=== PATIENT | male | born 1980 | race Caucasian/White ===

== ENCOUNTER 2020-05-02 01:52 | Emergency (ER) | payer OTHER, SELFPAY ==
[2020-05-02 02:04] VITALS: BP 136/77; PULSE 108; RESP 18; TEMP 36.1; O2SAT 98; BMI 25.2
--- NOTE | 2020-05-02 02:15 | ED_ITS ---
HPI - Abdominal Pain General Chief Complaint: Abdominal Pain Stated Complaint: ABD PAIN Time Seen by Provider: 05/02/20 02:15 History of Present Illness HPI narrative: This is a 39-year-old male with significant past medical history of diabetes, glaucoma, and a prior episode of diverticulitis with abscess and now presents with worsening crampy with intermittent sharp / stabbing abdominal discomfort since yesterday morning that has worsened throughout the day and is associated with nausea and an isolated episode of nonbilious /nonbloody vomiting, but he states he is still able to pass flatus. He denies any urinary pain / burning /frequency. Related Data Previous Rx's Medication Instructions Recorded amoxicillin-pot clavulanate 1 tab PO Q12H 10 Days #20 tab 05/02/20 [Augmentin] Allergies Allergy/AdvReac Type Severity Reaction Status Date / Time No Known Allergies Allergy Verified 05/02/20 02:04 [No Known Allergies*] Review of Systems Review of Systems Pertinent positives and negatives as stated in HPI 10 point review of systems is otherwise negative. Physical Exam Vital Signs and I&O and Narrative: Vital Signs and I&O: Vital Signs Temp 98.1 F 05/02/20 06:13 Pulse 78 05/02/20 06:13 Resp 18 05/02/20 04:03 BP 115/76 05/02/20 06:13 Pulse Ox 99 05/02/20 06:13 Intake & Output 05/01/20 05/02/20 05/02/20 18:59 06:59 18:59 Intake Total 1150 / 1150 Balance 1150 / 1150 Weight 73.028 kg Intake: Intake, IV Amoun t 1150 / 1150 cefTRIAXone so dium 1 gm In 0.9 50 / 50 % Sodium Chlor rosio 50 ml @ 100 mls/hr IV ONCE ONE Rx#: [id number] metroNIDAZOLE/ NS 500 mg In 100 100 / 100 ml @ 100 mls/h r IV ONCE ONE Rx# :[id number] 0.9 % Sodium C hloride 1,000 ml 1000 / 1000 @ 999 mls/hr I VCONT .Q1H1M JAMARI Rx#:[id number] Body Mass Index 25.2 VITAL SIGNS: Reviewed. GENERAL: Well developed, well nourished, in no acute distress. HEAD: Normocephalic/atraumatic, Posterior oropharynx was without edema, erythema or exudate. EYES: PERRLA, Pupils <>, EOMI intact without pain, no nystagmus/pallor/icterus noted EARS: Ext canals without abnormality, TMs non-bulging and non-erythematous NOSE: Nares patent bilateral OROPHARYNX: no oral lesions noted, posterior pharynx clear and non-erythematous without noted tonsillar enlargement/erythema/exudates NECK: Supple, no adenopathy LUNGS: Normal breath sounds. No adventitious sounds or accessory muscle use. SpO2<> CARDIOVASCULAR: Regular rate and rhythm without noted murmurs, no JVD or lower extremity edema. ABDOMEN: Soft, diffuse tenderness without rebound, non-distended with decreased bowel sounds. No rigidity. No guarding. No palpable masses or hernias noted MUSCULOSKELETAL: No tenderness, deformities, or effusions noted on gross inspection. EXTREMITIES: No cyanosis, clubbing or edema. SKIN: Inspection of the skin reveals no rashes, ulcerations, jaundice, pallor, or petechiae. NEUROLOGIC: Alert and oriented x 3. Strength and sensation to light touch were grossly intact x 4. Course Course Hospital Course: This is a 39-year-old male with history and clinical presentation consistent with likely diverticulitis and less likely SBO as he has continued to pass flatus. There is no evidence to suggest sepsis at this time. Review of all investigations is significant for evidence to support acute uncomplicated diverticulitis with the leukocytosis, and CT findings of inflammatory changes around the sigmoid colon. Patient received initial antibiotics in the emergency department and will be discharged with a 10 day course an strongly recommended to follow-up with his primary care provider for GI evaluation 6 weeks after resolution of this infection. Patient was able to tolerate p.o. prior to discharge. MDM - Abdominal Pain Lab Data Result diagrams: 05/02/20 02:46 05/02/20 02:46 Labs: Lab Results 05/02/20 05/02/20 05/02/20 Range/Units 02:46 02:46 03:13 WBC 14.5 H (4.8-10.8) X10*3/uL RBC 4.75 (4.60-5.80) X10*6/uL Hgb 13.5 L (14.0-18.0) g/dl Hct 42.5 (42-52) % MCV 89.5 (80-98) fL MCH 28.4 (27.0-33.0) pg MCHC 31.8 (31.0-36.0) g/dl RDW 13.9 (11.0-16.0) % Plt Count 254 (160-400) X10*3/uL MPV 10.4 (9.4-12.4) fL Immature Gran % (Auto) 0.4 (0.0-0.4) % Neut % (Auto) 76.0 H (45-73) % Lymph % (Auto) 12.2 L (20-40) % [place] % (Auto) 8.1 (2-11) % Eos % (Auto) 3.0 (0-4) % Baso % (Auto) 0.3 (0-2) % Neut # (Auto) 11.0 H (2.0-8.3) X10*3/uL Lymph # (Auto) 1.8 (1.2-4.9) X10*3/uL [place] # (Auto) 1.2 (0.1-1.2) X10*3/uL Eos # (Auto) 0.4 (0.0-0.4) X10*3/uL Baso # (Auto) 0.1 (0.0-0.2) X10*3/uL Abs Immat Gran (auto) 0.06 H (0.00-0.03) X10*3/uL Absolute Nucleated RBC 0.000 (0.0-0.012) X10*3/uL Nucleated RBC % (auto) 0.0 (0.0-0.2) /100WBC Sodium 137 (135-145) mmol/L Potassium 4.6 (3.3-5.1) mmol/l Chloride 101 (96-108) mmol/L Carbon Dioxide 26 (22-29) mmol/L Anion Gap 15 (12-20) BUN 10 (9-16) mg/dL Creatinine 0.88 (0.5-1.4) mg/dL Estim Creat Clear Calc 106.4 Estimated GFR > 60 Random Glucose 236 H (60-115) mg/dL Calcium 9.3 (8.4-10.2) mg/dL Total Bilirubin 0.6 (0.0-1.0) mg/dL AST 21 (5-37) U/L ALT 21 (0-40) U/L Alkaline Phosphatase 71 (39-117) U/L Total Protein 7.1 (6.5-8.0) g/dL Albumin 4.3 (3.5-5.0) g/dL Urine Color YELLOW Urine Appearance CLEAR Urine pH 6.0 (5.0-8.0) Ur Specific [place] 1.025 (1.005-1.025) Urine Protein NEG (NEG-TRACE) MG/DL Urine Glucose (UA) >=1000 H (NEG) MG/DL Urine Ketones NEG (NEG) MG/DL Urine Blood NEG (NEG) Urine Nitrite NEG (NEG) Ur Leukocyte Esterase NEG (NEG) Urine RBC 0 (0) /HPF Urine WBC 0 (0-4) /HPF Ur Squamous Epith Cells NONE /LPF Urine Bacteria NONE /LPF Discharge Plan Discharge Clinical Impression: Diverticulitis Patient Disposition: Home, Self-Care Instructions: Diverticulitis (ED), Diverticulitis Diet (ED) Additional Instructions: 1. Tylenol 1000 mg, orally, every 6 hours as needed for pain control. Do not exceed 4000 mg within 24 hours. 2. ibuprofen 400 mg, orally with milk or food, every 6 hours as needed for pain control. The patient and/or family acknowledge understanding of results (as applicable), diagnosis, treatment plan, need for follow up, and symptoms that should prompt a return to the emergency room. Prescriptions: New amoxicillin-pot clavulanate [Augmentin] 875-125 mg tablet 1 tab PO Q12H 10 Days Qty: 20 RF: 0 Referrals: Jayro Dougherty, [facility]OR-BC [Primary Care Provider] - 2 days ( for additional follow-up and management after being treated for your diverticulitis.) Stand Alone Forms: Work/School Release Interventions: ED Discharge Assessment Last Done: 05/02/20 06:28 Discharge Date/Time: 05/02/20 06:28 [facility] Past Medical History Source: nursing notes reviewed Medical History Diabetes mellitus Diverticulosis Glaucoma Social History Social History Alcohol intake: current Alcohol intake frequency: a few times a month Smoking Status: Heavy tobacco smoker Smoked in Last 30 Days: Yes Use of substances other than those prescribed or required for medical reasons: No Advance Directives: No
--- NOTE | 2020-05-02 02:16 | PC.NURSE ---
Patient ambulated into ED placed in ED bed 18.
[2020-05-02 02:22] VITALS: BP 128/87; PULSE 100; RESP 18; TEMP 36.7; O2SAT 97
--- NOTE | 2020-05-02 02:33 | CT_ITS ---
EXAMINATION: CT ABDOMEN AND PELVIS WITH CONTRAST CLINICAL INFORMATION: Abdominal pain. COMPARISON: Multiple prior exams are reviewed. The most recent is from 04/13/2020. TECHNIQUE: Contiguous axial thin section helical images of the abdomen and pelvis were performed following the administration of 85 mL of intravenous Omnipaque 350. The data set was reformatted in the coronal and sagittal planes and reviewed on an independent workstation. DLP: 483 mGy-cm. FINDINGS: The visualized lung bases are clear. The visualized portions of the heart are unremarkable. The liver is of normal size and attenuation without focal lesions nor intrahepatic biliary ductal dilation. A normal gallbladder is identified. There is no wall thickening or discernible pericholecystic fluid. The spleen, pancreas, adrenal glands are unremarkable. Both kidneys are of normal size and attenuation without nephrolithiasis. There is no right-sided hydronephrosis. There is left grade 1-2 hydronephrosis with mild proximal left hydroureter. Following the administration of IV contrast, prompt symmetric nephrograms are displayed. There is no abdominal free fluid. There is neither mesenteric nor retroperitoneal lymphadenopathy. There are scattered nonpathologically enlarged retroperitoneal lymph nodes about the inflammatory reaction about the sigmoid colon. There is focal wall thickening within the sigmoid colon with scattered diverticula. There is adjacent mesenteric fat stranding. There are no fluid collections. Otherwise, unremarkable unopacified loops of small and large bowel are identified. There is trace pelvic free fluid. The urinary bladder is unremarkable. There is neither pelvic nor inguinal lymphadenopathy. Bone windows: Neither sclerotic nor lytic bone lesions are identified. IMPRESSION: Diverticulosis without evidence of diverticulitis. No drainable fluid collections. Secondary to the inflammation about the sigmoid colon, there is left grade 1-2 hydroureteronephrosis. Trace pelvic free fluid. Automated exposure control (Care Dose) Adjustment of the mA and/or kv according to patient size (this includes techniques or standardized protocols for targeted exams where dose is matched to indication / reason for exam; i.e. extremities or head).
[2020-05-02] MEDS: 0.9 % Sodium Chloride 1,000 ML 999 ML IVCONT (02:47)
[2020-05-02] MEDS: ondansetron HCL 4 MG/2 ML VIAL IVPUSH (03:00)
[2020-05-02] MEDS: Acetaminophen 325 MG TABLET 975 MG PO (03:00)
[2020-05-02] MEDS: Ketorolac Tromethamine 15 MG/ML VIAL IV (03:00)
[2020-05-02 03:02] LABS: Basophils Absolute Auto 0.1 X10*3/uL (0.0-0.2); Basophils Percent Auto 0.3 % (0-2); Eosinophils Absolute Auto 0.4 X10*3/uL (0.0-0.4); Hematocrit 42.5 % (42-52); Hemoglobin 13.5 g/dl (14.0-18.0); Imm Gran Abs Auto 0.06 X10*3/uL (0.00-0.03); Imm Gran Pct Auto 0.4 % (0.0-0.4); Lymphocytes Absolute Auto 1.8 X10*3/uL (1.2-4.9); Lymphocytes Percent Auto 12.2 % (20-40); MANUAL DIFF FLAG NO; Mean Corpuscular HGB Conc 31.8 g/dl (31.0-36.0); Mean Corpuscular Hemoglobin 28.4 pg (27.0-33.0); Mean Corpuscular Volume 89.5 fL (80-98); Mean Platelet Volume 10.4 fL (9.4-12.4); Monocytes Absolute Auto 1.2 X10*3/uL (0.1-1.2); Monocytes Percent Auto 8.1 % (2-11); Platelet Count 254 X10*3/uL (160-400); Red Blood Count 4.75 X10*6/uL (4.60-5.80); Red Cell Distribution Width 13.9 % (11.0-16.0); White Blood Count 14.5 X10*3/uL (4.8-10.8)
--- NOTE | 2020-05-02 03:14 | PC.NURSE ---
IV placed. Labs and urine sent. IVF running. Pain medication given without effect as of now. Patient denies nausea. Pending abd ct.
--- NOTE | 2020-05-02 03:22 | PC.NURSE ---
assumned patient care at this time. pt states no relief from iv toradol. labs pending with ns infusing. pending ct scan. md aware of pain.
[2020-05-02 03:23] LABS: Glucose Urine UA >=1000 MG/DL (NEG); Leukocyte Esterase Urine NEG (NEG); Nitrite Urine NEG (NEG); Specific Gravity - Urine 1.025 (1.005-1.025); Urine Blood NEG (NEG); Urine Ketones NEG (NEG); Urine Protein NEG (NEG-TRACE)
[2020-05-02 03:24] LABS: Appearance Urine CLEAR; Color Urine YELLOW
[2020-05-02 03:29] LABS: RBC Urine 0 /HPF (0); WBC Urine 0 /HPF (0-4)
[2020-05-02 03:55] LABS: Alanine Aminotransferase 21 U/L (0-40); Albumin Level 4.3 g/dL (3.5-5.0); Alkaline Phosphatase 71 U/L (39-117); Anion Gap 15 (12-20); Aspartate Amino Transferase 21 U/L (5-37); Bilirubin Total 0.6 mg/dL (0.0-1.0); Blood Urea Nitrogen 10 mg/dL (9-16); Calcium 9.3 mg/dL (8.4-10.2); Carbon Dioxide 26 mmol/L (22-29); Chloride 101 mmol/L (96-108); Creatinine Clr Calc Pharmacy 106.4; Estimated Glomerular Filt Rate > 60; Glucose Random 236 mg/dL (60-115); Potassium 4.6 mmol/l (3.3-5.1); Sodium 137 mmol/L (135-145); Total Protein 7.1 g/dL (6.5-8.0)
[2020-05-02 04:03] VITALS: BP 105/66; PULSE 93; RESP 18; TEMP 37.1; O2SAT 99
--- NOTE | 2020-05-02 04:22 | PC.NURSE ---
PT TO AND FROM IMAGING WITHOUT INCIDENT. PROVIDER UNABLE TO ODER FENTANTLY IN CONCENTRATION AVAILABLE IN [place]. VERIFIED CONCENTRATION WITH [facility]AMA ANDRADE AT PATIENT BEDSIDE AND MANUALLY SCANNED. IN. GAMA WHO IS THE SUPER USE FOR NEW EXPANSE EMAILED SUPERIORS REGARDING ISSUE WITH [facility] CONCENTRATION.
[2020-05-02] MEDS: iohexoL 350 MG/ML 100 ML INFUS..BTL 85 ML IV (04:28)
--- NOTE | 2020-05-02 04:33 | PC.NURSE ---
plan for iv antibiotics and po challenge. if he can tolerate po plan to d.c home
[2020-05-02] MEDS: cefTRIAXone sodium 1 GM in 0.9 % Sodium Chloride 50 ML IV (04:45)
[2020-05-02] MEDS: metroNIDAZOLE/NS 500 MG/100 ML PIGGYBACK 100 MG IV (05:05)
--- NOTE | 2020-05-02 05:07 | PC.NURSE ---
pt given iv antibiotics. tolerated po well. pain persists per dr lang to not obtain blood cultures.
--- NOTE | 2020-05-02 05:57 | PC.NURSE ---
NO VOMITTING SINCE PO CHALLENGE
[2020-05-02 06:13] VITALS: BP 115/76; PULSE 78; TEMP 36.7; O2SAT 99
== END 2020-05-02 06:28 | disposition home or self-care (01) ==
PROVIDERS: Emergency Provider Student in an Organized Health Care Education/Training Program; PCP Nurse Practitioner Family
DX: K57.30 Diverticulosis of large intestine without perforation or abscess without bleeding (principal); E11.9 Type 2 diabetes mellitus without complications; F17.200 Nicotine dependence, unspecified, uncomplicated; Z71.6 Tobacco abuse counseling; Z79.899 Other long term (current) drug therapy
CPT/HCPCS: 36415; 74177; 80053; 81001; 85025; 96361; 96365; 96367; 96375; 99284; J0696; J1885; J2405

== ENCOUNTER 2020-05-03 10:12 | Outpatient (REF) | payer OTHER, SELFPAY | END 2020-05-03 10:13 | disposition home or self-care (01) | LOC: HO.HMGCLDS 10:12 | PROVIDERS: PCP Nurse Practitioner Family; Visit Provider Internal Medicine | DX: Z20.828 Contact with and (suspected) exposure to other viral communicable diseases (principal) | CPT/HCPCS: 36415; 87635 ==

== ENCOUNTER 2020-05-31 09:44 | Outpatient (REF) | payer OTHER, SELFPAY | END 2020-05-31 09:45 | disposition home or self-care (01) | LOC: HO.HMGCLDS 09:44 | PROVIDERS: PCP Nurse Practitioner Family; Visit Provider Internal Medicine | DX: Z20.828 Contact with and (suspected) exposure to other viral communicable diseases (principal) | CPT/HCPCS: U0003 ==

== ENCOUNTER 2020-09-01 08:36 | Outpatient (REF) | payer OTHER, SELFPAY ==
[2020-09-01 12:38] LABS: MANUAL DIFF FLAG NO
[2020-09-01 12:45] LABS: Basophils Absolute Auto 0.1 X10*3/uL (0.0-0.2); Basophils Percent Auto 0.8 % (0-2); Eosinophils Absolute Auto 0.5 X10*3/uL (0.0-0.4); Eosinophils Percent Auto 4.4 % (0-4); Hematocrit 45.8 % (42-52); Hemoglobin 14.8 g/dl (14.0-18.0); Imm Gran Abs Auto 0.03 X10*3/uL (0.00-0.03); Imm Gran Pct Auto 0.3 % (0.0-0.4); Lymphocytes Absolute Auto 3.4 X10*3/uL (1.2-4.9); Mean Corpuscular HGB Conc 32.3 g/dl (31.0-36.0); Mean Corpuscular Hemoglobin 28.7 pg (27.0-33.0); Mean Corpuscular Volume 88.9 fL (80-98); Mean Platelet Volume 10.7 fL (9.4-12.4); Monocytes Absolute Auto 0.5 X10*3/uL (0.1-1.2); Neutrophils Absolute Auto 6.1 X10*3/uL (2.0-8.3); Neutrophils Percent Auto 57.5 % (45-73); Platelet Count 282 X10*3/uL (160-400); Red Blood Count 5.15 X10*6/uL (4.60-5.80); Red Cell Distribution Width 13.7 % (11.0-16.0); White Blood Count 10.6 X10*3/uL (4.8-10.8)
== END 2020-09-01 08:37 | disposition home or self-care (01) ==
LOC: HO.LAB 08:36
PROVIDERS: PCP Nurse Practitioner Family; Visit Provider Physician Assistant
DX: R10.32 Left lower quadrant pain (principal)
CPT/HCPCS: 36415; 85025

== ENCOUNTER 2020-11-04 10:19 | Outpatient (REF) | payer MEDICAID, SELFPAY ==
[2020-11-04 11:55] LABS: Alanine Aminotransferase 26 U/L (0-40); Albumin Level 4.4 g/dL (3.5-5.0); Alkaline Phosphatase 74 U/L (39-117); Anion Gap 13 (12-20); Aspartate Amino Transferase 19 U/L (5-37); Bilirubin Total 0.5 mg/dL (0.0-1.0); Blood Urea Nitrogen 13 mg/dL (9-16); Calcium 9.4 mg/dL (8.4-10.2); Carbon Dioxide 29 mmol/L (22-29); Chloride 101 mmol/L (96-108); Cholesterol 171 mg/dL; Estimated Glomerular Filt Rate > 60; Glucose Fasting 270 mg/dL (60-99); HDL Cholesterol 40 mg/dL; LDL Cholesterol Calculated 84 mg/dl; Potassium 4.8 mmol/L (3.3-5.1); Sodium 138 mmol/L (135-145); Total Protein 7.2 g/dL (6.5-8.0); Triglycerides 237 mg/dL
[2020-11-04 12:01] LABS: Estimated Average Glucose 260 mg/dL; Hemoglobin A1c % 10.7 %
[2020-11-04 12:07] LABS: Creatinine Urine 137.93 mg/dL
[2020-11-04 12:17] LABS: TSH reflex Free T4 0.97 uIU/mL (0.32-4.0)
== END 2020-11-04 10:20 | disposition home or self-care (01) ==
LOC: HO.HMGCLDS 10:19
PROVIDERS: PCP Nurse Practitioner Family; Visit Provider Nurse Practitioner Family
DX: E11.9 Type 2 diabetes mellitus without complications (principal)
CPT/HCPCS: 36415; 80053; 80061; 82043; 83036; 84443

== ENCOUNTER 2021-04-07 09:18 | Outpatient (REF) | payer MEDICAID, SELFPAY ==
[2021-04-07 11:39] LABS: Appearance Urine CLEAR; Color Urine STRAW; Glucose Urine UA NEG (NEG); Leukocyte Esterase Urine NEG (NEG); Nitrite Urine NEG (NEG); PH 6.5 (5.0-8.0); Urine Blood NEG (NEG); Urine Ketones NEG (NEG); Urine Protein NEG (NEG-TRACE)
[2021-04-07 11:41] LABS: Estimated Average Glucose 171 mg/dL; Hemoglobin A1c % 7.6 %
[2021-04-07 12:06] LABS: Alanine Aminotransferase 22 U/L (0-40); Albumin Level 4.6 g/dL (3.5-5.0); Alkaline Phosphatase 54 U/L (39-117); Anion Gap 14 (12-20); Aspartate Amino Transferase 35 U/L (5-37); Bilirubin Total 0.4 mg/dL (0.0-1.0); Blood Urea Nitrogen 21 mg/dL (9-16); Calcium 11.1 mg/dL (8.4-10.2); Carbon Dioxide 22 mmol/L (22-29); Chloride 109 mmol/L (96-108); Cholesterol 179 mg/dL; Estimated Glomerular Filt Rate > 60; Glucose Fasting 163 mg/dL (60-99); HDL Cholesterol 38 mg/dL; LDL Cholesterol Calculated 111 mg/dl; Potassium 4.6 mmol/L (3.3-5.1); Sodium 140 mmol/L (135-145); Total Protein 7.3 g/dL (6.5-8.0); Triglycerides 152 mg/dL
[2021-04-07 12:26] LABS: TSH reflex Free T4 0.98 uIU/mL (0.32-4.0)
== END 2021-04-07 09:19 | disposition home or self-care (01) ==
LOC: HO.HMGCLDS 09:18
PROVIDERS: PCP Nurse Practitioner Family; Visit Provider Nurse Practitioner Family
DX: Z00.00 Encounter for general adult medical examination without abnormal findings (principal); E11.9 Type 2 diabetes mellitus without complications
CPT/HCPCS: 36415; 80053; 80061; 81003; 83036; 84443

== ENCOUNTER 2021-04-30 11:20 | Emergency (ER) | payer MEDICAID, SELFPAY ==
--- NOTE | ~2021-04-30 | XR_ITS ---
EXAMINATION: XR HAND, RIGHT CLINICAL INFORMATION: Injury COMPARISON: None TECHNIQUE: PA, lateral, and oblique views of the right hand. FINDINGS: Comminuted fracture of the base of the fifth metacarpal extend involve the carpometacarpal joint. No other fractures. There is adjacent soft tissue swelling. XR/XR hand RT min 3V IMPRESSION: Comminuted intra-articular fracture at the base of the fifth metacarpal involving the carpometacarpal joint..
[2021-04-30 12:07] VITALS: BP 135/86; PULSE 100; RESP 18; TEMP 36.7; O2SAT 98; BMI 24.9
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
[2021-04-30] MEDS: Ibuprofen 600 MG TABLET PO (12:15)
[2021-04-30 13:19] VITALS: RESP 18
== END 2021-04-30 14:51 | disposition home or self-care (01) ==
PROVIDERS: Emergency Provider Internal Medicine; PCP Nurse Practitioner Family
DX: S62.91XA Unspecified fracture of right hand, initial encounter for closed fracture (principal); M79.641 Pain in right hand; X79.XXXA Intentional self-harm by blunt object, initial encounter; Y93.9 Activity, unspecified; Y92.9 Unspecified place or not applicable; Y99.9 Unspecified external cause status; Z79.899 Other long term (current) drug therapy
CPT/HCPCS: 29125; 73130; 99283; 99284

== ENCOUNTER → 2021-05-03 13:53 | Outpatient (BNVA) | payer MEDICAID, SELFPAY | PROVIDERS: PCP Nurse Practitioner Family; Visit Provider Physician Assistant | DX: S62.316A Displaced fracture of base of fifth metacarpal bone, right hand, initial encounter for closed fracture (principal) | CPT/HCPCS: 26600; 29085; 99202 ==

== ENCOUNTER 2021-05-27 19:08 | Emergency (ER) | payer OTHER, SELFPAY ==
[2021-05-27 19:10] VITALS: BP 132/73; PULSE 105; RESP 16; TEMP 36.4; O2SAT 97; BMI 25.0
--- NOTE | 2021-05-27 21:03 | ED_ITS ---
HPI - Skin/Abscess/Foreign Bdy General Chief complaint: Skin/Abscess/Foreign Body Stated complaint: abcess on the left thigh Time Seen by Provider: 05/27/21 21:01 Source: patient Mode of arrival: ambulatory Limitations: no limitations History of Present Illness HPI narrative: Patient diabetic noticed small abscess on left thigh for last 2 days with history of same in the past no history of MRSA no fever no chills Related Data Home Medications Medication Instructions Recorded Confirmed brimonidine 0.2 % eye drops 1 drp OPHTHALMIC (EYE) TID 02/08/21 04/05/21 dorzolamide 2 %-timolol 0.5 % (PF) 1 drp OPHTHALMIC (EYE) BID 02/08/21 04/05/21 eye drops netarsudil 0.02 % eye drops 1 drp OPHTHALMIC (EYE) QPM 02/08/21 04/05/21 (Rhopressa) Previous Rx's Medication Instructions Recorded atorvastatin 10 mg tablet 10 mg PO DAILY #30 tab 10/10/20 pen needle, diabetic 31 gauge x #100 ea 01/02/2110/11 (BD Ultra-Fine Mini Pen Needle) acetazolamide 250 mg tablet 250 mg PO BID #30 tab 01/05/21 insulin lispro 100 unit/mL 16 unit SUBCUT TID 30 Days #14.4 ml 01/05/21 subcutaneous pen (Humalog KwikPen (U-100) Insulin) latanoprost 0.005 % eye drops 1 drp OPHTHALMIC (EYE) DAILY #2.5 01/05/21 ml sertraline 25 mg tablet 25 mg PO DAILY #60 tab 01/23/21 insulin glargine 100 unit/mL (3 30 unit SUBCUT QPM 60 Days #18 ml 04/05/21 mL) subcutaneous pen (Lantus Solostar U-100 Insulin) hydrocodone 5 mg-acetaminophen 325 1 tab PO Q8H PRN #6 tab 04/30/21 mg tablet ibuprofen 600 mg tablet 600 mg PO Q8H PRN #20 tab 04/30/21 metformin 1,000 mg tablet 1,000 mg PO BID #180 tab 05/07/21 lisinopril 5 mg tablet 5 mg PO DAILY 90 Days #90 tab 05/16/21 amoxicillin 875 mg-potassium 1 tab PO BID 10 Days #20 tab 05/18/21 clavulanate 125 mg tablet (Augmentin) metronidazole 500 mg tablet 500 mg PO Q8H 10 Days #30 tab 05/18/21 cephalexin 500 mg capsule 500 mg PO QID 10 Days #40 cap 05/27/21 doxycycline hyclate 100 mg tablet 100 mg PO BID #20 tab 05/27/21 Allergies Allergy/AdvReac Type Severity Reaction Status Date / Time No Known Allergies Allergy Verified 04/05/21 10:03 [No Known Allergies*] Review of Systems Review of Systems: Yes all other systems are reviewed and are negative [facility] Past Medical History Medical History Abdominal pain Diabetes mellitus Diverticulosis Glaucoma Pigmentary glaucoma of both eyes Surgical History H/O colonoscopy History of circumcision S/P LASIK surgery Family History Family History Father HTN (hypertension) Diabetes mellitus Mother HTN (hypertension) Diabetes mellitus Heart murmur Brother No problems noted. Brother No problems noted. Brother No problems noted. Sister Lupus Sister No problems noted. Sister No problems noted. Sister No problems noted. Son No problems noted. Daughter No problems noted. Social History Social History Household Members: Spouse and Children Alcohol intake: current Alcohol intake frequency: holidays/special occasions only Cigarette Packs Per Day: 2 Advance Directives: No Advance Directives Information Provided: No Physical Exam Vital Signs: Vital Signs: Last Vital Signs Temp 97.6 F 05/27/21 19:10 Pulse 105 H 05/27/21 19:10 Resp 16 05/27/21 19:10 BP 132/73 05/27/21 19:10 Pulse Ox 97 05/27/21 19:10 Body Mass Index 25.0 Extrem: Upper/lower leg/hip images: 1. 2 x 2 cm small abscess with surrounding erythema Procedures Abscess I/D Site: lower extremity Local Anesthetic: lidocaine 2% Amount of anesthesia used (mL): 3 Technique: incised with blade Amount of fluid expressed (mL): 2 Sent for culture/gram staining?: Yes Irrigation: No Packing used?: none Discharge Plan Discharge Clinical Impression: Abscess of skin or subcutaneous tissue Patient Disposition: Home, Self-Care Instructions: Abscess Incision and Drainage (DC) Additional Instructions: Local Care as advised Take antibiotics as prescribed Report to the ER/PCP worsening of the swelling or redness Prescriptions: New cephalexin 500 mg capsule 500 mg PO QID 10 Days Qty: 40 RF: 0 doxycycline hyclate 100 mg tablet 100 mg PO BID Qty: 20 RF: 0 No Action atorvastatin 10 mg tablet 10 mg PO DAILY Qty: 30 RF: 4 (DME) pen needle, diabetic [BD Ultra-Fine Mini Pen Needle] 31 gauge x 3/16 needle See Rx Instructions .ROUTE .MEDSUPPLY Qty: 100 RF: 7 sertraline 25 mg tablet 25 mg PO DAILY Qty: 60 RF: 3 metformin 1,000 mg tablet 1,000 mg PO BID Qty: 180 RF: 0 lisinopril 5 mg tablet 5 mg PO DAILY 90 Days Qty: 90 RF: 2 amoxicillin-pot clavulanate [Augmentin] 875-125 mg tablet 1 tab PO BID 10 Days Qty: 20 RF: 0 metronidazole 500 mg tablet 500 mg PO Q8H 10 Days Qty: 30 RF: 0 ibuprofen 600 mg tablet 600 mg PO Q8H PRN (Reason: pain) Qty: 20 RF: 0 hydrocodone-acetaminophen 5-325 mg tablet 1 tab PO Q8H PRN (Reason: pain) Qty: 6 RF: 0 latanoprost 0.005 % drops 1 drp ophthalmic (eye) DAILY Qty: 2.5 RF: 0 acetazolamide 250 mg tablet 250 mg PO BID Qty: 30 RF: 0 insulin lispro [Humalog KwikPen Insulin] 100 unit/mL insulin pen 16 unit subcut TID 30 Days Qty: 14.4 RF: 7 Lantus Solostar U-100 Insulin 100 unit/mL (3 mL) insulin pen 30 unit subcut QPM 60 Days Qty: 18 RF: 0 brimonidine 0.2 % drops 1 drp ophthalmic (eye) TID RF: 0 dorzolamide-timolol (PF) 2-0.5 % drops 1 drp ophthalmic (eye) BID RF: 0 Rhopressa 0.02 % drops 1 drp ophthalmic (eye) QPM RF: 0
[2021-05-27] MEDS: Ibuprofen 600 MG TABLET PO (21:54)
[2021-05-27] MEDS: Lidocaine HCl 2 % MPF 5 ML VIAL INFILTRATI (21:55)
[2021-05-27] MEDS: cephALEXin 500 MG CAPSULE PO (21:55)
== END 2021-05-27 22:18 | disposition home or self-care (01) ==
PROVIDERS: Emergency Provider Internal Medicine; PCP Nurse Practitioner Family
DX: L02.416 Cutaneous abscess of left lower limb (principal); Z79.899 Other long term (current) drug therapy
CPT/HCPCS: 10060; 87071; 87205; 99284

== ENCOUNTER 2021-05-31 12:46 | Outpatient (REF) | payer OTHER, SELFPAY ==
--- NOTE | ~2021-05-31 | XR_ITS ---
EXAMINATION: XR HAND, RIGHT CLINICAL INFORMATION: Fracture COMPARISON: Previous x-ray 04/30/2021 TECHNIQUE: 2 views of the right hand. FINDINGS: There is a comminuted fracture of the base of the fifth metacarpal bone. This appears intra-articular with the [facility] joint. Fracture line is still seen. There is a cortical excrescence off the distal shaft of the fifth metacarpal bone probably representing a small bony exostosis. This is unchanged. Soft tissues are unremarkable. XR/XR hand RT 2V IMPRESSION: No change in the comminuted intra-articular fracture of the base of the fifth metacarpal bone.
== END 2021-05-31 12:47 | disposition home or self-care (01) ==
LOC: HO.HOSX 12:46
PROVIDERS: Visit Provider Physician Assistant
DX: S62.231D Other displaced fracture of base of first metacarpal bone, right hand, subsequent encounter for fracture with routine healing (principal)
CPT/HCPCS: 73120; 99212

== ENCOUNTER 2021-07-05 11:18 | Outpatient (REF) | payer OTHER, SELFPAY | END 2021-07-05 11:19 | disposition home or self-care (01) | LOC: HO.HOSX 11:18 | PROVIDERS: Visit Provider Physician Assistant | DX: Z13.89 Encounter for screening for other disorder (principal) ==

== ENCOUNTER 2021-07-24 | Outpatient (REF) | payer OTHER, SELFPAY | END 2021-07-24 00:01 | disposition home or self-care (01) | LOC: HO.LAB | PROVIDERS: Visit Provider Internal Medicine | DX: Z13.89 Encounter for screening for other disorder (principal) | CPT/HCPCS: 36415; 87635; C9803 ==

== ENCOUNTER 2021-08-16 07:36 | Outpatient (REF) | payer OTHER, SELFPAY ==
[2021-08-16 08:24] LABS: COVID-19 Test Negative (Negative)
== END 2021-08-16 07:37 | disposition home or self-care (01) ==
LOC: HO.LAB 07:36
PROVIDERS: Visit Provider Internal Medicine
DX: Z20.822 Contact with and (suspected) exposure to COVID-19 (principal)
CPT/HCPCS: 87635; C9803

== ENCOUNTER 2021-08-29 09:25 | Emergency (ER) | payer OTHER, SELFPAY ==
[2021-08-29 10:22] VITALS: BP 125/82; PULSE 93; RESP 18; TEMP 36.7; O2SAT 98; BMI 26.4
--- NOTE | 2021-08-29 10:24 | ECG_ITS ---
Test Reason : abdominal pain Blood Pressure : / mmHG Vent. Rate : 095 BPM Atrial Rate : 095 BPM P-R Int : 150 ms QRS Dur : 086 ms QT Int : 316 ms P-R-T Axes : 034 019 002 degrees QTc Int : 397 ms Normal sinus rhythm Normal ECG No significant changes when compared with the previous EKG of 08 jun 2017 Referred By: Generic ED Physician Electronically Signed By:SUSANNE BARDALES
[2021-08-29 10:41] LABS: Basophils Absolute Auto 0.1 X10*3/uL (0.0-0.2); Basophils Percent Auto 0.4 % (0-2); Eosinophils Absolute Auto 0.3 X10*3/uL (0.0-0.4); Eosinophils Percent Auto 1.9 % (0-4); Hematocrit 44.4 % (42.0-52.0); Hemoglobin 14.2 g/dl (14.0-18.0); Imm Gran Abs Auto 0.05 X10*3/uL (0.00-0.03); Imm Gran Pct Auto 0.4 % (0.0-0.4); Lymphocytes Absolute Auto 2.3 X10*3/uL (1.2-4.9); MANUAL DIFF FLAG NO; Mean Corpuscular Hemoglobin 28.4 pg (27.0-33.0); Mean Corpuscular Volume 88.8 fL (80.0-98.0); Mean Platelet Volume 10.1 fL (9.4-12.4); Monocytes Absolute Auto 0.8 X10*3/uL (0.1-1.2); Monocytes Percent Auto 5.7 % (2-11); Neutrophils Absolute Auto 10.1 x10*3/uL (2.0-8.3); Neutrophils Percent Auto 74.6 % (45-73); Platelet Count 329 X10*3/uL (160-400); Red Cell Distribution Width 14.6 % (11.0-16.0); White Blood Count 13.5 X10*3/uL (4.8-10.8)
[2021-08-29 10:57] LABS: COVID-19 Test Negative (Negative)
[2021-08-29 10:59] LABS: Alanine Aminotransferase 22 U/L (0-40); Albumin Level 4.5 g/dL (3.5-5.0); Alkaline Phosphatase 61 U/L (39-117); Anion Gap 13 (12-20); Aspartate Amino Transferase 13 U/L (5-37); Bilirubin Total 0.4 mg/dL (0.0-1.0); Blood Urea Nitrogen 21 mg/dL (9-16); Calcium 9.9 mg/dL (8.4-10.2); Carbon Dioxide 21 mmol/L (22-29); Chloride 106 mmol/L (96-108); Creatinine Clr Calc Pharmacy 69.1; Estimated Glomerular Filt Rate 59; Glucose Random 285 mg/dL (60-115); Lipase 34 U/L (8-78); Potassium 4.6 mmol/L (3.3-5.1); Sodium 135 mmol/L (135-145); Total Protein 7.7 g/dL (6.5-8.0)
--- NOTE | 2021-08-29 11:06 | ED_ITS ---
HPI - Abdominal Pain General Chief Complaint: Abdominal Pain Stated Complaint: ABD PAIN Time Seen by Provider: 08/29/21 11:06 Source: patient Mode of arrival: ambulatory Limitations: no limitations History of Present Illness MD elicited complaint: abdominal pain (acid reflux, burning in throat) Onset (ago): day(s) (since Saturday) Pain Consistency: intermittent Location: epigastric Severity: moderate Quality: burning Radiation: epigastric and chest (into throat) Migration to: no migration Exacerbating factors: eating Relieving factors: nothing Context: other (takes aleve every day) Associated symptoms: nausea and vomiting Related Data Home Medications Medication Instructions Recorded Confirmed brimonidine 0.2 % eye drops 1 drp OPHTHALMIC (EYE) TID 02/08/21 04/05/21 dorzolamide 2 %-timolol 0.5 % 1 drp OPHTHALMIC (EYE) BID 02/08/21 04/05/21 (PF) eye drops netarsudil 0.02 % eye drops 1 drp OPHTHALMIC (EYE) QPM 02/08/21 04/05/21 (Rhopressa) Previous Rx's Medication Instructions Recorded acetazolamide 250 mg tablet 250 mg PO BID #30 tab 01/05/21 insulin lispro 100 unit/mL 16 unit (0.16 mL) SUBCUT TID 30 01/05/21 subcutaneous pen (Humalog #14.4 ml (U-100) Insulin) latanoprost 0.005 % eye drops 1 drp OPHTHALMIC (EYE) DAILY #2.5 01/05/21 ml hydrocodone 5 mg-acetaminophen 325 1 tab PO Q8H PRN #6 tab 04/30/21 mg tablet ibuprofen 600 mg tablet 600 mg PO Q8H PRN #20 tab 04/30/21 lisinopril 5 mg tablet 5 mg PO DAILY 90 Days #90 tab 05/16/21 amoxicillin 875 mg-potassium 1 tab PO BID 10 Days #20 tab 05/18/21 clavulanate 125 mg tablet (Augmentin) metronidazole 500 mg tablet 500 mg PO Q8H 10 Days #30 tab 05/18/21 cephalexin 500 mg capsule 500 mg PO QID 10 Days #40 cap 05/27/21 doxycycline hyclate 100 mg tablet 100 mg PO BID #20 tab 05/27/21 atorvastatin 10 mg tablet 10 mg PO DAILY #30 tab 08/19/21 insulin glargine 100 unit/mL (3 30 unit (0.3 mL) SUBCUT QPM 60 08/19/21 mL) subcutaneous pen (Lantus Days #18 ml Solostar U-100 Insulin) metformin 1,000 mg tablet 1,000 mg PO BID #180 tab 08/19/21 sertraline 25 mg tablet 25 mg PO DAILY #60 tab 08/19/21 blood sugar diagnostic (FreeStyle #100 ea 08/22/21 Test) pen needle, diabetic 31 gauge x #100 ea 08/22/21 3/16 (BD Ultra-Fine Mini Pen Needle) omeprazole 20 mg capsule,delayed 20 mg PO BID 14 Days #28 cap 08/29/21 release ondansetron 4 mg disintegrating 4 mg PO Q8H PRN #20 tab 08/29/21 tablet Allergies Allergy/AdvReac Type Severity Reaction Status Date / Time No Known Allergies Allergy Verified 08/29/21 10:22 [No Known Allergies*] Review of Systems Review of Systems Constitutional : No Weight loss, No Fever, No Chills ENT/Mouth : No sore throat, No Rhinorrhea Eyes: No Swelling, No Redness Cardiovascular : No Chest Pain, No SOB, NoEdema Respiratory : No Cough, No Sputum, No Wheezing Gastrointestinal : Positive Nausea, Positive Vomiting, no Diarrhea, positive abdominal Pain, No Hematochezia, No Melena Genitourinary : No Dysuria, No Urinary Frequency, No Hematuria, No Urgency Musculoskeletal : No joint pain, No Myalgias, No Joint Swelling Skin : No Skin Lesions, No rash Neuro : No Weakness, No Numbness, No Dizziness, No Headache Psych : No Anxiety/Panic, No Depression Heme/Lymph: No Bruising, No Lymphadenopathy Endocrine : No Polyuria, No Polydipsia All other systems reviewed and are negative. Physical Exam Verdana 4l Vital Signs: Verdana 4d Verdana 4d Vital Signs: Verdana 4d Verdana 4Bd Last Vital Signs Verdana 4d Turbo Operator New 4d Turbo Operator New 4d Temp 98.4 F 08/29/21 12:02 Turbo Operator New 4d Pulse 85 08/29/21 12:02 Turbo Operator New 4d Resp 16 08/29/21 12:02 BP 125/84 08/29/21 12:02 Pulse Ox 99 08/29/21 12:02 BMI result Body Mass Index 26.4 Appearance: Alert. Oriented X3. No acute distress. Eyes: Pupils equal, round and reactive to light. ENT: Pharynx normal. Neck: Normal inspection. Neck supple. CVS: Normal heart rate and rhythm. Pulses normal. Respiratory: No respiratory distress. Breath sounds normal. Abdomen: Soft and non-tender. Skin: Skin warm and dry. Normal skin color. Normal skin turgor. Extremities: No lower extremity edema. No calf ttp Neuro: Oriented X 3. No motor deficit. No sensory deficit. Course Course Course Narrative: patient feels much better, no vomiting, ready to go home, previouslyl elevated WBC count, no RUQ pain neg rodriguez's normal LFTs doubt GB pathology - stable for DC MDM - Abdominal Pain MDM Narrative Medical decision making narrative: 40 yo male with hx of DM here with c/o epigastric burning, belching, acid in throat trying to take tums without relief. Cannot think of trigger but started Saturday - at this time seems like esophagitis does take aleve daily for aches and pains - he denies melena. Will obtain labs, hydrate, EKG - atypical for ACS, start on PPI and give GI cocktail. Discussed abstinence from NSAIDs and only use APAP prn. Will need 2 week course of PPI Lab Data Result diagrams: 08/29/21 10:34 08/29/21 10:34 Labs: Lab Results 08/29/21 08/29/21 08/29/21 Range/Units 10:34 10:34 10:34 WBC 13.5 H (4.8-10.8) X10*3/uL RBC 5.00 (4.60-5.80) X10*6/uL Hgb 14.2 (14.0-18.0) g/dl Hct 44.4 (42.0-52.0) % MCV 88.8 (80.0-98.0) fL MCH 28.4 (27.0-33.0) pg MCHC 32.0 (31.0-36.0) g/dl RDW 14.6 (11.0-16.0) % Plt Count 329 (160-400) X10*3/uL MPV 10.1 (9.4-12.4) fL Immature Gran % (Auto) 0.4 (0.0-0.4) % Neut % (Auto) 74.6 H (45-73) % Lymph % (Auto) 17.0 L (20-40) % Early % (Auto) 5.7 (2-11) % Eos % (Auto) 1.9 (0-4) % Baso % (Auto) 0.4 (0-2) % Lymph # (Auto) 2.3 (1.2-4.9) X10*3/uL Early # (Auto) 0.8 (0.1-1.2) X10*3/uL Eos # (Auto) 0.3 (0.0-0.4) X10*3/uL Baso # (Auto) 0.1 (0.0-0.2) X10*3/uL Abs Immat Gran (auto) 0.05 H (0.00-0.03) X10*3/uL Absolute Neuts (auto) 10.1 H (2.0-8.3) x10*3/uL Absolute Nucleated RBC 0.000 (0.0-0.012) X10*3/uL Nucleated RBC % (auto) 0.0 (0.0-0.2) /100WBC Sodium 135 (135-145) mmol/L Potassium 4.6 (3.3-5.1) mmol/L Chloride 106 (96-108) mmol/L Carbon Dioxide 21 L (22-29) mmol/L Anion Gap 13 (12-20) BUN 21 H (9-16) mg/dL Creatinine 1.34 (0.5-1.4) mg/dL Estim Creat Clear Calc 69.1 Estimated GFR 59 Random Glucose 285 H (60-115) mg/dL Calcium 9.9 D (8.4-10.2) mg/dL Total Bilirubin 0.4 (0.0-1.0) mg/dL AST 13 D (5-37) U/L ALT 22 (0-40) U/L Alkaline Phosphatase 61 (39-117) U/L Total Protein 7.7 (6.5-8.0) g/dL Albumin 4.5 (3.5-5.0) g/dL Lipase 34 (8-78) U/L COVID-19 ([facility]IS) Negative (Negative) COVID-19 Clin Com See Note ECG Data Attestation: I personally reviewed and interpreted this ECG as follows: ECG interpretation date: 08/29/21 ECG interpretation time: 11:34 Interpretation: Rate: 95 Rhythm: NSR [place]: normal Normal P waves. Normal MEHDI. Normal QRS complex. ST T wave : no KEVIN, normal qTC: normal prior studies: unchanged from priors The study has been interpreted contemporaneously by me. . Discharge Plan Discharge Clinical Impression: GERD with esophagitis Qualifiers: Esophagitis bleeding: without hemorrhage Qualified Code(s): K21.00 - Gastro- esophageal reflux disease with esophagitis, without bleeding Patient Disposition: Home, Self-Care Instructions: Diet for Stomach Ulcers and Gastritis (ED), Gastroesophageal Reflux Disease (ED), Esophagitis (ED) Additional Instructions: return to ED for any worsening symptoms or concerns tylenol is okay avoid aspirin, motrin, aleve, ibuprofen, naprosyn Prescriptions: New ondansetron 4 mg tablet,disintegrating 4 mg PO Q8H PRN (Reason: nausea and vomiting) Qty: 20 0RF omeprazole 20 mg capsule,delayed release(DR/EC) 20 mg PO BID 14 Days Qty: 28 0RF No Action lisinopril 5 mg tablet 5 mg PO DAILY 90 Days Qty: 90 2RF amoxicillin-pot clavulanate [Augmentin] 875-125 mg tablet 1 tab PO BID 10 Days Qty: 20 0RF metronidazole 500 mg tablet 500 mg PO Q8H 10 Days Qty: 30 0RF metformin 1,000 mg tablet 1,000 mg PO BID Qty: 180 0RF atorvastatin 10 mg tablet 10 mg PO DAILY Qty: 30 4RF Lantus Solostar U-100 Insulin 100 unit/mL (3 mL) insulin pen 30 unit subcut QPM 60 Days Qty: 18 0RF sertraline 25 mg tablet 25 mg PO DAILY Qty: 60 3RF (DME) pen needle, diabetic [BD Ultra-Fine Mini Pen Needle] 31 gauge x 3/16 needle See Rx Instructions .ROUTE .MEDSUPPLY Qty: 100 7RF Rx Instructions: TID (DME) FreeStyle Test Strip See Rx Instructions .Route Qty: 100 6RF Rx Instructions: TID ibuprofen 600 mg tablet 600 mg PO Q8H PRN (Reason: pain) Qty: 20 0RF hydrocodone-acetaminophen 5-325 mg tablet 1 tab PO Q8H PRN (Reason: pain) Qty: 6 0RF cephalexin 500 mg capsule 500 mg PO QID 10 Days Qty: 40 0RF doxycycline hyclate 100 mg tablet 100 mg PO BID Qty: 20 0RF latanoprost 0.005 % drops 1 drp ophthalmic (eye) DAILY Qty: 2.5 0RF acetazolamide 250 mg tablet 250 mg PO BID Qty: 30 0RF insulin lispro [Humalog KwikPen Insulin] 100 unit/mL insulin pen 16 unit subcut TID 30 Days Qty: 14.4 7RF brimonidine 0.2 % drops 1 drp ophthalmic (eye) TID 0RF Rx Instructions: administer approximately 8 hours apart dorzolamide-timolol (PF) 2-0.5 % drops 1 drp ophthalmic (eye) BID 0RF Rhopressa 0.02 % drops 1 drp ophthalmic (eye) QPM 0RF Referrals: Lorraine Cespedes MD [Physician] - 2 weeks Stand Alone Forms: Work/School Release [facility] Past Medical History Attestation statement: The following information was validated with the patient. Medical History Abdominal pain Diabetes mellitus Diverticulosis Glaucoma Pigmentary glaucoma of both eyes Surgical History H/O colonoscopy History of circumcision S/P LASIK surgery Family History Family History Father HTN (hypertension) Diabetes mellitus Mother HTN (hypertension) Diabetes mellitus Heart murmur Brother No problems noted. Brother No problems noted. Brother No problems noted. Sister Lupus Sister No problems noted. Sister No problems noted. Sister No problems noted. Son No problems noted. Daughter No problems noted. Social History Social History Household Members: Spouse and Children Alcohol intake: current Alcohol intake frequency: holidays/special occasions only Cigarette Packs Per Day: 2 Advance Directives: No Advance Directives Information Provided: No
[2021-08-29] MEDS: 0.9 % Sodium Chloride 1,000 ML 999 ML IV (11:38)
[2021-08-29] MEDS: Pantoprazole Sodium 40 MG/10 ML VIAL IVPUSH (11:38)
[2021-08-29] MEDS: Lidocaine HCl Viscous 2 % 15 ML SOLUTION MUCOUS MEM (11:39)
[2021-08-29] MEDS: Magnesium Hydrox/Alum Hydrox 30 ML ORAL.SUSP PO (11:39)
[2021-08-29 12:02] VITALS: BP 125/84; PULSE 85; RESP 16; TEMP 36.9; O2SAT 99
--- NOTE | 2021-08-29 13:20 | PC.NURSE ---
OK FOR DC PER PRIMARY RN. PT AWAKE, ALERT AND ORIENTED X 3. SKIN WARM AND DRY. RESP UNLABORED. DENIES N/V. NO C/O PAIN PRESENTLY.] IV REMOVED.
== END 2021-08-29 13:24 | disposition home or self-care (01) ==
PROVIDERS: Emergency Provider Emergency Medicine; PCP Nurse Practitioner Family
DX: K21.00 Gastro-esophageal reflux disease with esophagitis, without bleeding (principal); Z20.822 Contact with and (suspected) exposure to COVID-19; R10.13 Epigastric pain; Z79.1 Long term (current) use of non-steroidal anti-inflammatories (NSAID); E11.9 Type 2 diabetes mellitus without complications
CPT/HCPCS: 36415; 80053; 83690; 85025; 87635; 93005; 96361; 96374; 96375; 99283; 99284

== ENCOUNTER → 2022-05-23 11:19 | Outpatient (BNVA) | payer OTHER, SELFPAY | PROVIDERS: PCP Nurse Practitioner Family; Visit Provider Surgery | DX: L02.416 Cutaneous abscess of left lower limb (principal) | CPT/HCPCS: 10061; 99202 ==

== ENCOUNTER 2022-07-24 04:12 | Emergency (ER) | payer OTHER, SELFPAY ==
--- NOTE | ~2022-07-24 | CT_ITS ---
EXAMINATION: CT ABDOMEN AND PELVIS WITHOUT CONTRAST CLINICAL INFORMATION: Left abdominal pain COMPARISON: 05/02/2020 TECHNIQUE: Multidetector volumetric imaging was performed from the superior aspect of the liver through the pubic symphysis. Sagittal and coronal reformatted images were obtained on the technologist's workstation. This CT examination was performed using dose optimization techniques as appropriate, variously including the following: *Automated exposure control *Adjustment of mA and/or kV according to patient size (this includes techniques or standardized protocols for targeted exams where dose is matched to indication/reason for exam; i.e. extremities or head) *Use of iterative reconstruction technique DLP: 549 mGy-cm FINDINGS: LUNG BASES: The visualized lung bases are unremarkable. LIVER, GALLBLADDER, AND BILIARY TREE: The liver is normal in size, shape, and attenuation. No focal hepatic lesion or biliary ductal dilatation is present. The gallbladder is unremarkable with no evidence of radiopaque gallstones, gallbladder wall thickening, or obvious pericholecystic inflammatory changes. PANCREAS: Unremarkable. SPLEEN: Unremarkable. ADRENAL GLANDS: Unremarkable. KIDNEYS AND URETERS: The kidneys are normal in size, shape, and attenuation. No hydronephrosis, hydroureter, or calculi seen. No perinephric stranding. BLADDER: Unremarkable. GASTROINTESTINAL TRACT: Pancolonic diverticulosis. There is segmental wall thickening of the proximal third of the sigmoid colon associated pericolic fat stranding. No pericolic fluid collection to suggest abscess. No evidence of gross perforation. Normal appendix. Stomach and small bowel unremarkable. ABDOMINAL WALL: No significant hernia is appreciated. LYMPH NODES: Normal. VASCULAR: Unremarkable. PELVIC VISCERA: Unremarkable. OSSEOUS STRUCTURES: No acute or suspicious osseous abnormalities. There is slight retrolisthesis of L5 over S1 with near complete obliteration of disc space at this and neck and disc phenomena, as well as a broad-based posterior disc herniation. CT/CT abdomen pelvis wo IV con IMPRESSION: Acute uncomplicated sigmoid diverticulitis.
[2022-07-24 04:16] VITALS: BP 130/86; PULSE 125; RESP 18; TEMP 37; O2SAT 98; BMI 43.0
[2022-07-24 04:30] LABS: Hematocrit 41.6 % (42.0-52.0); Hemoglobin 13.6 g/dl (14.0-18.0); Mean Corpuscular HGB Conc 32.7 g/dl (31.0-36.0); Mean Corpuscular Hemoglobin 28.5 pg (27.0-33.0); Mean Corpuscular Volume 87.2 fL (80.0-98.0); Platelet Count 300 X10*3/uL (160-400); Red Blood Count 4.77 X10*6/uL (4.60-5.80); Red Cell Distribution Width 13.2 % (11.0-16.0); White Blood Count 13.2 X10*3/uL (4.8-10.8)
[2022-07-24 04:48] LABS: Alanine Aminotransferase 60 U/L (0-40); Albumin Level 4.1 g/dL (3.5-5.0); Alkaline Phosphatase 73 U/L (39-117); Anion Gap 14 (12-20); Aspartate Amino Transferase 44 U/L (5-37); Bilirubin Total 0.5 mg/dL (0.0-1.0); Blood Urea Nitrogen 12 mg/dL (9-16); Calcium 8.9 mg/dL (8.4-10.2); Carbon Dioxide 23 mmol/L (22-29); Chloride 102 mmol/L (96-108); Estimated Glomerular Filt Rate > 60; Glucose Random 225 mg/dL (60-115); Potassium 4.4 mmol/L (3.3-5.1); Sodium 135 mmol/L (135-145); Total Protein 6.9 g/dL (6.5-8.0)
[2022-07-24 06:37] VITALS: BP 131/81; PULSE 112; RESP 18; TEMP 36.7; O2SAT 96
--- NOTE | 2022-07-24 06:53 | ED_ITS ---
HPI - Abdominal Pain General Chief Complaint: Abdominal Pain Stated Complaint: ? diverticulitis, severe pain Time Seen by Provider: 07/24/22 06:42 Source: patient Mode of arrival: ambulatory History of Present Illness HPI narrative: This is a 41-year-old male who is a diabetic and has a history of diverticulitis and comes in with left lower quadrant to mid abdomen pain since last Saturday, he was started on Cipro/Flagyl by his primary care provider but states his pain, nausea and chills have continued to worsen. Related Data Home Medications Medication Instructions Recorded Confirmed brimonidine 0.2 % eye drops 1 drp ophthalmic (eye) TID 02/08/21 06/27/22 dorzolamide 2 %-timolol 0.5 % (PF) 1 drp ophthalmic (eye) BID 02/08/21 06/27/22 eye drops netarsudil 0.02 % eye drops 1 drp ophthalmic (eye) QPM 02/08/21 06/27/22 (Rhopressa) Previous Rx's Medication Instructions Recorded latanoprost 0.005 % eye drops 1 drp ophthalmic (eye) DAILY #2.5 01/05/21 mL blood sugar diagnostic (FreeStyle #100 ea 08/22/21 Test strips) pen needle, diabetic 31 gauge x #100 ea 08/22/21 3/16 (BD Ultra-Fine Mini Pen Needle) albuterol sulfate 90 mcg/actuation 1 inh inhalation Q4-6H PRN 11/27/21 breath activated powder inhaler shortness of breath or wheezing #1 ea lisinopril 5 mg tablet 5 mg PO DAILY 90 days #90 tabs 01/30/22 metformin 1,000 mg tablet 1,000 mg PO BID #180 tabs 05/03/22 atorvastatin 10 mg tablet 10 mg PO DAILY #30 tabs 06/24/22 insulin lispro 100 unit/mL 16 unit (0.16 mL) subcut TID 06/24/22 subcutaneous pen (Humalog KwikPen diabetes 30 days #14.4 mL (U-100) Insulin) omeprazole 40 mg capsule,delayed 40 mg PO DAILY 90 days #90 caps 06/24/22 release sertraline 25 mg tablet 25 mg PO DAILY #60 tabs 06/24/22 insulin glargine 100 unit/mL (3 30 unit (0.3 mL) subcut QPM 60 07/11/22 mL) subcutaneous pen (Lantus days #18 mL Solostar U-100 Insulin) ciprofloxacin HCl 500 mg tablet 500 mg PO BID 7 days #14 tabs 07/19/22 (Cipro) metronidazole 500 mg tablet 500 mg PO Q8H 7 days #21 tabs 07/19/22 amoxicillin 875 mg-potassium 1 tab PO Q12H 10 days #20 tabs 07/24/22 clavulanate 125 mg tablet ondansetron 4 mg disintegrating 4 mg PO Q8H PRN nausea and 07/24/22 tablet vomiting #10 tabs Allergies Allergy/AdvReac Type Severity Reaction Status Date / Time NSAIDS (Non-Steroidal Allergy Mild thins Verified 06/27/22 10:40 Anti-Inflamma lining of stomach with GERD. Review of Systems Review of Systems Pertinent positives and negatives as stated in HPI. [facility] Past Medical History Source: nursing notes reviewed Medical History Abdominal pain Diabetes mellitus Diverticulosis Glaucoma Pigmentary glaucoma of both eyes Thigh abscess Surgical History H/O colonoscopy History of circumcision S/P LASIK surgery Family History Family History Father HTN (hypertension) Diabetes mellitus Mother HTN (hypertension) Diabetes mellitus Heart murmur Brother No problems noted. Brother No problems noted. Brother No problems noted. Sister Lupus Sister No problems noted. Sister No problems noted. Sister No problems noted. Son No problems noted. Daughter No problems noted. Social History Social History Household Members: Spouse and Children Housing: Apartment Alcohol intake: current Alcohol intake frequency: does not drink Patient Tobacco Use Status: Current everyday Tobacco user Cigarette Packs Per Day: 1.5 Smoked in Last 30 Days: Yes e-Cigarette/Vaping Use: Never Used Second Hand Smoke Exposure: No Use of substances other than those prescribed or required for medical reasons: No Advance Directives: No Advance Directives Information Provided: Yes service: No Current occupational status: employed Current occupation: [employer] Current occupational exposures/hazards: No Cognitive needs: No Hearing needs: No Vision needs: No Physical Exam ED Vital Signs: Vital Signs - 24 hr 07/24/22 04:16 07/24/22 06:37 07/24/22 07:38 Temperature 98.6 F 98.0 F 98.9 F Pulse Rate 125 H 112 H 111 H Respiratory Rate 18 18 20 Blood Pressure 130/86 131/81 127/77 Pulse Oximetry 98 96 99 Oxygen Delivery Method Room Air Room Air Room Air BMI result Body Mass Index 43.0 VITAL SIGNS: Reviewed. GENERAL: Well developed, well nourished, in no acute distress. HEAD: Normocephalic/atraumatic EYES: PERRLA, EOMI EARS: Ext canals without abnormality OROPHARYNX: no oral lesions noted, posterior pharynx clear, tacky mucosa NECK: Supple, no adenopathy LUNGS: Normal breath sounds. No adventitious sounds or accessory muscle use. SpO2<96> CARDIOVASCULAR: Regular rate and rhythm without noted murmurs ABDOMEN: Soft, left lower quadrant pain/mid lower abdominal pain without rebound, non-distended with hypoactive bowel sounds. MUSCULOSKELETAL: No tenderness, deformities, or effusions noted on gross inspection. EXTREMITIES: No cyanosis, clubbing or edema. SKIN: Inspection of the skin reveals no rashes NEUROLOGIC: Alert and oriented x 4. Strength and sensation to light touch were grossly intact x 4. Course Course Course Narrative: I reviewed patient's investigations which demonstrates tachycardia, leukocytosis. Patient received IV fluids, pain meds, antibiotics and was evaluated by General surgery as indicated below. Reevaluation(s) Reevaluation #1: I suspect unresolving infection and lactic acid, BCx, IVF, and pain meds as well as abx ordered. Time: 07:10 Reevaluation #2: Consulted general surgery, Dr Bernal, who saw the pt who informs him he does not want to be admitted, applications sales consultant recommending change in abx and outpt follow up. Time: 08:00 Reevaluation #3: Patient is feeling better, I instructed that he needs to have a safe ride home as he has received narcotics and cannot drive. He understands the will be discharged home on Augmentin and he was instructed to stop taking the Cipro and Flagyl. Time: 09:54 Medical Decision Making Medical Decision Making MDM Narrative: 41-year-old male with presentation consistent with diverticulitis that is not responding to oral antibiotics, no evidence to suggest dysuria at this time. Differential Diagnosis Differential Diagnoses: The differential diagnosis associated with the presentation includes Diverticulitis, UTI, renal colic, less likely SBO Consult Healthcare Provider Management of the patient was discussed with: Hard Candy Batch Mixer General surgery aid, Dr. Bernal Lab Data MDM Lab Attestation statement: I reviewed the patient's lab results. Please see course Section for discussion Result Diagrams: 07/24/22 04:26 07/24/22 04:26 Labs: Lab Results 07/24/22 07/24/22 07/24/22 Range/Units 04:26 04:26 07:44 WBC 13.2 H (4.8-10.8) X10*3/uL RBC 4.77 (4.60-5.80) X10*6/uL Hgb 13.6 L (14.0-18.0) g/dl Hct 41.6 L (42.0-52.0) % MCV 87.2 (80.0-98.0) fL MCH 28.5 (27.0-33.0) pg MCHC 32.7 (31.0-36.0) g/dl RDW 13.2 (11.0-16.0) % Plt Count 300 (160-400) X10*3/uL MPV 10.0 (9.4-12.4) fL Absolute Nucleated RBC 0.000 (0.0-0.012) X10*3/uL Nucleated RBC % (auto) 0.0 (0.0-0.2) /100WBC Sodium 135 (135-145) mmol/L Potassium 4.4 (3.3-5.1) mmol/L Chloride 102 (96-108) mmol/L Carbon Dioxide 23 (22-29) mmol/L Anion Gap 14 (12-20) BUN 12 (9-16) mg/dL Creatinine 1.13 (0.5-1.4) mg/dL Estim Creat Clear Calc 110.0 Estimated GFR > 60 Random Glucose 225 H (60-115) mg/dL Lactic Acid 1.1 (0.5-2.0) mmol/L Calcium 8.9 D (8.4-10.2) mg/dL Total Bilirubin 0.5 (0.0-1.0) mg/dL AST 44 H D (5-37) U/L ALT 60 H (0-40) U/L Alkaline Phosphatase 73 (39-117) U/L Total Protein 6.9 (6.5-8.0) g/dL Albumin 4.1 (3.5-5.0) g/dL Radiology Impression Radiologist Impression: The my interpretation is in agreement with radiology's impression of the imaging study. External Record Review External record reviewed: Outpatient record and Prior outpatient labs Prescription Management I considered prescription management with: Pain Medication and Antibiotic Chronic Conditions Patient?s care impacted by: Diabetes Medications Administered Discontinued Medications Generic Name Dose Route Start Last Admin Trade Name Freq PRN Reason Stop Dose Admin Fentanyl 25 mcg 07/24/22 07:49 07/24/22 07:55 Fentanyl Citrate/Pf 100 Mcg/2 Ml Vial IVPUSH 07/24/22 07:50 25 mcg ONCE ONE Administration Protocol Sodium Chloride 1,000 mls @ 999 mls/hr 07/24/22 07:00 07/24/22 09:37 Ns IV 07/24/22 08:00 Infused .Q1H1M JAMARI Infusion Piperacillin Sod/Tazobactam 50 mls @ 100 mls/hr 07/24/22 07:10 07/24/22 08:26 Sod 3.375 gm/ Sodium Chloride IV 07/24/22 07:39 Infused ONCE ONE Infusion Discharge Plan Discharge Clinical Impression: Diverticulitis, Dehydration Patient Disposition: Home, Self-Care Instructions: Diverticulitis (ED), Dehydration (ED), Diverticulitis Diet (ED) Additional Instructions: 1. Resume all home medications as prescribed. 2. Stop taking ciprofloxacin/Flagyl. You have been changed over to 10 days of Augmentin in this prescription has been sent to your pharmacy. 3. A referral to follow-up with Dr. Rojas has been provided. Please call the office in the morning to set up an appointment for re-evaluation and further outpatient management. 4. Please follow-up with your primary care provider as well. Return to the ER for worsening symptoms. Prescriptions: New amoxicillin-pot clavulanate 875-125 mg tablet 1 tab PO Q12H 10 Days Qty: 20 0RF Rx Instructions: 1st dose should be this evening. ondansetron 4 mg tablet,disintegrating 4 mg PO Q8H PRN (Reason: nausea and vomiting) Qty: 10 0RF No Action (DME) pen needle, diabetic [BD Ultra-Fine Mini Pen Needle] 31 gauge x 3/16 needle See Rx Instructions .ROUTE .MEDSUPPLY Qty: 100 7RF Rx Instructions: TID (DME) FreeStyle Test Strip See Rx Instructions .Route Qty: 100 6RF Rx Instructions: TID lisinopril 5 mg tablet 5 mg PO DAILY 90 Days Qty: 90 2RF metformin 1,000 mg tablet 1,000 mg PO BID Qty: 180 0RF insulin lispro [Humalog KwikPen Insulin] 100 unit/mL insulin pen 16 unit subcut TID 30 Days Qty: 14.4 7RF sertraline 25 mg tablet 25 mg PO DAILY Qty: 60 3RF omeprazole 40 mg capsule,delayed release(DR/EC) 40 mg PO DAILY 90 Days Qty: 90 0RF atorvastatin 10 mg tablet 10 mg PO DAILY Qty: 30 4RF insulin glargine [Lantus Solostar U-100 Insulin] 100 unit/mL (3 mL) insulin pen 30 unit subcut QPM 60 Days Qty: 18 0RF metronidazole 500 mg tablet 500 mg PO Q8H 7 Days Qty: 21 0RF ciprofloxacin HCl [Cipro] 500 mg tablet 500 mg PO BID 7 Days Qty: 14 0RF latanoprost 0.005 % drops 1 drp ophthalmic (eye) DAILY Qty: 2.5 0RF brimonidine 0.2 % drops 1 drp ophthalmic (eye) TID Rx Instructions: administer approximately 8 hours apart dorzolamide-timolol (PF) 2-0.5 % drops 1 drp ophthalmic (eye) BID Rhopressa 0.02 % drops 1 drp ophthalmic (eye) QPM albuterol sulfate 90 mcg/actuation aerosol powdr breath activated 1 inh inhalation Q4-6H PRN (Reason: shortness of breath or wheezing) Qty: 1 0RF Referrals: Jayro Dougherty FNP- [Primary Care Provider] - Charles Rojas MD [Physician] - (Second episode of diverticulitis, failed Cipro/Flagyl of 1 week and was switched to Augmentin for [address] Bernal saw in the ER.) Stand Alone Forms: Work/School Release
[2022-07-24 07:38] VITALS: BP 127/77; PULSE 111; RESP 20; TEMP 37.2; O2SAT 99
[2022-07-24] MEDS: 0.9 % Sodium Chloride 1,000 ML 999 ML IV (07:55)
[2022-07-24] MEDS: fentaNYL citrate/PF 100 MCG/2 ML VIAL 25 MCG IVPUSH (07:55)
[2022-07-24] MEDS: Piperacillin Sodium/Tazobactam 3.375 GM in 0.9 % Sodium Chloride 50 ML IV (07:56)
[2022-07-24 08:00] LABS: Lactic Acid 1.1 mmol/L (0.5-2.0)
--- NOTE | 2022-07-24 08:25 | P.CONGS_ITS ---
History of Present Illness Consult details Consult date: 07/24/22 Requesting physician: Rena Galeas Narrative: 41 year old male patient presenting with complaints of abdominal pain in the left lower quadrant. He has a known history of diverticulitis with a previous history of a diverticulitis which required IR drainage. He was well until earlier in the week when he developed the left lower quadrant abdominal pain. He was subsequently started on oral antibiotics last week but noted the pain to increase over the weekend. He subsequently presented to the emergency department for further evaluation. He denies previous admission for management of the diverticulitis. Currently he is on Cipro and Flagyl without much improvement in the symptoms. He reports being under lot of stress and subsequently quit his job. He is starting a new job in [place] tomorrow and is not interested in admission. He feels he would improve with some IV antibiotics. Review of Systems Review of Systems: Yes all other systems are reviewed and are negative Constitutional: Constitutional: Denies chills, Denies fever(s), Denies headac he(s), Denies poor appetite and Denies weakness ENT: Denies headache(s) Cardiovascular: Cardiovascular: Denies chest pain, Denies irregular heart rhythm, Denies palpitations and Denies dyspnea Respiratory: Respiratory: Denies cough, Denies excessive phlegm production and Denies dyspnea Gastrointestinal: Gastrointestinal: Reports abdominal pain, Denies bloating, Denies change in bowel habits, Denies constipation, Denies heartburn, Denies diarrhea, Denies nausea and Denies vomiting Genitourinary: Genitourinary: Denies difficulty urinating and Denies urinary frequency Musculoskeletal: Musculoskeletal: Denies back pain, Denies muscle weakness and Denies numbness Integumentary/Breasts: Skin/Breast: Denies changing lesions and Denies unusual bruising Neurologic: Denies headache(s), Denies numbness, Denies paresthesias and Denies weakness Psychiatric: Psychiatric: Denies anxiety and Denies depression Endocrine: Endocrine: Denies palpitations Hematologic/Lymphatic: Hematologic/Lymphatic: Denies lymphadenopathy PMFSH Past Medical History Medical History Abdominal pain Diabetes mellitus Diverticulosis Glaucoma Pigmentary glaucoma of both eyes Thigh abscess Family History Family History Father HTN (hypertension) Diabetes mellitus Mother HTN (hypertension) Diabetes mellitus Heart murmur Brother No problems noted. Brother No problems noted. Brother No problems noted. Sister Lupus Sister No problems noted. Sister No problems noted. Sister No problems noted. Son No problems noted. Daughter No problems noted. Surgical History Surgical History H/O colonoscopy History of circumcision S/P LASIK surgery Social History Social History Household Members: Spouse and Children Housing: Apartment Alcohol intake: current Alcohol intake frequency: does not drink Patient Tobacco Use Status: Current everyday Tobacco user Cigarette Packs Per Day: 1.5 Smoked in Last 30 Days: Yes e-Cigarette/Vaping Use: Never Used Second Hand Smoke Exposure: No Use of substances other than those prescribed or required for medical reasons: No Advance Directives: No Advance Directives Information Provided: Yes service: No Current occupational status: employed Current occupation: [employer] Current occupational exposures/hazards: No Cognitive needs: No Hearing needs: No Vision needs: No Meds Allergies Allergy/AdvReac Type Severity Reaction Status Date / Time NSAIDS (Non-Steroidal Allergy Mild thins Verified 06/27/22 10:40 Anti-Inflamma lining of stomach with GERD. Home Medications Medication Instructions Recorded Confirmed Last Taken Type brimonidine 0.2 % eye drops 1 drp ophthalmic (eye) TID 02/08/21 06/27/22 Unknown History dorzolamide 2 %-timolol 0.5 % (PF) 1 drp ophthalmic (eye) BID 02/08/21 06/27/22 Unknown History eye drops netarsudil 0.02 % eye drops 1 drp ophthalmic (eye) QPM 02/08/21 06/27/22 Unknown History (Rhopressa) Physical Exam Vital Signs: Vital Signs: Last Vital Signs Temp 98.9 F 07/24/22 07:38 Pulse 111 H 07/24/22 07:38 Resp 20 07/24/22 07:38 BP 127/77 07/24/22 07:38 Pulse Ox 99 07/24/22 07:38 O2 Del Method 07/24/22 07:38 BMI result Body Mass Index 43.0 Const: General: cooperative and no acute distress Nutritional Appearance: well nourished Orientation/consciousness: patient oriented x3 Limitations: no limitations HEENT: Head: Yes normocephalic and Yes atraumatic Ears: hearing grossly normal bilaterally Resp: Effort & Inspection: normal respiratory effort, no audible wheezes, no cough and no respiratory distress Cardio: Jugular venous distension: no JVD GI: Inspection: Yes normal to inspection Palpation (GI): Soft to palpation, Tenderness to palpation present (GI) in the LLQ, Guarding due to palpation present (GI), not rigid and No Rebound tenderness present Percussion: Yes normal to percussion Auscultation: normal bowel sounds Skin: Other: Warm, dry, no rash Neuro: General: patient oriented x3 Extrem: General: Yes no clubbing, cyanosis or edema Results Labs Result diagrams: 07/24/22 04:26 07/24/22 04:26 Labs: Abnormal lab results 07/24/22 07/24/22 Range/Units 04:26 04:26 WBC 13.2 H (4.8-10.8) X10*3/uL Hgb 13.6 L (14.0-18.0) g/dl Hct 41.6 L (42.0-52.0) % Random Glucose 225 H (60-115) mg/dL AST 44 H D (5-37) U/L ALT 60 H (0-40) U/L Short CBC 07/24/22 Range/Units 04:26 WBC 13.2 H (4.8-10.8) X10*3/uL Hgb 13.6 L (14.0-18.0) g/dl Hct 41.6 L (42.0-52.0) % Plt Count 300 (160-400) X10*3/uL BMP 07/24/22 04:26 Sodium 135 Potassium 4.4 Chloride 102 Carbon Dioxide 23 BUN 12 Creatinine 1.13 Calcium 8.9 D Liver Function 07/24/22 Range/Units 04:26 Total Bilirubin 0.5 (0.0-1.0) mg/dL AST 44 H D (5-37) U/L ALT 60 H (0-40) U/L Alkaline Phosphatase 73 (39-117) U/L Albumin 4.1 (3.5-5.0) g/dL All other labs normal. Imaging Abdomen CT scan report/results: image reviewed CT scan - pelvis: image reviewed Assessment and Plan (1) Diverticulitis: Status: Acute Plan 41-year-old male patient presenting with current episode of diverticulitis which is not improved significantly with the current oral antibiotics. On examination he does have tenderness in the left lower quadrant consistent with acute sigmoid diverticulitis without peritoneal signs. Review of laboratories revealed an elevated WBC. CT abdomen and pelvis does reveal thickening of the sigmoid colon suggestive of acute sigmoid diverticulitis. No abscess is appreciated to my review of this study. Ideally patient should be admitted for IV antibiotics given the elevated WBC. He is refusing admission but is willing to stay for 2nd dose of IV antibiotics. He will be switched to Augmentin upon discharge and should follow up with Dr. Rojas in the next several weeks. We also discussed colonoscopy once the current episode resolves. Time Spent With Patient Time: Total time managing care of this patient today _30___ minutes. Procedures Date of Service Date of Service: 07/24/22
[2022-07-24 10:03] LABS: Appearance Urine Clear; Color Urine Yellow; Glucose Urine UA >=1000 mg/dL (Negative); Leukocyte Esterase Urine Negative (Negative); Nitrite Urine Negative (Negative); PH 5.5 (5.0-9.0); Specific Gravity - Urine 1.025 (1.005-1.025); UMIC TRIGGER UACC YES; Urine Blood Negative (Negative); Urine Ketones Negative (Negative); Urine Protein Negative (Neg-Trace)
[2022-07-24 10:10] LABS: Bacteria Urine None Seen (None Seen); Hyaline Casts Urine 0-2 /LPF (0-2); RBC Urine 0-2 /HPF (0-2); Squamous Epithelial Cell Urine 0-2 /HPF (0-2); WBC Urine 0-5 /HPF (0-5)
== END 2022-07-24 10:04 | disposition home or self-care (01) ==
PROVIDERS: Emergency Provider Student in an Organized Health Care Education/Training Program; PCP Nurse Practitioner Family
DX: K57.32 Diverticulitis of large intestine without perforation or abscess without bleeding (principal); E86.0 Dehydration; R10.32 Left lower quadrant pain; E11.9 Type 2 diabetes mellitus without complications; F17.210 Nicotine dependence, cigarettes, uncomplicated; Z79.4 Long term (current) use of insulin; Z71.6 Tobacco abuse counseling; Z79.899 Other long term (current) drug therapy
CPT/HCPCS: 36415; 74176; 80053; 81001; 81003; 83605; 85027; 87040; 96361; 96374; 96375; 99284; J2543; J3010

== ENCOUNTER 2022-09-06 07:34 | Inpatient (IN) | payer OTHER, SELFPAY ==
[2022-09-06] VITALS (8 sets, daily range): BP systolic 116–136; BP diastolic 75–91; PULSE 100–130; RESP 15–22; TEMP 36.4–37; O2SAT 93–98; BMI 28.1
--- NOTE | 2022-09-06 | ECG_ITS ---
Test Reason : tachycardia Blood Pressure : / mmHG Vent. Rate : 110 BPM Atrial Rate : 110 BPM P-R Int : 142 ms QRS Dur : 078 ms QT Int : 300 ms P-R-T Axes : 020 011 002 degrees QTc Int : 406 ms Sinus tachycardia Possible Anterior infarct , age undetermined Abnormal ECG When compared with ECG of 29-AUG-2021 10:25, No significant change was found Referred By: Generic ED Physician Electronically Signed By:ROOSEVELT KIM MD
--- NOTE | ~2022-09-06 | CT_ITS ---
EXAMINATION: CT ABDOMEN AND PELVIS WITH CONTRAST CLINICAL INFORMATION: Severe lower abdominal pain COMPARISON: 07/24/2022. TECHNIQUE: Multidetector volumetric images were obtained from the superior aspect of the liver through the pubic symphysis following administration 85 mL of Omnipaque 350 intravenous contrast. Sagittal and coronal reformatted images were obtained on the technologist's workstation. Oral contrast: No This CT examination was performed using dose optimization techniques as appropriate, variously including the following: *Automated exposure control *Adjustment of mA and/or kV according to patient size (this includes techniques or standardized protocols for targeted exams where dose is matched to indication/reason for exam; i.e. extremities or head) *Use of iterative reconstruction technique DLP: 559 mGy-cm FINDINGS: LUNG BASES: 3 mm right middle lobe nodule series 6 image 3. Minimal posterior basilar atelectasis. LIVER, GALLBLADDER, AND BILIARY TREE: The liver is normal in size, shape, and attenuation. No focal hepatic lesion or biliary ductal dilatation is present. The gallbladder is unremarkable with no evidence of radiopaque gallstones, gallbladder wall thickening, or obvious pericholecystic inflammatory changes. PANCREAS: Unremarkable. SPLEEN: Unremarkable. ADRENAL GLANDS: Unremarkable. KIDNEYS AND URETERS: The kidneys are normal in size, shape, and attenuation. No hydronephrosis, hydroureter, or calculi seen. No perinephric stranding. BLADDER: Unremarkable. GASTROINTESTINAL TRACT: Colonic diverticula. Sigmoid wall thickening with paracolic infiltrative changes again observed, appearing consistent with acute diverticulitis. There is evidence of a rim enhanced intramural abscess at 2 x 2.2 x 1.5 cm. No appreciable small bowel obstructive process. There is mild small bowel distention with an air-fluid level central anterior abdomen 2.8 cm which may reflect a focal ileus. ABDOMINAL WALL: No significant hernia is appreciated. LYMPH NODES: Previously noted small mesenteric and retroperitoneal nodes not appearing significantly changed. Small periportal node identified as well. VASCULAR: Unremarkable. PELVIC VISCERA: No new suspicious pelvic masses. OSSEOUS STRUCTURES: Spondylitic change and degenerative disc space narrowing with slight retrolisthesis L5-S1, not appreciably changed. CT/CT abdomen pelvis w IV con IMPRESSION: CT findings appearing consistent with acute sigmoid diverticulitis. There is evidence of an intramural abscess at this level with above noted dimensions. No free air identified. Small right middle lobe nodule. Other incidental findings as noted above. Fleischner guidelines were followed.
[2022-09-06 08:11] LABS: MANUAL DIFF FLAG NO
--- NOTE | 2022-09-06 08:11 | ED_ITS ---
HPI - Abdominal Pain General Chief Complaint: Abdominal Pain <NADIRA Bates Last Filed: 09/06/22 12:34> Stated Complaint: abd pain <NADIRA Bates Last Filed: 09/06/22 12:34> Time Seen by Provider: 09/06/22 08:02 <NADIRA Bates Last Filed: 09/06/22 12:34> Source: patient <NADIRA Bates Last Filed: 09/06/22 12:34> Mode of arrival: ambulatory <NADIRA Bates Last Filed: 09/06/22 12:34> Limitations: no limitations <NADIRA Bates Last Filed: 09/06/22 12:34> History of Present Illness HPI narrative: 41 y/o male with history of DM, glauceoma, and recurrent diverticulitis w/ history of abscess requiring percutaneous drainage in the past who presents to the ER for evaluation of severe lower abdominal pain that woke him up out of sleep at 10pm last night. He states the pain started in his central lower abdom en and then radiated to both sides. He has had nausea and several episodes of vomiting. No diarrhea. Reports the pain is 10/10. He feels like it is worse than any of his other times of diverticulitis, even when he had an abscess. He denies any fever or chills, but his thought he felt warm last night when he was vomiting. He denies any urinary symptoms. <NADIRA Bates Last Filed: 09/06/22 12:34> MD elicited complaint: abdominal pain <NADIRA Bates Last Filed: 09/06/22 12:34> Pertinent past history: diverticulitis <NADIRA Bates Last Filed: 09/06/22 12:34> Onset (ago): hour(s) <NADIRA Bates Last Filed: 09/06/22 12:34> Pain Consistency: constant <NADIRA Bates Last Filed: 09/06/22 12:34> Location: suprapubic <NADIRA Bates Last Filed: 09/06/22 12:34> Severity: severe <NADIRA Bates Last Filed: 09/06/22 12:34> Quality: stabbing and aching <NADIRA Bates Last Filed: 09/06/22 12:34> Radiation: LLQ and RLQ <NADIRA Bates Last Filed: 09/06/22 12:34> Migration to: LLQ and RLQ <NADIRA Bates Last Filed: 09/06/22 12:34> Exacerbating factors: movement <NADIRA Bates Last Filed: 09/06/22 12:34> Relieving factors: nothing <NADIRA Bates Last Filed: 09/06/22 12:34> Context: history of similar episodes <NADIRA Bates Last Filed: 09/06/22 12:34> Associated symptoms: nausea, vomiting and chills <NADIRA Bates Last Filed: 09/06/22 12:34> Related Data Home Medications: Home Medications Medication Instructions Recorded Confirmed brimonidine 0.2 % eye drops 1 drp ophthalmic (eye) TID 02/08/21 09/06/22 dorzolamide 2 %-timolol 0.5 % (PF) 1 drp ophthalmic (eye) BID 02/08/21 09/06/22 eye drops netarsudil 0.02 % eye drops 1 drp ophthalmic (eye) QPM 02/08/21 09/06/22 (Rhopressa) bupropion HCl 150 mg tablet,12 hr 1 tab PO Q12H 09/06/22 09/06/22 sustained-release insulin lispro 100 unit/mL 0 sliding scale dose subcut TIDAC 09/06/22 09/06/22 subcutaneous pen (Humalog KwikPen diabetes (U-100) Insulin) Previous Rx's Medication Instructions Recorded latanoprost 0.005 % eye drops 1 drp ophthalmic (eye) DAILY #2.5 01/05/21 mL blood sugar diagnostic (FreeStyle #100 ea 08/22/21 Test strips) pen needle, diabetic 31 gauge x #100 ea 08/22/21 3/16 (BD Ultra-Fine Mini Pen Needle) albuterol sulfate 90 mcg/actuation 1 inh inhalation Q4-6H PRN 11/27/21 breath activated powder inhaler shortness of breath or wheezing #1 ea lisinopril 5 mg tablet 5 mg PO DAILY 90 days #90 tabs 01/30/22 metformin 1,000 mg tablet 1,000 mg PO BID #180 tabs 05/03/22 atorvastatin 10 mg tablet 10 mg PO DAILY #30 tabs 06/24/22 omeprazole 40 mg capsule,delayed 40 mg PO DAILY 90 days #90 caps 06/24/22 release sertraline 25 mg tablet 25 mg PO DAILY #60 tabs 06/24/22 insulin glargine 100 unit/mL (3 30 unit (0.3 mL) subcut QPM 60 07/11/22 mL) subcutaneous pen (Lantus days #18 mL Solostar U-100 Insulin) <NADIRA Bates - Last Filed: 09/06/22 12:34> Allergies/Adverse Reactions: Allergies Allergy/AdvReac Type Severity Reaction Status Date / Time NSAIDS (Non-Steroidal Allergy Mild thins Verified 06/27/22 10:40 Anti-Inflamma lining of stomach with GERD. <NADIRA Bates - Last Filed: 09/06/22 12:34> Review of Systems Review of Systems Yes all other systems are reviewed and are negative <NADIRA Bates - Last Filed: 09/06/22 12:34> [facility] Past Medical History Medical History: Medical History Abdominal pain Diabetes mellitus Diverticulosis Glaucoma Pigmentary glaucoma of both eyes Thigh abscess <NADIRA Bates - Last Filed: 09/06/22 12:34> Surgical History: Surgical History H/O colonoscopy History of circumcision S/P LASIK surgery <NADIRA Bates - Last Filed: 09/06/22 12:34> Family History Family History: Family History Father HTN (hypertension) Diabetes mellitus Mother HTN (hypertension) Diabetes mellitus Heart murmur Brother No problems noted. Brother No problems noted. Brother No problems noted. Sister Lupus Sister No problems noted. Sister No problems noted. Sister No problems noted. Son No problems noted. Daughter No problems noted. <NADIRA Bates - Last Filed: 09/06/22 12:34> Social History Social History: Social History Household Members: Spouse and Children Housing: Apartment Alcohol intake: current Alcohol intake frequency: a few times a week Patient Tobacco Use Status: Current everyday Tobacco user Cigarette Packs Per Day: 1.5 Smoked in Last 30 Days: Yes e-Cigarette/Vaping Use: Never Used Second Hand Smoke Exposure: No Use of substances other than those prescribed or required for medical reasons: No Advance Directives: No Advance Directives Information Provided: Yes Nutrition Risks: No Nutritional Risk service: No Current occupational status: employed Current occupation: [employer] Current occupational exposures/hazards: No Cognitive needs: No Hearing needs: No Vision needs: No <NADIRA Bates Last Filed: 09/06/22 12:34> Physical Exam ED Vital Signs: Vital Signs - 24 hr 09/06/22 07:40 09/06/22 08:22 09/06/22 09:27 Temperature 98.6 F 98 F Pulse Rate 130 H 114 H 110 H Respiratory Rate 20 15 22 H Blood Pressure 136/90 H 119/75 116/81 Pulse Oximetry 97 95 96 Oxygen Delivery Method Room Air Room Air Room Air Oxygen Flow Rate 09/06/22 10:10 09/06/22 11:16 Temperature Pulse Rate 108 H 102 H Respiratory Rate 20 18 Blood Pressure 119/80 124/82 Pulse Oximetry 98 96 Oxygen Delivery Method Nasal Cannula Nasal Cannula Oxygen Flow Rate 2 2 BMI result Body Mass Index 28.1 <NADIRA Bates - Last Filed: 09/06/22 12:34> Vital Signs - 24 hr 09/06/22 07:40 09/06/22 08:22 09/06/22 09:27 Temperature 98.6 F 98 F Pulse Rate 130 H 114 H 110 H Respiratory Rate 20 15 22 H Blood Pressure 136/90 H 119/75 116/81 Pulse Oximetry 97 95 96 Oxygen Delivery Method Room Air Room Air Room Air Oxygen Flow Rate 09/06/22 10:10 09/06/22 11:16 Temperature Pulse Rate 108 H 102 H Respiratory Rate 20 18 Blood Pressure 119/80 124/82 Pulse Oximetry 98 96 Oxygen Delivery Method Nasal Cannula Nasal Cannula Oxygen Flow Rate 2 2 BMI result Body Mass Index 28.1 <Claudio Clayton MD - Last Filed: 09/06/22 13:29> Appearance: Alert. Oriented X3. Appears uncomfortable Eyes: Pupils equal, round and reactive to light. ENT: Pharynx normal. Neck: Normal inspection. Neck supple. CVS: Tachycardic, regular rhythm. HR 110's. Pulses normal. Respiratory: No respiratory distress. Breath sounds normal. Abdomen: normal inspection, lower abd is tense and guarded with significant tenderness of both lower quadrants, decreased but present +BS x4 Skin: Skin warm and dry. Normal skin color. Normal skin turgor. No rashes. Extremities: No lower extremity edema. Neuro: Oriented X 3. No motor deficit. No sensory deficit. <NADIRA Bates - Last Filed: 09/06/22 12:34> Course Course Course Narrative: 41 yo male with history of recurrent diverticulitis presenting with 10/10 lower abdominal pain and vomiting since 10pm last night. Tachycardic and uncomfortable. Concern for diverticulitis again - pain meds, fluids, and CT scan ordered. <NADIRA Bates - Last Filed: 09/06/22 12:34> Reevaluation(s) Reevaluation #1: WBC 15.8. This could be reactive from vomiting. Also could be due to infection. IV fluids are ordered. CT scan done, awaiting read. Patient r eports no improvement with 1 dose of IV Dilaudid, repeat dose ordered. Will reassess. Heart rates remain 110s, likely due to pain. <NADIRA Bates - Last Filed: 09/06/22 12:34> Reevaluation #2: Lactic acid is normal. Pain slightly improved after 2nd dose of Dilaudid. CT scan showing sigmoid diverticulitis with an intramural abscess measuring 2 x 2.2 x 1.5 cm. Zosyn and additional IVF ordered. Will plan to admit to surgery - Dr. Rojas TT for admit. <NADIRA Bates - Last Filed: 09/06/22 12:34> Consultations Consultation #1: Gen surgery - Dr. Rojas <NADIRA Bates - Last Filed: 09/06/22 12:34> Medical Decision Making Differential Diagnosis Differential Diagnoses: The differential diagnosis associated with the presentation includes <NADIRA Bates - Last Filed: 09/06/22 12:34> Acute diverticulitis, bowel perforation, diverticulitis with abscess, UTI, pyelonephritis, appendicitis, cholecystitis, viral gastroenteritis <NADIRA Balderas - Last Filed: 09/06/22 12:34> Admission/Observation Consideration of admission/observation: Escalation of care including admission/observation considered <NADIRA Bates - Last Filed: 09/06/22 12:34> Consult Healthcare Provider Management of the patient was discussed with: Red Leader <NADIRA Bates - Last Filed: 09/06/22 12:34> Gen Surgery - Dr. Rojas to admit <NADIRA Bates - Last Filed: 09/06/22 12:34> Lab Data MDM Lab Attestation statement: I reviewed the patient's lab results. <NADIRA Bates Last Filed: 09/06/22 12:34> Leukocytosis noted, normal lactic acid. hyperglycemia <NADIRA Bates - Last Filed: 09/06/22 12:34> Result Diagrams: 09/06/22 08:08 09/06/22 08:08 <NADIRA Bates - Last Filed: 09/06/22 12:34> Labs: Lab Results 09/06/22 09/06/22 09/06/22 Range/Units 08:08 08:08 08:08 WBC 15.8 H (4.8-10.8) X10*3/uL RBC 4.52 L (4.60-5.80) X10*6/uL Hgb 12.7 L (14.0-18.0) g/dl Hct 39.1 L (42.0-52.0) % MCV 86.5 (80.0-98.0) fL MCH 28.1 (27.0-33.0) pg MCHC 32.5 (31.0-36.0) g/dl RDW 13.9 (11.0-16.0) % Plt Count 239 (160-400) X10*3/uL MPV 10.7 (9.4-12.4) fL Immature Gran % (Auto) 0.4 (0.0-0.4) % Neut % (Auto) 85.4 H (45-73) % Lymph % (Auto) 6.2 L (20-40) % [place] % (Auto) 7.5 (2-11) % Eos % (Auto) 0.2 (0-4) % Baso % (Auto) 0.3 (0-2) % Lymph # (Auto) 1.0 L (1.2-4.9) X10*3/uL [place] # (Auto) 1.2 (0.1-1.2) X10*3/uL Eos # (Auto) 0.0 (0.0-0.4) X10*3/uL Baso # (Auto) 0.1 (0.0-0.2) X10*3/uL Abs Immat Gran (auto) 0.07 H (0.00-0.03) X10*3/uL Absolute Neuts (auto) 13.5 H (2.0-8.3) x10*3/uL Absolute Nucleated RBC 0.000 (0.0-0.012) X10*3/uL Nucleated RBC % (auto) 0.0 (0.0-0.2) /100WBC Sodium 138 (135-145) mmol/L Potassium 4.4 (3.3-5.1) mmol/L Chloride 102 (96-108) mmol/L Carbon Dioxide 23 (22-29) mmol/L Anion Gap 17 (12-20) BUN 15 (9-16) mg/dL Creatinine 1.14 (0.5-1.4) mg/dL Estim Creat Clear Calc 88.1 Estimated GFR > 60 Random Glucose 338 H (60-115) mg/dL Lactic Acid (0.5-2.0) mmol/L Calcium 9.0 (8.4-10.2) mg/dL Total Bilirubin 0.9 (0.0-1.0) mg/dL AST 14 (5-37) U/L ALT 18 (0-40) U/L Alkaline Phosphatase 78 (39-117) U/L Total Protein 6.8 (6.5-8.0) g/dL Albumin 4.0 (3.5-5.0) g/dL Lipase 20 (8-78) U/L Urine Color Urine Appearance Urine pH (5.0-9.0) Ur Specific [place] (1.005-1.025) Urine Protein (Neg-Trace) mg/dL Urine Glucose (UA) (Negative) mg/dL Urine Ketones (Negative) mg/dL Urine Blood (Negative) Urine Nitrite (Negative) Ur Leukocyte Esterase (Negative) Urine RBC (0-2) /HPF Urine WBC (0-5) /HPF Ur Squamous Epith Cells (0-2) /HPF Urine Bacteria (None Seen) Hyaline Casts (0-2) /LPF COVID-19 ([facility]) Negative (Negative) COVID-19 Clin Com See Note 09/06/22 09/06/22 Range/Units 08:15 09:23 WBC (4.8-10.8) X10*3/uL RBC (4.60-5.80) X10*6/uL Hgb (14.0-18.0) g/dl Hct (42.0-52.0) % MCV (80.0-98.0) fL MCH (27.0-33.0) pg MCHC (31.0-36.0) g/dl RDW (11.0-16.0) % Plt Count (160-400) X10*3/uL MPV (9.4-12.4) fL Immature Gran % (Auto) (0.0-0.4) % Neut % (Auto) (45-73) % Lymph % (Auto) (20-40) % J[place] % (Auto) (2-11) % Eos % (Auto) (0-4) % Baso % (Auto) (0-2) % Lymph # (Auto) (1.2-4.9) X10*3/uL [place] # (Auto) (0.1-1.2) X10*3/uL Eos # (Auto) (0.0-0.4) X10*3/uL Baso # (Auto) (0.0-0.2) X10*3/uL Abs Immat Gran (auto) (0.00-0.03) X10*3/uL Absolute Neuts (auto) (2.0-8.3) x10*3/uL Absolute Nucleated RBC (0.0-0.012) X10*3/uL Nucleated RBC % (auto) (0.0-0.2) /100WBC Sodium (135-145) mmol/L Potassium (3.3-5.1) mmol/L Chloride (96-108) mmol/L Carbon Dioxide (22-29) mmol/L Anion Gap (12-20) BUN (9-16) mg/dL Creatinine (0.5-1.4) mg/dL Estim Creat Clear Calc Estimated GFR Random Glucose (60-115) mg/dL Lactic Acid 1.0 (0.5-2.0) mmol/L Calcium (8.4-10.2) mg/dL Total Bilirubin (0.0-1.0) mg/dL AST (5-37) U/L ALT (0-40) U/L Alkaline Phosphatase (39-117) U/L Total Protein (6.5-8.0) g/dL Albumin (3.5-5.0) g/dL Lipase (8-78) U/L Urine Color Yellow Urine Appearance Clear Urine pH 6.0 (5.0-9.0) Ur Specific [place] >= 1.030 H (1.005-1.025) Urine Protein 30 (1+) H (Neg-Trace) mg/dL Urine Glucose (UA) >=1000 H (Negative) mg/dL Urine Ketones 40 (Negative) mg/dL Urine Blood Negative (Negative) Urine Nitrite Negative (Negative) Ur Leukocyte Esterase Negative (Negative) Urine RBC 0-2 (0-2) /HPF Urine WBC 0-5 (0-5) /HPF Ur Squamous Epith Cells 0-2 (0-2) /HPF Urine Bacteria None Seen (None Seen) Hyaline Casts 0-2 (0-2) /LPF COVID-19 ([facility]) (Negative) COVID-19 Clin Com <NADIRA Bates - Last Filed: 09/06/22 12:34> Lab Results 09/06/22 09/06/22 09/06/22 Range/Units 08:08 08:08 08:08 WBC 15.8 H (4.8-10.8) X10*3/uL RBC 4.52 L (4.60-5.80) X10*6/uL Hgb 12.7 L (14.0-18.0) g/dl Hct 39.1 L (42.0-52.0) % MCV 86.5 (80.0-98.0) fL MCH 28.1 (27.0-33.0) pg MCHC 32.5 (31.0-36.0) g/dl RDW 13.9 (11.0-16.0) % Plt Count 239 (160-400) X10*3/uL MPV 10.7 (9.4-12.4) fL Immature Gran % (Auto) 0.4 (0.0-0.4) % Neut % (Auto) 85.4 H (45-73) % Lymph % (Auto) 6.2 L (20-40) % [place] % (Auto) 7.5 (2-11) % Eos % (Auto) 0.2 (0-4) % Baso % (Auto) 0.3 (0-2) % Lymph # (Auto) 1.0 L (1.2-4.9) X10*3/uL [place] # (Auto) 1.2 (0.1-1.2) X10*3/uL Eos # (Auto) 0.0 (0.0-0.4) X10*3/uL Baso # (Auto) 0.1 (0.0-0.2) X10*3/uL Abs Immat Gran (auto) 0.07 H (0.00-0.03) X10*3/uL Absolute Neuts (auto) 13.5 H (2.0-8.3) x10*3/uL Absolute Nucleated RBC 0.000 (0.0-0.012) X10*3/uL Nucleated RBC % (auto) 0.0 (0.0-0.2) /100WBC Sodium 138 (135-145) mmol/L Potassium 4.4 (3.3-5.1) mmol/L Chloride 102 (96-108) mmol/L Carbon Dioxide 23 (22-29) mmol/L Anion Gap 17 (12-20) BUN 15 (9-16) mg/dL Creatinine 1.14 (0.5-1.4) mg/dL Estim Creat Clear Calc 88.1 Estimated GFR > 60 Random Glucose 338 H (60-115) mg/dL Lactic Acid (0.5-2.0) mmol/L Calcium 9.0 (8.4-10.2) mg/dL Total Bilirubin 0.9 (0.0-1.0) mg/dL AST 14 (5-37) U/L ALT 18 (0-40) U/L Alkaline Phosphatase 78 (39-117) U/L Total Protein 6.8 (6.5-8.0) g/dL Albumin 4.0 (3.5-5.0) g/dL Lipase 20 (8-78) U/L Urine Color Urine Appearance Urine pH (5.0-9.0) Ur Specific [place] (1.005-1.025) Urine Protein (Neg-Trace) mg/dL Urine Glucose (UA) (Negative) mg/dL Urine Ketones (Negative) mg/dL Urine Blood (Negative) Urine Nitrite (Negative) Ur Leukocyte Esterase (Negative) Urine RBC (0-2) /HPF Urine WBC (0-5) /HPF Ur Squamous Epith Cells (0-2) /HPF Urine Bacteria (None Seen) Hyaline Casts (0-2) /LPF COVID-19 ([facility]) Negative (Negative) COVID-19 Clin Com See Note 09/06/22 09/06/22 Range/Units 08:15 09:23 WBC (4.8-10.8) X10*3/uL RBC (4.60-5.80) X10*6/uL Hgb (14.0-18.0) g/dl Hct (42.0-52.0) % MCV (80.0-98.0) fL MCH (27.0-33.0) pg MCHC (31.0-36.0) g/dl RDW (11.0-16.0) % Plt Count (160-400) X10*3/uL MPV (9.4-12.4) fL Immature Gran % (Auto) (0.0-0.4) % Neut % (Auto) (45-73) % Lymph % (Auto) (20-40) % [place] % (Auto) (2-11) % Eos % (Auto) (0-4) % Baso % (Auto) (0-2) % Lymph # (Auto) (1.2-4.9) X10*3/uL [place] # (Auto) (0.1-1.2) X10*3/uL Eos # (Auto) (0.0-0.4) X10*3/uL Baso # (Auto) (0.0-0.2) X10*3/uL Abs Immat Gran (auto) (0.00-0.03) X10*3/uL Absolute Neuts (auto) (2.0-8.3) x10*3/uL Absolute Nucleated RBC (0.0-0.012) X10*3/uL Nucleated RBC % (auto) (0.0-0.2) /100WBC Sodium (135-145) mmol/L Potassium (3.3-5.1) mmol/L Chloride (96-108) mmol/L Carbon Dioxide (22-29) mmol/L Anion Gap (12-20) BUN (9-16) mg/dL Creatinine (0.5-1.4) mg/dL Estim Creat Clear Calc Estimated GFR Random Glucose (60-115) mg/dL Lactic Acid 1.0 (0.5-2.0) mmol/L Calcium (8.4-10.2) mg/dL Total Bilirubin (0.0-1.0) mg/dL AST (5-37) U/L ALT (0-40) U/L Alkaline Phosphatase (39-117) U/L Total Protein (6.5-8.0) g/dL Albumin (3.5-5.0) g/dL Lipase (8-78) U/L Urine Color Yellow Urine Appearance Clear Urine pH 6.0 (5.0-9.0) Ur Specific [place] >= 1.030 H (1.005-1.025) Urine Protein 30 (1+) H (Neg-Trace) mg/dL Urine Glucose (UA) >=1000 H (Negative) mg/dL Urine Ketones 40 (Negative) mg/dL Urine Blood Negative (Negative) Urine Nitrite Negative (Negative) Ur Leukocyte Esterase Negative (Negative) Urine RBC 0-2 (0-2) /HPF Urine WBC 0-5 (0-5) /HPF Ur Squamous Epith Cells 0-2 (0-2) /HPF Urine Bacteria None Seen (None Seen) Hyaline Casts 0-2 (0-2) /LPF COVID-19 ([facility]) (Negative) COVID-19 Clin Com <Claudio Clayton MD - Last Filed: 09/06/22 13:29> Independent Interpretation I performed an independent interpretation of an: CT Scan <NADIRA Bates - Last Filed: 09/06/22 12:34> Interpretation: inflammation and changes c/w diverticulitis in LLQ <NADIRA Bates - Last Filed: 09/06/22 12:34> Radiology Impression Discussion of test interpretation with radiology: I have reviewed the radiologist's reading. <NADIRA Bates - Last Filed: 09/06/22 12:34> Radiologist Impression: ?CT/CT abdomen pelvis w IV con IMPRESSION: CT findings appearing consistent with acute sigmoid diverticulitis. There is evidence of an intramural abscess at this level with above noted dimensions. ?No free air identified. Small right middle lobe nodule. <NADIRA Bates - Last Filed: 09/06/22 12:34> External Record Review External record reviewed: Office record, Outpatient record, Prior outpatient labs and Prior outpatient radiology <NADIRA Bates - Last Filed: 09/06/22 12:34> Prescription Management I considered prescription management with: Pain Medication and Antibiotic <NADIRA Bates - Last Filed: 09/06/22 12:34> Chronic Conditions Patient?s care impacted by: Other (recurrent diverticulitis) <NADIRA Bates - Last Filed: 09/06/22 12:34> Attestation Attending Attestation: I reviewed ENVIRONMENTAL HEALTH AIDE/PA/Resident note, assessment and plan. I agree with the documentation, assessment and plan unless otherwise stated. <Claudio Clayton MD - Last Filed: 09/06/22 13:29> Medications Administered Generic Name Dose Route Start Last Admin Trade Name Freq PRN Reason Stop Dose Admin Hydromorphone HCl 1 mg 09/06/22 11:31 09/06/22 12:53 Hydromorphone Hcl 1 Mg/Ml Syringe IVPUSH 1 mg Q3H PRN Administration Pain, Severe (Pain Scale 7-10) Protocol Oxycodone HCl 10 mg 09/06/22 11:31 09/06/22 12:54 Oxycodone Hcl Immed Release 5 Mg Tablet PO 10 mg Q6H PRN Administration Pain, Moderate (Pain Scale 4-6 Discontinued Medications Generic Name Dose Route Start Last Admin Trade Name Freq PRN Reason Stop Dose Admin Hydromorphone HCl 1 mg 09/06/22 08:08 09/06/22 08:28 Hydromorphone Hcl 1 Mg/Ml Syringe IVPUSH 09/06/22 08:09 1 mg ONCE ONE Administration Protocol Hydromorphone HCl 1 mg 09/06/22 09:15 09/06/22 09:23 Hydromorphone Hcl 1 Mg/Ml Syringe IVPUSH 09/06/22 09:16 1 mg ONCE ONE Administration Protocol Hydromorphone HCl 1 mg 09/06/22 11:03 09/06/22 11:17 Hydromorphone Hcl 1 Mg/Ml Syringe IVPUSH 09/06/22 11:04 1 mg ONCE ONE Administration Protocol Sodium Chloride 1,000 mls @ 999 mls/hr 09/06/22 08:15 09/06/22 09:48 Ns IVCONT 09/06/22 09:15 Infused .Q1H1M JAMARI Infusion Sodium Chloride 1,000 mls @ 999 mls/hr 09/06/22 10:00 09/06/22 11:01 Ns IVCONT 09/06/22 11:00 Infused .Q1H1M JAMARI Infusion Piperacillin Sod/Tazobactam 50 mls @ 100 mls/hr 09/06/22 09:56 09/06/22 10:39 Sod 3.375 gm/ Sodium Chloride IV 09/06/22 10:25 Infused ONCE ONE Infusion Iohexol 85 ml 09/06/22 09:15 09/06/22 09:16 Iohexol 350 Mg/Ml 100 Ml Infus..Btl IV 09/06/22 09:16 85 ml ONCE ONE Administration Ondansetron HCl 4 mg 09/06/22 08:08 09/06/22 08:29 Ondansetron Hcl 4 Mg/2 Ml Vial IVPUSH 09/06/22 08:09 4 mg ONCE ONE Administration <NADIRA Bates - Last Filed: 09/06/22 12:34> Medications Administered Generic Name Dose Route Start Last Admin Trade Name Stephenie PRN Reason Stop Dose Admin Hydromorphone HCl 1 mg 09/06/22 11:31 09/06/22 12:53 Hydromorphone Hcl 1 Mg/Ml Syringe IVPUSH 1 mg Q3H PRN Administration Pain, Severe (Pain Scale 7-10) Protocol Oxycodone HCl 10 mg 09/06/22 11:31 09/06/22 12:54 Oxycodone Hcl Immed Release 5 Mg Tablet PO 10 mg Q6H PRN Administration Pain, Moderate (Pain Scale 4-6 Discontinued Medications Generic Name Dose Route Start Last Admin Trade Name Freq PRN Reason Stop Dose Admin Hydromorphone HCl 1 mg 09/06/22 08:08 09/06/22 08:28 Hydromorphone Hcl 1 Mg/Ml Syringe IVPUSH 09/06/22 08:09 1 mg ONCE ONE Administration Protocol Hydromorphone HCl 1 mg 09/06/22 09:15 09/06/22 09:23 Hydromorphone Hcl 1 Mg/Ml Syringe IVPUSH 09/06/22 09:16 1 mg ONCE ONE Administration Protocol Hydromorphone HCl 1 mg 09/06/22 11:03 09/06/22 11:17 Hydromorphone Hcl 1 Mg/Ml Syringe IVPUSH 09/06/22 11:04 1 mg ONCE ONE Administration Protocol Sodium Chloride 1,000 mls @ 999 mls/hr 09/06/22 08:15 09/06/22 09:48 Ns IVCONT 09/06/22 09:15 Infused .Q1H1M JAMARI Infusion Sodium Chloride 1,000 mls @ 999 mls/hr 09/06/22 10:00 09/06/22 11:01 Ns IVCONT 09/06/22 11:00 Infused .Q1H1M JAMARI Infusion Piperacillin Sod/Tazobactam 50 mls @ 100 mls/hr 09/06/22 09:56 09/06/22 10:39 Sod 3.375 gm/ Sodium Chloride IV 09/06/22 10:25 Infused ONCE ONE Infusion Iohexol 85 ml 09/06/22 09:15 09/06/22 09:16 Iohexol 350 Mg/Ml 100 Ml Infus..Btl IV 09/06/22 09:16 85 ml ONCE ONE Administration Ondansetron HCl 4 mg 09/06/22 08:08 09/06/22 08:29 Ondansetron Hcl 4 Mg/2 Ml Vial IVPUSH 09/06/22 08:09 4 mg ONCE ONE Administration <Claudio Clayton MD - Last Filed: 09/06/22 13:29> Critical Care Time Critical Care Time Critical Care Time: Yes <NADIRA Bates - Last Filed: 09/06/22 12:34> Total Critical Care Time: 38 <NADIRA Bates - Last Filed: 09/06/22 12:34> Attestation: I have personally provided critical care time exclusive of time spent on separately billable procedures. Time includes review of lab data, radiology results, discussion with consultants, and monitoring for potential decompensation. Intervention performed as documented. <NADIRA Bates - Last Filed: 09/06/22 12:34> Discharge Plan Discharge Clinical Impression: Diverticulitis, Abscess of sigmoid colon due to diverticulitis, Sepsis <NADIRA Bates - Last Filed: 09/06/22 12:34> Patient Disposition: Admitted As Inpatient <NADIRA Bates Last Filed: 09/06/22 12:34>
[2022-09-06 08:14] LABS: Basophils Absolute Auto 0.1 X10*3/uL (0.0-0.2); Basophils Percent Auto 0.3 % (0-2); Eosinophils Percent Auto 0.2 % (0-4); Hematocrit 39.1 % (42.0-52.0); Hemoglobin 12.7 g/dl (14.0-18.0); Imm Gran Abs Auto 0.07 X10*3/uL (0.00-0.03); Imm Gran Pct Auto 0.4 % (0.0-0.4); Lymphocytes Percent Auto 6.2 % (20-40); Mean Corpuscular HGB Conc 32.5 g/dl (31.0-36.0); Mean Corpuscular Hemoglobin 28.1 pg (27.0-33.0); Mean Corpuscular Volume 86.5 fL (80.0-98.0); Mean Platelet Volume 10.7 fL (9.4-12.4); Monocytes Absolute Auto 1.2 X10*3/uL (0.1-1.2); Monocytes Percent Auto 7.5 % (2-11); Neutrophils Absolute Auto 13.5 x10*3/uL (2.0-8.3); Neutrophils Percent Auto 85.4 % (45-73); Platelet Count 239 X10*3/uL (160-400); Red Blood Count 4.52 X10*6/uL (4.60-5.80); Red Cell Distribution Width 13.9 % (11.0-16.0); White Blood Count 15.8 X10*3/uL (4.8-10.8)
[2022-09-06] MEDS: 0.9 % Sodium Chloride 1,000 ML 999 ML IVCONT ×2 (08:25→10:08)
[2022-09-06] MEDS: HYDROmorphone HCl 1 MG/ML SYRINGE IVPUSH ×7 (08:28→22:20)
[2022-09-06] MEDS: ondansetron HCL 4 MG/2 ML VIAL IVPUSH ×3 (08:29→19:28)
[2022-09-06 08:43] LABS: Alanine Aminotransferase 18 U/L (0-40); Alkaline Phosphatase 78 U/L (39-117); Aspartate Amino Transferase 14 U/L (5-37); Bilirubin Total 0.9 mg/dL (0.0-1.0); Blood Urea Nitrogen 15 mg/dL (9-16); Creatinine Clr Calc Pharmacy 88.1; Estimated Glomerular Filt Rate > 60; Glucose Random 338 mg/dL (60-115); Lipase 20 U/L (8-78); Total Protein 6.8 g/dL (6.5-8.0)
[2022-09-06 08:55] LABS: COVID-19 Test Negative (Negative); IDNOW Serial# 16C4AD1C
[2022-09-06] MEDS: iohexoL 350 MG/ML 100 ML INFUS..BTL 85 ML IV (09:16)
[2022-09-06 09:41] LABS: Appearance Urine Clear; Color Urine Yellow; Glucose Urine UA >=1000 mg/dL (Negative); Leukocyte Esterase Urine Negative (Negative); Nitrite Urine Negative (Negative); Specific Gravity - Urine >= 1.030 (1.005-1.025); UMIC TRIGGER UACC YES; Urine Blood Negative (Negative); Urine Ketones 40 mg/dL (Negative); Urine Protein 30 (1+) mg/dL (Neg-Trace)
[2022-09-06 09:42] LABS: Bacteria Urine None Seen (None Seen); Hyaline Casts Urine 0-2 /LPF (0-2); RBC Urine 0-2 /HPF (0-2); Squamous Epithelial Cell Urine 0-2 /HPF (0-2); WBC Urine 0-5 /HPF (0-5)
[2022-09-06 09:46] LABS: Anion Gap 17 (12-20); Carbon Dioxide 23 mmol/L (22-29); Chloride 102 mmol/L (96-108); Potassium 4.4 mmol/L (3.3-5.1); Sodium 138 mmol/L (135-145)
[2022-09-06] MEDS: Piperacillin Sodium/Tazobactam 3.375 GM in 0.9 % Sodium Chloride 50 ML IV ×3 (10:08→21:50)
--- NOTE | 2022-09-06 10:13 | PC.NURSE ---
placed pt on 2L NC - following dilaudid administration pt desat to 88%, while awake and encouraged to breathe deep pt SaO2 90% on room air. currently on 2L SaO2 97%
--- NOTE | 2022-09-06 10:41 | PHA.MEDREC ---
Pharmacy Consult ? Medication Reconciliation Pharmacy has reviewed the medication reconciliation completed Clara. Patient reports using 4 units of insulin depending on what he eat. Had Clara enter insulin lispro as sliding scale insulin. Jane Robles, PharmD
--- NOTE | 2022-09-06 11:54 | PM.HPGS ---
History of Present Illness History of Present Illness Date of Service: 09/10/22 Chief complaint: acute diverticulitis with abscess Narrative: Bunny Jose is a 41 year old male who started to have left lower quadrant pain last night. He says that he this persisted throughout the night. He describes the pain as severe. He therefore came to the emergency room this morning. He has a known history of diverticular disease. He says that has been admitted twice in the past for acute diverticulitis. The CT drainage in 2018. He says that he was last admitted to the hospital in 2020 for acute diverticulitis. He denies any fever or chills. He denies bleeding per rectum. Review of Systems Constitutional: Constitutional: Denies chills and Denies fever(s) Cardiovascular: Cardiovascular: Denies chest pain, Denies dyspnea and Denies dyspnea on exertion Respiratory: Respiratory: Denies cough, Denies dyspnea and Denies dyspnea on exertion Gastrointestinal: Gastrointestinal: Denies hematochezia and Denies change in bowel habits Genitourinary: Genitourinary: Denies hematuria and Denies difficulty urinating Musculoskeletal: Musculoskeletal: Denies back pain and Denies limited range of motion Neurologic: Denies focal weakness and Denies convulsions Psychiatric: Psychiatric: Denies depression and Denies mood swings PMFSH Past Medical History Medical History Abdominal pain Diabetes mellitus Diverticulosis Glaucoma Pigmentary glaucoma of both eyes Thigh abscess Family History Family History Father HTN (hypertension) Diabetes mellitus Mother HTN (hypertension) Diabetes mellitus Heart murmur Brother No problems noted. Brother No problems noted. Brother No problems noted. Sister Lupus Sister No problems noted. Sister No problems noted. Sister No problems noted. Son No problems noted. Daughter No problems noted. Surgical History Surgical History H/O colonoscopy History of circumcision S/P LASIK surgery Social History Social History Household Members: Spouse and Family Household Members Other:: 2 Housing: Apartment Do you presently have visiting nurse or other home services: No Alcohol intake: current Alcohol intake frequency: a few times a week Patient Tobacco Use Status: Current everyday Tobacco user Tobacco use type: Cigarette Cigarette Packs Per Day: 1 Cigarettes Per Day: 20.0 Years Smoked: 5 e-Cigarette/Vaping Use: Never Used Second Hand Smoke Exposure: No service: No Current occupational status: employed Current occupation: [employer] Current occupational exposures/hazards: No Cognitive needs: No Hearing needs: No Vision needs: No Meds Allergies Allergy/AdvReac Type Severity Reaction Status Date / Time NSAIDS (Non-Steroidal Allergy Mild thins Verified 06/27/22 10:40 Anti-Inflamma lining of stomach with GERD. Active Medications: Current Medications Heparin Sodium (Porcine) (Heparin Sodium,Porcine 5,000 Unit/Ml Vial) 5,000 unit SUBCUT Q8H [facility] Hydromorphone HCl (Hydromorphone Hcl 1 Mg/Ml Syringe) 1 mg IVPUSH Q3H PRN; Protocol PRN Reason: Pain, Severe (Pain Scale 7-10) Sodium Chloride (Ns) 1,000 mls @ 100 mls/hr IVCONT .Q10H [facility] Piperacillin Sod/Tazobactam (Sod 3.375 gm/ Sodium Chloride) 50 mls @ 100 mls/hr IV Q6H [facility] Oxycodone HCl (Oxycodone Hcl Immed Release 5 Mg Tablet) 10 mg PO Q6H PRN PRN Reason: Pain, Moderate (Pain Scale 4-6 Pharmacy Consult (Consult Rx Perform Med Rec) 1 each MISCELLANE ONCE PRN PRN Reason: Consult order Sodium Chloride (0.9 % Sodium Chloride Flush 3 Ml Syringe) 3 ml IVFLUSH QSHIFT [facility] Home Medications Medication Instructions Recorded Confirmed Last Taken Type brimonidine 0.2 % eye drops 1 drp ophthalmic (eye) TID 02/08/21 09/10/22 Unknown History dorzolamide 2 %-timolol 0.5 % (PF) 1 drp ophthalmic (eye) BID 02/08/21 09/10/22 Unknown History eye drops netarsudil 0.02 % eye drops 1 drp ophthalmic (eye) QPM 02/08/21 09/10/22 Unknown History (Rhopressa) bupropion HCl 150 mg tablet,12 hr 1 tab PO Q12H 09/06/22 09/10/22 Unknown History sustained-release insulin lispro 100 unit/mL 0 sliding scale dose subcut TIDAC 09/06/22 09/10/22 Unknown History subcutaneous pen (Humalog KwikPen diabetes (U-100) Insulin) Physical Exam Vital Signs: Vital Signs: Last Vital Signs Temp 98 F 09/06/22 08:22 Pulse 102 H 09/06/22 11:16 Resp 18 09/06/22 11:16 BP 124/82 09/06/22 11:16 Pulse Ox 96 09/06/22 11:16 O2 Del Method 09/06/22 11:16 O2 Flow Rate 2 09/06/22 11:16 BMI result Body Mass Index 28.1 Const: General: comfortable and no acute distress Orientation/consciousness: patient oriented x3 Neck: Neck: Yes no lymphadenopathy Resp: Auscultation: clear to auscultation bilaterally Cardio: Rhythm: regular rhythm GI: Other: Tender on the left lower quadrant with no rebound or guarding Palpation (GI): Soft to palpation, Tenderness to palpation present (GI) and no guarding Neuro: General: patient oriented x3 Results Results Labs: Short CBC 09/06/22 Range/Units 08:08 WBC 15.8 H (4.8-10.8) X10*3/uL Hgb 12.7 L (14.0-18.0) g/dl Hct 39.1 L (42.0-52.0) % Plt Count 239 (160-400) X10*3/uL BMP 09/06/22 08:08 Sodium 138 Potassium 4.4 Chloride 102 Carbon Dioxide 23 BUN 15 Creatinine 1.14 Calcium 9.0 Liver Function 09/06/22 Range/Units 08:08 Total Bilirubin 0.9 (0.0-1.0) mg/dL AST 14 (5-37) U/L ALT 18 (0-40) U/L Alkaline Phosphatase 78 (39-117) U/L Albumin 4.0 (3.5-5.0) g/dL Urine 09/06/22 Range/Units 09:23 Urine Color Yellow Urine Appearance Clear Urine pH 6.0 (5.0-9.0) Ur Specific [place] >= 1.030 H (1.005-1.025) Urine Protein 30 (1+) H (Neg-Trace) mg/dL Urine Glucose (UA) >=1000 H (Negative) mg/dL Additional studies: Laboratory Results WBC 15.8 X10*3/uL (4.8-10.8) H 09/06/22 08:08 RBC 4.52 X10*6/uL (4.60-5.80) L 09/06/22 08:08 Hgb 12.7 g/dl (14.0-18.0) L 09/06/22 08:08 Hct 39.1 % (42.0-52.0) L 09/06/22 08:08 MCV 86.5 fL (80.0-98.0) 09/06/22 08:08 MCH 28.1 pg (27.0-33.0) 09/06/22 08:08 MCHC 32.5 g/dl (31.0-36.0) 09/06/22 08:08 RDW 13.9 % (11.0-16.0) 09/06/22 08:08 Plt Count 239 X10*3/uL (160-400) 09/06/22 08:08 MPV 10.7 fL (9.4-12.4) 09/06/22 08:08 Immature Gran % (Auto) 0.4 % (0.0-0.4) 09/06/22 08:08 Neut % (Auto) 85.4 % (45-73) H 09/06/22 08:08 Lymph % (Auto) 6.2 % (20-40) L 09/06/22 08:08 [place] % (Auto) 7.5 % (2-11) 09/06/22 08:08 Eos % (Auto) 0.2 % (0-4) 09/06/22 08:08 Baso % (Auto) 0.3 % (0-2) 09/06/22 08:08 Lymph # (Auto) 1.0 X10*3/uL (1.2-4.9) L 09/06/22 08:08 [place] # (Auto) 1.2 X10*3/uL (0.1-1.2) 09/06/22 08:08 Eos # (Auto) 0.0 X10*3/uL (0.0-0.4) 09/06/22 08:08 Baso # (Auto) 0.1 X10*3/uL (0.0-0.2) 09/06/22 08:08 Abs Immat Gran (auto) 0.07 X10*3/uL (0.00-0.03) H 09/06/22 08:08 Absolute Neuts (auto) 13.5 x10*3/uL (2.0-8.3) H 09/06/22 08:08 Absolute Nucleated RBC 0.000 X10*3/uL (0.0-0.012) 09/06/22 08:08 Nucleated RBC % (auto) 0.0 /100WBC (0.0-0.2) 09/06/22 08:08 Sodium 138 mmol/L (135-145) 09/06/22 08:08 Potassium 4.4 mmol/L (3.3-5.1) 09/06/22 08:08 Chloride 102 mmol/L (96-108) 09/06/22 08:08 Carbon Dioxide 23 mmol/L (22-29) 09/06/22 08:08 Anion Gap 17 (12-20) 09/06/22 08:08 BUN 15 mg/dL (9-16) 09/06/22 08:08 Creatinine 1.14 mg/dL (0.5-1.4) 09/06/22 08:08 Estim Creat Clear Calc 88.1 09/06/22 08:08 Estimated GFR > 60 09/06/22 08:08 Random Glucose 338 mg/dL (60-115) H 09/06/22 08:08 Lactic Acid 1.0 mmol/L (0.5-2.0) 09/06/22 08:15 Calcium 9.0 mg/dL (8.4-10.2) 09/06/22 08:08 Total Bilirubin 0.9 mg/dL (0.0-1.0) 09/06/22 08:08 AST 14 U/L (5-37) 09/06/22 08:08 ALT 18 U/L (0-40) 09/06/22 08:08 Alkaline Phosphatase 78 U/L (39-117) 09/06/22 08:08 Total Protein 6.8 g/dL (6.5-8.0) 09/06/22 08:08 Albumin 4.0 g/dL (3.5-5.0) 09/06/22 08:08 Lipase 20 U/L (8-78) 09/06/22 08:08 Urine Color Yellow 09/06/22: Urine Appearance Clear 09/06/22 09: Urine pH 6.0 (5.0-9.0) 09/06/22 09: Ur Specific [place] >= 1.030 (1.005-1.025) H 09/06/22 09: Urine Protein 30 (1+) mg/dL (Neg-Trace) H 09/06/22: Urine Glucose (UA) >=1000 mg/dL (Negative) H 09/06/22: Urine Ketones 40 mg/dL (Negative) 09/06/22: Urine Blood Negative (Negative) 09/06/22: Urine Nitrite Negative (Negative) 09/06/22 09: Ur Leukocyte Esterase Negative (Negative) 09/06/22: Urine RBC 0-2 /HPF (0-2) 09/06/22: Urine WBC 0-5 /HPF (0-5) 09/06/22 09: Ur Squamous Epith Cells 0-2 /HPF (0-2) 09/06/22 09: Urine Bacteria None Seen (None Seen) 09/06/22: Hyaline Casts 0-2 /LPF (0-2) 09/06/22 09:23 COVID-19 ([facility]) Negative (Negative) 09/06/22 08:08 COVID-19 Clin Com See Note 09/06/22 08:08 Impressions Abdomen/Pelvis CT 09/06/22 09:26 IMPRESSION: CT findings appearing consistent with acute sigmoid diverticulitis. There is evidence of an intramural abscess at this level with above noted dimensions. No free air identified. Small right middle lobe nodule. Other incidental findings as noted above. Fleischner guidelines were followed. Assessment and Plan (1) Abscess of sigmoid colon due to diverticulitis: Status: Acute Plan I have reviewed his CAT scan and this shows acute diverticulitis of the sigmoid with what appears to be an intramural abscess about 2.2 cm in widest dimension. I explained to him that he will need to be admitted for IV antibiotics. Since the abscess intramural, he is not a candidate for drainage. I will review this with the radiologist I told him that if he does not improved promptly or if he has clinical worsening, he may need to have urgent sigmoid resection with a colostomy. He will be placed on bowel rest as well. I have consulted the hospitalist service because of his diabetes and hypertension. He does have significant tenderness on left lower quadrant but he otherwise has a very benign exam. Time Spent With Patient Time: Total time managing care of this patient today ____ minutes. Quality Stroke Does the patient have a stroke diagnosis?: No VTE Prior VTE?: No VTE Risk Level:: Medical - moderate - high VTE Device Contraindication: N/A - Device Ordered VTE Drug Contraindication: N/A - Med Ordered Procedures Date of Service Date of Service: 09/06/22
--- NOTE | 2022-09-06 12:16 | PC.NURSE ---
per dr oliveira, ia for pt to have ice chips
[2022-09-06] MEDS: oxyCODONE HCl Immed Release 5 MG TABLET 10 MG PO (12:54)
--- NOTE | 2022-09-06 12:59 | HO.PM.IMCN ---
History of Present Illness Data of Consult Service Date: 09/06/22 Primary Care Provider: Jayro Dougherty, [facility] HPI Reason for consult: Medical management Pt is a 41-year-old male with a PMH significant for insulin-dependent DM, HTN, glaucoma, and recurrent complicated diverticulitis with abscess who presented to ED due to severe left lower quadrant right pain. Patient seen and evaluated for consult and medical management. The patient complains of intermittent, severe abdominal pain that begins in the left lower quadrant, migrates periumbilically, and then radiates diffusely x2 days. Patient states that he has had decreased p.o. intake since then, and states he is currently quite thirsty. Patient has no other acute medical concerns at this time. Denies chest pain/pressure, palpitations. No shortness of breath. Denies headache, vision changes, fever, chills. Denies diarrhea. Review of Systems Review of Systems: Severe lower left and periumbilical abdominal pain Polydipsia Denies chest pain/pressure, palpitations No shortness of breath Denies headache, vision changes No fever, chills, diarrhea. Yes all other systems are reviewed and are negative FORMERLY [facility], [facility] Medical History Abdominal pain Diabetes mellitus Diverticulosis Glaucoma Pigmentary glaucoma of both eyes Thigh abscess Family History Father HTN (hypertension) Diabetes mellitus Mother HTN (hypertension) Diabetes mellitus Heart murmur Brother No problems noted. Brother No problems noted. Brother No problems noted. Sister Lupus Sister No problems noted. Sister No problems noted. Sister No problems noted. Son No problems noted. Daughter No problems noted. Surgical History H/O colonoscopy History of circumcision S/P LASIK surgery Social History Household Members: Spouse and Children Housing: Apartment Alcohol intake: current Alcohol intake frequency: a few times a week Patient Tobacco Use Status: Current everyday Tobacco user Cigarette Packs Per Day: 1.5 Smoked in Last 30 Days: Yes e-Cigarette/Vaping Use: Never Used Second Hand Smoke Exposure: No Use of substances other than those prescribed or required for medical reasons: No Advance Directives: No Advance Directives Information Provided: Yes Nutrition Risks: No Nutritional Risk service: No Current occupational status: employed Current occupation: [employer] Current occupational exposures/hazards: No Cognitive needs: No Hearing needs: No Vision needs: No Meds Allergies Allergy/AdvReac Type Severity Reaction Status Date / Time NSAIDS (Non-Steroidal Allergy Mild thins Verified 06/27/22 10:40 Anti-Inflamma lining of stomach with GERD. Active Medications: Current Medications Albuterol Sulfate (Albuterol Sulfate 90 Mcg 8 Gm Inhaler) 1 puff INHALE Q4-6H PRN PRN Reason: shortness of breath or wheezing Atorvastatin Calcium (Atorvastatin Calcium 10 Mg Tablet) 10 mg PO DAILY [facility] Brimonidine Tartrate (Brimonidine Tartrate 0.2% Oph 5 Ml Bottle) 1 drop EYE-BOTH TID [facility] Dextrose (Dextrose 50 % 25 Gm/50 Ml Syringe) 25 gm IVPUSH Q15M PRN; Protocol PRN Reason: per Hypoglycemia Standing Ord. Glucose (Glucose Gel 15 Gm Gel..Gram.) 15 gm PO Q15M PRN; Protocol PRN Reason: per Hypoglycemia Standing Ord. Heparin Sodium (Porcine) (Heparin Sodium,Porcine 5,000 Unit/Ml Vial) 5,000 unit SUBCUT Q8H [facility] Hydromorphone HCl (Hydromorphone Hcl 1 Mg/Ml Syringe) 1 mg IVPUSH Q3H PRN; Protocol PRN Reason: Pain, Severe (Pain Scale 7-10) Last Admin: 09/06/22 12:53 Dose: 1 mg Sodium Chloride (Ns) 1,000 mls @ 100 mls/hr IVCONT .Q10H [facility] Piperacillin Sod/Tazobactam (Sod 3.375 gm/ Sodium Chloride) 50 mls @ 100 mls/hr IV Q6H [facility] Insulin Human Lispro (Insulin Lispro 100 Unit/Ml 3 Ml Vial) 0 unit SUBCUT Q6H [facility]; Protocol Latanoprost (Latanoprost 0.005 % Ophth [place] 2.5 Ml Drops) 1 drop EYE-BOTH DAILY [facility] Lisinopril (Lisinopril 5 Mg Tablet) 5 mg PO DAILY [facility]; Protocol Non-Formulary Medication (Bupropion Hcl) 1 tab PO Q12H [facility] Non-Formulary Medication (Dorzolamide-Timolol (Pf)) 1 drop EYE-BOTH BID [facility] Non-Formulary Medication (Netarsudil [Rhopressa]) 1 drop EYE-BOTH QPM [facility] Omeprazole (Omeprazole 40 Mg Capsule.Dr) 40 mg PO DAILY [facility] Oxycodone HCl (Oxycodone Hcl Immed Release 5 Mg Tablet) 10 mg PO Q6H PRN PRN Reason: Pain, Moderate (Pain Scale 4-6 Last Admin: 09/06/22 12:54 Dose: 10 mg Pharmacy Consult (Consult Rx Perform Med Rec) 1 each MISCELLANE ONCE PRN PRN Reason: Consult order Sertraline HCl (Sertraline Hcl 25 Mg Tablet) 25 mg PO DAILY [facility] Sodium Chloride (0.9 % Sodium Chloride Flush 3 Ml Syringe) 3 ml IVFLUSH QSHIFT [facility] Home Medications Medication Instructions Recorded Confirmed Last Taken Type brimonidine 0.2 % eye drops 1 drp ophthalmic (eye) TID 02/08/21 09/06/22 Unknown History dorzolamide 2 %-timolol 0.5 % (PF) 1 drp ophthalmic (eye) BID 02/08/21 09/06/22 Unknown History eye drops netarsudil 0.02 % eye drops 1 drp ophthalmic (eye) QPM 02/08/21 09/06/22 Unknown History (Rhopressa) bupropion HCl 150 mg tablet,12 hr 1 tab PO Q12H 09/06/22 09/06/22 Unknown History sustained-release insulin lispro 100 unit/mL 0 sliding scale dose subcut TIDAC 09/06/22 09/06/22 Unknown History subcutaneous pen (Humalog KwikPen diabetes (U-100) Insulin) Physical Exam Vital Signs and Narrative: Vital Signs: Last Vital Signs Temp 98 F 09/06/22 08:22 Pulse 102 H 09/06/22 11:16 Resp 18 09/06/22 11:16 BP 124/82 09/06/22 11:16 Pulse Ox 96 09/06/22 11:16 O2 Del Method 09/06/22 11:16 O2 Flow Rate 2 09/06/22 11:16 BMI result Body Mass Index 28.1 General: AOx3, uncomfortable Resp: CTA bilaterally CVS: S1, S2, tachycardic GI: Abdomen diffusely tender, especially in lower left quadrant Skin: No rash Neuro: Cranial nerves II-XII grossly intact. Motor grossly intact Extremities: No edema Psych: Appropriate affect Results Labs 09/06/22 08:08 09/06/22 08:08 Labs: Laboratory Results - last 24 hr 09/06/22 09/06/22 09/06/22 08:08 08:08 08:08 MCV 86.5 MCH 28.1 MCHC 32.5 RDW 13.9 Plt Count 239 MPV 10.7 Immature Gran % (Auto) 0.4 Neut % (Auto) 85.4 H Lymph % (Auto) 6.2 L [place] % (Auto) 7.5 Eos % (Auto) 0.2 Baso % (Auto) 0.3 Lymph # (Auto) 1.0 L [place] # (Auto) 1.2 Eos # (Auto) 0.0 Baso # (Auto) 0.1 Abs Immat Gran (auto) 0.07 H Absolute Neuts (auto) 13.5 H Absolute Nucleated RBC 0.000 Nucleated RBC % (auto) 0.0 Anion Gap 17 Estim Creat Clear Calc 88.1 Estimated GFR > 60 Random Glucose 338 H Lactic Acid Calcium 9.0 Total Bilirubin 0.9 AST 14 ALT 18 Alkaline Phosphatase 78 Total Protein 6.8 Albumin 4.0 Lipase 20 Urine Color Urine Appearance Urine pH Ur Specific [place] Urine Protein Urine Glucose (UA) Urine Ketones Urine Blood Urine Nitrite Ur Leukocyte Esterase Urine RBC Urine WBC Ur Squamous Epith Cells Urine Bacteria Hyaline Casts COVID-19 ([facility]) Negative COVID-19 Clin Com See Note 09/06/22 09/06/22 08:15 09:23 MCV MCH MCHC RDW Plt Count MPV Immature Gran % (Auto) Neut % (Auto) Lymph % (Auto) [place] % (Auto) Eos % (Auto) Baso % (Auto) Lymph # (Auto) [place] # (Auto) Eos # (Auto) Baso # (Auto) Abs Immat Gran (auto) Absolute Neuts (auto) Absolute Nucleated RBC Nucleated RBC % (auto) Anion Gap Estim Creat Clear Calc Estimated GFR Random Glucose Lactic Acid 1.0 Calcium Total Bilirubin AST ALT Alkaline Phosphatase Total Protein Albumin Lipase Urine Color Yellow Urine Appearance Clear Urine pH 6.0 Ur Specific [place] >= 1.030 H Urine Protein 30 (1+) H Urine Glucose (UA) >=1000 H Urine Ketones 40 Urine Blood Negative Urine Nitrite Negative Ur Leukocyte Esterase Negative Urine RBC 0-2 Urine WBC 0-5 Ur Squamous Epith Cells 0-2 Urine Bacteria None Seen Hyaline Casts 0-2 COVID-19 ([facility]) COVID-19 Clin Com Imaging Radiologist's Impressions: Impressions Abdomen/Pelvis CT 09/06/22 09:26 IMPRESSION: CT findings appearing consistent with acute sigmoid diverticulitis. There is evidence of an intramural abscess at this level with above noted dimensions. No free air identified. Small right middle lobe nodule. Other incidental findings as noted above. Fleischner guidelines were followed. Assessment and Plan (1) Abscess of sigmoid colon due to diverticulitis: Status: Acute (2) Diabetes mellitus: Status: Acute (3) Glaucoma: Status: Acute Plan Pt is a 41-year-old male with a PMH significant for insulin-dependent DM, HTN, glaucoma, and recurrent complicated diverticulitis with abscess who presented to ED due to severe left lower quadrant right pain. Patient seen and evaluated for consult and medical management. Insulin-dependent diabetes mellitus Hold home meds SSI q6hr while NPO, add lantus when diet advances Essential hypertension Continue home meds Glaucoma Continue home meds Acute complicated diverticulitis with abscess Management as per General surgery team Thank you for allowing us to participate in the care of this patient. We will continue to follow at this time. Please contact us with any acute questions or concerns. Time Spent With Patient Time: Total time managing care of this patient today ____ minutes.
[2022-09-06] MEDS: 0.9 % Sodium Chloride 1,000 ML 100 ML IVCONT ×2 (14:25→23:33)
[2022-09-06] MEDS: lisinopriL 5 MG TABLET PO (14:25)
[2022-09-06] MEDS: Sertraline HCL 25 MG TABLET PO (14:26)
[2022-09-06] MEDS: Omeprazole 40 MG CAPSULE.DR PO (14:26)
[2022-09-06 14:27] LABS: Glucose, Whole Blood 189 mg/dL (60-115)
--- NOTE | 2022-09-06 17:13 | PM.EVENT ---
Event Note Date of Service: 09/06/22 Event Note: seen on afternoon rounds was sleeping says he still has pain looks comfortable however abdl exam remains soft and benign not septic looking, lactic normal continue IV abx bowel rest Time Spent With Patient Time: Total time managing care of this patient today ____ minutes.
--- NOTE | 2022-09-06 18:24 | MHC.EDTECH ---
Brought patient ice chips.
[2022-09-06 19:10] LABS: Glucose, Whole Blood 198 mg/dL (60-115)
[2022-09-06] MEDS: Insulin Lispro 100 UNIT/ML 3 ML VIAL SUBCUT (19:27)
--- NOTE | 2022-09-06 19:34 | PC.NURSE ---
Attempted to call report at 19:35, US said nurse will call back when she is available.
[2022-09-06] MEDS: Brimonidine Tartrate 0.2% Oph 5 ML BOTTLE 1 DROP EYE-BOTH (21:52)
[2022-09-06] MEDS: Dorzolamide HCl 2 % Ophth Sol 10 ML DRPBTL 1 DROP EYE-BOTH (21:52)
[2022-09-06] MEDS: timoloL maleate 0.5 % Oph Sol 5 ML DRBTL 1 DROP EYE-BOTH (21:52)
[2022-09-06] MEDS: Prochlorperazine Edisylate 10 MG/2 ML VIAL 5 MG IVPUSH (22:20)
[2022-09-06 23:45] LABS: Glucose, Whole Blood 195 mg/dL (60-115)
[2022-09-07] MEDS: Insulin Lispro 100 UNIT/ML 3 ML VIAL SUBCUT ×2 (00:03→20:30)
[2022-09-07] MEDS: HYDROmorphone HCl 1 MG/ML SYRINGE IVPUSH ×3 (02:31→21:58)
[2022-09-07] MEDS: ondansetron HCL 4 MG/2 ML VIAL IVPUSH (02:37)
[2022-09-07 03:24] VITALS: BP 121/69; PULSE 119; RESP 12; TEMP 36.8; O2SAT 91
[2022-09-07] MEDS: Piperacillin Sodium/Tazobactam 3.375 GM in 0.9 % Sodium Chloride 50 ML IV ×4 (03:33→21:49)
--- NOTE | 2022-09-07 04:41 | PC.NURSE ---
pt arrived with stretcher from ED, during the assessment, he feels nauseated. provide bucket to vomit, 500 mL bile came out. dr Arias notified ordered antiemetic meds. given via this RN.
[2022-09-07 05:38] LABS: Glucose, Whole Blood 178 mg/dL (60-115)
[2022-09-07] MEDS: Omeprazole 40 MG CAPSULE.DR PO (05:41)
[2022-09-07 07:05] LABS: MANUAL DIFF FLAG NO
[2022-09-07 07:17] LABS: Basophils Percent Auto 0.3 % (0-2); Eosinophils Absolute Auto 0.1 X10*3/uL (0.0-0.4); Eosinophils Percent Auto 0.4 % (0-4); Hematocrit 35.6 % (42.0-52.0); Imm Gran Abs Auto 0.05 X10*3/uL (0.00-0.03); Imm Gran Pct Auto 0.4 % (0.0-0.4); Lymphocytes Absolute Auto 1.1 X10*3/uL (1.2-4.9); Lymphocytes Percent Auto 7.9 % (20-40); Mean Corpuscular HGB Conc 30.9 g/dl (31.0-36.0); Mean Corpuscular Hemoglobin 27.9 pg (27.0-33.0); Mean Corpuscular Volume 90.4 fL (80.0-98.0); Mean Platelet Volume 11.1 fL (9.4-12.4); Monocytes Percent Auto 7.2 % (2-11); Neutrophils Absolute Auto 11.4 x10*3/uL (2.0-8.3); Neutrophils Percent Auto 83.8 % (45-73); Platelet Count 240 X10*3/uL (160-400); Red Blood Count 3.94 X10*6/uL (4.60-5.80); Red Cell Distribution Width 13.9 % (11.0-16.0); White Blood Count 13.6 X10*3/uL (4.8-10.8)
[2022-09-07 07:29] LABS: Glucose, Whole Blood 187 mg/dL (60-115)
[2022-09-07 07:32] VITALS: BP 116/77; PULSE 114; RESP 14; TEMP 37; O2SAT 96
[2022-09-07 07:45] LABS: Anion Gap 17 (12-20); Blood Urea Nitrogen 13 mg/dL (9-16); Calcium 8.4 mg/dL (8.4-10.2); Carbon Dioxide 23 mmol/L (22-29); Chloride 106 mmol/L (96-108); Creatinine Clr Calc Pharmacy 114.1; Estimated Glomerular Filt Rate > 60; Glucose Random 174 mg/dL (60-115); Potassium 4.2 mmol/L (3.3-5.1); Sodium 142 mmol/L (135-145)
[2022-09-07] MEDS: 0.9 % Sodium Chloride 1,000 ML 100 ML IVCONT ×2 (08:36→23:59)
[2022-09-07] MEDS: lisinopriL 5 MG TABLET PO (08:36)
[2022-09-07] MEDS: Sertraline HCL 25 MG TABLET PO (08:37)
[2022-09-07] MEDS: Atorvastatin Calcium 10 MG TABLET PO (08:37)
[2022-09-07] MEDS: Heparin Sodium,Porcine 5,000 UNIT/ML VIAL 5000 UNIT SUBCUT ×2 (08:37→15:53)
[2022-09-07] MEDS: oxyCODONE HCl Immed Release 5 MG TABLET 10 MG PO ×2 (08:37→20:14)
[2022-09-07] MEDS: Brimonidine Tartrate 0.2% Oph 5 ML BOTTLE 1 DROP EYE-BOTH ×3 (08:38→20:31)
[2022-09-07] MEDS: Dorzolamide HCl 2 % Ophth Sol 10 ML DRPBTL 1 DROP EYE-BOTH ×2 (08:38→20:31)
[2022-09-07] MEDS: timoloL maleate 0.5 % Oph Sol 5 ML DRBTL 1 DROP EYE-BOTH ×2 (08:38→20:31)
--- NOTE | 2022-09-07 09:13 | P.PNGS_ITS ---
Subjective Subjective Date of Service: 09/07/22 Interval history: pain much improved this AM no events reported no fever Physical Exam Vital Signs: Vital Signs: Last Vital Signs Temp 98.6 F 09/07/22 07:32 Pulse 114 H 09/07/22 07:32 Resp 14 09/07/22 07:32 BP 116/77 09/07/22 07:32 Pulse Ox 96 09/07/22 07:32 O2 Del Method 09/07/22 07:32 O2 Flow Rate 1.5 09/07/22 07:32 BMI result Body Mass Index 28.1 Const: General: comfortable and no acute distress Resp: Effort & Inspection: normal respiratory effort Cardio: Rate: regular rate GI: Palpation (GI): Soft to palpation, not firm and Tenderness to palpation present (GI) (braider tender in the left lower quadrant but much less compared to yesterday) Objective Data Active Medications Albuterol Sulfate (Albuterol Sulfate 90 Mcg 8 Gm Inhaler) 1 puff INHALE Q4H PRN PRN Reason: shortness of breath or wheezing Atorvastatin Calcium (Atorvastatin Calcium 10 Mg Tablet) 10 mg PO DAILY [facility] [place] Last Admin: 09/07/22 08:37 Dose: 10 mg Documented By: CONRAD Brimonidine Tartrate (Brimonidine Tartrate 0.2% Oph 5 Ml Bottle) 1 drop EYE- BOTH TID [facility] [place] Last Admin: 09/07/22 08:38 Dose: 1 drop Documented By: CONRAD Dextrose (Dextrose 50 % 25 Gm/50 Ml Syringe) 25 gm IVPUSH Q15M PRN; Protocol PRN Reason: per Hypoglycemia Standing Ord. Dorzolamide HCl (Dorzolamide Hcl 2 % Ophth Tracy 10 Ml Drpbtl) 1 drop EYE-BOTH BID [facility] [place] Last Admin: 09/07/22 08:38 Dose: 1 drop Documented By: CONRAD Glucose (Glucose Gel 15 Gm Gel..Gram.) 15 gm PO Q15M PRN; Protocol PRN Reason: per Hypoglycemia Standing Ord. Heparin Sodium (Porcine) (Heparin Sodium,Porcine 5,000 Unit/Ml Vial) 5,000 unit SUBCUT Q8H [facility] [place] Last Admin: 09/07/22 08:37 Dose: 5,000 unit Documented By: CONRAD Hydromorphone HCl (Hydromorphone Hcl 1 Mg/Ml Syringe) 1 mg IVPUSH Q3H PRN; Protocol PRN Reason: Pain, Severe (Pain Scale 7-10) Last Admin: 09/07/22 02:31 Dose: 1 mg Documented By: OG Sodium Chloride (Ns) 1,000 mls @ 100 mls/hr IVCONT .Q10H [facility] [place] Last Admin: 09/07/22 08:36 Dose: 100 mls/hr Documented By: CONRAD Piperacillin Sod/Tazobactam (Sod 3.375 gm/ Sodium Chloride) 50 mls @ 100 mls/hr IV Q6H [facility] [place] Last Infusion: 09/07/22 04:08 Dose: 0 mls/hr Documented By: OG Insulin Human Lispro (Insulin Lispro 100 Unit/Ml 3 Ml Vial) 0 unit SUBCUT Q6H [facility] [place]; Protocol Last Admin: 09/07/22 08:41 Dose: Not Given Documented By: CONRAD Non-Admin Reason: NPO Latanoprost (Latanoprost 0.005 % Ophth Tracy 2.5 Ml Drops) 1 drop EYE-BOTH DAILY [facility] [place] Last Admin: 09/06/22 14:30 Dose: Not Given Documented By: ANAY Non-Admin Reason: Med Not Available Lisinopril (Lisinopril 5 Mg Tablet) 5 mg PO DAILY [facility] [place]; Protocol Last Admin: 09/07/22 08:36 Dose: 5 mg Documented By: CONRAD Non-Formulary Medication (Netarsudil [Rhopressa]) 1 drop EYE-BOTH QPM [facility] [place] Omeprazole (Omeprazole 40 Mg Capsule.Dr) 40 mg PO DAILY@0630 [facility] [place] Last Admin: 09/07/22 05:41 Dose: 40 mg Documented By: OG Ondansetron HCl (Ondansetron Hcl 4 Mg/2 Ml Vial) 4 mg IVPUSH Q4H PRN PRN Reason: Nausea and Vomiting Last Admin: 09/07/22 02:37 Dose: 4 mg Documented By: OG Oxycodone HCl (Oxycodone Hcl Immed Release 5 Mg Tablet) 10 mg PO Q6H PRN PRN Reason: Pain, Moderate (Pain Scale 4-6 Last Admin: 09/07/22 08:37 Dose: 10 mg Documented By: CONRAD Pharmacy Consult (Consult Rx Perform Med Rec) 1 each MISCELLANE ONCE PRN PRN Reason: Consult order Sertraline HCl (Sertraline Hcl 25 Mg Tablet) 25 mg PO DAILY [facility] [place] Last Admin: 09/07/22 08:37 Dose: 25 mg Documented By: CONRAD Sodium Chloride (0.9 % Sodium Chloride Flush 3 Ml Syringe) 3 ml IVFLUSH QSHIFT [facility] [place] Last Admin: 09/07/22 07:13 Dose: Not Given Documented By: CONRAD Non-Admin Reason: IV Running Timolol Maleate (Timolol Maleate 0.5 % Oph Tracy 5 Ml Drbtl) 1 drop EYE-BOTH BID [facility] [place] Last Admin: 09/07/22 08:38 Dose: 1 drop Documented By: CONRAD Labs 09/07/22 05:25 09/07/22 05:25 Labs: Laboratory Results - last 24 hr 09/06/22 09/06/22 09/06/22 08:08 09:23 14:20 MCV MCH MCHC RDW Plt Count MPV Immature Gran % (Auto) Neut % (Auto) Lymph % (Auto) Trigg % (Auto) Eos % (Auto) Baso % (Auto) Lymph # (Auto) Trigg # (Auto) Eos # (Auto) Baso # (Auto) Abs Immat Gran (auto) Absolute Neuts (auto) Absolute Nucleated RBC Nucleated RBC % (auto) Anion Gap 17 Estim Creat Clear Calc Estimated GFR POC Glucose 189 H Random Glucose Calcium Urine Color Yellow Urine Appearance Clear Urine pH 6.0 Ur Specific Fielding >= 1.030 H Urine Protein 30 (1+) H Urine Glucose (UA) >=1000 H Urine Ketones 40 Urine Blood Negative Urine Nitrite Negative Ur Leukocyte Esterase Negative Urine RBC 0-2 Urine WBC 0-5 Ur Squamous Epith Cells 0-2 Urine Bacteria None Seen Hyaline Casts 0-2 09/06/22 09/06/22 09/07/22 19:05 23:24 05:25 MCV 90.4 MCH 27.9 MCHC 30.9 L RDW 13.9 Plt Count 240 MPV 11.1 Immature Gran % (Auto) 0.4 Neut % (Auto) 83.8 H Lymph % (Auto) 7.9 L Trigg % (Auto) 7.2 Eos % (Auto) 0.4 Baso % (Auto) 0.3 Lymph # (Auto) 1.1 L Trigg # (Auto) 1.0 Eos # (Auto) 0.1 Baso # (Auto) 0.0 Abs Immat Gran (auto) 0.05 H Absolute Neuts (auto) 11.4 H Absolute Nucleated RBC 0.000 Nucleated RBC % (auto) 0.0 Anion Gap Estim Creat Clear Calc Estimated GFR POC Glucose 198 H 195 H Random Glucose Calcium Urine Color Urine Appearance Urine pH Ur Specific Fielding Urine Protein Urine Glucose (UA) Urine Ketones Urine Blood Urine Nitrite Ur Leukocyte Esterase Urine RBC Urine WBC Ur Squamous Epith Cells Urine Bacteria Hyaline Casts 09/07/22 09/07/22 09/07/22 05:25 05:33 07:26 MCV MCH MCHC RDW Plt Count MPV Immature Gran % (Auto) Neut % (Auto) Lymph % (Auto) Trigg % (Auto) Eos % (Auto) Baso % (Auto) Lymph # (Auto) Trigg # (Auto) Eos # (Auto) Baso # (Auto) Abs Immat Gran (auto) Absolute Neuts (auto) Absolute Nucleated RBC Nucleated RBC % (auto) Anion Gap 17 Estim Creat Clear Calc 114.1 Estimated GFR > 60 POC Glucose 178 H 187 H Random Glucose 174 H Calcium 8.4 D Urine Color Urine Appearance Urine pH Ur Specific Fielding Urine Protein Urine Glucose (UA) Urine Ketones Urine Blood Urine Nitrite Ur Leukocyte Esterase Urine RBC Urine WBC Ur Squamous Epith Cells Urine Bacteria Hyaline Casts Procedures Date of Service Date of Service: 09/07/22 Progress Note: A&P Assessment and plan (1) Abscess of sigmoid colon due to diverticulitis: Status: Acute Assessment and Plan: Has intramural abscess Clinically much improved WBC down Abdomen remained soft and benign Will need long course of IV antibiotics in view the intra mural abscess Will keep on sips of clears only for now He understands possibility, even if low required urgent surgery Time Spent With Patient Time: Total time managing care of this patient today ____ minutes. Quality Stroke Does the patient have a stroke diagnosis?: No VTE Prior VTE?: No VTE Risk Level:: Medical - moderate - high VTE Device Contraindication: N/A - Device Ordered VTE Drug Contraindication: N/A - Med Ordered
--- NOTE | 2022-09-07 09:28 | MHC.CM.PN ---
CM MET WITH PT. LIVES IN AN APARTMENT IN [place] WITH /DAUGHTER. 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 NO SERVICES OR DME. EMPLOYED. NO HCP AND DECLINES TO COMPLETE AT THIS TIME. DIANE MERLOS X2 (PFIZER) PCP ANGEL WADDELL. WILL TRANSPORT AT IN. CM WILL CONTINUE TO FOLLOW.
--- NOTE | 2022-09-07 10:49 | P.PNIM_ITS ---
Subjective Subjective Date of Service: 09/07/22 Interval History: f/u on med management here with acute complicated diverticultis, interval history feels better and now comfortable to get up and walke, he could not do that yesterday Review of Systems some abd pain, no n/v Physical Exam 2 Vital Signs: Vital Signs: Last Vital Signs Temp 98.6 F 09/07/22 07:32 Pulse 114 H 09/07/22 07:32 Resp 14 09/07/22 07:32 BP 116/77 09/07/22 07:32 Pulse Ox 96 09/07/22 07:32 O2 Del Method 09/07/22 07:32 O2 Flow Rate 1.5 09/07/22 07:32 BMI result Body Mass Index 28.1 Objective Data Active Medications Albuterol Sulfate (Albuterol Sulfate 90 Mcg 8 Gm Inhaler) 1 puff INHALE Q4H PRN PRN Reason: shortness of breath or wheezing Atorvastatin Calcium (Atorvastatin Calcium 10 Mg Tablet) 10 mg PO DAILY [facility] Last Admin: 09/07/22 08:37 Dose: 10 mg Documented By: CONRAD Brimonidine Tartrate (Brimonidine Tartrate 0.2% Oph 5 Ml Bottle) 1 drop EYE- BOTH TID [facility] Last Admin: 09/07/22 08:38 Dose: 1 drop Documented By: CONRAD Dextrose (Dextrose 50 % 25 Gm/50 Ml Syringe) 25 gm IVPUSH Q15M PRN; Protocol PRN Reason: per Hypoglycemia Standing Ord. Dorzolamide HCl (Dorzolamide Hcl 2 % Ophth Tracy 10 Ml Drpbtl) 1 drop EYE-BOTH BID [facility] Last Admin: 09/07/22 08:38 Dose: 1 drop Documented By: CONRAD Glucose (Glucose Gel 15 Gm Gel..Gram.) 15 gm PO Q15M PRN; Protocol PRN Reason: per Hypoglycemia Standing Ord. Heparin Sodium (Porcine) (Heparin Sodium,Porcine 5,000 Unit/Ml Vial) 5,000 unit SUBCUT Q8H [facility] Last Admin: 09/07/22 08:37 Dose: 5,000 unit Documented By: CONRAD Hydromorphone HCl (Hydromorphone Hcl 1 Mg/Ml Syringe) 1 mg IVPUSH Q3H PRN; P rotocol PRN Reason: Pain, Severe (Pain Scale 7-10) Last Admin: 02/10/23 02:31 Dose: 1 mg Documented By: OG Sodium Chloride (Ns) 1,000 mls @ 100 mls/hr IVCONT .Q10H [facility] Last Admin: 09/07/22 08:36 Dose: 100 mls/hr Documented By: CONRAD Piperacillin Sod/Tazobactam (Sod 3.375 gm/ Sodium Chloride) 50 mls @ 100 mls/hr IV Q6H [facility] Last Admin: 09/07/22 10:36 Dose: 100 mls/hr Documented By: CONRAD Insulin Human Lispro (Insulin Lispro 100 Unit/Ml 3 Ml Vial) 0 unit SUBCUT Q6H [facility]; Protocol Last Admin: 09/07/22 08:41 Dose: Not Given Documented By: CONRAD Non-Admin Reason: NPO Latanoprost (Latanoprost 0.005 % Ophth Tracy 2.5 Ml Drops) 1 drop EYE-BOTH DAILY [facility] Last Admin: 09/06/22 14:30 Dose: Not Given Documented By: ANAY Non-Admin Reason: Med Not Available Lisinopril (Lisinopril 5 Mg Tablet) 5 mg PO DAILY [facility]; Protocol Last Admin: 09/07/22 08:36 Dose: 5 mg Documented By: CONRAD Non-Formulary Medication (Netarsudil [Rhopressa]) 1 drop EYE-BOTH QPM [facility] Omeprazole (Omeprazole 40 Mg Capsule.Dr) 40 mg PO DAILY@0630 [facility] Last Admin: 09/07/22 05:41 Dose: 40 mg Documented By: OG Ondansetron HCl (Ondansetron Hcl 4 Mg/2 Ml Vial) 4 mg IVPUSH Q4H PRN PRN Reason: Nausea and Vomiting Last Admin: 09/07/22 02:37 Dose: 4 mg Documented By: OG Oxycodone HCl (Oxycodone Hcl Immed Release 5 Mg Tablet) 10 mg PO Q6H PRN PRN Reason: Pain, Moderate (Pain Scale 4-6 Last Admin: 09/07/22 08:37 Dose: 10 mg Documented By: CONRAD Pharmacy Consult (Consult Rx Perform Med Rec) 1 each MISCELLANE ONCE PRN PRN Reason: Consult order Sertraline HCl (Sertraline Hcl 25 Mg Tablet) 25 mg PO DAILY [facility] Last Admin: 09/07/22 08:37 Dose: 25 mg Documented By: CONRAD Sodium Chloride (0.9 % Sodium Chloride Flush 3 Ml Syringe) 3 ml IVFLUSH QSHIFT [facility] Last Admin: 09/07/22 07:13 Dose: Not Given Documented By: CONRAD Non-Admin Reason: IV Running Timolol Maleate (Timolol Maleate 0.5 % Oph Tracy 5 Ml Drbtl) 1 drop EYE-BOTH BID [facility] Last Admin: 09/07/22 08:38 Dose: 1 drop Documented By: CONRAD Labs 09/07/22 05:25 09/07/22 05:25 Labs: Laboratory Results - last 24 hr 09/06/22 09/06/22 09/06/22 14:20 19:05 23:24 MCV MCH MCHC RDW Plt Count MPV Immature Gran % (Auto) Neut % (Auto) Lymph % (Auto) Coffee % (Auto) Eos % (Auto) Baso % (Auto) Lymph # (Auto) Coffee # (Auto) Eos # (Auto) Baso # (Auto) Abs Immat Gran (auto) Absolute Neuts (auto) Absolute Nucleated RBC Nucleated RBC % (auto) Anion Gap Estim Creat Clear Calc Estimated GFR POC Glucose 189 H 198 H 195 H Random Glucose Calcium 09/07/22 09/07/22 09/07/22 05:25 05:25 05:33 MCV 90.4 MCH 27.9 MCHC 30.9 L RDW 13.9 Plt Count 240 MPV 11.1 Immature Gran % (Auto) 0.4 Neut % (Auto) 83.8 H Lymph % (Auto) 7.9 L Coffee % (Auto) 7.2 Eos % (Auto) 0.4 Baso % (Auto) 0.3 Lymph # (Auto) 1.1 L Coffee # (Auto) 1.0 Eos # (Auto) 0.1 Baso # (Auto) 0.0 Abs Immat Gran (auto) 0.05 H Absolute Neuts (auto) 11.4 H Absolute Nucleated RBC 0.000 Nucleated RBC % (auto) 0.0 Anion Gap 17 Estim Creat Clear Calc 114.1 Estimated GFR > 60 POC Glucose 178 H Random Glucose 174 H Calcium 8.4 D 09/07/22 07:26 MCV MCH MCHC RDW Plt Count MPV Immature Gran % (Auto) Neut % (Auto) Lymph % (Auto) Coffee % (Auto) Eos % (Auto) Baso % (Auto) Lymph # (Auto) Coffee # (Auto) Eos # (Auto) Baso # (Auto) Abs Immat Gran (auto) Absolute Neuts (auto) Absolute Nucleated RBC Nucleated RBC % (auto) Anion Gap Estim Creat Clear Calc Estimated GFR POC Glucose 187 H Random Glucose Calcium Microbiology Microbiology Results: Microbiology 09/06/22 08:21 Blood Culture - Preliminary Blood - Venous No growth after 24 hours. 09/06/22 08:15 Blood Culture - Preliminary Blood - Venous No growth after 24 hours. Assessment and Plan (1) Diverticulitis: Status: Acute (2) Diabetes mellitus: Status: Acute Plan ?41-year-old male with a PMH significant for insulin-dependent DM, HTN, glaucoma, and recurrent complicated diverticulitis with abscess who presented to ED due to severe left lower quadrant right pain.? Patient seen and evaluated for consult and medical management.? Insulin-dependent diabetes mellitus Hold home meds SSI, resume lantus when eating Essential hypertension, controlled, Continue home meds Glaucoma Continue home meds Acute complicated diverticulitis with abscess Management as per General surgery team Time Spent With Patient Time: Total time managing care of this patient today ____ minutes. Quality Stroke Does the patient have a stroke diagnosis?: No VTE Prior VTE?: No VTE Risk Level:: Medical - moderate - high VTE Device Contraindication: N/A - Device Ordered VTE Drug Contraindication: N/A - Med Ordered
[2022-09-07 13:57] LABS: Glucose, Whole Blood 182 mg/dL (60-115)
[2022-09-07 15:26] VITALS: BP 124/64; PULSE 105; RESP 18; TEMP 37; O2SAT 97
[2022-09-07 16:38] LABS: Glucose, Whole Blood 165 mg/dL (60-115)
[2022-09-07 19:45] VITALS: BP 131/77; PULSE 110; RESP 18; TEMP 36.7; O2SAT 95
[2022-09-07 19:48] LABS: Glucose, Whole Blood 173 mg/dL (60-115)
[2022-09-07] MEDS: Latanoprost 0.005 % Ophth Sol 2.5 ML DROPS 1 DROP EYE-BOTH ×3 (21:52→22:29)
[2022-09-07] MEDS: Nicotine 21 MG PATCH.TD24 TRANSDERMA (22:44)
[2022-09-08 00:06] LABS: Glucose, Whole Blood 161 mg/dL (60-115)
[2022-09-08] MEDS: Insulin Lispro 100 UNIT/ML 3 ML VIAL SUBCUT ×3 (00:10→20:41)
[2022-09-08] MEDS: ondansetron HCL 4 MG/2 ML VIAL IVPUSH (00:10)
[2022-09-08] MEDS: Piperacillin Sodium/Tazobactam 3.375 GM in 0.9 % Sodium Chloride 50 ML IV ×4 (03:31→20:41)
[2022-09-08 04:00] VITALS: BP 133/66; PULSE 100; RESP 18; TEMP 36.2; O2SAT 98
[2022-09-08] MEDS: Omeprazole 40 MG CAPSULE.DR PO (05:44)
[2022-09-08 07:26] VITALS: BP 159/89; PULSE 115; RESP 18; TEMP 36.3; O2SAT 98
[2022-09-08 07:42] LABS: Glucose, Whole Blood 163 mg/dL (60-115)
[2022-09-08] MEDS: Heparin Sodium,Porcine 5,000 UNIT/ML VIAL 5000 UNIT SUBCUT ×3 (09:53→15:20)
[2022-09-08] MEDS: Sertraline HCL 25 MG TABLET PO (09:53)
[2022-09-08] MEDS: Atorvastatin Calcium 10 MG TABLET PO (09:53)
[2022-09-08] MEDS: lisinopriL 5 MG TABLET PO (09:53)
[2022-09-08] MEDS: Nicotine 21 MG PATCH.TD24 TRANSDERMA (09:54)
[2022-09-08] MEDS: timoloL maleate 0.5 % Oph Sol 5 ML DRBTL 1 DROP EYE-BOTH ×2 (09:54→19:31)
[2022-09-08] MEDS: Brimonidine Tartrate 0.2% Oph 5 ML BOTTLE 1 DROP EYE-BOTH ×3 (09:54→19:31)
[2022-09-08] MEDS: Dorzolamide HCl 2 % Ophth Sol 10 ML DRPBTL 1 DROP EYE-BOTH ×2 (09:54→19:31)
[2022-09-08] MEDS: 0.9 % Sodium Chloride 1,000 ML 100 ML IVCONT ×2 (10:39→19:32)
[2022-09-08 11:22] LABS: Glucose, Whole Blood 193 mg/dL (60-115)
--- NOTE | 2022-09-08 12:07 | P.PNIM_ITS ---
Subjective Subjective Date of Service: 09/08/22 Interval History: f/u on med consult, has acute complicated diverticulitis he reports no pain today, is NPO Physical Exam Vital Signs: Vital Signs: Last Vital Signs Temp 97.3 F 09/08/22 07:26 Pulse 115 H 09/08/22 07:26 Resp 18 09/08/22 07:26 BP 159/89 H 09/08/22 07:26 Pulse Ox 98 09/08/22 07:26 O2 Del Method 09/08/22 07:26 O2 Flow Rate 1.5 09/07/22 07:32 BMI result Body Mass Index 28.1 Const: Other: General: AO X 3, no acute distress Resp: CTA bilateral CVS: S1,S2,RRR GI: +BS, NT, no distention Skin: No rash Neuro: motor grossly intact Psych: appropriate affect Objective Data Active Medications Albuterol Sulfate (Albuterol Sulfate 90 Mcg 8 Gm Inhaler) 1 puff INHALE Q4H PRN PRN Reason: shortness of breath or wheezing Atorvastatin Calcium (Atorvastatin Calcium 10 Mg Tablet) 10 mg PO DAILY [facility] Last Admin: 09/08/22 09:53 Dose: 10 mg Documented By: HOLLY Brimonidine Tartrate (Brimonidine Tartrate 0.2% Oph 5 Ml Bottle) 1 drop EYE- BOTH TID [facility] Last Admin: 09/08/22 09:54 Dose: 1 drop Documented By: HOLLY Dextrose (Dextrose 50 % 25 Gm/50 Ml Syringe) 25 gm IVPUSH Q15M PRN; Protocol PRN Reason: per Hypoglycemia Standing Ord. Dorzolamide HCl (Dorzolamide Hcl 2 % Ophth Tracy 10 Ml Drpbtl) 1 drop EYE-BOTH BID [facility] Last Admin: 09/08/22 09:54 Dose: 1 drop Documented By: HOLLY Glucose (Glucose Gel 15 Gm Gel..Gram.) 15 gm PO Q15M PRN; Protocol PRN Reason: per Hypoglycemia Standing Ord. Heparin Sodium (Porcine) (Heparin Sodium,Porcine 5,000 Unit/Ml Vial) 5,000 unit SUBCUT Q8H [facility] Last Admin: 09/08/22 09:53 Dose: 5,000 unit Documented By: HOLLY Hydromorphone HCl (Hydromorphone Hcl 1 Mg/Ml Syringe) 1 mg IVPUSH Q3H PRN; Protocol PRN Reason: Pain, Severe (Pain Scale 7-10) Last Admin: 09/07/22 21:58 Dose: 1 mg Documented By: OG Sodium Chloride (Ns) 1,000 mls @ 100 mls/hr IVCONT .Q10H [facility] Last Admin: 09/08/22 12:06 Dose: Not Given Documented By: HOLLY Non-Admin Reason: IV Running Piperacillin Sod/Tazobactam (Sod 3.375 gm/ Sodium Chloride) 50 mls @ 100 mls/hr IV Q6H [facility] Last Infusion: 09/08/22 10:40 Dose: 0 mls/hr Documented By: HOLLY Insulin Human Lispro (Insulin Lispro 100 Unit/Ml 3 Ml Vial) 0 unit SUBCUT Q6H [facility]; Protocol Last Admin: 09/08/22 08:05 Dose: Not Given Documented By: HOLLY Non-Admin Reason: NPO Latanoprost (Latanoprost 0.005 % Ophth Tracy 2.5 Ml Drops) 1 drop EYE-BOTH BEDTIME [facility] Last Admin: 09/07/22 22:29 Dose: 1 drop Documented By: OG Lisinopril (Lisinopril 5 Mg Tablet) 5 mg PO DAILY [facility]; Protocol Last Admin: 09/08/22 09:53 Dose: 5 mg Documented By: HOLLY Nicotine (Nicotine 21 Mg Patch.Td24) 21 mg TRANSDERMA DAILY [facility] Last Admin: 09/08/22 09:54 Dose: 21 mg Documented By: HOLLY Non-Formulary Medication (Netarsudil [Rhopressa]) 1 drop EYE-BOTH QPM [facility] Omeprazole (Omeprazole 40 Mg Capsule.Dr) 40 mg PO DAILY@0630 [facility] Last Admin: 09/08/22 05:44 Dose: 40 mg Documented By: OG Ondansetron HCl (Ondansetron Hcl 4 Mg/2 Ml Vial) 4 mg IVPUSH Q4H PRN PRN Reason: Nausea and Vomiting Last Admin: 09/08/22 00:10 Dose: 4 mg Documented By: OG Oxycodone HCl (Oxycodone Hcl Immed Release 5 Mg Tablet) 10 mg PO Q6H PRN PRN Reason: Pain, Moderate (Pain Scale 4-6 Last Admin: 09/07/22 20:14 Dose: 10 mg Documented By: OG Pharmacy Consult (Consult Rx Perform Med Rec) 1 each MISCELLANE ONCE PRN PRN Reason: Consult order Sertraline HCl (Sertraline Hcl 25 Mg Tablet) 25 mg PO DAILY [facility] Last Admin: 09/08/22 09:53 Dose: 25 mg Documented By: HOLLY Sodium Chloride (0.9 % Sodium Chloride Flush 3 Ml Syringe) 3 ml IVFLUSH QSHIFT [facility] Last Admin: 09/08/22 07:12 Dose: Not Given Documented By: HOLLY Non-Admin Reason: IV Running Timolol Maleate (Timolol Maleate 0.5 % Oph Tracy 5 Ml Drbtl) 1 drop EYE-BOTH BID [facility] Last Admin: 09/08/22 09:54 Dose: 1 drop Documented By: HOLLY Labs 09/07/22 05:25 09/07/22 05:25 Labs: Laboratory Results - last 24 hr 09/07/22 09/07/22 09/07/22 13:49 16:31 19:02 POC Glucose 182 H 165 H 173 H 09/08/22 09/08/22 09/08/22 00:01 07:31 11:16 POC Glucose 161 H 163 H 193 H Microbiology Microbiology Results: Microbiology 09/06/22 08:21 Blood Culture - Preliminary Blood - Venous No growth after 48 hours. 09/06/22 08:15 Blood Culture - Preliminary Blood - Venous No growth after 48 hours. Assessment and Plan (1) Diverticulitis: Status: Acute (2) Diabetes mellitus: Status: Acute Plan 41-year-old male with a PMH significant for insulin-dependent DM, HTN, glaucoma, and recurrent complicated diverticulitis with abscess who presented to ED due to severe left lower quadrant right pain.? Patient seen and evaluated for consult and medical management.? Insulin-dependent diabetes mellitus Hold home meds SSI, resume lantus when eating Essential hypertension, BP mostly controlled, if needed incrase lisinopril Glaucoma Continue home meds Acute complicated diverticulitis with abscess Management as per General surgery team Time Spent With Patient Time: Total time managing care of this patient today ____ minutes. Quality Stroke Does the patient have a stroke diagnosis?: No VTE Prior VTE?: No VTE Risk Level:: Medical - moderate - high VTE Device Contraindication: N/A - Device Ordered VTE Drug Contraindication: N/A - Med Ordered
--- NOTE | 2022-09-08 12:30 | P.PNGS_ITS ---
Subjective Subjective Date of Service: 09/08/22 Interval history: pt looks very good feels well no pain passing gas hungry Physical Exam 2 Vital Signs: Vital Signs: Last Vital Signs Temp 97.3 F 09/08/22 07:26 Pulse 115 H 09/08/22 07:26 Resp 18 09/08/22 07:26 BP 159/89 H 09/08/22 07:26 Pulse Ox 98 09/08/22 07:26 O2 Del Method 09/08/22 07:26 O2 Flow Rate 1.5 09/07/22 07:32 BMI result Body Mass Index 28.1 Const: General: cooperative, healthy appearing and comfortable Resp: Effort & Inspection: normal respiratory effort Cardio: Rate: regular rate Rhythm: regular rhythm Objective Data Active Medications Albuterol Sulfate (Albuterol Sulfate 90 Mcg 8 Gm Inhaler) 1 puff INHALE Q4H PRN PRN Reason: shortness of breath or wheezing Atorvastatin Calcium (Atorvastatin Calcium 10 Mg Tablet) 10 mg PO DAILY [facility] Last Admin: 09/08/22 09:53 Dose: 10 mg Documented By: HOLLY Brimonidine Tartrate (Brimonidine Tartrate 0.2% Oph 5 Ml Bottle) 1 drop EYE- BOTH TID [facility] Last Admin: 09/08/22 09:54 Dose: 1 drop Documented By: HOLLY Dextrose (Dextrose 50 % 25 Gm/50 Ml Syringe) 25 gm IVPUSH Q15M PRN; Protocol PRN Reason: per Hypoglycemia Standing Ord. Dorzolamide HCl (Dorzolamide Hcl 2 % Ophth Tracy 10 Ml Drpbtl) 1 drop EYE-BOTH BID [facility] Last Admin: 09/08/22 09:54 Dose: 1 drop Documented By: HOLLY Glucose (Glucose Gel 15 Gm Gel..Gram.) 15 gm PO Q15M PRN; Protocol PRN Reason: per Hypoglycemia Standing Ord. Heparin Sodium (Porcine) (Heparin Sodium,Porcine 5,000 Unit/Ml Vial) 5,000 unit SUBCUT Q8H [facility] Last Admin: 09/08/22 09:53 Dose: 5,000 unit Documented By: HOLLY Hydromorphone HCl (Hydromorphone Hcl 1 Mg/Ml Syringe) 1 mg IVPUSH Q3H PRN; Protocol PRN Reason: Pain, Severe (Pain Scale 7-10) Last Admin: 09/07/22 21:58 Dose: 1 mg Documented By: OG Sodium Chloride (Ns) 1,000 mls @ 100 mls/hr IVCONT .Q10H [facility] Last Admin: 09/08/22 12:06 Dose: Not Given Documented By: HOLLY Non-Admin Reason: IV Running Piperacillin Sod/Tazobactam (Sod 3.375 gm/ Sodium Chloride) 50 mls @ 100 mls/hr IV Q6H [facility] Last Infusion: 09/08/22 10:40 Dose: 0 mls/hr Documented By: HOLLY Insulin Human Lispro (Insulin Lispro 100 Unit/Ml 3 Ml Vial) 0 unit SUBCUT Q6H [facility]; Protocol Last Admin: 09/08/22 12:20 Dose: Not Given Documented By: HOLLY Non-Admin Reason: NPO Latanoprost (Latanoprost 0.005 % Ophth [place] 2.5 Ml Drops) 1 drop EYE-BOTH BEDTIME [facility] Last Admin: 09/07/22 22:29 Dose: 1 drop Documented By: OG Lisinopril (Lisinopril 5 Mg Tablet) 5 mg PO DAILY [facility]; Protocol Last Admin: 09/08/22 09:53 Dose: 5 mg Documented By: HOLLY Nicotine (Nicotine 21 Mg Patch.Td24) 21 mg TRANSDERMA DAILY [facility] Last Admin: 09/08/22 09:54 Dose: 21 mg Documented By: HOLLY Non-Formulary Medication (Netarsudil [Rhopressa]) 1 drop EYE-BOTH QPM [facility] Omeprazole (Omeprazole 40 Mg Capsule.) 40 mg PO DAILY@0630 [facility] Last Admin: 09/08/22 05:44 Dose: 40 mg Documented By: OG Ondansetron HCl (Ondansetron Hcl 4 Mg/2 Ml Vial) 4 mg IVPUSH Q4H PRN PRN Reason: Nausea and Vomiting Last Admin: 09/08/22 00:10 Dose: 4 mg Documented By: OG Oxycodone HCl (Oxycodone Hcl Immed Release 5 Mg Tablet) 10 mg PO Q6H PRN PRN Reason: Pain, Moderate (Pain Scale 4-6 Last Admin: 09/07/22 20:14 Dose: 10 mg Documented By: HO.CHOIP Pharmacy Consult (Consult Rx Perform Med Rec) 1 each MISCELLANE ONCE PRN PRN Reason: Consult order Sertraline HCl (Sertraline Hcl 25 Mg Tablet) 25 mg PO DAILY [facility] Last Admin: 09/08/22 09:53 Dose: 25 mg Documented By: HOLLY Sodium Chloride (0.9 % Sodium Chloride Flush 3 Ml Syringe) 3 ml IVFLUSH QSHIFT [facility] Last Admin: 09/08/22 07:12 Dose: Not Given Documented By: HOLLY Non-Admin Reason: IV Running Timolol Maleate (Timolol Maleate 0.5 % Oph [place] 5 Ml Drbtl) 1 drop EYE-BOTH BID [facility] Last Admin: 09/08/22 09:54 Dose: 1 drop Documented By: HOLLY Labs 09/07/22 05:25 09/07/22 05:25 Labs: Laboratory Results - last 24 hr 09/07/22 09/07/22 09/07/22 13:49 16:31 19:02 POC Glucose 182 H 165 H 173 H 09/08/22 09/08/22 09/08/22 00:01 07:31 11:16 POC Glucose 161 H 163 H 193 H Microbiology Microbiology Results: Microbiology 09/06/22 08:21 Blood Culture - Preliminary Blood - Venous No growth after 48 hours. 09/06/22 08:15 Blood Culture - Preliminary Blood - Venous No growth after 48 hours. Procedures Date of Service Date of Service: 09/08/22 Progress Note: A&P Assessment and plan (1) Abscess of sigmoid colon due to diverticulitis: Status: Acute Assessment and Plan: pt with diverticulitis and diverticular abscess - has had abscess before with flare ups and needed perc drainage. at this point goal is to get better to plan elective resection at a future date. doing well cont with iv antibx advance to clear liquids and reassess labs in am. he understands and agrees with the plan - is anxious to be dc on saturday as needs to go back to work. we discussed waiting and seeing how he is doing clinically Time Spent With Patient Time: Total time managing care of this patient today ____ minutes. Quality Stroke Does the patient have a stroke diagnosis?: No VTE Prior VTE?: No VTE Risk Level:: Medical - moderate - high VTE Device Contraindication: N/A - Device Ordered VTE Drug Contraindication: N/A - Med Ordered
[2022-09-08 15:23] VITALS: BP 138/77; PULSE 108; RESP 18; TEMP 37; O2SAT 98
[2022-09-08 16:26] LABS: Glucose, Whole Blood 215 mg/dL (60-115)
[2022-09-08] MEDS: Latanoprost 0.005 % Ophth Sol 2.5 ML DROPS 1 DROP EYE-BOTH (19:32)
[2022-09-08 20:00] VITALS: BP 173/100; PULSE 111; RESP 18; TEMP 36.9; O2SAT 98
[2022-09-08 20:14] LABS: Glucose, Whole Blood 232 mg/dL (60-115)
[2022-09-08] MEDS: Zolpidem Tartrate 5 MG TABLET PO (20:41)
[2022-09-09] MEDS: diphenhydrAMINE HCL 25 MG CAPSULE 50 MG PO (01:08)
[2022-09-09] MEDS: Heparin Sodium,Porcine 5,000 UNIT/ML VIAL 5000 UNIT SUBCUT ×2 (01:08→09:03)
[2022-09-09] MEDS: oxyCODONE HCl Immed Release 5 MG TABLET 10 MG PO (01:17)
[2022-09-09] MEDS: 0.9 % Sodium Chloride 1,000 ML 100 ML IVCONT ×2 (03:09→11:34)
[2022-09-09] MEDS: Piperacillin Sodium/Tazobactam 3.375 GM in 0.9 % Sodium Chloride 50 ML IV ×2 (03:16→09:35)
[2022-09-09 03:51] VITALS: BP 118/62; PULSE 102; RESP 20; TEMP 36.6; O2SAT 95
[2022-09-09 06:22] LABS: Basophils Absolute Auto 0.1 X10*3/uL (0.0-0.2); Basophils Percent Auto 0.5 % (0-2); Eosinophils Absolute Auto 0.2 X10*3/uL (0.0-0.4); Hematocrit 31.9 % (42.0-52.0); Imm Gran Abs Auto 0.06 X10*3/uL (0.00-0.03); Imm Gran Pct Auto 0.6 % (0.0-0.4); Lymphocytes Absolute Auto 1.6 X10*3/uL (1.2-4.9); Lymphocytes Percent Auto 15.8 % (20-40); MANUAL DIFF FLAG NO; Mean Corpuscular HGB Conc 31.3 g/dl (31.0-36.0); Mean Corpuscular Hemoglobin 28.1 pg (27.0-33.0); Mean Corpuscular Volume 89.6 fL (80.0-98.0); Mean Platelet Volume 10.1 fL (9.4-12.4); Monocytes Absolute Auto 0.9 X10*3/uL (0.1-1.2); Neutrophils Absolute Auto 7.2 x10*3/uL (2.0-8.3); Neutrophils Percent Auto 72.1 % (45-73); Platelet Count 268 X10*3/uL (160-400); Red Blood Count 3.56 X10*6/uL (4.60-5.80); Red Cell Distribution Width 13.1 % (11.0-16.0); White Blood Count 9.9 X10*3/uL (4.8-10.8)
[2022-09-09] MEDS: Omeprazole 40 MG CAPSULE.DR PO (06:33)
[2022-09-09 07:48] LABS: Glucose, Whole Blood 166 mg/dL (60-115)
[2022-09-09 07:59] VITALS: BP 136/84; PULSE 98; RESP 16; TEMP 36.8; O2SAT 97
--- NOTE | 2022-09-09 08:27 | HO.PM.IMPN ---
Subjective Subjective Date of Service: 09/09/22 Interval History: f/u on med consult, has acute complicated diverticulitis Started on liquid diet yesterday, tolerating. Review of Systems no pain Physical Exam Vital Signs: Vital Signs: Last Vital Signs Temp 98.3 F 09/09/22 07:59 Pulse 98 09/09/22 07:59 Resp 16 09/09/22 07:59 BP 136/84 09/09/22 07:59 Pulse Ox 97 09/09/22 07:59 O2 Del Method 09/09/22 07:59 O2 Flow Rate 1.5 09/07/22 07:32 BMI result Body Mass Index 28.1 Const: Other: General: AO X 3, no acute distress Resp: CTA bilateral CVS: S1,S2,RRR GI: +BS, NT, no distention Skin: No rash Neuro: motor grossly intact Psych: appropriate affect Objective Data Active Medications Albuterol Sulfate (Albuterol Sulfate 90 Mcg 8 Gm Inhaler) 1 puff INHALE Q4H PRN PRN Reason: shortness of breath or wheezing Atorvastatin Calcium (Atorvastatin Calcium 10 Mg Tablet) 10 mg PO DAILY [facility] Last Admin: 09/08/22 09:53 Dose: 10 mg Documented By: HOLLY Brimonidine Tartrate (Brimonidine Tartrate 0.2% Oph 5 Ml Bottle) 1 drop EYE-BOTH TID [facility] Last Admin: 09/08/22 19:31 Dose: 1 drop Documented By: GATO Dextrose (Dextrose 50 % 25 Gm/50 Ml Syringe) 25 gm IVPUSH Q15M PRN; Protocol PRN Reason: per Hypoglycemia Standing Ord. Dorzolamide HCl (Dorzolamide Hcl 2 % Ophth [place] 10 Ml Drpbtl) 1 drop EYE-BOTH BID [facility] Last Admin: 09/08/22 19:31 Dose: 1 drop Documented By: GATO Glucose (Glucose Gel 15 Gm Gel..Gram.) 15 gm PO Q15M PRN; Protocol PRN Reason: per Hypoglycemia Standing Ord. Heparin Sodium (Porcine) (Heparin Sodium,Porcine 5,000 Unit/Ml Vial) 5,000 unit SUBCUT Q8H [facility] Last Admin: 09/09/22 01:08 Dose: 5,000 unit Documented By: GATO Hydromorphone HCl (Hydromorphone Hcl 1 Mg/Ml Syringe) 1 mg IVPUSH Q3H PRN; Protocol PRN Reason: Pain, Severe (Pain Scale 7-10) Last Admin: 09/07/22 21:58 Dose: 1 mg Documented By: OG Sodium Chloride (Ns) 1,000 mls @ 100 mls/hr IVCONT .Q10H [facility] Last Admin: 09/09/22 03:09 Dose: 100 mls/hr Documented By: GATO Piperacillin Sod/Tazobactam (Sod 3.375 gm/ Sodium Chloride) 50 mls @ 100 mls/hr IV Q6H [facility] Last Infusion: 09/09/22 03:42 Dose: 0 mls/hr Documented By: GATO Insulin Human Lispro (Insulin Lispro 100 Unit/Ml 3 Ml Vial) 0 unit SUBCUT QIDACHS [facility]; Protocol Last Admin: 09/08/22 20:41 Dose: 4 unit Documented By: GATO Latanoprost (Latanoprost 0.005 % Ophth Tracy 2.5 Ml Drops) 1 drop EYE-BOTH BEDTIME [facility] Last Admin: 09/08/22 19:32 Dose: 1 drop Documented By: GATO Lisinopril (Lisinopril 5 Mg Tablet) 5 mg PO DAILY [facility]; Protocol Last Admin: 09/08/22 09:53 Dose: 5 mg Documented By: HOLLY Nicotine (Nicotine 21 Mg Patch.Td24) 21 mg TRANSDERMA DAILY [facility] Last Admin: 09/08/22 09:54 Dose: 21 mg Documented By: HOLLY Non-Formulary Medication (Netarsudil [Rhopressa]) 1 drop EYE-BOTH QPM [facility] Omeprazole (Omeprazole 40 Mg Capsule.Dr) 40 mg PO DAILY@0630 [facility] Last Admin: 09/09/22 06:33 Dose: 40 mg Documented By: GATO Ondansetron HCl (Ondansetron Hcl 4 Mg/2 Ml Vial) 4 mg IVPUSH Q4H PRN PRN Reason: Nausea and Vomiting Last Admin: 09/08/22 00:10 Dose: 4 mg Documented By: OG Oxycodone HCl (Oxycodone Hcl Immed Release 5 Mg Tablet) 10 mg PO Q6H PRN PRN Reason: Pain, Moderate (Pain Scale 4-6 Last Admin: 09/09/22 01:17 Dose: 10 mg Documented By: GATO Pharmacy Consult (Consult Rx Perform Med Rec) 1 each MISCELLANE ONCE PRN PRN Reason: Consult order Sertraline HCl (Sertraline Hcl 25 Mg Tablet) 25 mg PO DAILY [facility] Last Admin: 09/08/22 09:53 Dose: 25 mg Documented By: HOLLY Sodium Chloride (0.9 % Sodium Chloride Flush 3 Ml Syringe) 3 ml IVFLUSH QSHIFT [facility] Last Admin: 09/09/22 07:24 Dose: Not Given Documented By: HOLLY Non-Admin Reason: IV Running Timolol Maleate (Timolol Maleate 0.5 % Oph [place] 5 Ml Drbtl) 1 drop EYE-BOTH BID [facility] Last Admin: 09/08/22 19:31 Dose: 1 drop Documented By: GATO Zolpidem Tartrate (Zolpidem Tartrate 5 Mg Tablet) 5 mg PO BEDTIME PRN PRN Reason: Insomnia Last Admin: 09/08/22 20:41 Dose: 5 mg Documented By: GATO Labs 09/09/22 05:07 09/07/22 05:25 Labs: Laboratory Results - last 24 hr 09/08/22 09/08/22 09/08/22 11:16 16:22 20:06 MCV MCH MCHC RDW Plt Count MPV Immature Gran % (Auto) Neut % (Auto) Lymph % (Auto) [place] % (Auto) Eos % (Auto) Baso % (Auto) Lymph # (Auto) [place] # (Auto) Eos # (Auto) Baso # (Auto) Abs Immat Gran (auto) Absolute Neuts (auto) Absolute Nucleated RBC Nucleated RBC % (auto) POC Glucose 193 H 215 H 232 H 09/09/22 09/09/22 05:07 07:20 MCV 89.6 MCH 28.1 MCHC 31.3 RDW 13.1 Plt Count 268 MPV 10.1 Immature Gran % (Auto) 0.6 H Neut % (Auto) 72.1 Lymph % (Auto) 15.8 L [place] % (Auto) 9.0 Eos % (Auto) 2.0 Baso % (Auto) 0.5 Lymph # (Auto) 1.6 [place] # (Auto) 0.9 Eos # (Auto) 0.2 Baso # (Auto) 0.1 Abs Immat Gran (auto) 0.06 H Absolute Neuts (auto) 7.2 Absolute Nucleated RBC 0.000 Nucleated RBC % (auto) 0.0 POC Glucose 166 H Microbiology Microbiology Results: Microbiology 09/06/22 08:21 Blood Culture - Preliminary Blood - Venous No growth after 48 hours. 09/06/22 08:15 Blood Culture - Preliminary Blood - Venous No growth after 48 hours. Assessment and Plan (1) Diverticulitis: Status: Acute (2) Diabetes mellitus: Status: Acute Plan 41-year-old male with a PMH significant for insulin-dependent DM, HTN, glaucoma, and recurrent complicated diverticulitis with abscess who presented to ED due to severe left lower quadrant right pain.? Patient seen and evaluated for consult and medical management.? Insulin-dependent diabetes mellitus SSI, resume lantus when eating regular meals Essential hypertension, BP mostly controlled, if needed incrase lisinopril Glaucoma Continue home meds Acute complicated diverticulitis with abscess Management as per General surgery team Time Spent With Patient Time: Total time managing care of this patient today ____ minutes. Quality Stroke Does the patient have a stroke diagnosis?: No VTE Prior VTE?: No VTE Risk Level:: Medical - moderate - high VTE Device Contraindication: N/A - Device Ordered VTE Drug Contraindication: N/A - Med Ordered
[2022-09-09] MEDS: Atorvastatin Calcium 10 MG TABLET PO (09:04)
[2022-09-09] MEDS: Nicotine 21 MG PATCH.TD24 TRANSDERMA (09:04)
[2022-09-09] MEDS: lisinopriL 5 MG TABLET PO (09:04)
[2022-09-09] MEDS: Insulin Lispro 100 UNIT/ML 3 ML VIAL SUBCUT (09:04)
[2022-09-09] MEDS: Sertraline HCL 25 MG TABLET PO (09:04)
[2022-09-09] MEDS: Dorzolamide HCl 2 % Ophth Sol 10 ML DRPBTL 1 DROP EYE-BOTH (09:05)
[2022-09-09] MEDS: Brimonidine Tartrate 0.2% Oph 5 ML BOTTLE 1 DROP EYE-BOTH (09:05)
[2022-09-09] MEDS: timoloL maleate 0.5 % Oph Sol 5 ML DRBTL 1 DROP EYE-BOTH (09:05)
[2022-09-09 11:42] LABS: Glucose, Whole Blood 231 mg/dL (60-115)
--- NOTE | 2022-09-09 12:15 | P.PNGS_ITS ---
Subjective Subjective Date of Service: 09/09/22 Interval history: pt feels great but is anxious to go home today as he needs to go to work tomorrow tolerating liquids well Physical Exam Vital Signs: Vital Signs: Last Vital Signs Temp 98.3 F 09/09/22 07:59 Pulse 98 09/09/22 07:59 Resp 16 09/09/22 07:59 BP 136/84 09/09/22 07:59 Pulse Ox 97 09/09/22 07:59 O2 Del Method 09/09/22 07:59 O2 Flow Rate 1.5 09/07/22 07:32 BMI result Body Mass Index 28.1 GI: Other: abdomen soft nontender nodisteded he is moving around very well Objective Data Active Medications Albuterol Sulfate (Albuterol Sulfate 90 Mcg 8 Gm Inhaler) 1 puff INHALE Q4H PRN PRN Reason: shortness of breath or wheezing Atorvastatin Calcium (Atorvastatin Calcium 10 Mg Tablet) 10 mg PO DAILY [facility] Last Admin: 09/09/22 09:04 Dose: 10 mg Documented By: HOLLY Brimonidine Tartrate (Brimonidine Tartrate 0.2% Oph 5 Ml Bottle) 1 drop EYE- BOTH TID [facility] Last Admin: 09/09/22 09:05 Dose: 1 drop Documented By: HOLLY Dextrose (Dextrose 50 % 25 Gm/50 Ml Syringe) 25 gm IVPUSH Q15M PRN; Protocol PRN Reason: per Hypoglycemia Standing Ord. Dorzolamide HCl (Dorzolamide Hcl 2 % Ophth Tracy 10 Ml Drpbtl) 1 drop EYE-BOTH BID [facility] Last Admin: 09/09/22 09:05 Dose: 1 drop Documented By: HOLLY Glucose (Glucose Gel 15 Gm Gel..Gram.) 15 gm PO Q15M PRN; Protocol PRN Reason: per Hypoglycemia Standing Ord. Heparin Sodium (Porcine) (Heparin Sodium,Porcine 5,000 Unit/Ml Vial) 5,000 unit SUBCUT Q8H [facility] Last Admin: 09/09/22 09:03 Dose: 5,000 unit Documented By: HOLLY Hydromorphone HCl (Hydromorphone Hcl 1 Mg/Ml Syringe) 1 mg IVPUSH Q3H PRN; Protocol PRN Reason: Pain, Severe (Pain Scale 7-10) Last Admin: 09/07/22 21:58 Dose: 1 mg Documented By: OG Sodium Chloride (Ns) 1,000 mls @ 100 mls/hr IVCONT .Q10H [facility] Last Admin: 09/09/22 11:34 Dose: 100 mls/hr Documented By: HOLLY Piperacillin Sod/Tazobactam (Sod 3.375 gm/ Sodium Chloride) 50 mls @ 100 mls/hr IV Q6H [facility] Last Infusion: 09/09/22 10:35 Dose: 0 mls/hr Documented By: HOLLY Insulin Human Lispro (Insulin Lispro 100 Unit/Ml 3 Ml Vial) 0 unit SUBCUT QIDACHS [facility]; Protocol Last Admin: 09/09/22 09:04 Dose: 2 unit Documented By: HOLLY Latanoprost (Latanoprost 0.005 % Ophth [place] 2.5 Ml Drops) 1 drop EYE-BOTH BEDTIME [facility] Last Admin: 09/08/22 19:32 Dose: 1 drop Documented By: GATO Lisinopril (Lisinopril 5 Mg Tablet) 5 mg PO DAILY [facility]; Protocol Last Admin: 09/09/22 09:04 Dose: 5 mg Documented By: HOLLY Nicotine (Nicotine 21 Mg Patch.Td24) 21 mg TRANSDERMA DAILY [facility] Last Admin: 09/09/22 09:04 Dose: 21 mg Documented By: HOLLY Non-Formulary Medication (Netarsudil [Rhopressa]) 1 drop EYE-BOTH QPM [facility] Omeprazole (Omeprazole 40 Mg Capsule.Dr) 40 mg PO DAILY@0630 [facility] Last Admin: 09/09/22 06:33 Dose: 40 mg Documented By: GATO Ondansetron HCl (Ondansetron Hcl 4 Mg/2 Ml Vial) 4 mg IVPUSH Q4H PRN PRN Reason: Nausea and Vomiting Last Admin: 09/08/22 00:10 Dose: 4 mg Documented By: OG Oxycodone HCl (Oxycodone Hcl Immed Release 5 Mg Tablet) 10 mg PO Q6H PRN PRN Reason: Pain, Moderate (Pain Scale 4-6 Last Admin: 09/09/22 01:17 Dose: 10 mg Documented By: GATO Pharmacy Consult (Consult Rx Perform Med Rec) 1 each MISCELLANE ONCE PRN PRN Reason: Consult order Sertraline HCl (Sertraline Hcl 25 Mg Tablet) 25 mg PO DAILY [facility] Last Admin: 09/09/22 09:04 Dose: 25 mg Documented By: HOLLY Sodium Chloride (0.9 % Sodium Chloride Flush 3 Ml Syringe) 3 ml IVFLUSH QSHIFT [facility] Last Admin: 09/09/22 07:24 Dose: Not Given Documented By: HOLLY Non-Admin Reason: IV Running Timolol Maleate (Timolol Maleate 0.5 % Oph [place] 5 Ml Drbtl) 1 drop EYE-BOTH BID [facility] Last Admin: 09/09/22 09:05 Dose: 1 drop Documented By: HOLLY Zolpidem Tartrate (Zolpidem Tartrate 5 Mg Tablet) 5 mg PO BEDTIME PRN PRN Reason: Insomnia Last Admin: 09/08/22 20:41 Dose: 5 mg Documented By: GATO Labs 09/09/22 05:07 09/07/22 05:25 Labs: Laboratory Results - last 24 hr 09/08/22 09/08/22 09/09/22 16:22 20:06 05:07 MCV 89.6 MCH 28.1 MCHC 31.3 RDW 13.1 Plt Count 268 MPV 10.1 Immature Gran % (Auto) 0.6 H Neut % (Auto) 72.1 Lymph % (Auto) 15.8 L [place] % (Auto) 9.0 Eos % (Auto) 2.0 Baso % (Auto) 0.5 Lymph # (Auto) 1.6 [place] # (Auto) 0.9 Eos # (Auto) 0.2 Baso # (Auto) 0.1 Abs Immat Gran (auto) 0.06 H Absolute Neuts (auto) 7.2 Absolute Nucleated RBC 0.000 Nucleated RBC % (auto) 0.0 POC Glucose 215 H 232 H 09/09/22 09/09/22 07:20 11:20 MCV MCH MCHC RDW Plt Count MPV Immature Gran % (Auto) Neut % (Auto) Lymph % (Auto) [place] % (Auto) Eos % (Auto) Baso % (Auto) Lymph # (Auto) [place] # (Auto) Eos # (Auto) Baso # (Auto) Abs Immat Gran (auto) Absolute Neuts (auto) Absolute Nucleated RBC Nucleated RBC % (auto) POC Glucose 166 H 231 H Microbiology Microbiology Results: Microbiology 09/06/22 08:21 Blood Culture - Preliminary Blood - Venous No growth after 48 hours. 09/06/22 08:15 Blood Culture - Preliminary Blood - Venous No growth after 48 hours. Procedures Date of Service Date of Service: 09/09/22 Progress Note: A&P Assessment and plan (1) Abscess of sigmoid colon due to diverticulitis: Status: Acute Assessment and Plan: pt is doing very well getting iv antibx and tolerating clear liquids well. Goal is to get him dc home on picc line iv antibx and do bowel prep as an outpt and consider cscope and then elective colectomy. pt is agreeing but says he needs to leave today. he is refusing to stay for iv antibx although understanding he has complicated diverticulitis and may not respond with just po meds. Despite this pt is wanting to go and will not stay until am. He agrees to sign out AMA and to work as an outpt this week to get Picc and iv meds. will check in with Dr Bernal's office. We will advocate for him to go home on augmentin Time Spent With Patient Time: Total time managing care of this patient today ____ minutes. Quality Stroke Does the patient have a stroke diagnosis?: No VTE Prior VTE?: No VTE Risk Level:: Medical - moderate - high VTE Device Contraindication: N/A - Device Ordered VTE Drug Contraindication: N/A - Med Ordered
--- NOTE | 2022-09-09 12:37 | PC.NURSE ---
This nurse spoke with Dr Hogue who discussed plan of care with patient, patient wants to leave AMA despite recommended plan, and wishes to follow up outpatient. Dr. Hogue explained recommendations for outpatient follow up to patient, the patient signed AMA form and IV was removed, Dr Masters informed and Incident report filed.
--- NOTE | 2022-09-10 16:15 | P.DS_ITS ---
DS: Providers Provider Date of Service: 09/09/22 Date of admission: 09/06/22 11:31 Primary care physician: ALYSSA Servin Consults: 09/06/22 11:31 Consult to Hospitalist Routine Consulting Provider: Hospitalist Reason For Exam: DM, HTN DS: Diagnosis Discharge Diagnosis (1) Abscess of sigmoid colon due to diverticulitis: Status: Acute DS: Summary Hospital Course Hospital Course: 41-year-old male was admitted to the hospital last 09/06/2021 because of acute diverticulitis of the sigmoid with an intramural abscess.? He was kept on NPO which was slowly advanced to clear liquid because of steady improvement. He was on IV antibiotics and had significant improvement.? However, he signed out against medical advise on 04/09/2022, stating that he needed to go to work. At the time of his discharge against medical advise, he had been afebrile and was tolerating clear liquids. He says had hip pain and improved significantly. Time Spent with Patient Time attestation: Total time managing care of this patient today ____ minutes. Discharge coordination time: Less than 30 minutes Quality: Safe Use of Opioids Does Pt have an Active Cancer Diagnosis on the Problem List?: No Quality: Stroke Does the patient have a stroke diagnosis?: No Physical Exam Vital Signs: Vital Signs: Last Vital Signs Temp 98.3 F 09/09/22 07:59 Pulse 98 09/09/22 07:59 Resp 16 09/09/22 07:59 BP 136/84 09/09/22 07:59 Pulse Ox 97 09/09/22 07:59 O2 Del Method 09/09/22 07:59 O2 Flow Rate 1.5 09/07/22 07:32 BMI result Body Mass Index 28.1 Const: General: comfortable and no acute distress Orientation/co nsciousness: patient oriented x3 Neck: Neck: Yes no lymphadenopathy Resp: Auscultation: clear to auscultation bilaterally Cardio: Rhythm: regular rhythm GI: Palpation (GI): Soft to palpation, nontender and no guarding Neuro: General: patient oriented x3 DS: Data Data Completed and Pending Completed studies during hospitalization [Text1]: Laboratory Results WBC 9.9 X10*3/uL (4.8-10.8) 09/09/22 05:07 RBC 3.56 X10*6/uL (4.60-5.80) L 09/09/22 05:07 Hgb 10.0 g/dl (14.0-18.0) L 09/09/22 05:07 Hct 31.9 % (42.0-52.0) L 09/09/22 05:07 MCV 89.6 fL (80.0-98.0) 09/09/22 05:07 MCH 28.1 pg (27.0-33.0) 09/09/22 05:07 MCHC 31.3 g/dl (31.0-36.0) 09/09/22 05:07 RDW 13.1 % (11.0-16.0) 09/09/22 05:07 Plt Count 268 X10*3/uL (160-400) 09/09/22 05:07 MPV 10.1 fL (9.4-12.4) 09/09/22 05:07 Immature Gran % (Auto) 0.6 % (0.0-0.4) H 09/09/22 05:07 Neut % (Auto) 72.1 % (45-73) 09/09/22 05:07 Lymph % (Auto) 15.8 % (20-40) L 09/09/22 05:07 Lawrence % (Auto) 9.0 % (2-11) 09/09/22 05:07 Eos % (Auto) 2.0 % (0-4) 09/09/22 05:07 Baso % (Auto) 0.5 % (0-2) 09/09/22 05:07 Lymph # (Auto) 1.6 X10*3/uL (1.2-4.9) 09/09/22 05:07 Lawrence # (Auto) 0.9 X10*3/uL (0.1-1.2) 09/09/22 05:07 Eos # (Auto) 0.2 X10*3/uL (0.0-0.4) 09/09/22 05:07 Baso # (Auto) 0.1 X10*3/uL (0.0-0.2) 09/09/22 05:07 Abs Immat Gran (auto) 0.06 X10*3/uL (0.00-0.03) H 09/09/22 05:07 Absolute Neuts (auto) 7.2 x10*3/uL (2.0-8.3) 09/09/22 05:07 Absolute Nucleated RBC 0.000 X10*3/uL (0.0-0.012) 09/09/22 05:07 Nucleated RBC % (auto) 0.0 /100WBC (0.0-0.2) 09/09/22 05:07 Sodium 142 mmol/L (135-145) 09/07/22 05:25 Potassium 4.2 mmol/L (3.3-5.1) 09/07/22 05:25 Chloride 106 mmol/L (96-108) 09/07/22 05:25 Carbon Dioxide 23 mmol/L (22-29) 09/07/22 05:25 Anion Gap 17 (12-20) 09/07/22 05:25 BUN 13 mg/dL (9-16) 09/07/22 05:25 Creatinine 0.88 mg/dL (0.5-1.4) 09/07/22 05:25 Estim Creat Clear Calc 114.1 09/07/22 05:25 Estimated GFR > 60 09/07/22 05:25 POC Glucose 231 mg/dL (60-115) H 09/09/22 11:20 Random Glucose 174 mg/dL (60-115) H 09/07/22 05:25 Lactic Acid 1.0 mmol/L (0.5-2.0) 09/06/22 08:15 Calcium 8.4 mg/dL (8.4-10.2) D 09/07/22 05:25 Total Bilirubin 0.9 mg/dL (0.0-1.0) 09/06/22 08:08 AST 14 U/L (5-37) 09/06/22 08:08 ALT 18 U/L (0-40) 09/06/22 08:08 Alkaline Phosphatase 78 U/L (39-117) 09/06/22 08:08 Total Protein 6.8 g/dL (6.5-8.0) 09/06/22 08:08 Albumin 4.0 g/dL (3.5-5.0) 09/06/22 08:08 Lipase 20 U/L (8-78) 09/06/22 08:08 Urine Color Yellow 09/06/22 09:23 Urine Appearance Clear 09/06/22 09:23 Urine pH 6.0 (5.0-9.0) 09/06/22 09:23 Ur Specific Borden >= 1.030 (1.005-1.025) H 09/06/22 09:23 Urine Protein 30 (1+) mg/dL (Neg-Trace) H 09/06/22 09: Urine Glucose (UA) >=1000 mg/dL (Negative) H 09/06/22 09:23 Urine Ketones 40 mg/dL (Negative) 09/06/22 09: Urine Blood Negative (Negative) 09/06/22 09: Urine Nitrite Negative (Negative) 09/06/22 09: Ur Leukocyte Esterase Negative (Negative) 09/06/22 09:23 Urine RBC 0-2 /HPF (0-2) 09/06/22 09: Urine WBC 0-5 /HPF (0-5) 09/06/22 09: Ur Squamous Epith Cells 0-2 /HPF (0-2) 09/06/22 09:23 Urine Bacteria None Seen (None Seen) 09/06/22 09: Hyaline Casts 0-2 /LPF (0-2) 09/06/22 09:23 COVID-19 ([facility]IS) Negative (Negative) 09/06/22 08:08 COVID-19 Clin Com See Note 09/06/22 08:08 Impressions Abdomen/Pelvis CT 09/06/22 09:26 IMPRESSION: CT findings appearing consistent with acute sigmoid diverticulitis. There is evidence of an intramural abscess at this level with above noted dimensions. No free air identified. Small right middle lobe nodule. Other incidental findings as noted above. Fleischner guidelines were followed. Labs on day of discharge: Preliminary micro results at discharge 09/06/22 08:21 Blood Culture - Preliminary Blood - Venous No growth after 48 hours. 09/06/22 08:15 Blood Culture - Preliminary Blood - Venous No growth after 48 hours. Discharge Plan Discharge Anticipated Discharge Date/Time: 09/09/22 12:19 Patient Disposition: Left Against Medical Advice Discharge Diagnosis: diverticulitis with abscess Referrals: Jayro Dougherty, [employer] [Primary Care Provider] - 1 Week Discharge Medications: New amoxicillin-pot clavulanate [Augmentin XR] 1,000-62.5 mg tablet extended release 12 hr 1 tab PO BID Qty: 14 1RF No Action (DME) pen needle, diabetic [BD Ultra-Fine Mini Pen Needle] 31 gauge x 3/16 needle See Rx Instructions .ROUTE .MEDSUPPLY Qty: 100 7RF Rx Instructions: TID (DME) FreeStyle Test Strip See Rx Instructions .Route Qty: 100 6RF Rx Instructions: TID lisinopril 5 mg tablet 5 mg PO DAILY 90 Days Qty: 90 2RF metformin 1,000 mg tablet 1,000 mg PO BID Qty: 180 0RF sertraline 25 mg tablet 25 mg PO DAILY Qty: 60 3RF omeprazole 40 mg capsule,delayed release(DR/EC) 40 mg PO DAILY 90 Days Qty: 90 0RF atorvastatin 10 mg tablet 10 mg PO DAILY Qty: 30 4RF insulin glargine [Lantus Solostar U-100 Insulin] 100 unit/mL (3 mL) insulin pen 30 unit subcut QPM 60 Days Qty: 18 0RF bupropion HCl 150 mg tablet sustained-release 12 hr 1 tab PO Q12H insulin lispro [Humalog KwikPen Insulin] 100 unit/mL insulin pen 0 sliding scale dose subcut TIDAC Protocol: Insulin Correction Scale Less than or equal to 110 ---- Give (units): 0 111 to 150 Give (units): 0 151 to 200 Give (units): 2 201 to 250 Give (units): 4 251 to 300 Give (units): 6 301 to 350 Give (units): 8 Greater than 350 Give (units): 10 Call MD if Blood Glucose > : 350 latanoprost 0.005 % drops 1 drp ophthalmic (eye) DAILY Qty: 2.5 0RF brimonidine 0.2 % drops 1 drp ophthalmic (eye) TID Rx Instructions: administer approximately 8 hours apart dorzolamide-timolol (PF) 2-0.5 % drops 1 drp ophthalmic (eye) BID Rhopressa 0.02 % drops 1 drp ophthalmic (eye) QPM albuterol sulfate 90 mcg/actuation aerosol powdr breath activated 1 inh inhalation Q4-6H PRN (Reason: shortness of breath or wheezing) Qty: 1 0RF amoxicillin-pot clavulanate 875-125 mg tablet 1 tab PO BID Qty: 14 0RF Discharge Orders: Discharge Order (Routine); Ordered 09/09/22 Ordered By: Maria Victoria Hogue Care Plan Goals: liquid diet iv antibx needs to get picc line Health Concerns: diabetic with diverticulitis with abscess - complicated diverticulitis - second episode Plan of Treatment: needs picc line and iv antibx for undrainable abscess pt refusing to stay in hospital for this wants to leave today will need to follow up with Dr Bernal in the office this week. Assessment: pt is stable Discharge Date/Time: 09/09/22 12:56
== END 2022-09-09 12:56 | disposition left against medical advice (07) | DRG 244 ==
LOC: HO.ED 10:02 → HO.EDOVER 11:47 → HO.S3 19:23
PROVIDERS: Physician Assistant; Surgery; Admitting Provider Surgery; Emergency Provider Emergency Medicine; PCP Nurse Practitioner Family; Visit Provider Surgery
DX: K57.20 Diverticulitis of large intestine with perforation and abscess without bleeding (principal); E11.9 Type 2 diabetes mellitus without complications; F17.210 Nicotine dependence, cigarettes, uncomplicated; H40.1330 Pigmentary glaucoma, bilateral, stage unspecified; I10 Essential (primary) hypertension; Z20.822 Contact with and (suspected) exposure to COVID-19; Z71.6 Tobacco abuse counseling; Z88.6 Allergy status to analgesic agent; Z79.4 Long term (current) use of insulin; Z79.84 Long term (current) use of oral hypoglycemic drugs; Z79.899 Other long term (current) drug therapy
CPT/HCPCS: 36415; 74177; 80048; 80053; 81001; 82947; 83605; 83690; 85025; 87040; 87635; 93005; 96361; 96374; 96375; 96376; 99285; J1170; J1643; J2405; J2543; Q9967

== ENCOUNTER → 2022-09-10 14:33 | Outpatient (BNVA) | payer OTHER, SELFPAY | PROVIDERS: PCP Nurse Practitioner Family; Referring Provider Nurse Practitioner Family; Visit Provider Surgery | DX: K57.20 Diverticulitis of large intestine with perforation and abscess without bleeding (principal) | CPT/HCPCS: 99212 ==

== ENCOUNTER 2022-09-21 10:19 | Outpatient (REF) | payer OTHER, SELFPAY ==
--- NOTE | ~2022-09-21 | CT_ITS ---
EXAMINATION: CT ABDOMEN AND PELVIS WITH CONTRAST CLINICAL INFORMATION: Colonic diverticuli. COMPARISON: Multiple prior CT scans of the abdomen most recently 07/24/2022 and 09/06/2022. TECHNIQUE: Multidetector volumetric images were obtained from the superior aspect of the liver through the pubic symphysis following administration 85 mL of Omnipaque 350 intravenous contrast. Sagittal and coronal reformatted images were obtained on the technologist's workstation. Oral contrast: No This CT examination was performed using dose optimization techniques as appropriate, variously including the following: *Automated exposure control *Adjustment of mA and/or kV according to patient size (this includes techniques or standardized protocols for targeted exams where dose is matched to indication/reason for exam; i.e. extremities or head) *Use of iterative reconstruction technique DLP: 368 mGy-cm FINDINGS: LUNG BASES: The visualized lung bases are unremarkable. Right middle lobe atelectasis is again noted. 3 mm right middle lobe lung nodule is unchanged (6:27 compare prior 4:14). LIVER, GALLBLADDER, AND BILIARY TREE: The liver is mildly enlarged at 18 cm in greatest length. No focal hepatic lesion or biliary ductal dilatation is present. The gallbladder is unremarkable with no evidence of radiopaque gallstones, gallbladder wall thickening, or obvious pericholecystic inflammatory changes. PANCREAS: Unremarkable. SPLEEN: Unremarkable. ADRENAL GLANDS: Unremarkable. KIDNEYS AND URETERS: The kidneys are normal in size, shape, and attenuation. No hydronephrosis, hydroureter, or calculi seen. No perinephric stranding. BLADDER: Unremarkable. GASTROINTESTINAL TRACT: Compared with the prior study, there has been significant improvement in appearances with decrease in inflammatory change and mucosal thickening involving the sigmoid colon. The intramural small fluid collection/abscess seen at the time of the prior study is not visualized on the current exam. There is a mass present at the root of the mesentery which appears slightly more prominent and enlarged when compared to the prior study measuring 2.2 x 1.2 x 2.1 cm which may be enhancing osvaldo tissue or perhaps fibrotic change in response to the inflammatory process. Colonic diverticula are seen scattered elsewhere without other evidence of diverticulitis. The small bowel is unremarkable. The appendix is unremarkable. ABDOMINAL WALL: No significant hernia is appreciated. LYMPH NODES: Minimally prominent retroperitoneal lymph nodes are seen but no gross lymphadenopathy. Please see discussion above regarding mass-like area in the root of the sigmoid mesentery. VASCULAR: Unremarkable. PELVIC VISCERA: The prostate and seminal vesicles are unremarkable. OSSEOUS STRUCTURES: Degenerative changes are seen at L5-S1. CT/CT abdomen pelvis w IV con IMPRESSION: 1. Significant improvement in inflammatory changes involving the sigmoid colon with resolution of previously seen intramural abscess. 2. Mass at the root of the mesentery which appears slightly more prominent than previously noted. This may be enhancing osvaldo tissue or perhaps fibrotic change in response to the inflammatory process. This should be monitored with follow-up studies. 3. Other incidental findings as described above including mild hepatomegaly and stable right middle lobe lung nodule. Fleischner guidelines were followed.
[2022-09-21] MEDS: iohexoL 350 MG/ML 100 ML INFUS..BTL 85 ML IV (10:59)
== END 2022-09-21 10:20 | disposition home or self-care (01) ==
LOC: HO.CT 10:19
PROVIDERS: PCP Nurse Practitioner Family; Visit Provider Surgery
DX: K57.20 Diverticulitis of large intestine with perforation and abscess without bleeding (principal)
CPT/HCPCS: 74177; Q9967

== ENCOUNTER 2023-01-21 08:50 | Outpatient (REF) | payer OTHER, SELFPAY ==
[2023-01-21 11:21] LABS: MANUAL DIFF FLAG NO
[2023-01-21 11:30] LABS: Appearance Urine Clear; Color Urine Yellow; Glucose Urine UA >=1000 mg/dL (Negative); Leukocyte Esterase Urine Negative (Negative); Nitrite Urine Negative (Negative); PH 6.5 (5.0-9.0); Specific Gravity - Urine >= 1.030 (1.005-1.025); UMIC TRIGGER UACC YES; Urine Blood Negative (Negative); Urine Ketones Trace mg/dL (Negative); Urine Protein Negative (Neg-Trace)
[2023-01-21 11:46] LABS: Basophils Absolute Auto 0.1 X10*3/uL (0.0-0.2); Basophils Percent Auto 0.9 % (0-2); Eosinophils Absolute Auto 0.3 X10*3/uL (0.0-0.4); Eosinophils Percent Auto 3.7 % (0-4); Hematocrit 43.5 % (42.0-52.0); Hemoglobin 13.8 g/dl (14.0-18.0); Imm Gran Abs Auto 0.04 X10*3/uL (0.00-0.03); Imm Gran Pct Auto 0.5 % (0.0-0.4); Lymphocytes Absolute Auto 1.7 X10*3/uL (1.2-4.9); Mean Corpuscular HGB Conc 31.7 g/dl (31.0-36.0); Mean Corpuscular Hemoglobin 27.7 pg (27.0-33.0); Mean Corpuscular Volume 87.2 fL (80.0-98.0); Mean Platelet Volume 11.6 fL (9.4-12.4); Monocytes Absolute Auto 0.6 X10*3/uL (0.1-1.2); Monocytes Percent Auto 6.7 % (2-11); Neutrophils Absolute Auto 5.5 x10*3/uL (2.0-8.3); Neutrophils Percent Auto 67.2 % (45-73); Platelet Count 289 X10*3/uL (160-400); Red Blood Count 4.99 X10*6/uL (4.60-5.80); Red Cell Distribution Width 14.6 % (11.0-16.0); White Blood Count 8.2 X10*3/uL (4.8-10.8)
[2023-01-21 11:48] LABS: Bacteria Urine None Seen (None Seen); Hyaline Casts Urine 0-2 /LPF (0-2); RBC Urine 0-2 /HPF (0-2); Squamous Epithelial Cell Urine 0-2 /HPF (0-2); WBC Urine 0-5 /HPF (0-5)
[2023-01-21 12:22] LABS: Creatinine Urine 71.06 mg/dL; Microalbum/Creatinine Ratio Ur 71.7 ug/mg cr
[2023-01-21 12:31] LABS: Alanine Aminotransferase 43 U/L (0-40); Albumin Level 4.2 g/dL (3.5-5.0); Alkaline Phosphatase 71 U/L (39-117); Anion Gap 16 (12-20); Aspartate Amino Transferase 26 U/L (5-37); Bilirubin Total 0.3 mg/dL (0.0-1.0); Blood Urea Nitrogen 20 mg/dL (9-16); Calcium 9.7 mg/dL (8.4-10.2); Carbon Dioxide 24 mmol/L (22-29); Chloride 101 mmol/L (96-108); Cholesterol 249 mg/dL; Estimated Glomerular Filt Rate > 60; Glucose Fasting 321 mg/dL (60-99); HDL Cholesterol 37 mg/dL; Potassium 4.4 mmol/L (3.3-5.1); Sodium 137 mmol/L (135-145); Total Protein 7.4 g/dL (6.5-8.0); Triglycerides 646 mg/dL
[2023-01-21 12:42] LABS: TSH reflex Free T4 1.12 uIU/mL (0.32-4.0)
== END 2023-01-21 08:51 | disposition home or self-care (01) ==
LOC: HO.HMGCLDS 08:50
PROVIDERS: PCP Nurse Practitioner Family; Visit Provider Nurse Practitioner Family
DX: Z00.00 Encounter for general adult medical examination without abnormal findings (principal); E11.9 Type 2 diabetes mellitus without complications; E78.5 Hyperlipidemia, unspecified
CPT/HCPCS: 36415; 80053; 80061; 81001; 82043; 84443; 85025

== ENCOUNTER 2023-04-22 12:28 | Outpatient (AMB) | payer OTHER, SELFPAY ==
[2023-04-22 12:32] VITALS: BP 142/82; PULSE 112; TEMP 36.6; O2SAT 98; BMI 28.7
--- NOTE | 2023-04-22 12:32 | MHC.OFFWIV ---
Intake Vital Signs 04/22/23 12:32 Height 5 ft 7 in Weight 83.007 kg BMI 28.7 BP 142/82 H Blood Pressure Location Lt brachial Position Sitting Pulse 112 H Pulse Source Pulse Oximeter Temp 97.9 F Temp Source Temporal Artery Scan Pulse Oximetry (%) 98 Intake Visit Reasons: EST/left shoulder pain Intake Note: pt is here for c/o left shoulder pain and neck pain Patient Tobacco Use Status: Current everyday Tobacco user Allergies NSAIDS (Non-Steroidal Anti-Inflamma Allergy (Mild, Verified 04/22/23 12:32) thins lining of stomach with GERD. Do you need a note to return to daycare/school/sports/work: Yes HPI EST/left shoulder pain HPI Details Patient presents with pain across the left clavicle from sternum to shoulder. He has radiating pain to the posterior muscles of his neck and shoulder as well. 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 Has taken Tylenol with little relief. He has no history of shoulder injury in the past. He denies chest pain, shortness of breath radicular symptoms to his upper extremity. [facility] Medical History (Updated 01/21/23 @ 12:46 by Jayro Dougherty, [facility]) Thigh abscess Pigmentary glaucoma of both eyes Encounter for physical examination Abdominal pain Diabetes mellitus Glaucoma Diverticulosis Surgical History H/O colonoscopy S/P LASIK surgery History of circumcision Family History Father HTN (hypertension) Diabetes mellitus Mother HTN (hypertension) Diabetes mellitus Heart murmur Brother No problems noted. Brother No problems noted. Brother No problems noted. Sister Lupus Sister No problems noted. Sister No problems noted. Sister No problems noted. Son No problems noted. Daughter No problems noted. Social History Household Members: Spouse and Family Household Members Other:: 2 Housing: Apartment Do you presently have visiting nurse or other home services: No Alcohol intake: current Alcohol intake frequency: a few times a week Patient Tobacco Use Status: Current everyday Tobacco user Tobacco use type: Cigarette Cigarette Packs Per Day: 1 Cigarettes Per Day: 20.0 Years Smoked: 5 e-Cigarette/Vaping Use: Never Used Second Hand Smoke Exposure: No service: No Current occupational status: employed Current occupation: [employer] Current occupational exposures/hazards: No Cognitive needs: No Hearing needs: No Vision needs: No Review of Systems Const Reports as per HPI and Reports no additional complaints Card Reports as per HPI and Reports no additional complaints Resp Reports as per HPI and Reports no additional complaints Musc Reports no additional complaints and Reports as per HPI Skin/Breast Denies lesions Neuro Reports no additional complaints and Reports as per HPI Physical Exam Vital Signs: Last Vital Signs Temp 97.9 F 04/22/23 12:32 Pulse 112 H 04/22/23 12:32 BP 142/82 H 04/22/23 12:32 Pulse Ox 98 04/22/23 12:32 BMI result Body Mass Index 28.7 Const General: cooperative, comfortable and no acute distress Orientation/consciousness: patient oriented x3 Chest Chest palpation & inspection: normal inspection of the chest Resp Effort & Inspection: normal respiratory effort Auscultation: clear to auscultation bilaterally Cardio Rate: regular rate Rhythm: regular rhythm Heart sounds: S1 normal heart sound present and S2 normal heart sound present Neuro General: patient oriented x3 Extrem Other: There is there is some edema this terminal clavicular area left. His tender at the AC joint as well. Is positive crossover test is pain with abduction of the shoulder as well. He palpable spasm of the trapezius muscle on the left. Strength sensation and DTR of the left upper extremity is within normal limits Results Reviewed Results Reviewed: X-ray of the left clavicle is contemporaneously read by me without abnormal finding. Will report radiology results as available if different. Assessment & Plan Assessment & Plan (1) Left shoulder strain: Code(s): S46.912A - Strain of unspecified muscle, fascia and tendon at shoulder and upper arm level, left arm, initial encounter Qualifiers: Encounter type: initial encounter Qualified Code(s): S46.912A - Strain of unspecified muscle, fascia and tendon at shoulder and upper arm level, left arm, initial encounter Plan: Advised rest as well as continued Tylenol and muscle relaxer as needed. I have given her a work note for 2 days and then followed by light duty for 2 weeks. I have also referred him to physical therapy. He could try Voltaren gel which might be easier on his stomach. Return to clinic or follow-up with PCP if symptoms do not improve. Orders: Orders PT Evaluation and Treatment Today S46.330V - Strain of unspecified muscle, fascia and tendon at shoulder and upper arm level, left arm, initial encounter XR clavicle LT Today M25.519 - Pain in unspecified shoulder Medications: New cyclobenzaprine 10 mg PO BID PRN 30 tabs 0RF muscle spasm Coding Level of Care Code Est Pt Level 4 (52204) Diagnoses Strain of left shoulder, initial encounter S46.703B Encounter type: initial encounter
== END 2023-04-22 13:44 | disposition home or self-care (01) ==
PROVIDERS: PCP Nurse Practitioner Family; Visit Provider Physician Assistant
DX: S46.912A Strain of unspecified muscle, fascia and tendon at shoulder and upper arm level, left arm, initial encounter (principal); Z04.2 Encounter for examination and observation following work accident
CPT/HCPCS: 99214

== ENCOUNTER 2023-04-22 12:58 | Outpatient (REF) | payer OTHER, SELFPAY ==
--- NOTE | ~2023-04-22 | XR_ITS ---
EXAMINATION: XR CLAVICLE, LEFT CLINICAL INFORMATION: Lifting injury. COMPARISON: None available. TECHNIQUE: Two views of the left clavicle. FINDINGS: The clavicle is intact. No displaced fracture. Acromioclavicular joint alignment is anatomic. XR/XR clavicle LT IMPRESSION: No acute abnormality.
== END 2023-04-22 12:59 | disposition home or self-care (01) ==
LOC: HO.HMGCX 12:58
PROVIDERS: Visit Provider Physician Assistant
DX: M25.512 Pain in left shoulder (principal)
CPT/HCPCS: 73000

== ENCOUNTER 2023-05-23 09:12 | Outpatient (AMB) | payer OTHER, SELFPAY ==
[2023-05-23 09:15] VITALS: BP 132/84; PULSE 101; TEMP 36.8; O2SAT 95; BMI 28.5
--- NOTE | 2023-05-23 09:15 | MHC.OFFWIV ---
Intake Vital Signs 05/23/23 09:15 Height 5 ft 7 in Weight 182 lb BMI 28.5 BP 132/84 Blood Pressure Location Rt brachial Position Sitting Pulse 101 H Pulse Source Pulse Oximeter Temp 98.2 F Temp Source Oral Pulse Oximetry (%) 95 Oxygen Delivery Method Room Air Intake Visit Reasons: EP Fever, Cough, Exposed to COVID [phone] Intake Note: pt is here for c/o fever, cough and exposed to covid yesterday Patient Tobacco Use Status: Current everyday Tobacco user Allergies NSAIDS (Non-Steroidal Anti-Inflamma Allergy (Mild, Verified 05/23/23 09:16) thins lining of stomach with GERD. Do you need a note to return to daycare/school/sports/work: Yes HPI HPI Comments History of Present Illness Details 42-year-old male presents for concern of COVID infection. Patient reports upper respiratory symptoms yesterday including cough congestion I burning. 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 [facility] Medical History (Updated 01/21/23 @ 12:46 by Jayro Dougherty, [facility]) Thigh abscess Pigmentary glaucoma of both eyes Encounter for physical examination Abdominal pain Diabetes mellitus Glaucoma Diverticulosis Surgical History H/O colonoscopy S/P LASIK surgery History of circumcision Family History Father HTN (hypertension) Diabetes mellitus Mother HTN (hypertension) Diabetes mellitus Heart murmur Brother No problems noted. Brother No problems noted. Brother No problems noted. Sister Lupus Sister No problems noted. Sister No problems noted. Sister No problems noted. Son No problems noted. Daughter No problems noted. Social History Household Members: Spouse and Family Household Members Other:: 2 Housing: Apartment Do you presently have visiting nurse or other home services: No Alcohol intake: current Alcohol intake frequency: a few times a week Patient Tobacco Use Status: Current everyday Tobacco user Tobacco use type: Cigarette Cigarette Packs Per Day: 1 Cigarettes Per Day: 20.0 Years Smoked: 5 e-Cigarette/Vaping Use: Never Used Second Hand Smoke Exposure: No service: No Current occupational status: employed Current occupation: [employer] Current occupational exposures/hazards: No Cognitive needs: No Hearing needs: No Vision needs: No Review of Systems ENT Reports nasal congestion and Reports nasal discharge Resp Reports chest congestion, Reports cough and Reports excessive phlegm production Physical Exam Vital Signs: Last Vital Signs Temp 98.2 F 05/23/23 09:15 Pulse 101 H 05/23/23 09:15 BP 132/84 05/23/23 09:15 Pulse Ox 95 05/23/23 09:15 Oxygen Delivery Method Room Air 05/23/23 09:15 BMI result Body Mass Index 28.5 Const General: cooperative, healthy appearing, no acute distress and alert Orientation/consciousness: patient oriented x3 Limitations: no limitations HEENT Head: Yes normal to inspection Ears: hearing grossly normal bilaterally General nose exam: Normal external nose present Resp Effort & Inspection: normal respiratory effort and able to speak in complete sentences Auscultation: clear to auscultation bilaterally Cardio Rate: regular rate Skin General skin exam: no rashes or lesions noted Neuro General: patient oriented x3 Extrem General: Yes normal to inspection Assessment & Plan Assessment & Plan (1) Respiratory infection: Code(s): J98.8 - Other specified respiratory disorders Plan: VSs. Exam otherwise unremarkable symptoms consistent with possible COVID-19 given exposure white ordered COVID test. Discharge instructions, follow up and treatment are discussed with patient in my usual fashion. Alternatives in treatment are also discussed. The patient will return for worsening symptoms or as needed. Advised that any labs/imaging ordered will be followed up on and contact made if further treatment needed. Counseled that patient's condition may require further evaluation and/or treatment. Symptoms of concern for worsening disorder discussed in detail in my customary manner. Patient does verbalize understanding of the plan, there are no apparent barriers to communication. The patient is given the opportunity to ask questions and have them answered to his/her satisfaction Orders: Orders [facility]ax[facility] Covid-19 Ag Today R05.9 - Cough, unspecified Coding Level of Care Code Est Pt Level 3 (62861) Diagnoses Respiratory infection J98.8
== END 2023-05-23 09:42 | disposition home or self-care (01) ==
PROVIDERS: PCP Nurse Practitioner Family; Visit Provider Physician Assistant
DX: J98.8 Other specified respiratory disorders (principal)
CPT/HCPCS: 99213

== ENCOUNTER 2023-05-23 09:39 | Outpatient (REF) | payer OTHER, SELFPAY ==
[2023-05-23 10:04] LABS: Binax Internal Control QC Valid; Binax Now Covid-19 Ag Negative (Negative); Binax Performed by: PAULP
== END 2023-05-23 09:40 | disposition home or self-care (01) ==
LOC: HO.HMGCLDS 09:39
PROVIDERS: PCP Nurse Practitioner Family; Visit Provider Physician Assistant
DX: R05.9 Cough, unspecified (principal); Z11.52 Encounter for screening for COVID-19
CPT/HCPCS: 87811; C9803

== ENCOUNTER 2023-08-15 14:28 | Outpatient (AMB) | payer OTHER, SELFPAY ==
[2023-08-15 14:30] VITALS: BP 130/72; PULSE 98; O2SAT 99; BMI 28.8
--- NOTE | 2023-08-15 14:31 | MHC.PC.OV ---
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 Medication List - Last Reconciled 08/15/23 by Jayro Dougherty, OPEN HEARTH WORKER- aspirin 81 mg PO DAILY atorvastatin 80 mg PO DAILY blood sugar diagnostic (FreeStyle Test strips) TID brimonidine 0.2% drps ophthalmic (eye) empagliflozin (Jardiance) 10 mg PO DAILY ezetimibe 10 mg PO DAILY insulin glargine (Lantus Solostar U-100 Insulin) 30 units (0.3 mL) subcut QPM 60 days insulin lispro (Humalog KwikPen (U-100) Insulin) 1 sliding scale dose See Protocol subcut TIDAC latanoprost 0.005% 1 drp ophthalmic (eye) BEDTIME lisinopril 5 mg PO DAILY 90 days metformin 1,000 mg PO BID metoprolol tartrate 25 mg PO BID netarsudil 0.02% (Rhopressa) drps ophthalmic (eye) omega-3 acid ethyl esters 1 cap PO BID omeprazole 40 mg PO DAILY 90 days pen needle, diabetic (BD Ultra-Fine Mini Pen Needle) TID prasugrel 5 mg PO DAILY sertraline 50 mg PO DAILY timolol maleate 0.5% 1 drp ophthalmic (eye) BID Tobacco use date assessed: 08/15/23 Dental Screening Dental Screen Date: 08/15/23 Did you have a dental visit in the last 12 months?: Yes Did you have a dental problem in the last 6 months where you did not have access to dental care?: No Was dental information given to patient?: Patient has dentist HPI HDF ~ Post hospital discharge FU HPI Details Pt was recently in the hospital with an MA, missing all documentation. Pt has signed a release but we have not been able to obtain records from [place]. Pt reports that in the ER my heart stopped for 3 seconds and they shocked me. He had a cardiac cath with stent placement. Pt was started on aspirin 81mg, metoprolol 25mg bid, and prasugrel 5mg. Pt reports doing better today. Will start zetia 10mg. Will refer urgently to [place] [facility]. Denies chest pain, shortness of breath, and dizziness. Pt is a diabetic, on an SHER and a statin. A1C in office today is 12.4. Microalbumin is up to date. Denies polyuria, polydipsia, and neuropathy. Pt denies any signs and symptoms of hypoglycemia and does know how to correct it. Pt reports that his blood sugar has been elevated. Pt is taking his lantus in the morning and his humalog sliding scale around meals. Pt reports that he sometimes misses his lantus. Will increase sliding scale by 2 units for every value, will increase lantus from 30 units to 40 units. Will also start jardiance 10mg. Will refer to endo and nurse navigator. Pt is seeing a center specialists. Pt is interested in a glucose sensor/transmitter. Will send. NOTE: pt did report, i was [facility], they told me all 4 chambers were without damage . NOTE #2: pt was a 2 pack a day smoker, he quit smoking after his MA. [facility] Medical History Thigh abscess Pigmentary glaucoma of both eyes Encounter for physical examination Abdominal pain Diabetes mellitus Glaucoma Diverticulosis Surgical History H/O colonoscopy S/P LASIK surgery History of circumcision Family History Father HTN (hypertension) Diabetes mellitus Mother HTN (hypertension) Diabetes mellitus Heart murmur Brother No problems noted. Brother No problems noted. Brother No problems noted. Sister Lupus Sister No problems noted. Sister No problems noted. Sister No problems noted. Son No problems noted. Daughter No problems noted. Social History Household Members: Spouse and Family Household Members Other:: 2 Housing: Apartment Do you presently have visiting nurse or other home services: No Alcohol intake: current Alcohol intake frequency: a few times a week Patient Tobacco Use Status: Current everyday Tobacco user Tobacco use type: Cigarette Cigarette Packs Per Day: 1 Cigarettes Per Day: 20.0 Years Smoked: 5 e-Cigarette/Vaping Use: Never Used Second Hand Smoke Exposure: No service: No Current occupational status: employed Current occupation: [employer] Current occupational exposures/hazards: No Cognitive needs: No Hearing needs: No Vision needs: No Questionnaire Thrive Questionnaire Date Thrive assessed: 08/15/23 I am a: Patient What is your living situation today?: I have a steady place to live Within the past 12 months, did the food you bought not last and you didn't have the money to get more?: Sometimes True Within the past 12 months, did you worry whether your food would run out before you got money to buy more?: Never true Do you have trouble paying for medicines?: No Do you have trouble getting transportation to medical appointments?: No Do you have trouble paying your heating and electricity bill?: No Do you have trouble taking care of your child, family member or friend?: No Do you have trouble with day-to-day activities such as bathing, preparing meals, shopping, managing finances, etc.?: No Are you currently unemployed and looking for a job?: No Are you interested in more education?: No Please select the resources that you would like help with: None Currently or been in a relationship where the following occur: no concerns reported AUDIT C Alcohol Use Questionnaire (AUDIT-C) 1. How often do you have a drink containing alcohol?: Monthly or less 2. How many drinks containing alcohol do you have on a typical day when you are drinking?: 3 or 4 3. How often do you have six or more drinks on one occasion?: Less than monthly Total Score: 3 DEVANG-7 AMB Questionnaire DEVANG-7 Date DEVANG - 7 assessed: 08/15/23 Feeling nervous, anxious, or on edge: 0 = Not at all Not being able to stop or control worryin = Not at all Worrying too much about different things: 0 = Not at all Trouble relaxin = Not at all Being so restless that it is hard to sit still: 0 = Not at all Becoming easily annoyed or irritable: 0 = Not at all Feeling afraid as if something awful might happen: 0 = Not at all Total DEVANG-7 score (0-4 normal; 5-9 mild; 10-14 moderate; 15-21 severe): 0 Source: Developed by Drs. Bang Lucia, Randa Vasquez, Jacob Amaya and colleagues, with an educational madi from [employer]. DEVANG-7 Assessment Billing DEVANG-7 Assessment Tool: DEVANG-7 Assessment 89633 Review of Systems Const Reports as per HPI Physical exam (Primary Care) Vital Signs: Last Vital Signs Pulse 98 08/15/23 14:30 BP 130/72 08/15/23 14:30 Pulse Ox 99 08/15/23 14:30 Oxygen Delivery Method Room Air 08/15/23 14:30 BMI result Body Mass Index 28.8 Tobacco/Smoking Status: Tobacco use Status Tobacco use date assessed 08/15/23 08/15/23 14:47 Patient Tobacco Use Status Current everyday Tobacco 08/15/23 14:31 Tobacco use type Cigarette 08/15/23 14:31 e-Cigarette/Vaping Use Never Used 08/15/23 14:31 Thrive Assessment: Date of Thrive Assessment Date Thrive assessed 08/15/23 08/15/23 14:47 Currently or been in a relationship where the following occur: no concerns reported Const General: cooperative Orientation/consciousness: patient oriented x3 Resp Effort & Inspection: normal respiratory effort Auscultation: clear to auscultation bilaterally Cardio Rate: regular rate Rhythm: regular rhythm Heart sounds: S1 normal heart sound present, S2 normal heart sound present and no murmurs Neuro General: patient oriented x3 Extrem Other: feet are intact, + sensation with use of monofilament Psych Appearance: grossly normal Mental Status: mental status grossly normal Speech and movement: Normal speech and movement present Affect: normal affect Attitude: cooperative Thought process: Normal thought process present Thought content: Normal thought content present Insight: Good insight present (Psych) Judgement: Good judgement present (Psych) Results AMB Hemoglobin A1c AMB Hemoglobin A1c 12.4 % Last Edit by Favio Rowland CMA on 08/15/23 15:28 Results Reviewed Results Reviewed: Laboratory Last Values Hgb A1c (Clinic) 12.4 % (4.0-6.0) H 08/15/23 14:49 Assessment and Plan Assessment & Plan (1) Uncontrolled diabetes mellitus with hyperglycemia: Code(s): E11.65 - Type 2 diabetes mellitus with hyperglycemia Plan: Humalog increased, lantus increased, starting jardiance, referred to endo (2) H/O heart artery stent: Code(s): Z95.5 - Presence of coronary angioplasty implant and graft (3) Myocardial infarct: Code(s): I21.9 - Acute myocardial infarction, unspecified Plan The patient agreed to the use of a medical anthropology director for this encounter. Scribed for JAILENE Lucas- by Apple Walls medical anthropology director, on 08/15/2023 at 15:00 EST. Orders: Orders AMB Hemoglobin A1c Today Z13.9 - Encounter for screening, unspecified TSH reflex Free T4 Today E11.65 - Type 2 diabetes mellitus with hyperglycemia, I21.9 - Acute myocardial infarction, unspecified, Z95.5 - Presence of coronary angioplasty implant and graft UA CC w/rflx Micro + Cult Today E11.65 - Type 2 diabetes mellitus with hyperglycemia, I21.9 - Acute myocardial infarction, unspecified, Z95.5 - Presence of coronary angioplasty implant and graft Lipid Panel Today E11.65 - Type 2 diabetes mellitus with hyperglycemia, I21.9 - Acute myocardial infarction, unspecified, Z95.5 - Presence of coronary angioplasty implant and graft AMB EKG-In Office Today E11.65 - Type 2 diabetes mellitus with hyperglycemia, I21.9 - Acute myocardial infarction, unspecified, Z95.5 - Presence of coronary angioplasty implant and graft Complete Blood Count Auto Diff Today E11.65 - Type 2 diabetes mellitus with hyperglycemia, I21.9 - Acute myocardial infarction, unspecified, Z95.5 - Presence of coronary angioplasty implant and graft Comprehensive [place]. Panel Fast Today E11.65 - Type 2 diabetes mellitus with hyperglycemia, I21.9 - Acute myocardial infarction, unspecified, Z95.5 - Presence of coronary angioplasty implant and graft Referrals Endocrinology Referral E11.65 - Type 2 diabetes mellitus with hyperglycemia Cardiology Referral I21.9 - Acute myocardial infarction, unspecified, Z95.5 - Presence of coronary angioplasty implant and graft Nurse Navigator Referral E11.65 - Type 2 diabetes mellitus with hyperglycemia Medications: New ezetimibe 10 mg PO DAILY 90 tabs 0RF empagliflozin (Jardiance) 10 mg PO DAILY 30 tabs 3RF Changed From insulin lispro (Humalog KwikPen (U-100) Insulin) See Protocol subcut TIDAC diabetes To insulin lispro (Humalog KwikPen (U-100) Insulin) 1 sliding scale dose See Protocol subcut TIDAC 15 mL 0RF diabetes Refilled insulin lispro (Humalog KwikPen (U-100) Insulin) 1 sliding scale dose See Protocol subcut TIDAC 15 mL 0RF diabetes Coding Level of Care Code Est Pt Level 4 (58913) Diagnoses Uncontrolled diabetes mellitus with hyperglycemia E11.65 H/O heart artery stent Z95.5 Myocardial infarct I21.9 Additional Codes DEVANG-7 Assessment Billing - DEVANG-7 Assessment Tool: DEVANG-7 Assessment [id number] ([id number])
== END 2023-08-15 16:12 | disposition home or self-care (01) ==
PROVIDERS: PCP Nurse Practitioner Family; Visit Provider Nurse Practitioner Family
DX: E11.65 Type 2 diabetes mellitus with hyperglycemia (principal); I21.9 Acute myocardial infarction, unspecified; Z95.5 Presence of coronary angioplasty implant and graft; F17.210 Nicotine dependence, cigarettes, uncomplicated
CPT/HCPCS: 83036; 99214

== ENCOUNTER 2023-08-26 09:27 | Outpatient (AMB) | payer OTHER, SELFPAY ==
[2023-08-26 10:32] VITALS: BP 120/90; PULSE 87; O2SAT 98; BMI 28.8
--- NOTE | 2023-08-26 10:32 | AM.OFFWIN_ITS ---
Intake Vital Signs 08/26/23 10:32 Height 5 ft 7 in Weight 184 lb BMI 28.8 BP 120/90 H Blood Pressure Location Lt brachial Position Sitting Pulse 87 Pulse Source Pulse Oximeter Pulse Oximetry (%) 98 Oxygen Delivery Method Room Air Oxygen Flow Rate 97.5 Intake Visit Reasons: EP Rash on both legs [id number] Intake Note: pt is here today for rash on both legs started last Saturday Patient Tobacco Use Status: Current everyday Tobacco user Allergies NSAIDS (Non-Steroidal Anti-Inflamma Allergy (Mild, Verified 08/26/23 10:34) thins lining of stomach with GERD. Do you need a note to return to daycare/school/sports/work: Yes HPI HPI Comments History of Present Illness Details Patient presents to the walk-in today with complaints of rash to the posterior aspect of both lower legs Patient reports the rash started 1 week ago is very itchy and most pronounced after he takes a warm shower Denies drainage fevers, chills, weakness, dizziness, chest pain, shortness of breath States rash is nowhere else on his body Did reach out to primary care doctor, was prescribed steroid cream which he has been using twice daily without improvement of his symptoms PCP recommended evaluation at the walk-in [facility] Medical History Thigh abscess Pigmentary glaucoma of both eyes Encounter for physical examination Abdominal pain Diabetes mellitus Glaucoma Diverticulosis Surgical History H/O colonoscopy S/P LASIK surgery History of circumcision Family History Father HTN (hypertension) Diabetes mellitus Mother HTN (hypertension) Diabetes mellitus Heart murmur Brother No problems noted. Brother No problems noted. Brother No problems noted. Sister Lupus Sister No problems noted. Sister No problems noted. Sister No problems noted. Son No problems noted. Daughter No problems noted. Social History Household Members: Spouse and Family Household Members Other:: 2 Housing: Apartment Do you presently have visiting nurse or other home services: No Alcohol intake: current Alcohol intake frequency: a few times a week Patient Tobacco Use Status: Current everyday Tobacco user Tobacco use type: Cigarette Cigarette Packs Per Day: 1 Cigarettes Per Day: 20.0 Years Smoked: 5 e-Cigarette/Vaping Use: Never Used Second Hand Smoke Exposure: No service: No Current occupational status: employed Current occupation: [employer] Current occupational exposures/hazards: No Cognitive needs: No Hearing needs: No Vision needs: No Review of Systems Const All systems reviewed & are unremarkable except as noted in HPI and below Physical Exam Vital Signs: Last Vital Signs Pulse 87 08/26/23 10:32 BP 120/90 H 08/26/23 10:32 Pulse Ox 98 08/26/23 10:32 Oxygen Delivery Method Room Air 08/26/23 10:32 Oxygen Flow Rate 97.5 08/26/23 10:32 BMI result Body Mass Index 28.8 General: awake, alert, oriented. Answers questions appropriately. Fully engaged in examination. Skin: maculopapular rash noted bilateral posterior lower legs. without drainage, open areas, lymphangitis. HEENT: Normocephalic. Hearing intact. Cardiac: External chest normal in appearance. Respiratory: No cough, audible wheezing or stridor. Abdomen: without gross distension. MS: No obvious swelling or deformities. Neurological: Oriented to person, place, time and situation. Thought process intact. No gait abnormalities appreciated. Psychiatric: Appropriate mood and affect. Good judgment and insight. Assessment & Plan Assessment & Plan (1) Dermatitis: Code(s): L30.9 - Dermatitis, unspecified Plan Patient presents to the walk-in today for rash to bilateral posterior lower legs. Prednisone 40 mg p.o. daily for 5 days Hydroxyzine 25 mg p.o. twice daily as needed for itching Work note provided All questions and concerns were addressed, patient agrees with the plan Follow-up with primary care or walk-in clinic for any new or worsening symptoms Medications: New prednisone 40 mg (2 x 20 mg) PO DAILY 5 days 10 tabs 0RF hydroxyzine HCl 25 mg PO BID PRN 20 tabs 0RF itching Coding Level of Care Code Est Pt Level 4 (54950) Diagnoses Dermatitis L30.9
== END 2023-08-26 13:37 | disposition home or self-care (01) ==
PROVIDERS: PCP Nurse Practitioner Family; Visit Provider Registered Nurse Emergency
DX: L30.9 Dermatitis, unspecified (principal)
CPT/HCPCS: 99213

== ENCOUNTER 2023-08-27 08:16 | Outpatient (AMB) | payer OTHER, SELFPAY ==
--- NOTE | 2023-08-27 08:35 | MHC.OFFVIS ---
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 Medication List - Last Reconciled 08/27/23 by Martell Rodney MD aspirin 81 mg PO DAILY atorvastatin 80 mg PO DAILY betamethasone dipropionate 0.05% 1 appl topical BID PRN blood sugar diagnostic (FreeStyle Test strips) TID brimonidine 0.2% drps ophthalmic (eye) empagliflozin (Jardiance) 10 mg PO DAILY ezetimibe 10 mg PO DAILY FreeStyle Renny 3 Sensor (blood-glucose sensor) Test blood sugar 4 times per day NS hydroxyzine HCl 25 mg PO BID PRN insulin glargine (Lantus Solostar U-100 Insulin) 40 units (0.4 mL) subcut QPM insulin lispro (Humalog KwikPen (U-100) Insulin) 1 sliding scale dose See Protocol subcut TIDAC MDD 36 units/day latanoprost 0.005% 1 drp ophthalmic (eye) BEDTIME lisinopril 5 mg PO DAILY 90 days metformin 1,000 mg PO BID metoprolol tartrate 25 mg PO BID netarsudil 0.02% (Rhopressa) drps ophthalmic (eye) omega-3 acid ethyl esters 1 cap PO BID omeprazole 40 mg PO DAILY 90 days pen needle, diabetic (BD Ultra-Fine Mini Pen Needle) QID prasugrel 5 mg PO DAILY prednisone 40 mg (2 x 20 mg) PO DAILY 5 days sertraline 50 mg PO DAILY timolol maleate 0.5% 1 drp ophthalmic (eye) BID HPI HPI Comments History of Present Illness Details Bunny is here for consultation regarding coronary disease. He states that he is currently living in [place] but in the process of moving here. In May of 2023, he apparently had heartburn and that led to hospitalization at [facility]. It seems that he was having an acute myocardial infarction and underwent PCI. However, details are not clear as we do not have any records at this time. Otherwise, it seems he is got uncontrolled hypertension. Hemoglobin A1c is quite high. He blames that on poor lifestyle. Lipids are also not optimal. Since the time of myocardial infarction, he states he is actually doing okay. No new symptoms like angina. [facility] Medical History (Updated 08/27/23 @ 08:46 by Martell Rodney MD) Atherosclerotic cardiovascular disease Thigh abscess Pigmentary glaucoma of both eyes Encounter for physical examination Abdominal pain Diabetes mellitus Glaucoma Diverticulosis Surgical History (Updated 08/27/23 @ 08:39 by Graciela Marte) Hx of cardiac cath H/O colonoscopy S/P LASIK surgery History of circumcision Family History Father HTN (hypertension) Diabetes mellitus Mother HTN (hypertension) Diabetes mellitus Heart murmur Brother No problems noted. Brother No problems noted. Brother No problems noted. Sister Lupus Sister No problems noted. Sister No problems noted. Sister No problems noted. Son No problems noted. Daughter No problems noted. Social History (Updated 08/27/23 @ 08:40 by Graciela Marte) Household Members: Spouse and Family Household Members Other:: 2 Housing: Apartment Do you presently have visiting nurse or other home services: No Alcohol intake: current Alcohol intake frequency: a few times a week Patient Tobacco Use Status: Former Tobacco user Quit Date: 05/2023 Tobacco use type: Cigarette Cigarette Packs Per Day: 1 Cigarettes Per Day: 20.0 Years Smoked: 5 e-Cigarette/Vaping Use: Never Used Second Hand Smoke Exposure: No service: No Current occupational status: employed Current occupation: [email or web address] Current occupational exposures/hazards: No Cognitive needs: No Hearing needs: No Vision needs: No Review of Systems Const All systems reviewed & are unremarkable except as noted in HPI and below Reports as per HPI and Reports no additional complaints Eyes Reports as per HPI and Denies no additional complaints ENT Denies no additional complaints and Reports as per HPI Card Reports as per HPI, Reports no additional complaints, Denies acrocyanosis, Denies chest pain, Denies leg edema, Denies lightheadedness, Denies palpitations and Denies dyspnea Resp Reports as per HPI, Denies no additional complaints and Denies dyspnea GI Reports as per HPI and Denies no additional complaints Reports no additional complaints and Reports as per HPI Musc Reports no additional complaints and Reports as per [facility] Skin/Breast Reports system reviewed and no additional complaints, except as documented Neuro Reports no additional complaints and Reports as per HPI Psych Reports no additional complaints and Reports as per HPI Endo Reports no additional complaints, Reports as per HPI and Denies palpitations Lorenzo/Lymph Reports no additional complaints and Reports as per HPI Aller/Immun Reports no additional complaints and Reports as per HPI Physical Exam Vital Signs: Last Vital Signs Pulse 115 H 08/27/23 08:36 BP 118/78 08/27/23 08:36 BMI result Body Mass Index 28.3 Const General: comfortable and no acute distress Orientation/consciousness: patient oriented x3 HEENT Other: Unremarkable Head: Yes normal to inspection Neck Neck: Yes normal visual inspection Chest Chest palpation & inspection: normal inspection of the chest Resp Auscultation: clear to auscultation bilaterally Cardio Palpation: normal PMI Heart sounds: S1 normal heart sound present, S2 normal heart sound present, no gallops, no murmurs and no rubs GI Palpation (GI): Soft to palpation Back/Spine/Pelvis Other: unremarkable Skin General skin exam: no rashes or lesions noted Neuro General: patient oriented x3 Extrem General: Yes normal to inspection Psych Mental Status: mental status grossly normal Assessment & Plan Assessment & Plan (1) Atherosclerotic cardiovascular disease: Code(s): I25.10 - Atherosclerotic heart disease of [place] coronary artery without angina pectoris (2) Myocardial infarct: Code(s): I21.9 - Acute myocardial infarction, unspecified (3) Diabetes mellitus: Code(s): E11.9 - Type 2 diabetes mellitus without complications (4) Dyslipidemia: Code(s): E78.5 - Hyperlipidemia, unspecified Plan In the recent EKG, underlying rhythm is sinus at 84/Min; can not exclude old inferior infarct and otherwise unremarkable. Patient described history of myocardial infarction but we do not have any records. Hence we will need to get that from [employer]. We will get an echocardiogram for cardiac function assessment and any wall motion abnormalities. Otherwise, diabetes seems uncontrolled as hemoglobin A1c is very high at more than 10. He states that he is working with his PCP to get that under control. This is clearly a major risk factor for future coronary and vascular events in general. His lipids are also quite high with very high triglycerides. That could again be from diabetes. He has labs pending and we can add a direct LDL to that. He may remain on high-dose statins at this time. Once we have records from PCI as well as the above labs and an echocardiogram we will see him back in follow-up. He is agreeable. Orders: Orders CA echo transthoracic complete Today I21.9 - Acute myocardial infarction, unspecified, I25.10 - Atherosclerotic heart disease of [place] coronary artery without angina pectoris, Z95.5 - Presence of coronary angioplasty implant and graft LDL Cholesterol Direct Today E78.2 - Mixed hyperlipidemia, I25.10 - Atherosclerotic heart disease of [place] coronary artery without angina pectoris Coding Level of Care Code New Pt Level 4 (55609) Diagnoses Atherosclerotic cardiovascular disease I25.10 Myocardial infarct I21.9 Diabetes mellitus E11.9 Dyslipidemia E78.5
[2023-08-27 08:36] VITALS: BP 118/78; PULSE 115; BMI 28.3
== END 2023-08-27 09:00 | disposition home or self-care (01) ==
PROVIDERS: PCP Nurse Practitioner Family; Visit Provider Internal Medicine
DX: I25.10 Atherosclerotic heart disease of native coronary artery without angina pectoris (principal); I21.9 Acute myocardial infarction, unspecified; E11.9 Type 2 diabetes mellitus without complications; E78.5 Hyperlipidemia, unspecified
CPT/HCPCS: 99204

== ENCOUNTER → 2023-08-27 08:16 | Outpatient (BNVA) | payer OTHER, SELFPAY | PROVIDERS: PCP Nurse Practitioner Family; Visit Provider Internal Medicine | DX: I25.10 Atherosclerotic heart disease of native coronary artery without angina pectoris (principal); I25.2 Old myocardial infarction; E11.9 Type 2 diabetes mellitus without complications; E78.5 Hyperlipidemia, unspecified | CPT/HCPCS: 99202 ==

== ENCOUNTER → 2023-11-06 14:52 | Outpatient (REF) | payer OTHER, SELFPAY ==
--- NOTE | 2023-11-06 15:01 | CA_ITS ---
Transthoracic Echocardiogram Patient (Last, First, Middle): Damon CernaBunny holt D Gender: Male Date of : 1980 Age: 43 Procedure Date: 11/06/2023 Procedure Type: Transthoracic Echocardiogram Location: OP Height: 170.18 cm Weight: 85.73 kg BSA: 1.97 m2 Heart Rate: bpm BP: 136 / 70 mmHg Youth Career Specialist: WOO Porter MD: Martell Rodney MD Rn Wellness: Desmond Barakat MD Symptoms: I25.10 - Atherosclerotic heart disease of [place] coronary artery without... Study Quality: Fair/Contrast ECG Rhythm: Sinus tachycardia Conclusions: - 1. Normal LV ejection fraction 55-60% with grade 1 diastolic dysfunction 2. Normal cardiac valvular Doppler 3. No gross pericardial effusion Findings Procedure Information Contrast agent, definity, is being given per protocol without apparent complications. Left Ventricle Normal left ventricular size, thickness, and systolic function. The visually estimated ejection fraction is between 55-60%. Spectral Doppler is indicative of an impaired relaxation filling pattern. E/E prime ratio is <8, consistent with normal filling pressures. Evidence suggests grade I (mild) diastolic dysfunction. Right Ventricle Normal right ventricular cavity size and systolic function. Atria Both atria are normal in size. Interatrial shunt cannot be excluded. Aortic Valve Normal aortic valve structure and function. There is no aortic valve stenosis. There is no aortic valve regurgitation. Mitral Valve Normal mitral valve structure and function. There is trace mitral valve regurgitation. There is no mitral valve stenosis. Pulmonic Valve The pulmonic valve was not well visualized. Tricuspid Valve Likely normal tricuspid valve structure and function. Tricuspid regurgitation envelope is inadequate for calculation of right ventricular systolic pressure. Normal right atrial pressure. Great Vessels All visible segments of the aorta are normal in size. The pulmonary artery was not well visualized. Venous The inferior vena cava is normal in size and collapses greater than 50% with inspiration. Pericardium/Pleural There is no evidence of pericardial effusion. Prior Study Comparison No prior study available for comparison. Measurements 2D Linear Measurements IVSd: 1.01 0.6-0.9/0.6-1.0 cm LVIDd: 4.24 3.9-5.3/4.2-5.9 cm LVIDd Index: 2.15 2.4-3.2/2.2-3.1 cm/m2 LVIDs: 2.81 2.0-3.6 cm LVPWd: 1.02 0.7-1.1 cm Ao Root: 3.60 2.1-3.5 cm LA Diam: 3.20 2.7-3.8/3.0-4.0 cm LAIDs Index: 1.62 1.5-2.3 cm/m2 LV Mass: 177.08 67-162/88-224 g LV Mass Index: 89.89 43-95/49-115 g/m2 LVOT Diam: 2.20 3.0+(-)1.3 cm 2D Systolic Function EF 4C: 57.10 >55% EF 2C: 56.20 >55% EF BiP: 57.10 >55% Mitral Valve MV Pk E: 0.75 MV PK A: 1.04 MV Decel Time: 141.00 E/A: 0.70 E'Lateral: 8.27 E'Medial: 7.40 E/E' Med: 10.10 E/E' Lat: 9.10 PHT: 41.00 MVA PHT: 5.37 Decel [place]: 5.33 Aortic Valve AoV Pk Jossue: 1.49 AoV Mn Jossue: 0.94 AoV VTI: 0.19 AoV Pk Grad: 9.00 Aov Mn Grad: 4.00 DOYLE Cont.VTI: 2.76 LVOT LVOT Pk Jossue: 0.86 LVOT Mn Jossue: 0.57 LVOT VTI: 0.14 LVOT Pk Grad: 3.00 LVOT Mn Grad: 1.00 LVOT Diam: 2.20 LVOT Area: 3.80 Diastolic Function MV Pk E: 0.75 MV Pk A: 1.04 E/A: 0.70 E'Medial: 7.40 E/E' Med: 10.10 E' Laterial: 8.27 E/E' Lat: 9.10 Right Ventricle TAPSE (mm): 18.00 TVS' Jossue: 9.79 Great Vessels Aorta Ao Root-2D: 3.60 2.0-3.7 cm Ao Asc: 3.00 2.1-3.4 cm Ao Arch: 2.50 Updated in Other Vendor System with Status of Final Desmond Barakat MD electronically signed on 11/07/2023 3:41:01 PM with status of Final
== END ==
LOC: HO.CARD 14:52
PROVIDERS: PCP Nurse Practitioner Family; Visit Provider Internal Medicine
DX: I25.10 Atherosclerotic heart disease of native coronary artery without angina pectoris (principal); I21.9 Acute myocardial infarction, unspecified
CPT/HCPCS: 93306; Q9957

== ENCOUNTER → 2023-11-06 15:01 | Outpatient (BNV) | payer OTHER, SELFPAY | PROVIDERS: PCP Nurse Practitioner Family; Visit Provider Internal Medicine Cardiovascular Disease | DX: I25.10 Atherosclerotic heart disease of native coronary artery without angina pectoris (principal) | CPT/HCPCS: 93306 ==

== ENCOUNTER 2023-11-08 00:28 | Emergency (ER) | payer OTHER, SELFPAY ==
[2023-11-08 00:34] VITALS: BP 121/72; PULSE 109; RESP 18; TEMP 37.1; O2SAT 95
--- NOTE | 2023-11-08 00:34 | ED_ITS ---
History of Present Illness General Chief Complaint: Epistaxis Stated Complaint: bloody nose Time Seen by Provider: 11/08/23 00:34 Source: patient Mode of arrival: EMS Limitations: no limitations History of Present Illness HPI Narrative: Patient's history of coronary artery disease on prasugrel with no history of epistaxis in the past noticed small amount of bleeding yesterday and today got worse with multiple episodes bleeding is from right nostril no skin rash no blood in stool had some blood clots from right nostril Related Data Home Medications ?Medication ?Instructions ?Recorded ?Confirmed aspirin 81 mg capsule 81 mg PO DAILY 08/15/23 08/27/23 brimonidine 0.2 % eye drops drp ophthalmic (eye) 08/15/23 08/27/23 latanoprost 0.005 % eye drops 1 drp ophthalmic (eye) BEDTIME 08/15/23 08/27/23 netarsudil 0.02 % eye drops drp ophthalmic (eye) 08/15/23 08/27/23 (Rhopressa) prasugrel 5 mg tablet 5 mg PO DAILY 08/15/23 08/27/23 timolol maleate 0.5 % eye drops 1 drp ophthalmic (eye) BID 08/15/23 08/27/23 Previous Rx's ?Medication ?Instructions ?Recorded metformin 1,000 mg tablet 1,000 mg PO BID #180 tabs 12/16/22 lisinopril 5 mg tablet 5 mg PO DAILY 90 days #90 tabs 08/07/23 omeprazole 40 mg capsule,delayed 40 mg PO DAILY 90 days #90 caps 08/07/23 release sertraline 50 mg tablet 50 mg PO DAILY #90 tabs 08/07/23 atorvastatin 80 mg tablet 80 mg PO DAILY #90 tabs 08/08/23 empagliflozin 10 mg tablet 10 mg PO DAILY #30 tabs 08/15/23 (Jardiance) FreeStyle Renny 3 Sensor #6 ea 08/16/23 (blood-glucose sensor) insulin glargine 100 unit/mL (3 40 unit (0.4 mL) subcut QPM #30 mL 08/16/23 mL) subcutaneous pen (Lantus Solostar U-100 Insulin) pen needle, diabetic 31 gauge x #300 ea 08/16/23 3/16 (BD Ultra-Fine Mini Pen Needle) insulin lispro 100 unit/mL 1 sliding scale dose subcut TIDAC 08/21/23 subcutaneous pen (Humalog KwnanciPen diabetes #30 mL (U-100) Insulin) hydroxyzine HCl 25 mg tablet 25 mg PO BID PRN itching #20 tabs 08/26/23 prednisone 20 mg tablet 40 mg (2 x 20 mg) PO DAILY 5 days 08/26/23 #10 tabs blood sugar diagnostic (FreeStyle #300 ea 09/09/23 Test strips) betamethasone dipropionate 0.05 % 1 appl topical BID PRN skin 09/25/23 topical cream irritation #45 grams ezetimibe 10 mg tablet 10 mg PO DAILY #90 tabs 09/25/23 omega-3 acid ethyl esters 1 gram 1 cap PO BID #180 caps 09/25/23 capsule metoprolol tartrate 25 mg tablet 25 mg PO BID 30 days #60 tabs 11/07/23 Allergies Allergy/AdvReac Type Severity Reaction Status Date / Time NSAIDS (Non-Steroidal Allergy Mild thins Verified 11/08/23 00:50 Anti-Inflamma lining of stomach with GERD. Review of Systems 2 Review of Systems: Yes all other systems are reviewed and are negative [facility] Past Medical History Medical History Atherosclerotic cardiovascular disease Thigh abscess Pigmentary glaucoma of both eyes Encounter for physical examination Abdominal pain Diabetes mellitus Glaucoma Diverticulosis Surgical History Hx of cardiac cath H/O colonoscopy S/P LASIK surgery History of circumcision Family History Family History Father HTN (hypertension) Diabetes mellitus Mother HTN (hypertension) Diabetes mellitus Heart murmur Brother No problems noted. Brother No problems noted. Brother No problems noted. Sister Lupus Sister No problems noted. Sister No problems noted. Sister No problems noted. Son No problems noted. Daughter No problems noted. Social History Social History Household Members: Spouse and Family Household Members Other:: 2 Housing: Apartment Do you presently have visiting nurse or other home services: No Alcohol intake: current Alcohol intake frequency: 0-2 drinks per day Alcohol type: other Patient Tobacco Use Status: Former Tobacco user Quit Date: 05/2023 Tobacco use type: Cigarette Cigarette Packs Per Day: 1 Cigarettes Per Day: 20.0 Years Smoked: 5 Smoked in Last 30 Days: No e-Cigarette/Vaping Use: Never Used Second Hand Smoke Exposure: No Use of substances other than those prescribed or required for medical reasons: No Advance Directives: No Advance Directives Information Provided: No service: No Current occupational status: employed Current occupation: [employer] Current occupational exposures/hazards: No Cognitive needs: No Hearing needs: No Vision needs: No Physical Exam 2 Vital Signs: Vital Signs: Last Vital Signs Temp 98.6 F 11/08/23 01:45 Pulse 106 H 11/08/23 01:45 Resp 16 11/08/23 01:45 BP 104/80 11/08/23 01:45 Pulse Ox 96 11/08/23 01:45 O2 Del Method Room Air 11/08/23 01:45 BMI result Body Mass Index 29.6 Appearance: Alert. Oriented X3. No acute distress. Eyes: PERRLA, No Nystagmus ENT: Pharynx normal. Oral Mucosa moist dried blood in right nostril no active bleeding at this time Neck: Normal inspection. Neck supple. CVS: Normal heart rate and rhythm. Pulses normal. Respiratory: No respiratory distress. Equal air entry bilateral, no wheezing/rales/rhonchi Abdomen: Soft and nontender. Bowel sounds are present, no mass palpable, no CVA tenderness Skin: Skin warm and dry. Normal skin color. Normal skin turgor. Extremities: No lower extremity edema. No calf tenderness Neuro: Oriented X 3. No motor deficit. Medications Administered Discontinued Medications Generic Name Dose Route Start Last Admin Trade Name Freq PRN Reason Stop Dose Admin Tranexamic Acid 500 mg 11/08/23 00:41 11/08/23 00:50 Tranexamic Acid 1,000 Mg/10 Ml Vial INTRANASAL 11/08/23 00:42 500 mg ONCE ONE Administration Medical Decision Making Medical Decision Making [facility] Narrative: Patient with minor epistaxis on aspirin and prasugrel labs are stable bleeding stopped after using TXA patient advised to hold both medication for 2 days and restart if no bleeding. Differential Diagnosis Differential Diagnoses: The differential diagnosis associated with the presentation includes Lab Data [facility] Lab Attestation statement: I reviewed the patient's lab results. 11/08/23 01:00 11/08/23 01:00 Labs: Lab Results 11/08/23 Range/Units 01:00 WBC 8.0 (4.8-10.8) X10*3/uL RBC 4.70 (4.60-5.80) X10*6/uL Hgb 13.6 L (14.0-18.0) g/dl Hct 40.0 L (42.0-52.0) % MCV 85.1 (80.0-98.0) fL MCH 28.9 (27.0-33.0) pg MCHC 34.0 (31.0-36.0) g/dl RDW 13.7 (11.0-16.0) % Plt Count 291 (160-400) X10*3/uL MPV 10.1 (9.4-12.4) fL Immature Gran % (Auto) 0.2 (0.0-0.4) % Neut % (Auto) 58.6 (45-73) % Lymph % (Auto) 29.1 (20-40) % [place] % (Auto) 8.9 (2-11) % Eos % (Auto) 2.5 (0-4) % Baso % (Auto) 0.7 (0-2) % Lymph # (Auto) 2.3 (1.2-4.9) X10*3/uL [place] # (Auto) 0.7 (0.1-1.2) X10*3/uL Eos # (Auto) 0.2 (0.0-0.4) X10*3/uL Baso # (Auto) 0.1 (0.0-0.2) X10*3/uL Abs Immat Gran (auto) 0.02 (0.00-0.03) X10*3/uL Absolute Neuts (auto) 4.7 (2.0-8.3) x10*3/uL Absolute Nucleated RBC 0.000 (0.0-0.012) X10*3/uL Nucleated RBC % (auto) 0.0 (0.0-0.2) /100WBC PT 9.8 L (11.1-13.3) SEC INR 0.8 L (0.9-1.1) APTT 30.5 (26.0-36.8) SEC Sodium 138 (135-145) mmol/L Potassium 3.7 (3.3-5.1) mmol/L Chloride 104 (96-108) mmol/L Carbon Dioxide 22 (22-29) mmol/L Anion Gap 16 (12-20) BUN 20 H (9-16) mg/dL Creatinine 1.20 (0.5-1.4) mg/dL Estim Creat Clear Calc 83.8 Estimated GFR > 60 Random Glucose 309 H (60-115) mg/dL Calcium 9.5 (8.4-10.2) mg/dL Total Bilirubin 0.3 (0.0-1.0) mg/dL AST 21 (5-37) U/L ALT 29 (0-40) U/L Alkaline Phosphatase 83 (39-117) U/L Total Protein 7.5 (6.5-8.0) g/dL Albumin 4.1 (3.5-5.0) g/dL Discharge Plan Discharge Clinical Impression: Acute anterior epistaxis Patient Disposition: Home, Self-Care Instructions: Nosebleed (ED) Additional Instructions: Hold aspirin and prasugrel for 2 days restart if no nosebleed Follow-up with your PCP Prescriptions: No Action metformin 1,000 mg tablet 1,000 mg PO BID Qty: 180 1RF sertraline 50 mg tablet 50 mg PO DAILY Qty: 90 1RF omeprazole 40 mg capsule,delayed release(DR/EC) 40 mg PO DAILY 90 Days Qty: 90 1RF lisinopril 5 mg tablet 5 mg PO DAILY 90 Days Qty: 90 1RF atorvastatin 80 mg tablet 80 mg PO DAILY Qty: 90 1RF insulin glargine [Lantus Solostar U-100 Insulin] 100 unit/mL (3 mL) insulin pen 40 unit subcut QPM Qty: 30 2RF (DME) pen needle, diabetic [BD Ultra-Fine Mini Pen Needle] 31 gauge x 3/16 needle See Rx Instructions .ROUTE .MEDSUPPLY Qty: 300 2RF Rx Instructions: QID (DME) FreeStyle Renny 3 Sensor Device See Rx Instructions .Route Qty: 6 1RF Rx Instructions: Test blood sugar 4 times per day insulin lispro [Humalog KwikPen Insulin] 100 unit/mL insulin pen 1 sliding scale dose subcut TIDAC MDD 36 units/day Qty: 30 1RF Protocol: Insulin Correction Scale Less than or equal to 110 ---- Give (units): 0 111 to 150 Give (units): 0 151 to 200 Give (units): 4 201 to 250 Give (units): 6 251 to 300 Give (units): 8 301 to 350 Give (units): 10 Greater than 350 Give (units): 12 Call MD if Blood Glucose > : 350 Rx Instructions: Dose according to sliding scale (DME) FreeStyle Test Strip See Rx Instructions .Route Qty: 300 1RF Rx Instructions: TID betamethasone dipropionate 0.05 % cream 1 appl topical BID PRN (Reason: skin irritation) Qty: 45 0RF ezetimibe 10 mg tablet 10 mg PO DAILY Qty: 90 1RF omega-3 acid ethyl esters 1 gram capsule 1 cap PO BID Qty: 180 1RF metoprolol tartrate 25 mg tablet 25 mg PO BID 30 Days Qty: 60 1RF Rhopressa 0.02 % drops ophthalmic (eye) timolol maleate 0.5 % drops 1 drp ophthalmic (eye) BID brimonidine 0.2 % drops ophthalmic (eye) latanoprost 0.005 % drops 1 drp ophthalmic (eye) BEDTIME aspirin 81 mg capsule 81 mg PO DAILY prasugrel 5 mg tablet 5 mg PO DAILY Jardiance 10 mg tablet 10 mg PO DAILY Qty: 30 3RF prednisone 20 mg tablet 40 mg PO DAILY 5 Days Qty: 10 0RF hydroxyzine HCl 25 mg tablet 25 mg PO BID PRN (Reason: itching) Qty: 20 0RF Stand Alone Forms: Work/School Release Interventions: ED Discharge Assessment Last Done: 11/08/23 01:45 Discharge Date/Time: 11/08/23 01:48 Print Language: Czech
[2023-11-08 00:47] VITALS: BP 121/72; BP 128/72; PULSE 100; PULSE 114; RESP 18; TEMP 37.1; O2SAT 95; O2SAT 96; BMI 29.6
[2023-11-08] MEDS: Tranexamic Acid 1,000 MG/10 ML VIAL 500 MG INTRANASAL (00:50)
[2023-11-08 01:04] LABS: MANUAL DIFF FLAG NO
[2023-11-08 01:06] LABS: Basophils Absolute Auto 0.1 X10*3/uL (0.0-0.2); Basophils Percent Auto 0.7 % (0-2); Eosinophils Absolute Auto 0.2 X10*3/uL (0.0-0.4); Eosinophils Percent Auto 2.5 % (0-4); Hemoglobin 13.6 g/dl (14.0-18.0); Imm Gran Abs Auto 0.02 X10*3/uL (0.00-0.03); Imm Gran Pct Auto 0.2 % (0.0-0.4); Lymphocytes Absolute Auto 2.3 X10*3/uL (1.2-4.9); Lymphocytes Percent Auto 29.1 % (20-40); Mean Corpuscular Hemoglobin 28.9 pg (27.0-33.0); Mean Corpuscular Volume 85.1 fL (80.0-98.0); Mean Platelet Volume 10.1 fL (9.4-12.4); Monocytes Absolute Auto 0.7 X10*3/uL (0.1-1.2); Monocytes Percent Auto 8.9 % (2-11); Neutrophils Absolute Auto 4.7 x10*3/uL (2.0-8.3); Neutrophils Percent Auto 58.6 % (45-73); Platelet Count 291 X10*3/uL (160-400); Red Cell Distribution Width 13.7 % (11.0-16.0)
[2023-11-08 01:13] LABS: INTERNATIONAL NORM RATIO 0.8 (0.9-1.1); Prothrombin Time 9.8 SEC (11.1-13.3)
[2023-11-08 01:16] LABS: Partial Thromboplastin Time 30.5 SEC (26.0-36.8)
[2023-11-08 01:18] LABS: Alanine Aminotransferase 29 U/L (0-40); Albumin Level 4.1 g/dL (3.5-5.0); Alkaline Phosphatase 83 U/L (39-117); Anion Gap 16 (12-20); Aspartate Amino Transferase 21 U/L (5-37); Bilirubin Total 0.3 mg/dL (0.0-1.0); Blood Urea Nitrogen 20 mg/dL (9-16); Calcium 9.5 mg/dL (8.4-10.2); Carbon Dioxide 22 mmol/L (22-29); Chloride 104 mmol/L (96-108); Creatinine Clr Calc Pharmacy 83.8; Estimated Glomerular Filt Rate > 60; Glucose Random 309 mg/dL (60-115); Potassium 3.7 mmol/L (3.3-5.1); Sodium 138 mmol/L (135-145); Total Protein 7.5 g/dL (6.5-8.0)
--- OUTSIDE RECORDS SUMMARY | 2023-11-08 01:41 | XMS_ITS | Continuity of Care Document ---
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 Name Role Phone Ladonna BOWEN, Jayro Syed Primary Care Physician Encounter [facility] Date(s): 03/21/20 - 03/21/[address] [address]- [facility] Discharge Disposition: A-D/C Walkout Attending Physician: Not on Staff, Attending MD Admitting Physician: Not on Staff, Admitting MD Referring Physician: Not on Staff, Referring MD Allergies, Adverse Reactions, Alerts Substance Reaction Severity Status NKA Active Immunizations Given and Recorded Vaccine Date Status Refusal Reason influenza virus vaccine, inactivated 06/10/17 Give n influenza virus vaccine, inactivated 1 04/18/12 Gi sahil influenza virus vaccine, inactivated 2 03/31/09 Gi sahil pneumococcal 23-valent vaccine 06/10/17 Given Pneumococcal Poly (PPV23) (oldterm) 3 02/24/09 Giv en tetanus/diphtheria/pertussis, acel(Tdap) 03/16/08 Given 1Admin Note: vis given 01/28/12 2Admin Note: VIS GIVEN 3Admin Note: VIS GIVEN Medications latanoprost 0.005% ophthalmic solution 1 drops, Eyes, Both, Daily at bedtime, PLACE 1 DROP IN BOTH EYES QHS, # 2.5 mL, 0 Refills, Maintenance, 06/10/17 13:19:36, Ophth Solution, 1 drops Eyes, Both Daily at bedtime,Instr:PLACE 1 DROP IN BOTH EYES QHS Start Date: 06/10/17 Status: Ordered metFORMIN 1000 mg oral tablet 1 tablet = 1,000 mg, By Mouth, 2 times a day, TK 1 T PO BID, # 180 tablet, 0 Refills, Maintenance, 06/10/17 13:19:38, Tablet Start Date: 06/10/17 Status: Ordered timolol maleate 0.5% ophthalmic solution 1 drops, Eyes, Both, 2 times a day, PLACE 1 DROP IN BOTH EYES BID, # 5 mL, 0 Refills, Maintenance, 06/10/17 13:19:40, Ophth Solution, 1 drops Eyes, Both 2 times a day,Instr:PLACE 1 DROP IN BOTH EYES BID Start Date: 06/10/17 Status: Ordered Problem List Condition Effective Dates Status Health Status Inform ant Depression(Confirmed) Active Diabetes mellitus type 2(Confirmed) Active Glaucoma(Confirmed) Active Steatosis of liver(Confirmed) 1 Active 1CT 09/10 Results Radiology Reports * Exam Date Time Procedure Performing Provider Status 03/21/20 6:26 PM Elbow Min 3 Views Right Briseyda Ortiz; Auth (Verified) Notes: (Elbow Min 3 Views Right) Reason For Exam: with Pain;Trauma RESULT: Elbow Min 3 Views Right Elbow Min 3 Views Right CLINICAL INDICATION: Hx of Present Illness: right elbow pain; Reason: Trauma; with Pain; Clinical Question(s): Fracture; COMPARISONS: None TECHNIQUE: 3 views of the right elbow were obtained. FINDINGS: No fracture or dislocation. No joint effusion. No foreign body. IMPRESSION: No fracture or dislocation. WSN: [id number] Ordering Physician: John Meza Dictated By: Manuel Villegas MD Dictated Date/Time: 03/21/20 6:31 pm Reviewed By: Manuel Villegas MD Signed By: Manuel Villegas MD Signed Date/Time: 03/21/20 6:31 pm Transcribed By: ISIDRA Transcribed Date/Time: 03/21/20 6:29 pm Vital Signs Most recent to oldest [Reference Range]: 1 2 Oxygen Saturation [94-100 %] 100 % (03/21/20 5:03 PM) 100 % (03/21/20 4:53 PM) Pulse Rate [55-90 bpm] 84 bpm (03/21/20 5:03 PM) 100 bpm *H* (03/21/20 4:53 PM) Blood Pressure [90-138/55-84 mm Hg] 148/ 93mm Hg *H* (03/21/20 5:03 PM) Respiratory Rate [16-30 br/min] 15 br/mi n *L* (03/21/20 5:03 PM) Temperature [96.8-100.4 DegF] 97.7 DegF (03/21/20 5:03 PM) Mode of Delivery (Oxygen) Room air (03/21/20 5:03 PM) Blood pressure sites Arm, left (03/21/20 5:03 PM) Temperature Route Oral (03/21/20 5:03 PM) Dry Weight 73.1 kg (03/21/20 5:03 PM) Dry Weight Obtained Via Standing scale (03/21/20 5:03 PM) Social History Social History Type Response Smoking Status Current every day edith reynolds entered on: 02/05/18 Sex Male
[2023-11-08 01:45] VITALS: BP 104/80; PULSE 106; RESP 16; TEMP 37; O2SAT 96
== END 2023-11-08 01:48 | disposition home or self-care (01) ==
PROVIDERS: Emergency Provider Internal Medicine; PCP Nurse Practitioner Family
DX: R04.0 Epistaxis (principal); I25.10 Atherosclerotic heart disease of native coronary artery without angina pectoris; E11.9 Type 2 diabetes mellitus without complications; Z79.82 Long term (current) use of aspirin
CPT/HCPCS: 36415; 80053; 85025; 85610; 85730; 99283; 99284

== ENCOUNTER 2023-11-10 20:42 | Emergency (ER) | payer OTHER, SELFPAY ==
--- NOTE | ~2023-11-10 | XR_ITS ---
EXAMINATION: XR KNEE, LEFT CLINICAL INFORMATION: Knee pain. COMPARISON: None available. TECHNIQUE: Four views of the left knee. FINDINGS: No fracture or joint effusion. Alignment is anatomic. Joint spaces are maintained. No abnormal soft tissue calcification. XR/XR knee LT 4V IMPRESSION: No significant abnormality identified.
[2023-11-10 21:02] VITALS: BP 120/91; PULSE 115; RESP 20; TEMP 36.6; O2SAT 97; BMI 29.6
[2023-11-10 21:21] LABS: Hematocrit 40.3 % (42.0-52.0); Hemoglobin 13.2 g/dl (14.0-18.0); Mean Corpuscular HGB Conc 32.8 g/dl (31.0-36.0); Mean Corpuscular Hemoglobin 28.3 pg (27.0-33.0); Mean Corpuscular Volume 86.3 fL (80.0-98.0); Mean Platelet Volume 10.3 fL (9.4-12.4); Platelet Count 307 X10*3/uL (160-400); Red Blood Count 4.67 X10*6/uL (4.60-5.80); Red Cell Distribution Width 13.9 % (11.0-16.0); White Blood Count 7.7 X10*3/uL (4.8-10.8)
[2023-11-10 21:33] LABS: INTERNATIONAL NORM RATIO 0.8 (0.9-1.1); Prothrombin Time 10.1 SEC (11.1-13.3)
[2023-11-10 21:40] LABS: Alanine Aminotransferase 43 U/L (0-40); Albumin Level 4.1 g/dL (3.5-5.0); Alkaline Phosphatase 68 U/L (39-117); Anion Gap 17 (12-20); Aspartate Amino Transferase 28 U/L (5-37); Bilirubin Total 0.3 mg/dL (0.0-1.0); Blood Urea Nitrogen 12 mg/dL (9-16); Calcium 9.4 mg/dL (8.4-10.2); Carbon Dioxide 23 mmol/L (22-29); Chloride 106 mmol/L (96-108); Creatinine Clr Calc Pharmacy 77.4; Estimated Glomerular Filt Rate > 60; Glucose Random 149 mg/dL (60-115); Potassium 3.6 mmol/L (3.3-5.1); Sodium 142 mmol/L (135-145); Total Protein 7.1 g/dL (6.5-8.0)
--- NOTE | 2023-11-10 22:27 | PC.NURSE ---
pt presenting with 10/10 L. leg pain; + pulses. slight redness noted around knee. pt denies cp/sob. Dr. Guerrier aware.
--- NOTE | 2023-11-10 22:35 | ECG_ITS ---
Test Reason : leg pain Blood Pressure : / mmHG Vent. Rate : 105 BPM Atrial Rate : 105 BPM P-R Int : 144 ms QRS Dur : 084 ms QT Int : 326 ms P-R-T Axes : 027 012 000 degrees QTc Int : 430 ms Sinus tachycardia Otherwise normal ECG When compared with ECG of 06-SEP-2022 08:05, No significant change was found Referred By: Nick Betancourt Electronically Signed By:SUSANNE BARDALES
[2023-11-10 22:51] VITALS: BP 132/83; PULSE 101; RESP 20; TEMP 36.6; O2SAT 98
[2023-11-10] MEDS: HYDROmorphone HCl 1 MG/ML SYRINGE IVPUSH (23:01)
[2023-11-10 23:09] LABS: C Reactive Protein 0.73 mg/dL (< or = 0.50); Magnesium 1.7 mg/dL (1.6-2.6)
[2023-11-10 23:10] VITALS: PULSE 100
--- NOTE | 2023-11-10 23:12 | PC.NURSE ---
pt medicated per sep for pain. ekg obtained wnl per dr borrero. pt is axox4 speaking full clear sentences, resp even and unlabored, denies cp/sob/n/v/d. L. knee red, slightly swollen, pain worsens with palpation. pt reports pain is across entire leg. +strong pulses BLE. cap refill <2 seconds. call kumar within reach.
--- NOTE | 2023-11-10 23:18 | ED_ITS ---
HPI - General Adult General Chief complaint: Extremity Problem Stated complaint: left leg swelling and pain Time Seen by Provider: 11/10/23 22:29 History of Present Illness HPI narrative: The patient is a 43-year-old male with a history of coronary disease. Had an [place] in May of 2023. This was treated at [facility] in [place]. He had cardiac catheterization and received a stent and is on prasurgel and aspirin. The patient also has a history of hypertension and diabetes. The patient has had a nosebleed over the last couple of days. He came to the emergency room 2 days ago because of a nosebleed. He was treated with TXA and discharged. He was advised to hold his [facility] senior living for 2 days. The patient says that since this morning he has had worsening pain in his left leg. The pain is centered in his left knee. The pain radiates towards his hip. There has been no trauma. He has never had any pain like this before. Pain is severe. Related Data Home Medications ?Medication ?Instructions ?Recorded ?Confirmed aspirin 81 mg capsule 81 mg PO DAILY 08/15/23 08/27/23 brimonidine 0.2 % eye drops drp ophthalmic (eye) 08/15/23 08/27/23 latanoprost 0.005 % eye drops 1 drp ophthalmic (eye) BEDTIME 08/15/23 08/27/23 netarsudil 0.02 % eye drops drp ophthalmic (eye) 08/15/23 08/27/23 (Rhopressa) prasugrel 5 mg tablet 5 mg PO DAILY 08/15/23 08/27/23 timolol maleate 0.5 % eye drops 1 drp ophthalmic (eye) BID 08/15/23 08/27/23 Previous Rx's ?Medication ?Instructions ?Recorded metformin 1,000 mg tablet 1,000 mg PO BID #180 tabs 12/16/22 lisinopril 5 mg tablet 5 mg PO DAILY 90 days #90 tabs 08/07/23 omeprazole 40 mg capsule,delayed 40 mg PO DAILY 90 days #90 caps 08/07/23 release sertraline 50 mg tablet 50 mg PO DAILY #90 tabs 08/07/23 atorvastatin 80 mg tablet 80 mg PO DAILY #90 tabs 08/08/23 empagliflozin 10 mg tablet 10 mg PO DAILY #30 tabs 08/15/23 (Jardiance) FreeStyle Renny 3 Sensor #6 ea 08/16/23 (blood-glucose sensor) insulin glargine 100 unit/mL (3 40 unit (0.4 mL) subcut QPM #30 mL 08/16/23 mL) subcutaneous pen (Lantus Solostar U-100 Insulin) pen needle, diabetic 31 gauge x #300 ea 08/16/23 3/16 (BD Ultra-Fine Mini Pen Needle) insulin lispro 100 unit/mL 1 sliding scale dose subcut TIDAC 08/21/23 subcutaneous pen (Humalog KwikPen diabetes #30 mL (U-100) Insulin) hydroxyzine HCl 25 mg tablet 25 mg PO BID PRN itching #20 tabs 08/26/23 prednisone 20 mg tablet 40 mg (2 x 20 mg) PO DAILY 5 days 08/26/23 #10 tabs blood sugar diagnostic (FreeStyle #300 ea 09/09/23 Test strips) betamethasone dipropionate 0.05 % 1 appl topical BID PRN skin 09/25/23 topical cream irritation #45 grams ezetimibe 10 mg tablet 10 mg PO DAILY #90 tabs 09/25/23 omega-3 acid ethyl esters 1 gram 1 cap PO BID #180 caps 09/25/23 capsule metoprolol tartrate 25 mg tablet 25 mg PO BID 30 days #60 tabs 11/07/23 oxycodone 5 mg capsule 5 mg PO Q6H PRN pain #14 caps 11/11/23 prednisone 5 mg tablet 5 mg PO DAILY #78 tabs 11/11/23 Allergies Allergy/AdvReac Type Severity Reaction Status Date / Time NSAIDS (Non-Steroidal Allergy Mild thins Verified 11/10/23 21:06 Anti-Inflamma lining of stomach with GERD. Review of Systems 2 Review of Systems: Yes all other systems are reviewed and are negative PMFSH Past Medical History Medical History Atherosclerotic cardiovascular disease Thigh abscess Pigmentary glaucoma of both eyes Encounter for physical examination Abdominal pain Diabetes mellitus Glaucoma Diverticulosis Surgical History Hx of cardiac cath H/O colonoscopy S/P LASIK surgery History of circumcision Family History Family History Father HTN (hypertension) Diabetes mellitus Mother HTN (hypertension) Diabetes mellitus Heart murmur Brother No problems noted. Brother No problems noted. Brother No problems noted. Sister Lupus Sister No problems noted. Sister No problems noted. Sister No problems noted. Son No problems noted. Daughter No problems noted. Social History Social History Household Members: Spouse and Family Household Members Other:: 2 Housing: Apartment Do you presently have visiting nurse or other home services: No Alcohol intake: current Alcohol intake frequency: does not drink Alcohol type: other Patient Tobacco Use Status: Former Tobacco user Quit Date: 05/2023 Tobacco use type: Cigarette Cigarette Packs Per Day: 1 Cigarettes Per Day: 20.0 Years Smoked: 5 Smoked in Last 30 Days: No e-Cigarette/Vaping Use: Never Used Second Hand Smoke Exposure: No Use of substances other than those prescribed or required for medical reasons: No Advance Directives: No Advance Directives Information Provided: No service: No Current occupational status: employed Current occupation: [employer] Current occupational exposures/hazards: No Cognitive needs: No Hearing needs: No Vision needs: No Physical Exam ED Vital Signs: Vital Signs - 24 hr 11/10/23 21:02 11/10/23 22:51 11/10/23 23:10 Temperature 97.8 F 97.8 F Pulse Rate 115 H 101 H Pulse Rate [Bilateral Dorsalis Pedis] 100 Respiratory Rate 20 20 Blood Pressure 120/91 H 132/83 Pulse Oximetry 97 98 Oxygen Delivery Method Room Air Room Air 11/10/23 23:38 Temperature 98.0 F Pulse Rate 97 Pulse Rate [Bilateral Dorsalis Pedis] Respiratory Rate 16 Blood Pressure 138/75 Pulse Oximetry 97 Oxygen Delivery Method Room Air BMI result Body Mass Index 29.6 Const Other: The patient is awake and alert. He looked extremely uncomfortable. HENMT Other: The face is symmetrical. ?Mucous membranes moist. Eyes Other: Pupils are round equal, conjunctivae are clear, extraocular movements intact Neck Other: Neck is supple Resp Effort & Inspection: normal respiratory effort Auscultation: clear to auscultation bilaterally Cardio Rate: regular rate Rhythm: regular rhythm Heart sounds: S1 normal heart sound present and S2 normal heart sound present GI Other: Abdomen is soft and nontender Skin Other: The skin shows no obvious signs of erythema or swelling. Neuro Other: The patient is awake, alert, appropriate, grossly neurologically intact. He is intact sensation in the left foot. Extrem Other: The left leg did not appear abnormal to inspection. There was no obvious redness or swelling or discoloration. He has an excellent dorsalis pedis pulse in the left foot. The foot is warm and the color is normal. The patient is very tender around the left knee although I do not appreciate any distinct swelling or effusion. There is a very faint suggestion of a small area of pale erythema to the skin overlying the tibial tuberosity below the left knee. The patient seems to be exquisitely tender at this location, the location where the patellar tendon inserts into the tibial tuberosity. The rest of the knee is somewhat tender but not nearly as tender as at the tibial tuberosity. The patient is able to bend the knee although it is painful. He can bend it to about 90 degrees. Medications Administered Discontinued Medications Generic Name Dose Route Start Last Admin Trade Name Stephenie PRN Reason Stop Dose Admin Acetaminophen 975 mg 11/11/23 01:16 11/11/23 01:46 Acetaminophen 325 Mg Tablet PO 11/11/23 01:17 975 mg ONCE ONE Administration Hydromorphone HCl 1 mg 11/10/23 22:34 11/10/23 23:01 Hydromorphone Hcl 1 Mg/Ml Syringe IVPUSH 11/10/23 22:35 1 mg ONCE ONE Administration Protocol Hydromorphone HCl 1 mg 11/11/23 01:13 11/11/23 01:46 Hydromorphone Hcl 1 Mg/Ml Syringe IVPUSH 11/11/23 01:14 1 mg ONCE ONE Administration Protocol Sodium Chloride 1,000 mls @ 999 mls/hr 11/10/23 23:30 11/11/23 01:05 Ns IV 11/11/23 00:30 Infused .Q1H1M JAMARI Infusion Ketorolac Tromethamine 10 mg 11/10/23 23:25 11/10/23 23:59 Ketorolac Tromethamine 15 Mg/Ml Vial IVPUSH 11/10/23 23:26 10 mg ONCE ONE Administration Prednisone 60 mg 11/11/23 01:13 11/11/23 01:46 Prednisone 20 Mg Tablet PO 11/11/23 01:14 60 mg ONCE ONE Administration Medical Decision Making Medical Decision Making [facility] Narrative: The patient is a 43-year-old male with a history of hypertension, type 2 diabetes, and early coronary disease who presents with atraumatic left knee pain. He is afebrile. He looked exquisitely uncomfortable. My initial impression was that perhaps he was having an ischemic limb but he has good pulses in the left foot. Additionally it seemed as though he might have an acute infectious process but he has no fever, his white count is normal at 7.7, and CRP is not significantly elevated at 0.73. I was additionally concerned about the possibility of some kind of acute muscle pain. His CPK is normal at 153. After the patient's pain was treated I was able to get a better examination. His pain seems to be centered quite focally at the tibial tuberosity and at the site where the left patellar tendon inserts into the tibial tuberosity. There is a very small area of very pale erythema overlying the tibial tuberosity and palpation of this particular spot is exquisitely painful to the patient. Palpation of any other portion of the knee is somewhat painful but not nearly as painful as at the tibial tuberosity. He is able to flex the knee sufficiently well that I think a septic joint can be excluded. Additionally think that gout would be unlikely given the degree to which he can flex the knee and the absence of an effusion on x-ray. Ultimately my impression is that the patient has some kind of acute inflammatory process at the insertion site of the patellar tendon into the tibial tuberosity. I think this is likely a noninfectious inflammatory process. The patient will therefore be started on prednisone. The patient is a diabetic and he is on insulin. He is advised that his blood sugars will be higher on prednisone and he will need to increase his insulin. The patient seems to have experience with this. He will be prescribed oxycodone which he may use for pain in addition to acetaminophen. He has given a knee immobilizer and crutches. He should contact either the orthopedic office or the rheumatology office to try to arrange follow up or at least his primary care doctor. He should return if worse. Lab Data 11/10/23 21:16 11/10/23 21:16 Labs: Lab Results 11/10/23 Range/Units 21:16 WBC 7.7 (4.8-10.8) X10*3/uL RBC 4.67 (4.60-5.80) X10*6/uL Hgb 13.2 L (14.0-18.0) g/dl Hct 40.3 L (42.0-52.0) % MCV 86.3 (80.0-98.0) fL MCH 28.3 (27.0-33.0) pg MCHC 32.8 (31.0-36.0) g/dl RDW 13.9 (11.0-16.0) % Plt Count 307 (160-400) X10*3/uL MPV 10.3 (9.4-12.4) fL Absolute Nucleated RBC 0.000 (0.0-0.012) X10*3/uL Nucleated RBC % (auto) 0.0 (0.0-0.2) /100WBC Neutrophils % (Manual) 51 (45-73) % Band Neutrophils % 0 L (3-5) % Lymphocytes % (Manual) 42 H (20-40) % Monocytes % (Manual) 4 (2-11) % Eosinophils % (Manual) 2 (0-4) % Basophils % (Manual) 1 (0-2) % Abs Neuts (Manual) 3.9 (2.0-8.3) X10*3/uL Lymphocytes # (Manual) 3.2 (1.2-4.9) X10*3/uL Monocytes # (Manual) 0.3 (0.1-1.2) X10*3/uL Eosinophils # (Manual) 0.2 (0.0-0.4) X10*3/uL Basophils # (Manual) 0.1 (0.0-0.2) X10*3/uL Platelet Estimate NORMAL (NORMAL) Large Platelets PRESENT Giant Platelets PRESENT Plt Morphology Comment NOTED RBC Morphology NOTED Rouleaux PRESENT PT 10.1 L (11.1-13.3) SEC INR 0.8 L (0.9-1.1) Sodium 142 (135-145) mmol/L Potassium 3.6 (3.3-5.1) mmol/L Chloride 106 (96-108) mmol/L Carbon Dioxide 23 (22-29) mmol/L Anion Gap 17 (12-20) BUN 12 (9-16) mg/dL Creatinine 1.30 (0.5-1.4) mg/dL Estim Creat Clear Calc 77.4 Estimated GFR > 60 Random Glucose 149 H (60-115) mg/dL Uric Acid 6.4 (3.4-7.0) mg/dL Calcium 9.4 (8.4-10.2) mg/dL Magnesium 1.7 (1.6-2.6) mg/dL Total Bilirubin 0.3 (0.0-1.0) mg/dL AST 28 (5-37) U/L ALT 43 H (0-40) U/L Alkaline Phosphatase 68 (39-117) U/L Total Creatine Kinase 153 (38-174) U/L C-Reactive Protein 0.73 H (< or = 0.50) mg/dL Total Protein 7.1 (6.5-8.0) g/dL Albumin 4.1 (3.5-5.0) g/dL Discharge Plan Discharge Clinical Impression: Acute pain of left knee, Osteochondritis of tibial tuberosity Patient Disposition: Home, Self-Care Additional Instructions: I think that the pain you are experiencing is centered primarily around the site where the tendon of your left kneecap (the patellar tendon) inserts into the bone below the knee, the tibia. Point at which the patellar tendon inserts into the tibia is called the tibial tuberosity. This seems to be the site of your pain. My assumption is that you essentially have some kind of severely painful tendinitis of your patellar tendon where it inserts into the tibial tuberosity. I believe you will need to follow up with an orthopedist and/or a equipment manager. For treatment you have been started on a course of prednisone, a steroid medication with strong anti-inflammatory properties. Please take this medication once a day. Prednisone will elevate your blood sugars and you will likely need to use higher doses of insulin to control your blood sugars while on the prednisone. The prednisone prescription is what we call a ?taper prescription. This means that you will be gradually reducing the dose of prednisone each day. You will take 12 tablets tomorrow, then 11 tablets the next day, then 10 tablets the day after that, continuing 1 pill less per day until done. You may also take 2 extra-strength acetaminophen (Tylenol) up to 3 times a day as needed for pain. Additionally I have sent a prescription for oxycodone tablets that you may use for pain as well. You have been given a knee immobilizer and crutches to help reduce movement of the knee. I hope this will help reduce pain. I would recommend staying off your feet, keeping your left leg elevated, and using ice on the knee for 15-20 minutes at a time several times a day to help reduce pain. Please contact the orthopedic office tomorrow to try to set up a prompt follow up appointment. I would also contact your primary care doctor's office for a prompt follow up appointment as well. Return to the emergency room if you develop a fever or other significantly worsening symptoms. Prescriptions: New prednisone 5 mg tablet 5 mg PO DAILY Qty: 78 0RF Rx Instructions: Take 12 tablets by mouth daily for 1 day, then take 11 tablets daily for 1 day, then 10 tablets daily for 1 day, then 1 tablet less per day until done. oxycodone 5 mg capsule 5 mg PO Q6H PRN (Reason: pain) Qty: 14 0RF Rx Instructions: Partial Fill upon patient request. No Action metformin 1,000 mg tablet 1,000 mg PO BID Qty: 180 1RF sertraline 50 mg tablet 50 mg PO DAILY Qty: 90 1RF omeprazole 40 mg capsule,delayed release(DR/EC) 40 mg PO DAILY 90 Days Qty: 90 1RF lisinopril 5 mg tablet 5 mg PO DAILY 90 Days Qty: 90 1RF atorvastatin 80 mg tablet 80 mg PO DAILY Qty: 90 1RF insulin glargine [Lantus Solostar U-100 Insulin] 100 unit/mL (3 mL) insulin pen 40 unit subcut QPM Qty: 30 2RF (DME) pen needle, diabetic [BD Ultra-Fine Mini Pen Needle] 31 gauge x 3/16 needle See Rx Instructions .ROUTE .MEDSUPPLY Qty: 300 2RF Rx Instructions: QID (DME) FreeStyle Renny 3 Sensor Device See Rx Instructions .Route Qty: 6 1RF Rx Instructions: Test blood sugar 4 times per day insulin lispro [Humalog KwikPen Insulin] 100 unit/mL insulin pen 1 sliding scale dose subcut TIDAC MDD 36 units/day Qty: 30 1RF Protocol: Insulin Correction Scale Less than or equal to 110 ---- Give (units): 0 111 to 150 Give (units): 0 151 to 200 Give (units): 4 201 to 250 Give (units): 6 251 to 300 Give (units): 8 301 to 350 Give (units): 10 Greater than 350 Give (units): 12 Call MD if Blood Glucose > : 350 Rx Instructions: Dose according to sliding scale (DME) FreeStyle Test Strip See Rx Instructions .Route Qty: 300 1RF Rx Instructions: TID betamethasone dipropionate 0.05 % cream 1 appl topical BID PRN (Reason: skin irritation) Qty: 45 0RF ezetimibe 10 mg tablet 10 mg PO DAILY Qty: 90 1RF omega-3 acid ethyl esters 1 gram capsule 1 cap PO BID Qty: 180 1RF metoprolol tartrate 25 mg tablet 25 mg PO BID 30 Days Qty: 60 1RF Rhopressa 0.02 % drops ophthalmic (eye) timolol maleate 0.5 % drops 1 drp ophthalmic (eye) BID brimonidine 0.2 % drops ophthalmic (eye) latanoprost 0.005 % drops 1 drp ophthalmic (eye) BEDTIME aspirin 81 mg capsule 81 mg PO DAILY prasugrel 5 mg tablet 5 mg PO DAILY Jardiance 10 mg tablet 10 mg PO DAILY Qty: 30 3RF prednisone 20 mg tablet 40 mg PO DAILY 5 Days Qty: 10 0RF hydroxyzine HCl 25 mg tablet 25 mg PO BID PRN (Reason: itching) Qty: 20 0RF Referrals: Jayro Dougherty FNP-BC [Primary Care Provider] - (severe left knee pain) Bryan Guzmán MD [Physician] - (severe left knee pain, possibly patellar tendonitis) Tray Mccord MD [Physician] - (severe left knee pain suspect patellar tendonitis) Stand Alone Forms: Work/School Release Print Language: Mosotho
[2023-11-10 23:38] VITALS: BP 138/75; PULSE 97; RESP 16; TEMP 36.7; O2SAT 97
[2023-11-10 23:42] LABS: Basophils Abs Manual 0.1 X10*3/uL (0.0-0.2); Basophils Percent Manual 1 % (0-2); Eosinophils Absolute Manual 0.2 X10*3/uL (0.0-0.4); Eosinophils Percent Manual 2 % (0-4); Lymphocytes Absolute Manual 3.2 X10*3/uL (1.2-4.9); Lymphocytes Percent Manual 42 % (20-40); Monocytes Absolute Manual 0.3 X10*3/uL (0.1-1.2); Monocytes Percent Manual 4 % (2-11); Neutrophils Percent Manual 51 % (45-73)
[2023-11-10 23:43] LABS: Band Neutrophils Percent 0 % (3-5); Giant Platelet PRESENT; Large Platelet PRESENT; Neutrophils Absolute Manual 3.9 X10*3/uL (2.0-8.3); Platelet Estimate NORMAL (NORMAL); Platelet Morphology Comment NOTED; RBC Morphology NOTED; Rouleau PRESENT
[2023-11-10 23:46] LABS: Uric Acid 6.4 mg/dL (3.4-7.0)
[2023-11-10] MEDS: Ketorolac Tromethamine 15 MG/ML VIAL 10 MG IVPUSH (23:59)
[2023-11-10] MEDS: 0.9 % Sodium Chloride 1,000 ML 999 ML IV (23:59)
[2023-11-11] MEDS: predniSONE 20 MG TABLET 60 MG PO (01:46)
[2023-11-11] MEDS: HYDROmorphone HCl 1 MG/ML SYRINGE IVPUSH (01:46)
[2023-11-11] MEDS: Acetaminophen 325 MG TABLET 975 MG PO (01:46)
[2023-11-11 02:21] VITALS: BP 149/100; PULSE 100; RESP 16; TEMP 36.5; O2SAT 93
[2023-11-11 02:25] VITALS: BP 149/100; PULSE 100; RESP 16; TEMP 36.5; O2SAT 95
== END 2023-11-11 02:26 | disposition home or self-care (01) ==
PROVIDERS: Emergency Provider Emergency Medicine; PCP Nurse Practitioner Family
DX: M93.962 Osteochondropathy, unspecified, left lower leg (principal); M25.562 Pain in left knee; I10 Essential (primary) hypertension; E11.9 Type 2 diabetes mellitus without complications; I25.2 Old myocardial infarction; Z79.82 Long term (current) use of aspirin
CPT/HCPCS: 36415; 73564; 80053; 82550; 83735; 84550; 85007; 85027; 85610; 86140; 93005; 96361; 96374; 96375; 99284; 99285; J1170; J1885

== ENCOUNTER → 2023-11-10 22:35 | Outpatient (BNV) | payer OTHER, SELFPAY | PROVIDERS: Emergency Provider Emergency Medicine; PCP Nurse Practitioner Family; Visit Provider Internal Medicine | DX: R00.0 Tachycardia, unspecified (principal) | CPT/HCPCS: 93010 ==

== ENCOUNTER 2023-11-19 14:09 | Outpatient (AMB) | payer OTHER, SELFPAY ==
[2023-11-19 14:11] VITALS: BP 130/64; PULSE 120; BMI 30.8
--- NOTE | 2023-11-19 14:11 | MHC.OFFVIS ---
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 Medication List - Last Reconciled 11/19/23 by Martell Rodney MD aspirin 81 mg PO DAILY atorvastatin 80 mg PO DAILY betamethasone dipropionate 0.05% 1 appl topical BID PRN blood sugar diagnostic (FreeStyle Test strips) TID brimonidine 0.2% drps ophthalmic (eye) empagliflozin (Jardiance) 10 mg PO DAILY ezetimibe 10 mg PO DAILY FreeStyle Renny 3 Sensor (blood-glucose sensor) Test blood sugar 4 times per day NS hydroxyzine HCl 25 mg PO BID PRN insulin glargine (Lantus Solostar U-100 Insulin) 40 units (0.4 mL) subcut QPM insulin lispro (Humalog KwikPen (U-100) Insulin) 1 sliding scale dose See Protocol subcut TIDAC MDD 36 units/day latanoprost 0.005% 1 drp ophthalmic (eye) BEDTIME lisinopril 5 mg PO DAILY 90 days metformin 1,000 mg PO BID metoprolol tartrate 25 mg PO BID 30 days netarsudil 0.02% (Rhopressa) drps ophthalmic (eye) omega-3 acid ethyl esters 1 cap PO BID omeprazole 40 mg PO DAILY 90 days oxycodone 5 mg PO Q6H PRN pen needle, diabetic (BD Ultra-Fine Mini Pen Needle) QID prednisone 40 mg (2 x 20 mg) PO DAILY 5 days sertraline 50 mg PO DAILY timolol maleate 0.5% 1 drp ophthalmic (eye) BID HPI Comments Details: Bunny returns for follow-up. In May 2023, he had inferior STEMI leading to urgent catheterization and circumflex PCI. He was not [place] at that time but has moved locally. Overall, no significant cardiac issues but due to epistaxis prasugrel has been stopped. Still remains on aspirin. Lifestyle is very poor. He was a heavy smoker till the time of myocardial infarction. He states he has not smoked recently but drinks whiskey almost daily. He also has uncontrolled diabetes, hypertension and lipids. Otherwise, no recent anginal-type complaints. FORMERLY [facility], [facility]–1983 Medical History Atherosclerotic cardiovascular disease Thigh abscess Pigmentary glaucoma of both eyes Encounter for physical examination Abdominal pain Diabetes mellitus Glaucoma Diverticulosis Surgical History Hx of cardiac cath H/O colonoscopy S/P LASIK surgery History of circumcision Family History Father HTN (hypertension) Diabetes mellitus Mother HTN (hypertension) Diabetes mellitus Heart murmur Brother No problems noted. Brother No problems noted. Brother No problems noted. Sister Lupus Sister No problems noted. Sister No problems noted. Sister No problems noted. Son No problems noted. Daughter No problems noted. Social History Household Members: Spouse and Family Household Members Other:: 2 Housing: Apartment Do you presently have visiting nurse or other home services: No Alcohol intake: current Alcohol intake frequency: does not drink Alcohol type: other Patient Tobacco Use Status: Former Tobacco user Quit Date: 05/2023 Tobacco use type: Cigarette Cigarette Packs Per Day: 1 Cigarettes Per Day: 20.0 Years Smoked: 5 e-Cigarette/Vaping Use: Never Used Second Hand Smoke Exposure: No service: No Current occupational status: employed Current occupation: [employer] Current occupational exposures/hazards: No Cognitive needs: No Hearing needs: No Vision needs: No Review of Systems Const Denies chills, Denies fatigue, Denies fever(s), Denies frequent falls, Denies weakness, Denies weight gain and Denies weight loss ENT Denies dizziness Card Denies chest pain, Denies leg edema, Denies lightheadedness, Denies palpitations, Denies dyspnea and Denies dyspnea on exertion Resp Denies cough, Denies dyspnea and Denies dyspnea on exertion GI Denies hematochezia Musc Denies abnormal gait, Denies muscle weakness, Denies numbness, Denies radiating pain into limb and Denies tingling Neuro Denies abnormal gait, Denies dizziness, Denies frequent falls, Denies numbness, Denies tingling and Denies weakness Endo Denies fatigue and Denies palpitations Physical Exam Vital Signs: Last Vital Signs Pulse 120 H 11/19/23 14:11 BP 130/64 11/19/23 14:11 BMI result Body Mass Index 30.8 Const General: comfortable and no acute distress Orientation/consciousness: patient oriented x3 HEENT Other: Unremarkable Head: Yes normal to inspection Neck Neck: Yes normal visual inspection Chest Chest palpation & inspection: normal inspection of the chest Resp Auscultation: clear to auscultation bilaterally Cardio Palpation: normal PMI Heart sounds: S1 normal heart sound present, S2 normal heart sound present, no gallops, no murmurs and no rubs GI Palpation (GI): Soft to palpation Back/Spine/Pelvis Other: unremarkable Skin General skin exam: no rashes or lesions noted Neuro General: patient oriented x3 Extrem General: Yes normal to inspection Psych Mental Status: mental status grossly normal Assessment & Plan Assessment & Plan (1) Atherosclerotic cardiovascular disease: Code(s): I25.10 - Atherosclerotic heart disease of [place] coronary artery without angina pectoris Category: Medical (2) Myocardial infarct: Code(s): I21.9 - Acute myocardial infarction, unspecified Category: Medical (3) Diabetes mellitus: Code(s): E11.9 - Type 2 diabetes mellitus without complications Category: Medical (4) Dyslipidemia: Code(s): E78.5 - Hyperlipidemia, unspecified Category: Medical (5) Alcohol abuse: Code(s): F10.10 - Alcohol abuse, uncomplicated Category: Social Hx Plan Prior records reviewed. Essentially inferior wall STEMI 05/2023; status post PCI to circumflex. LAD and RCA had mild disease. Normal left main. Echocardiogram then with LVEF of 55-65%. No major abnormalities otherwise. Repeat study is similar. From cardiac, may continue aspirin and hold off on prasugrel due to significant epistaxis. Continue beta-blockers, high-dose statins as well as Zetia. Diabetes is poorly controlled with hemoglobin A1c > 10. He is well aware of this and needs to get this under control. He also has significant dyslipidemia with high triglycerides. Could be related to diabetes as well as alcohol excess. Will need to get some labs done and there is already an order for that. He has stopped smoking but unfortunately continues to drink. That might explain the tachycardia. Strongly advised to cut back on alcohol as well. Overall, he needs lifestyle modifications as well as aggressive risk factor modification to avoid further cardiovascular issues. If he does not change, there is a significant risk of recurrent events. He is well aware of that. He states he will try to change. Coding Level of Care Code Est Pt Level 4 (01149) Diagnoses Atherosclerotic cardiovascular disease I25.10 Myocardial infarct I21.9 Diabetes mellitus E11.9 Dyslipidemia E78.5 Alcohol abuse F10.10
== END 2023-11-19 14:42 | disposition home or self-care (01) ==
PROVIDERS: PCP Nurse Practitioner Family; Visit Provider Internal Medicine
DX: I25.10 Atherosclerotic heart disease of native coronary artery without angina pectoris (principal); I21.9 Acute myocardial infarction, unspecified; E11.9 Type 2 diabetes mellitus without complications; E78.5 Hyperlipidemia, unspecified; F10.10 Alcohol abuse, uncomplicated
CPT/HCPCS: 99214

== ENCOUNTER → 2023-11-19 14:09 | Outpatient (BNVA) | payer SELFPAY | PROVIDERS: PCP Nurse Practitioner Family; Visit Provider Internal Medicine | DX: I25.10 Atherosclerotic heart disease of native coronary artery without angina pectoris (principal); I21.9 Acute myocardial infarction, unspecified; E11.9 Type 2 diabetes mellitus without complications; E78.5 Hyperlipidemia, unspecified; F10.10 Alcohol abuse, uncomplicated; Z79.82 Long term (current) use of aspirin; Z79.899 Other long term (current) drug therapy | CPT/HCPCS: 99212 ==

== ENCOUNTER 2023-11-30 07:42 | Outpatient (REF) | payer OTHER, SELFPAY ==
[2023-11-30 08:07] LABS: MANUAL DIFF FLAG NO
[2023-11-30 09:00] LABS: Basophils Absolute Auto 0.1 X10*3/uL (0.0-0.2); Eosinophils Absolute Auto 0.4 X10*3/uL (0.0-0.4); Eosinophils Percent Auto 4.2 % (0-4); Hematocrit 41.5 % (42.0-52.0); Hemoglobin 13.4 g/dl (14.0-18.0); Imm Gran Abs Auto 0.03 X10*3/uL (0.00-0.03); Imm Gran Pct Auto 0.3 % (0.0-0.4); Lymphocytes Absolute Auto 2.4 X10*3/uL (1.2-4.9); Lymphocytes Percent Auto 26.2 % (20-40); Mean Corpuscular HGB Conc 32.3 g/dl (31.0-36.0); Mean Corpuscular Hemoglobin 28.1 pg (27.0-33.0); Mean Platelet Volume 10.6 fL (9.4-12.4); Monocytes Absolute Auto 0.5 X10*3/uL (0.1-1.2); Monocytes Percent Auto 5.9 % (2-11); Neutrophils Absolute Auto 5.6 x10*3/uL (2.0-8.3); Neutrophils Percent Auto 62.4 % (45-73); Platelet Count 314 X10*3/uL (160-400); Red Blood Count 4.77 X10*6/uL (4.60-5.80); Red Cell Distribution Width 13.3 % (11.0-16.0)
[2023-11-30 09:02] LABS: Appearance Urine Clear; Color Urine Yellow; Glucose Urine UA >=1000 mg/dL (Negative); Leukocyte Esterase Urine Negative (Negative); Nitrite Urine Negative (Negative); PH 6.5 (5.0-9.0); Specific Gravity - Urine >= 1.030 (1.005-1.025); UMIC TRIGGER UACC YES; Urine Blood Negative (Negative); Urine Ketones Negative (Negative); Urine Protein Trace mg/dL (Neg-Trace)
[2023-11-30 09:23] LABS: Bacteria Urine None Seen (None Seen); Hyaline Casts Urine 0-2 /LPF (0-2); RBC Urine 0-2 /HPF (0-2); Squamous Epithelial Cell Urine 0-2 /HPF (0-2); WBC Urine 0-5 /HPF (0-5)
[2023-11-30 09:54] LABS: Alanine Aminotransferase 41 U/L (0-40); Albumin Level 4.2 g/dL (3.5-5.0); Alkaline Phosphatase 69 U/L (39-117); Anion Gap 17 (12-20); Aspartate Amino Transferase 24 U/L (5-37); Bilirubin Total 0.4 mg/dL (0.0-1.0); Blood Urea Nitrogen 19 mg/dL (9-16); Calcium 9.7 mg/dL (8.4-10.2); Carbon Dioxide 26 mmol/L (22-29); Chloride 103 mmol/L (96-108); Cholesterol 94 mg/dL (<200); Estimated Glomerular Filt Rate > 60; Glucose Fasting 190 mg/dL (60-99); HDL Cholesterol 38 mg/dL (>40); LDL Cholesterol Calculated 17 mg/dL (<100); Potassium 4.2 mmol/L (3.3-5.1); Sodium 142 mmol/L (135-145); Triglycerides 197 mg/dL (<150)
[2023-11-30 10:01] LABS: TSH reflex Free T4 0.71 uIU/mL (0.32-4.0)
[2023-12-03 12:34] LABS: LDL Cholesterol Direct 27 mg/dL (<100)
== END 2023-11-30 07:43 | disposition home or self-care (01) ==
LOC: HO.LAB 07:42
PROVIDERS: Internal Medicine; PCP Nurse Practitioner Family; Visit Provider Nurse Practitioner Family
DX: Z00.00 Encounter for general adult medical examination without abnormal findings (principal); Z95.5 Presence of coronary angioplasty implant and graft; I21.9 Acute myocardial infarction, unspecified; E11.65 Type 2 diabetes mellitus with hyperglycemia; E78.5 Hyperlipidemia, unspecified
CPT/HCPCS: 36415; 80053; 80061; 81001; 81003; 83721; 84443; 85025

== ENCOUNTER 2024-02-29 10:39 | Emergency (ER) | payer OTHER, SELFPAY ==
--- NOTE | ~2024-02-29 | US_ITS ---
EXAMINATION: US ABDOMEN LIMITED CLINICAL INFORMATION: Right upper quadrant pain. COMPARISON: CT abdomen and pelvis 09/21/2022 TECHNIQUE: Real-time imaging of the right upper quadrant abdominal viscera. FINDINGS: PANCREAS: The pancreas is mostly obscured by overlying bowel gas. LIVER: The liver is normal in size. The liver contour is normal. Parenchymal echogenicity is increased. No focal hepatic lesion. There is no intrahepatic biliary duct dilatation seen. GALLBLADDER: The gallbladder is physiologically distended without evidence of stones, sludge, polyps, wall thickening or pericholecystic fluid. COMMON BILE DUCT: Normal in caliber measuring 0.4 cm in diameter. RIGHT KIDNEY: No hydronephrosis. No renal calculi or focal parenchymal lesions. The kidney measures 11.2 cm in maximum dimension. FREE FLUID: None. US/US abdomen limited IMPRESSION: No cholelithiasis or sonographic evidence of acute cholecystitis. Increased liver echogenicity which can be seen with hepatocellular disease, most commonly hepatic steatosis.
--- NOTE | ~2024-02-29 | XR_ITS ---
EXAMINATION: XR CHEST CLINICAL INFORMATION: Chest pain COMPARISON: None available. TECHNIQUE: Frontal view of the chest was obtained. FINDINGS: Mild elevation right hemidiaphragm. No significant abnormality is noted involving the heart, lungs, mediastinum, bony thorax or soft tissues. XR/XR chest 1V IMPRESSION: Unremarkable examination.
--- NOTE | 2024-02-29 10:41 | ECG_ITS ---
Test Reason : CHEST PAIN Blood Pressure : / mmHG Vent. Rate : 092 BPM Atrial Rate : 092 BPM P-R Int : 146 ms QRS Dur : 088 ms QT Int : 328 ms P-R-T Axes : 057 051 066 degrees QTc Int : 405 ms Normal sinus rhythm Normal ECG When compared with ECG of 10-NOV-2023 22:43, T wave inversion no longer evident in Inferior leads Referred By: Generic ED Physician Electronically Signed By:Tony Reddy
[2024-02-29 10:54] VITALS: BP 146/87; PULSE 95; RESP 20; TEMP 36.7; O2SAT 98; BMI 30.4
--- NOTE | 2024-02-29 11:00 | ED_ITS ---
HPI - Chest Pain General Chief Complaint: Chest Pain Stated Complaint: chest pain Time Seen by Provider: 02/29/24 10:49 Source: patient Mode of arrival: ambulatory Limitations: no limitations History of Present Illness ED Provider: DR. Stanley HPI narrative: 43-year-old male came in for evaluation of chest pain radiating to the right chest started at 03:00 while he was sleeping pain is associated with nausea and difficulty breathing with exertion. Patient declined using any drugs no cocaine use. Patient had history of inferior STEMI in 06/17/2023 leading to urgent catheterization and circumflex PCI. No recent travel, no lower extremity swelling or tenderness. Two days pain similar to the pain when he had ID. Past medical history is significant for uncontrolled diabetes, hypertension, hyperlipidemia. Patient is a former smoker. No known family history of coronary artery disease in the mother side. (patient do not know his father). Related Data Home Medications ?Medication ?Instructions ?Recorded ?Confirmed aspirin 81 mg capsule 81 mg PO DAILY 08/15/23 11/19/23 brimonidine 0.2 % eye drops drp ophthalmic (eye) 08/15/23 11/19/23 latanoprost 0.005 % eye drops 1 drp ophthalmic (eye) BEDTIME 08/15/23 11/19/23 netarsudil 0.02 % eye drops drp ophthalmic (eye) 08/15/23 11/19/23 (Rhopressa) timolol maleate 0.5 % eye drops 1 drp ophthalmic (eye) BID 08/15/23 11/19/23 Previous Rx's ?Medication ?Instructions ?Recorded metformin 1,000 mg tablet 1,000 mg PO BID #180 tabs 12/16/22 sertraline 50 mg tablet 50 mg PO DAILY #90 tabs 08/07/23 empagliflozin 10 mg tablet 10 mg PO DAILY #30 tabs 08/15/23 (Jardiance) FreeStyle Renny 3 Sensor #6 ea 08/16/23 (blood-glucose sensor) insulin glargine 100 unit/mL (3 40 unit (0.4 mL) subcut QPM #30 mL 08/16/23 mL) subcutaneous pen (Lantus Solostar U-100 Insulin) pen needle, diabetic 31 gauge x #300 ea 08/16/2310/11 (BD Ultra-Fine Mini Pen Needle) hydroxyzine HCl 25 mg tablet 25 mg PO BID PRN itching #20 tabs 08/26/23 prednisone 20 mg tablet 40 mg (2 x 20 mg) PO DAILY 5 days 08/26/23 #10 tabs blood sugar diagnostic (FreeStyle #300 ea 09/09/23 Test strips) betamethasone dipropionate 0.05 % 1 appl topical BID PRN skin 09/25/23 topical cream irritation #45 grams ezetimibe 10 mg tablet 10 mg PO DAILY #90 tabs 09/25/23 omega-3 acid ethyl esters 1 gram 1 cap PO BID #180 caps 09/25/23 capsule insulin lispro 100 unit/mL 1 sliding scale dose subcut TIDAC 11/11/23 subcutaneous pen (Humalog KwikPen diabetes #30 mL (U-100) Insulin) oxycodone 5 mg capsule 5 mg PO Q6H PRN pain #14 caps 11/11/23 atorvastatin 80 mg tablet 80 mg PO DAILY #90 tabs 11/25/23 lisinopril 5 mg tablet 5 mg PO DAILY 90 days #90 tabs 11/25/23 omeprazole 40 mg capsule,delayed 40 mg PO DAILY 90 days #90 caps 11/26/23 release metoprolol tartrate 25 mg tablet 25 mg PO BID 90 days #180 tabs 12/03/23 amoxicillin 875 mg-potassium 1 tab PO BID 10 days #20 tabs 02/06/24 clavulanate 125 mg tablet Allergies Allergy/AdvReac Type Severity Reaction Status Date / Time NSAIDS (Non-Steroidal Allergy Mild thins Verified 02/29/24 10:56 Anti-Inflamma lining of stomach with GERD. Review of Systems 2 Review of Systems: All other systems are reviewed and are negative Constitutional: Reports as per HPI and Reports no additional constitutional complaints Eyes: Reports as per HPI and Reports no additional eye complaints Reports system reviewed and no additional complaints, except as documented Cardiovascular: Reports as per HPI and Reports no additional cardiovascular complaints Respiratory: Reports as per HPI and Reports no additional respiratory complaints Gastrointestinal: Reports as per HPI and Reports no additional gastrointestinal complaints Genitourinary: Reports no additional female genitourinary complaints Musculoskeletal: Reports no additional musculoskeletal complaints Skin/Breast: Reports system reviewed and no additional complaints, except as docu Psychiatric: Reports no additional psychiatric complaints Endocrine: Reports no additional endocrine complaints Hematologic/Lymphatic: Reports no additional hematologic/lymphatic complaints Allergic/Immunologic: Reports no additional allergic/immunologic complaints Reports system reviewed and no additional complaints, except as documented and Reports Abnormal speech present [facility] Past Medical History Medical History Atherosclerotic cardiovascular disease Thigh abscess Pigmentary glaucoma of both eyes Encounter for physical examination Abdominal pain Diabetes mellitus Glaucoma Diverticulosis Surgical History Hx of cardiac cath H/O colonoscopy S/P LASIK surgery History of circumcision Family History Family History Father HTN (hypertension) Diabetes mellitus Mother HTN (hypertension) Diabetes mellitus Heart murmur Brother No problems noted. Brother No problems noted. Brother No problems noted. Sister Lupus Sister No problems noted. Sister No problems noted. Sister No problems noted. Son No problems noted. Daughter No problems noted. Social History Social History Household Members: Spouse and Family Household Members Other:: 2 Housing: Apartment Do you presently have visiting nurse or other home services: No Alcohol intake: current Alcohol intake frequency: a few times a month Alcohol type: hard liquor Patient Tobacco Use Status: Former Tobacco user Tobacco use type: Cigarette Cigarette Packs Per Day: 1 Cigarettes Per Day: 20.0 Years Smoked: 5 Smoked in Last 30 Days: No e-Cigarette/Vaping Use: Never Used Second Hand Smoke Exposure: No Use of substances other than those prescribed or required for medical reasons: Yes Substance Use Type: Marijuana Substance Use Frequency: Occasionally Advance Directives: No Advance Directives Information Provided: Yes Do you have a plan to hurt others: No Plan service: No Current occupational status: employed Current occupation: [employer] Current occupational exposures/hazards: No Cognitive needs: No Hearing needs: No Vision needs: No Physical Exam 2 Vital Signs: Vital Signs: Last Vital Signs Temp 97.9 F 02/29/24 12:00 Pulse 94 02/29/24 12:00 Resp 18 02/29/24 12:00 BP 122/63 02/29/24 12:00 Pulse Ox 99 02/29/24 12:00 O2 Del Method Room Air 02/29/24 12:00 BMI result Body Mass Index 30.4 Vital signs have been reviewed and appear to be correct. Blood pressure elevated. Heart rate normal. Respiratory rate normal. Temperature normal. Oxygen saturation normal. Appearance: Alert. Oriented X3. No acute distress. Head: Normal external exam. Normocephalic. Atraumatic. No Parson signs noted. No raccoon eyes noted Eyes: PERRLA. EOMI. Conjunctiva and sclera normal. Eyelids normal. ENT: TM's Normal. Pharynx normal. Uvula midline. Moist mucous membranes. No trismus noted. No drooling noted. No muffled voice noted. Neck: Normal inspection. Neck supple. FROM. No adenopathy. Thyroid Normal. No meningeal signs. No neck mass noted. CVS: Normal heart rate and rhythm. Heart sound normal. No murmurs noted. Pulses normal throughout. Respiratory: No respiratory distress. Painless inspiration. Breath sounds normal. No wheezes/rales/rhonchi noted. Chest nontender. No accessory muscle usage noted or decreased air movement noted. Abdomen: Soft and nontender. Bowel sounds normal in all 4 quadrants. No distention noted. No organomegaly noted. No visible injury noted. Back: No CVA tenderness. Full range of motion noted. Skin: Skin warm and dry. Normal skin color. Normal skin turgor. No rashes/lesions/lacerations noted. Extremities: No lower extremity edema. Extremities exhibit normal range of motion. Extremities nontender. Neuro: Oriented X 3. Cranial nerve exam: II-XII are grossly intact No motor deficit. No sensory deficit. Reflexes normal. Course Reevaluation(s) Reevaluation #1: Patient now report relief of the chest pain but complaining of right upper quadrant pain now will consider ultrasound and LFTs check. Time: 11:53 Reevaluation #2: 43-year-old male with history of coronary artery disease and PCI of the circumflex artery and prior ID presented with chest pain that similar to chest pain when he had an ID. Time: 15:19 Reevaluation #3: Patient now does not want to be admitted would like to go home risks of leaving AMA was discussed with the patient patient still like to be discharged and will sign AMA. Will check gallbladder ultrasound before discharge signed out to Dr. Lyman. Time: 16:42 Medications Administered Discontinued Medications Generic Name Dose Route Start Last Admin Trade Name Freq PRN Reason Stop Dose Admin Aspirin 81 mg 02/29/24 10:54 02/29/24 11:29 Aspirin Enteric Coated 81 Mg Tablet.Dr RAMIREZ 02/29/24 10:55 81 mg ONCE ONE Administration Morphine Sulfate 1 mg 02/29/24 12:31 02/29/24 13:12 Morphine Sulfate 2 Mg/Ml Cartridge IVPUSH 02/29/24 12:32 1 mg ONCE ONE Administration Protocol Nitroglycerin 1 inch 02/29/24 10:54 02/29/24 11:27 Nitroglycerin 2 % Oint 1 Gm Packet TRANSDERMA 02/29/24 10:55 1 inch ONCE ONE Administration Medical Decision Making Differential Diagnosis Differential Diagnoses: The differential diagnosis associated with the presentation includes (ACS, unstable angina, pneumonia, pneumothorax, pulmonary embolism, gallbladder disease, electrolyte derangement, severe anemia.) Admission/Observation Consideration of admission/observation: Escalation of care including admission/observation considered Consult Healthcare Provider Management of the patient was discussed with: Hospitalist (Dr. Lutz) and Retail Supervisor (Dr. Reddy) Lab Data MDM Lab Attestation statement: I reviewed the patient's lab results. 02/29/24 11:19 02/29/24 11:19 Labs: Lab Results 02/29/24 02/29/24 02/29/24 Range/Units 11:19 12:50 14:45 WBC 9.8 (4.8-10.8) X10*3/uL RBC 5.06 (4.60-5.80) X10*6/uL Hgb 13.4 L (14.0-18.0) g/dl Hct 41.9 L (42.0-52.0) % MCV 82.8 (80.0-98.0) fL MCH 26.5 L (27.0-33.0) pg MCHC 32.0 (31.0-36.0) g/dl RDW 14.7 (11.0-16.0) % Plt Count 328 (160-400) X10*3/uL MPV 10.0 (9.4-12.4) fL Immature Gran % (Auto) 0.2 (0.0-0.4) % Neut % (Auto) 61.1 (45-73) % Lymph % (Auto) 28.0 (20-40) % [place] % (Auto) 6.9 (2-11) % Eos % (Auto) 3.0 (0-4) % Baso % (Auto) 0.8 (0-2) % Lymph # (Auto) 2.7 (1.2-4.9) X10*3/uL [place] # (Auto) 0.7 (0.1-1.2) X10*3/uL Eos # (Auto) 0.3 (0.0-0.4) X10*3/uL Baso # (Auto) 0.1 (0.0-0.2) X10*3/uL Abs Immat Gran (auto) 0.02 (0.00-0.03) X10*3/uL Absolute Neuts (auto) 6.0 (2.0-8.3) x10*3/uL Absolute Nucleated RBC 0.000 (0.0-0.012) X10*3/uL Nucleated RBC % (auto) 0.0 (0.0-0.2) /100WBC D-Dimer High Sensitivty < 150 NG/ML Sodium 140 (135-145) mmol/L Potassium 4.0 (3.3-5.1) mmol/L Chloride 104 (96-108) mmol/L Carbon Dioxide 25 (22-29) mmol/L Anion Gap 15 (12-20) BUN 14 (9-16) mg/dL Creatinine 1.05 (0.5-1.4) mg/dL Estim Creat Clear Calc 97.0 Estimated GFR > 60 Random Glucose 208 H (60-115) mg/dL Calcium 8.7 D (8.4-10.2) mg/dL Total Bilirubin 0.4 (0.0-1.0) mg/dL Direct Bilirubin 0.1 (0.0-0.5) mg/dL AST 29 (5-37) U/L ALT 44 H (0-40) U/L Alkaline Phosphatase 77 (39-117) U/L Troponin I High Sens < 2.7 < 2.7 (<3.5-35.0) ng/L Total Protein 7.0 (6.5-8.0) g/dL Albumin 4.1 (3.5-5.0) g/dL Lipase 30 (8-78) U/L Urine Color Yellow Urine Appearance Clear Urine pH 6.5 (5.0-9.0) Ur Specific [place] 1.025 (1.005-1.025) Urine Protein 30 (1+) H (Neg-Trace) mg/dL Urine Glucose (UA) >=1000 H (Negative) mg/dL Urine Ketones Trace (Negative) mg/dL Urine Blood Negative (Negative) Urine Nitrite Negative (Negative) Ur Leukocyte Esterase Negative (Negative) Urine RBC 0-2 (0-2) /HPF Urine WBC 0-5 (0-5) /HPF Ur Squamous Epith Cells 0-2 (0-2) /HPF Urine Bacteria None Seen (None Seen) Hyaline Casts 0-2 (0-2) /LPF Independent Interpretation I performed an independent interpretation of an: EKG (Normal sinus rhythm at 79 beats per minute, normal intervals, no ST-T changes. No old EKG to compare.) and Plain X-Ray (Chest: No acute intrathoracic pathology.) Radiology Impression Discussion of test interpretation with radiology: I have reviewed the radiologist's reading. Chronic Conditions Patient?s care impacted by: Other (Coronary artery disease) Discharge Plan Discharge Clinical Impression: Chest pain, Coronary artery disease Patient Disposition: Admitted As Inpatient Print Language: Occitan
[2024-02-29 11:24] LABS: MANUAL DIFF FLAG NO
[2024-02-29 11:27] VITALS: BP 131/68; PULSE 87
[2024-02-29] MEDS: Nitroglycerin 2 % Oint 1 GM Packet 1 INCH TRANSDERMA (11:27)
[2024-02-29] MEDS: Aspirin Enteric Coated 81 MG TABLET.DR PO (11:29)
[2024-02-29 11:36] LABS: Basophils Absolute Auto 0.1 X10*3/uL (0.0-0.2); Basophils Percent Auto 0.8 % (0-2); Eosinophils Absolute Auto 0.3 X10*3/uL (0.0-0.4); Hematocrit 41.9 % (42.0-52.0); Hemoglobin 13.4 g/dl (14.0-18.0); Imm Gran Abs Auto 0.02 X10*3/uL (0.00-0.03); Imm Gran Pct Auto 0.2 % (0.0-0.4); Lymphocytes Absolute Auto 2.7 X10*3/uL (1.2-4.9); Mean Corpuscular Hemoglobin 26.5 pg (27.0-33.0); Mean Corpuscular Volume 82.8 fL (80.0-98.0); Monocytes Absolute Auto 0.7 X10*3/uL (0.1-1.2); Monocytes Percent Auto 6.9 % (2-11); Neutrophils Percent Auto 61.1 % (45-73); Platelet Count 328 X10*3/uL (160-400); Red Blood Count 5.06 X10*6/uL (4.60-5.80); Red Cell Distribution Width 14.7 % (11.0-16.0); White Blood Count 9.8 X10*3/uL (4.8-10.8)
[2024-02-29 11:40] LABS: D Dimer High Sensitivity < 150 NG/ML
[2024-02-29 11:43] LABS: Alanine Aminotransferase 44 U/L (0-40); Albumin Level 4.1 g/dL (3.5-5.0); Alkaline Phosphatase 77 U/L (39-117); Anion Gap 15 (12-20); Aspartate Amino Transferase 29 U/L (5-37); Bilirubin Direct 0.1 mg/dL (0.0-0.5); Bilirubin Total 0.4 mg/dL (0.0-1.0); Blood Urea Nitrogen 14 mg/dL (9-16); Calcium 8.7 mg/dL (8.4-10.2); Carbon Dioxide 25 mmol/L (22-29); Chloride 104 mmol/L (96-108); Estimated Glomerular Filt Rate > 60; Glucose Random 208 mg/dL (60-115); Lipase 30 U/L (8-78); Sodium 140 mmol/L (135-145)
[2024-02-29 11:48] VITALS: BP 115/68; PULSE 86; PULSE 89; RESP 19; TEMP 36.7; O2SAT 97
[2024-02-29 11:50] LABS: Troponin-I High Sensitivity < 2.7 ng/L (<3.5-35.0)
[2024-02-29 12:00] VITALS: BP 122/63; PULSE 94; RESP 18; TEMP 36.6; O2SAT 99
--- NOTE | 2024-02-29 12:11 | ECG_ITS ---
Test Reason : REPEAT Blood Pressure : / mmHG Vent. Rate : 079 BPM Atrial Rate : 079 BPM P-R Int : 140 ms QRS Dur : 092 ms QT Int : 344 ms P-R-T Axes : 064 065 065 degrees QTc Int : 394 ms Normal sinus rhythm Normal ECG When compared with ECG of 29-FEB-2024 10:43, No significant change was found Referred By: Moustapha Stanley Electronically Signed By:Tony Reddy
[2024-02-29 12:59] LABS: Appearance Urine Clear; Color Urine Yellow; Glucose Urine UA >=1000 mg/dL (Negative); Leukocyte Esterase Urine Negative (Negative); Nitrite Urine Negative (Negative); PH 6.5 (5.0-9.0); Specific Gravity - Urine 1.025 (1.005-1.025); UMIC TRIGGER UACC YES; Urine Blood Negative (Negative); Urine Ketones Trace mg/dL (Negative); Urine Protein 30 (1+) mg/dL (Neg-Trace)
[2024-02-29 13:04] LABS: Bacteria Urine None Seen (None Seen); Hyaline Casts Urine 0-2 /LPF (0-2); RBC Urine 0-2 /HPF (0-2); Squamous Epithelial Cell Urine 0-2 /HPF (0-2); WBC Urine 0-5 /HPF (0-5)
[2024-02-29] MEDS: Morphine Sulfate 2 MG/ML CARTRIDGE 1 MG IVPUSH (13:12)
[2024-02-29 15:16] LABS: Troponin-I High Sensitivity < 2.7 ng/L (<3.5-35.0)
--- NOTE | 2024-02-29 15:39 | P.HPHOSP_ITS ---
History of Present Illness Date of Service: 02/29/24 Attending physician on admission: Dave Lutz Chief Complaint: Chest pain Pt is a 43-year-old male with a PMH significant for?CAD, NSTEMI in 2022 s/p PCI and stenting, HTN, insulin-dependent type 2 diabetes, glaucoma, recurrent complicated diverticulitis and hx of abscess, and GERD who presents to the ED with? Of note, patient on aspirin, but no longer on prasugrel due to epistaxis. In the ED pt was tachycardic to 95 and slightly hypertensive up to 146/87. Labs were grossly unremarkable and baseline for patient. Serial troponins negative. No leukocytosis. Stable H&H. No significant electrolyte abnormalities. Renal function WNL. Hepatic function baseline. D-dimer negative. CXR negative for acute cardiopulmonary process. Initial EKG demonstrated sinus evidence significant ST or depressions. Repeat EKG similar without significant change. Pt was treated with nitroglycerin, aspirin, and morphine. Pt will be admitted to the hospital [facility] Medical History Atherosclerotic cardiovascular disease Thigh abscess Pigmentary glaucoma of both eyes Encounter for physical examination Abdominal pain Diabetes mellitus Glaucoma Diverticulosis Family History Father HTN (hypertension) Diabetes mellitus Mother HTN (hypertension) Diabetes mellitus Heart murmur Brother No problems noted. Brother No problems noted. Brother No problems noted. Sister Lupus Sister No problems noted. Sister No problems noted. Sister No problems noted. Son No problems noted. Daughter No problems noted. Surgical History Hx of cardiac cath H/O colonoscopy S/P LASIK surgery History of circumcision Social History Household Members: Spouse and Family Household Members Other:: 2 Housing: Apartment Do you presently have visiting nurse or other home services: No Alcohol intake: current Alcohol intake frequency: a few times a month Alcohol type: hard liquor Patient Tobacco Use Status: Former Tobacco user Tobacco use type: Cigarette Cigarette Packs Per Day: 1 Cigarettes Per Day: 20.0 Years Smoked: 5 Smoked in Last 30 Days: No e-Cigarette/Vaping Use: Never Used Second Hand Smoke Exposure: No Use of substances other than those prescribed or required for medical reasons: Yes Substance Use Type: Marijuana Substance Use Frequency: Occasionally Advance Directives: No Advance Directives Information Provided: Yes Do you have a plan to hurt others: No Plan service: No Current occupational status: employed Current occupation: [employer] Current occupational exposures/hazards: No Cognitive needs: No Hearing needs: No Vision needs: No Meds Allergies Allergy/AdvReac Type Severity Reaction Status Date / Time NSAIDS (Non-Steroidal Allergy Mild thins Verified 02/29/24 10:56 Anti-Inflamma lining of stomach with GERD. Home Medications ?Medication ?Instructions ?Recorded ?Confirmed ?Last Taken ?Type aspirin 81 mg capsule 81 mg PO DAILY 08/15/23 11/19/23 Unknown History brimonidine 0.2 % eye drops drp ophthalmic (eye) 08/15/23 11/19/23 Unknown History latanoprost 0.005 % eye drops 1 drp ophthalmic (eye) BEDTIME 08/15/23 11/19/23 Unknown History netarsudil 0.02 % eye drops drp ophthalmic (eye) 08/15/23 11/19/23 Unknown History (Rhopressa) timolol maleate 0.5 % eye drops 1 drp ophthalmic (eye) BID 08/15/23 11/19/23 Unknown History Physical Exam 2 Vital Signs and Narrative: Vital Signs: Last Vital Signs Temp 97.9 F 02/29/24 12:00 Pulse 94 02/29/24 12:00 Resp 18 02/29/24 12:00 BP 122/63 02/29/24 12:00 Pulse Ox 99 02/29/24 12:00 O2 Del Method Room Air 02/29/24 12:00 BMI result Body Mass Index 30.4 Results Labs 02/29/24 11:19 02/29/24 11:19 Labs: Laboratory Results - last 24 hr 02/29/24 02/29/24 02/29/24 11:19 12:50 14:45 MCV 82.8 MCH 26.5 L MCHC 32.0 RDW 14.7 Plt Count 328 MPV 10.0 Immature Gran % (Auto) 0.2 Neut % (Auto) 61.1 Lymph % (Auto) 28.0 [place] % (Auto) 6.9 Eos % (Auto) 3.0 Baso % (Auto) 0.8 Lymph # (Auto) 2.7 [place] # (Auto) 0.7 Eos # (Auto) 0.3 Baso # (Auto) 0.1 Abs Immat Gran (auto) 0.02 Absolute Neuts (auto) 6.0 Absolute Nucleated RBC 0.000 Nucleated RBC % (auto) 0.0 D-Dimer High Sensitivty < 150 Anion Gap 15 Estim Creat Clear Calc 97.0 Estimated GFR > 60 Random Glucose 208 H Calcium 8.7 D Total Bilirubin 0.4 Direct Bilirubin 0.1 AST 29 ALT 44 H Alkaline Phosphatase 77 Troponin I High Sens < 2.7 < 2.7 Total Protein 7.0 Albumin 4.1 Lipase 30 Urine Color Yellow Urine Appearance Clear Urine pH 6.5 Ur Specific [place] 1.025 Urine Protein 30 (1+) H Urine Glucose (UA) >=1000 H Urine Ketones Trace Urine Blood Negative Urine Nitrite Negative Ur Leukocyte Esterase Negative Urine RBC 0-2 Urine WBC 0-5 Ur Squamous Epith Cells 0-2 Urine Bacteria None Seen Hyaline Casts 0-2 Imaging Radiologist's Impressions: Impressions Chest X-Ray 02/29/24 11:15 IMPRESSION: Unremarkable examination.
--- NOTE | 2024-02-29 17:09 | PHA.MEDREC ---
Addendum entered by Char Phillips RPh 02/29/24 17:22: [facility] rec reviewed by suleiman Original Note: Pharmacy Consult ? Medication Reconciliation Pharmacy has completed the medication reconciliation. Spoke with patient to confirm medications. He confirmed he was on 4 eye drops - latanoprost, timolol maleate, brimonidine and rhopressa. All eye drops are in both eyes. Last claim for rhopressa was in July but [facility] reports it was never picked up because it needed a PA. He said he still takes metformin 1000 BID but last fill was in July. He confirmed his lantus is 40 units and his humalog is on a SS. He confirmed he still takes Jardiance but last claim was filled 12/11 for a 30 DS. He is not taking prasugrel or bupropion. He reports he last took his medications yesterday.
[2024-02-29 17:11] VITALS: BP 133/83; PULSE 88; RESP 17; TEMP 36.6; O2SAT 95
[2024-02-29 18:22] VITALS: BP 132/85; PULSE 78; RESP 16; TEMP 36.6; O2SAT 97
== END 2024-02-29 18:22 | disposition left against medical advice (07) ==
PROVIDERS: Emergency Provider Emergency Medicine; PCP Nurse Practitioner Family
DX: R07.9 Chest pain, unspecified (principal); I25.10 Atherosclerotic heart disease of native coronary artery without angina pectoris; R10.11 Right upper quadrant pain; E11.65 Type 2 diabetes mellitus with hyperglycemia; Z53.29 Procedure and treatment not carried out because of patient's decision for other reasons; I10 Essential (primary) hypertension; E78.5 Hyperlipidemia, unspecified; I25.2 Old myocardial infarction; F12.90 Cannabis use, unspecified, uncomplicated; F10.10 Alcohol abuse, uncomplicated; Y90.9 Presence of alcohol in blood, level not specified; Z87.891 Personal history of nicotine dependence; Z95.5 Presence of coronary angioplasty implant and graft; Z79.82 Long term (current) use of aspirin; Z79.84 Long term (current) use of oral hypoglycemic drugs; Z79.4 Long term (current) use of insulin; Z79.02 Long term (current) use of antithrombotics/antiplatelets; Z79.899 Other long term (current) drug therapy
CPT/HCPCS: 36415; 71045; 76705; 80048; 80076; 81001; 81003; 83690; 84484; 85025; 85379; 93005; 96374; 99285; J2270

== ENCOUNTER → 2024-02-29 10:41 | Outpatient (BNV) | payer OTHER, SELFPAY | PROVIDERS: Emergency Provider Emergency Medicine; PCP Nurse Practitioner Family; Visit Provider Internal Medicine Cardiovascular Disease | DX: R07.9 Chest pain, unspecified (principal) | CPT/HCPCS: 93010 ==

== ENCOUNTER 2024-03-17 13:12 | Outpatient (AMB) | payer OTHER, SELFPAY ==
--- NOTE | 2024-03-17 13:14 | MHC.OFFWIV ---
Intake Vital Signs 03/17/24 13:15 Height 5 ft 7 in Weight 196 lb BMI 30.7 BP 122/80 Blood Pressure Location Rt brachial Position Sitting Pulse 108 H Pulse Source Pulse Oximeter Temp 97.8 F Temp Source Oral Pulse Oximetry (%) 98 Oxygen Delivery Method Room Air Intake Visit Reasons: EP abscess/pelvic area Intake Note: PT C/O abscess in pelvic area. Started 2 days ago Patient Tobacco Use Status: Former Tobacco user Allergies NSAIDS (Non-Steroidal Anti-Inflamma Allergy (Mild, Verified 03/17/24 13:14) thins lining of stomach with GERD. Do you need a note to return to daycare/school/sports/work: Yes HPI HPI Comments History of Present Illness Details Patient is a 43-year-old male complaining of an abscess on his left upper groin area that has been there for 2 days. He states it is very painful. He states he has had them before but they usually on his legs. He has not done anything to try to make it better. Touching it makes it more painful [facility] Medical History Atherosclerotic cardiovascular disease Thigh abscess Pigmentary glaucoma of both eyes Encounter for physical examination Abdominal pain Diabetes mellitus Glaucoma Diverticulosis Surgical History Hx of cardiac cath H/O colonoscopy S/P LASIK surgery History of circumcision Family History Father HTN (hypertension) Diabetes mellitus Mother HTN (hypertension) Diabetes mellitus Heart murmur Brother No problems noted. Brother No problems noted. Brother No problems noted. Sister Lupus Sister No problems noted. Sister No problems noted. Sister No problems noted. Son No problems noted. Daughter No problems noted. Social History Household Members: Spouse and Family Household Members Other:: 2 Housing: Apartment Do you presently have visiting nurse or other home services: No Alcohol intake: current Alcohol intake frequency: a few times a month Alcohol type: hard liquor Patient Tobacco Use Status: Former Tobacco user Tobacco use type: Cigarette Cigarette Packs Per Day: 1 Cigarettes Per Day: 20.0 Years Smoked: 5 e-Cigarette/Vaping Use: Never Used Second Hand Smoke Exposure: No Substance Use Type: Marijuana service: No Current occupational status: employed Current occupation: [email or web address] Current occupational exposures/hazards: No Cognitive needs: No Hearing needs: No Vision needs: No Review of Systems Const All systems reviewed & are unremarkable except as noted in HPI and below Physical Exam Vital Signs: Last Vital Signs Temp 97.8 F 03/17/24 13:15 Pulse 108 H 03/17/24 13:15 BP 122/80 03/17/24 13:15 Pulse Ox 98 03/17/24 13:15 Oxygen Delivery Method Room Air 03/17/24 13:15 BMI result Body Mass Index 30.7 Const General: cooperative, healthy appearing, comfortable, no acute distress and well developed Orientation/consciousness: patient oriented x3 Limitations: no limitations HEENT Head: Yes normal to inspection Ears: hearing grossly normal bilaterally General nose exam: Normal external nose present Face and sinus: Yes normal facial exam Eyes General: appearance normal, both eyes and all related structures Neck Neck: Yes normal visual inspection and Yes full ROM Resp Effort & Inspection: normal respiratory effort and able to speak in complete sentences Skin Other: Left upper-medial groin has a 3cm erythematous oval partially fluctuant/partially indurated tender area/cyst Neuro General: patient oriented x3 Extrem General: Yes normal to inspection Assessment & Plan Assessment & Plan (1) Abscess: Code(s): L02.91 - Cutaneous abscess, unspecified Plan: Due to the location of the cyst, and the fact that it is mostly indurated and likely not very much to drain, we will treat with antibiotics rather than I&D. Educated patient to not go in the sun while he is taking doxycycline and to take it with food to lessen the GI side effects. Plan See above Medications: New doxycycline hyclate 100 mg PO BID 10 tabs 0RF Coding Level of Care Code Est Pt Level 3 (26856) Diagnoses Abscess L02.91
[2024-03-17 13:15] VITALS: BP 122/80; PULSE 108; TEMP 36.6; O2SAT 98; BMI 30.7
== END 2024-03-17 14:15 | disposition home or self-care (01) ==
PROVIDERS: PCP Nurse Practitioner Family; Visit Provider Physician Assistant
DX: L02.91 Cutaneous abscess, unspecified (principal)
CPT/HCPCS: 99213

== ENCOUNTER 2024-03-24 15:14 | Outpatient (AMB) | payer OTHER, SELFPAY ==
[2024-03-24 15:20] VITALS: BP 120/70; PULSE 105; BMI 30.6
--- NOTE | 2024-03-24 15:20 | MHC.OFFVIS ---
Vital Signs 03/24/24 15:20 Height 5 ft 7 in Weight 195 lb 5.273 oz BMI 30.6 BP 120/70 Blood Pressure Location Lt brachial Position Sitting Pulse 105 H Pulse Source Pulse Oximeter Intake Visit Reasons: follow up [place] [employer] Required: No Accompanied by: Self / Same As Patient Allergies NSAIDS (Non-Steroidal Anti-Inflamma Allergy (Mild, Verified 03/17/24 13:14) thins lining of stomach with GERD. Medication List - Last Reconciled 03/24/24 by KEITH Nguyễn aspirin 81 mg PO DAILY atorvastatin 80 mg PO DAILY betamethasone dipropionate 0.05% 1 appl topical BID PRN blood sugar diagnostic (FreeStyle Test strips) TID brimonidine 0.2% 1 drp ophthalmic (eye) TID doxycycline hyclate 100 mg PO BID empagliflozin (Jardiance) 10 mg PO DAILY ezetimibe 10 mg PO DAILY FreeStyle Renny 3 Sensor (blood-glucose sensor) Test blood sugar 4 times per day NS insulin glargine (Lantus Solostar U-100 Insulin) 40 units (0.4 mL) subcut QPM insulin lispro (Humalog KwikPen (U-100) Insulin) 1 sliding scale dose See Protocol subcut TIDAC MDD 36 units/day latanoprost 0.005% 1 drp ophthalmic (eye) BEDTIME lisinopril 5 mg PO DAILY 90 days metformin 1,000 mg PO BID metoprolol tartrate 25 mg PO BID 90 days netarsudil 0.02% (Rhopressa) 1 drp ophthalmic (eye) DAILY omega-3 acid ethyl esters 1 cap PO BID omeprazole 40 mg PO DAILY 90 days pen needle, diabetic (BD Ultra-Fine Mini Pen Needle) QID timolol maleate 0.5% 1 drp ophthalmic (eye) BID HPI HPI follow up: Details: Radha is a 43-year-old male with past medical history of diabetes, hypertension, hyperlipidemia, prior smoking, daily alcohol use, inferior STEMI 05/2023 with left circumflex PCI who presents for follow-up. Today he reports he has been doing well with no concerning symptoms. He denies chest discomfort at rest or with activity. No shortness of breath, PND, orthopnea. He has had some sock markings noted. He tells me he is on his feet all day at work and wears socks and heavy work boots. He has no lightheadedness, presyncope, syncope, falls. Taking all meds as directed. Continues to drink alcohol, whiskey daily. He is no longer smoking cigarettes. He uses marijuana edibles. He has not been exercising routinely but plans to start. [facility] Medical History (Updated 03/24/24 @ 16:54 by Ashli Connolly NP-C) Atherosclerotic cardiovascular disease Thigh abscess Pigmentary glaucoma of both eyes Encounter for physical examination Abdominal pain Diabetes mellitus Glaucoma Diverticulosis Surgical History (Updated 03/24/24 @ 16:47 by Ashli Connolly, JESSI-C) Hx of cardiac cath H/O colonoscopy S/P LASIK surgery History of circumcision Family History Father HTN (hypertension) Diabetes mellitus Mother HTN (hypertension) Diabetes mellitus Heart murmur Brother No problems noted. Brother No problems noted. Brother No problems noted. Sister Lupus Sister No problems noted. Sister No problems noted. Sister No problems noted. Son No problems noted. Daughter No problems noted. Social History Household Members: Spouse and Family Household Members Other:: 2 Housing: Apartment Do you presently have visiting nurse or other home services: No Alcohol intake: current Alcohol intake frequency: a few times a month Alcohol type: hard liquor Patient Tobacco Use Status: Former Tobacco user Tobacco use type: Cigarette Cigarette Packs Per Day: 1 Cigarettes Per Day: 20.0 Years Smoked: 5 e-Cigarette/Vaping Use: Never Used Second Hand Smoke Exposure: No Substance Use Type: Marijuana service: No Current occupational status: employed Current occupation: [employer] Current occupational exposures/hazards: No Cognitive needs: No Hearing needs: No Vision needs: No Review of Systems Const All systems reviewed & are unremarkable except as noted in HPI and below Denies chills, Denies fatigue, Denies fever(s), Denies frequent falls, Denies weakness, Denies weight gain and Denies weight loss ENT Denies dizziness Card Details: pounding heart Denies chest pain, Denies leg edema, Denies lightheadedness, Denies palpitations, Denies dyspnea and Denies dyspnea on exertion Resp Denies cough, Denies dyspnea and Denies dyspnea on exertion GI Denies hematochezia Musc Denies abnormal gait, Denies muscle weakness, Denies numbness, Denies radiating pain into limb and Denies tingling Neuro Denies abnormal gait, Denies dizziness, Denies frequent falls, Denies numbness, Denies tingling and Denies weakness Endo Denies fatigue and Denies palpitations Physical Exam Vital Signs: Last Vital Signs Pulse 105 H 03/24/24 15:20 BP 120/70 03/24/24 15:20 BMI result Body Mass Index 30.6 Const General: cooperative, healthy appearing, comfortable and no acute distress Orientation/consciousness: patient oriented x3 Neck Neck: Yes normal visual inspection and Yes no JVD Resp Effort & Inspection: normal respiratory effort Auscultation: clear to auscultation bilaterally, no rales, no rhonchi and no wheezes Cardio Jugular venous distension: no JVD Rate: regular rate Rhythm: regular rhythm Heart sounds: S1 normal heart sound present, S2 normal heart sound present, no murmurs and no rubs Neuro General: patient oriented x3 Extrem General: Yes normal to inspection and No no pedal edema Psych Appearance: grossly normal Mental Status: mental status grossly normal Speech and movement: Normal speech and movement present Assessment & Plan Assessment & Plan (1) Atherosclerotic cardiovascular disease: Code(s): I25.10 - Atherosclerotic heart disease of [place] coronary artery without angina pectoris Category: Medical Plan: History of CAD, inferior lateral STEMI 05/2023 with thrombectomy to the left circumflex, stent placement at [facility] in [place]. Other vessels showed lad mid 25% stenosis, RCA mid 30% stenosis. Discharge summary reviewed. 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 Post PCI echocardiogram showed EF 55-65%, normal RV systolic function. He has done well since that time. An echocardiogram was done on 11/06/2023 showing EF 55-60%, grade 1 diastolic dysfunction, no regional wall motion abnormality. He has not had any recurrent chest discomfort, no syncope, shortness of breath. Today he reports that he notices that his heart beats fast after eating. His pulse rate is elevated today, regular. He has had sinus tachycardia on prior visit. Will increase his metoprolol up to 50 mg b.i.d.. Continue aspirin indefinitely. His prasugrel was previously stopped due to significant epistaxis. Continue high-dose atorvastatin and Zetia. Continue lisinopril. Blood pressure currently 120/70. Will check a Holter monitor on higher dose metoprolol to assess average heart rates and for any ventricular ectopy. Cardiology follow-up 6 months, sooner if needed (2) H/O heart artery stent: Comment: Inferolateral STEMI, left circumflex 06/24/2023 Code(s): Z95.5 - Presence of coronary angioplasty implant and graft Category: Surgical Plan: As above (3) Hx of cardiac cath: Comment: 06/24/23 STEMI with thrombectomy to the left circumflex, stent placement at [facility] in [place]. Other vessels showed lad mid 25% stenosis, RCA mid 30% stenosis. Code(s): Z98.890 - Other specified postprocedural states Category: Surgical Plan: As above (4) Dyslipidemia: Code(s): E78.5 - Hyperlipidemia, unspecified Category: Medical Plan: [place] LDL goal less than 70 in patient with diabetes and CAD. He is on high-dose atorvastatin and Zetia. Labs done 11/30/2023 showed LDL 27. Continue current med management. (5) Diabetes mellitus: Code(s): E11.9 - Type 2 diabetes mellitus without complications Category: Medical Plan: Uncontrolled diabetes. Labs done 08/15/2023 showed hemoglobin A1c 12.4. [place] hemoglobin A1c goal less than 7. Followed by PCP. (6) Alcohol abuse: Code(s): F10.10 - Alcohol abuse, uncomplicated Category: Social Hx Plan: Patient admits to drinking whiskey daily. (7) Health education: Code(s): Z71.9 - Counseling, unspecified Category: Medical Plan: Spent 20 minutes extra with this patient going over generalized health and need for lifestyle improvements. He wanted further description of his coronary artery disease. Described coronary artery blockage and stent placement in detail. Informed him that his uncontrolled diabetes puts him at high risk for multiple current and future health problems including recurrent MIs, peripheral vascular disease, kidney disease, neuropathy, etc. described how diabetes affects his blood vessels and nerve endings. Informed him that his hemoglobin A1c needs to be less than 7 which ensures good control. Discussed following diabetic diet. He says he was given a copy by his PCP office in the past. He drinks alcohol daily and informed him that this also affects his current and future health. Recommended alcohol reduction and gradual cessation. Same with marijuana edibles that he is using. Discussed benefits of routine exercise and how that can affect his heart, blood pressure, weight and diabetes. He states understanding and is interested in pursuing a healthier lifestyle. He has already quit smoking which was applauded. (8) Sinus tachycardia: Code(s): R00.0 - Tachycardia, unspecified Category: Medical Plan Time spent on chart review, documentation, interview, assessment, education Orders: Orders ECG 3 day holter monitor 3 Weeks R00.0 - Tachycardia, unspecified Medications: New metoprolol tartrate dose increase 50 mg PO BID 180 tabs 3RF Discontinued metoprolol tartrate Discontinued Reason: Doctor's Order 25 mg PO BID 90 days 180 tabs 3RF Coding Level of Care Code Est Pt Level 5 (86592) Diagnoses Atherosclerotic cardiovascular disease I25.10 H/O heart artery stent Z95.5 Hx of cardiac cath Z98.890 Dyslipidemia E78.5 Diabetes mellitus E11.9 Alcohol abuse F10.10 Health education Z71.9 Sinus tachycardia R00.0 Time Spent (min) 45
== END 2024-03-24 15:59 | disposition home or self-care (01) ==
PROVIDERS: PCP Nurse Practitioner Family; Visit Provider Nurse Practitioner Family
DX: I25.10 Atherosclerotic heart disease of native coronary artery without angina pectoris (principal); E11.59 Type 2 diabetes mellitus with other circulatory complications; Z95.5 Presence of coronary angioplasty implant and graft; Z98.890 Other specified postprocedural states; E78.5 Hyperlipidemia, unspecified; F10.10 Alcohol abuse, uncomplicated; Z71.89 Other specified counseling; R00.0 Tachycardia, unspecified
CPT/HCPCS: 99215

== ENCOUNTER → 2024-03-24 15:14 | Outpatient (BNVA) | payer OTHER, SELFPAY | PROVIDERS: PCP Nurse Practitioner Family; Visit Provider Nurse Practitioner Family | DX: I25.10 Atherosclerotic heart disease of native coronary artery without angina pectoris (principal); R00.0 Tachycardia, unspecified; E78.5 Hyperlipidemia, unspecified; Z71.9 Counseling, unspecified; E11.9 Type 2 diabetes mellitus without complications; F10.10 Alcohol abuse, uncomplicated; Z95.5 Presence of coronary angioplasty implant and graft; Z98.890 Other specified postprocedural states | CPT/HCPCS: 99212 ==

== ENCOUNTER → 2024-04-07 14:43 | Outpatient (REF) | payer OTHER, SELFPAY ==
--- NOTE | 2024-04-07 14:47 | HM_ITS ---
* Total monitoring time 3 days. * Underlying rhythm is sinus with an average rate of 95/Min. * About 38% of the time, rate > 100/Min. * Rare supraventricular ectopy. * Rare ventricular ectopy. * No significant pauses or AV blocks. * Diary markers used in association with sinus rhythm. * Symptoms of heart pounding in diary correlates with sinus tachycardia. Some entries made in diary during periods of lead/monitor disconnect. MTDD
== END ==
LOC: HO.CARD 14:43
PROVIDERS: PCP Nurse Practitioner Family; Visit Provider Nurse Practitioner Family
DX: R00.0 Tachycardia, unspecified (principal)
CPT/HCPCS: 93242

== ENCOUNTER → 2024-04-07 14:47 | Outpatient (BNV) | payer OTHER, SELFPAY | PROVIDERS: PCP Nurse Practitioner Family; Visit Provider Internal Medicine | DX: R00.0 Tachycardia, unspecified (principal) | CPT/HCPCS: 93244 ==

== ENCOUNTER 2024-05-22 15:07 | Outpatient (AMB) | payer OTHER, SELFPAY ==
--- NOTE | 2024-05-22 15:09 | A.OFFVIS_ITS ---
Vital Signs 05/22/24 15:20 Height 5 ft 7 in Weight 200 lb 9.93 oz BMI 31.4 BP 120/80 Position Sitting Pulse 101 H Pulse Source Pulse Oximeter Intake Visit Reasons: T2DM with hyperglycemia/LVM Intake Note: NEW Patient presents today to re-establish treatment for Type 2 Diabetes Mellitus: Last Diabetic eye exam was on: 05/12/2024, has Glaucoma Last Podiatry exam was on: Does not see a Machine Rug Cleaner Most recent HbA1c: 9.3%, 05/22/2024 Random Glucose- 267mg/dL, Today Edging Machine Feeder Required: No Accompanied by: Self / Same As Patient Allergies NSAIDS (Non-Steroidal Anti-Inflamma Allergy (Mild, Verified 05/22/24 15:13) thins lining of stomach with GERD. HPI Comments Details: This is a 43-year-old male with a past medical history of type 2 diabetes, coronary artery disease, alcohol abuse, dyslipidemia, hypertension and glaucoma presenting for a consult for diabetic management. He was diagnosed with Type II diabetes at age 28. His sister from diabetes in 2008. He has a family history of diabetes on his mother's and father's side of the family. Hemoglobin a1c 9.3% today down from 12.4% 07/2023. Current medication regimen: Jardiance 10 mg, Metformin 1000 mg BID, Lantus 40 every morning and NovoLog. NovoLog is prescribed per sliding scale, but he lost the scale a long time ago so he is taking somewhere between 22-40 units. Recently he has been taking more like 30-40 units 3 times a day because of high blood sugars. When his sugar is 300-400s he will take 30-40 units with meals. If it is in the 200s he will take 20-30 units. He is also administering it after he eats sometimes, and he has had occasional low blood sugar events when he does this. Patient says low blood sugars only occur once every 2-3 months. Diet: Admits to dietary indiscretion. Breakfast- makes ham, egg and cheese on senegalese muffin and sweet and low in 1/2 cup of coffee Stops at [employer] on the way to work and gets 2 orders or hashbrowns with cheese and mir, and 2 mir egg and cheese wraps Lunch-Small pizza and water or coffee Dinner- I an [place]. Shrimp or chicken with pasta or white rice and mashed potato. Sometimes takeout. Snacks/desserts: Not anymore. Drinks regular coke and OJ. Quit smoking last year. Consumes 1/2 pint Steve 2-3 times per week. He has cut back since his heart attack. Denies withdrawal symptoms when he does not consume alcohol. Patient says he uses alcohol and food as a coping strategy for stress. He forgot his glucometer. Hypoglycemia symptoms: Shaky, weak, hungry Hyperglycemia symptoms: Polydipsia, polyuria Eye exam: Last week had exam. He has glaucoma in his eyes. Microvascular complications: neuropathy, nephropathy (microalbuminuria) Macrovascular complications: CAD (PA s/p stent 05/2024) Hypertension: treated with lisinopril 5 mg, metoprolol tartrate 75 mg twice a day Hyperlipidemia: treated with atorvastatin 80 mg and Zetia 10 mg. LDL at goal <100. ROS: Constitutional: No unexplained weight loss, fever, chills. Respiratory: No shortness of breath Cardiovascular: No chest pain, chest pressure or chest discomfort. No palpitations or pedal edema. Gastrointestinal: No anorexia, nausea, vomiting or diarrhea. No abdominal pain Genitourinary: No dysuria, hematuria, urinary frequency. Neurologic: No headache, dizziness, syncope Endocrine: No cold or heat intolerance. Physical exam: Constitutional: Alert, in no distress. Eyes: Pupils are equal, round and reactive to light. Extraocular muscles intact. Neck: Supple, Full range of motion. No lymphadenopathy. No palpable thyroid masses. Respiratory: Clear to auscultation. Cardiovascular: S1 S2 regular. No murmurs. Right foot: Warm and well perfused. No clubbing, cyanosis or edema. DP pulse 3+. Intact vibratory sensation. Intact sensation to monofilament. No open wounds. Left foot: Warm and well perfused. No clubbing, cyanosis or edema. DP pulse 3+. Intact vibratory sensation. Intact sensation to monofilament. No open wounds. [facility]LY [facility] Medical History Atherosclerotic cardiovascular disease Thigh abscess Pigmentary glaucoma of both eyes Encounter for physical examination Abdominal pain Diabetes mellitus Glaucoma Diverticulosis Surgical History Hx of cardiac cath H/O colonoscopy S/P LASIK surgery History of circumcision Family History Father HTN (hypertension) Diabetes mellitus Mother HTN (hypertension) Diabetes mellitus Heart murmur Brother No problems noted. Brother No problems noted. Brother No problems noted. Sister Lupus Sister No problems noted. Sister No problems noted. Sister No problems noted. Son No problems noted. Daughter No problems noted. 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 Current occupational exposures/hazards: No Cognitive needs: No Hearing needs: No Vision needs: No Physical Exam Vital Signs: Last Vital Signs Pulse 101 H 05/22/24 15:20 BP 120/80 05/22/24 15:20 BMI result Body Mass Index 31.4 Results AMB Hemoglobin A1c AMB Hemoglobin A1c 9.3 % Last Edit by KATELYNN Matias on 05/22/24 15:57 Results Reviewed Results Reviewed: Laboratory Last Values Glucose (Clinic) 265 mg/dL (60-115) H 05/22/24 15:26 Laboratory Tests 01/21/23 08/15/23 11/30/23 09:01 14:49 08:06 Creatinine Estimated GFR Hgb A1c (Clinic) 12.4 H Triglycerides 197 H Cholesterol 94 LDL Cholesterol Direct 27 LDL Cholesterol, Calc 17 HDL Cholesterol 38 L Urine Creatinine 71.06 Urine Microalbumin 51.0 Microalb/Creat Ratio 71.7 02/29/24 11:19 Creatinine 1.05 Estimated GFR > 60 Hgb A1c (Clinic) Triglycerides Cholesterol LDL Cholesterol Direct LDL Cholesterol, Calc HDL Cholesterol Urine Creatinine Urine Microalbumin Microalb/Creat Ratio Assessment & Plan Assessment & Plan (1) Type 2 diabetes mellitus with hyperglycemia: Code(s): E11.65 - Type 2 diabetes mellitus with hyperglycemia Category: Medical Qualifiers: Diabetes mellitus jail insulin use: with jail use Qualified Code(s): E11.65 - Type 2 diabetes mellitus with hyperglycemia; Z79.4 - group home (current) use of insulin Plan: In summary this is a 43-year-old male on basal bolus insulin, Jardiance and metformin with poorly controlled type 2 diabetes. Discussed pathophysiology of Type II Diabetes Mellitus with the patient in detail.? I explained the jail risks and complications associated with uncontrolled diabetes including nephropathy, neuropathy, peripheral vascular disease, retinopathy, increased risk of heart disease and stroke.? Discussed lifestyle modification with the patient. Recommended 30 minutes of moderately vigorous exercise 5 days per week to promote weight loss. The patient is prescribed a CGM and referred to the fruit or nut picker and diamond powder mixer. Sent new prescription for fingerstick glucometer. Instructed to bring glucometer to all appointments. Patient is taking inconsistent doses of short-acting insulin and trying to use high doses to control his blood sugars. We reviewed proper administration of this medication. Increase Jardiance to 25 mg once daily. Increase Lantus from 40 units to 45 units daily. Take Novolog 25 units 10 minutes before meals. (If your blood sugar is under 150 you don't take Novolog). Continue Metformin 1000 mg twice daily I prescribed ozempic which will likely require prior authorization, but advised patient not to start it yet if he does receive it. Re-evaluate response to medication changes above in 2 weeks before starting medication. I do think he will benefit from GLP 1 given cardiovascular disease and motivation for weight loss, and it will help to reduce his insulin requirement. He denies contraindications to the medication. We reviewed FDA warnings and side effects. I sent the dexcom g7 sensor and reader to the pharmacy. This will a prior authorization. I sent a new fingerstick glucometer to the pharmacy. I sent glucose tablets to the pharmacy and reviewed treatment of hypo and hyperglycemia. If you experience low blood sugar, treat this by eating a chewable fruit candy like skittles or jelly beans (about 8 pieces), 4 ounces (1/2 cup) of fruit juice (not diet), 1 tablespoon of honey or 4 glucose tablets. If your blood sugar is under 50, take double the amount of one of the above. Recheck your blood sugar in 15 minutes. Follow up in 2 weeks for type 2 diabetes. Orders: Orders AMB Hemoglobin A1c Today E11.65 - Type 2 diabetes mellitus with hyperglycemia Referrals Diabetes Education Referral E11.65 - Type 2 diabetes mellitus with hyperglycemia Outsole Cementer Machine Nutrition Referral E11.65 - Type 2 diabetes mellitus with hyperglycemia Medications: New blood-glucose sensor (Dexcom G7 Sensor device) apply new sensor every 10 days as directed 3 ea 11RF blood-glucose meter (FreeStyle Lite Meter kit) As directed to test blood glucose 5 times daily 1 ea 0RF E11.9 - Type 2 diabetes mellitus without complications semaglutide (Ozempic) for 4 weeks 0.25 mg (0.368 mL) subcut QWEEK 3 mL 0RF empagliflozin (Jardiance) 25 mg PO DAILY 90 tabs 3RF glucose (Dex4 Glucose) until symptoms of low blood sugar are controlled 16 grams (4 x 4 gram) PO Q15M PRN 60 tabs 1RF hypoglycemia blood-glucose meter,continuous (Dexcom G7 Analytics Associate) Use as directed to monitor blood glucose continuously. 1 ea 0RF blood sugar diagnostic (FreeStyle Lite Strips) As directed to check blood glucose 5 times daily 200 ea 5RF lancets (FreeStyle Lancets) Use to monitor blood glucose 5 times daily. 200 ea 5RF Changed From insulin glargine (Lantus Solostar U-100 Insulin) 40 units (0.4 mL) subcut QPM 30 mL 2RF E11.9 - Type 2 diabetes mellitus without complications To insulin glargine (Lantus Solostar U-100 Insulin) 45 units (0.45 mL) subcut QPM 30 mL 3RF E11.9 - Type 2 diabetes mellitus without complications From Novolog FlexPen U-100 Insulin (insulin aspart U-100) Per sliding scale subcutaneously 3 times a day; 15 mL 0RF MDD 36 units NS To Novolog FlexPen U-100 Insulin (insulin aspart U-100) Per sliding scale subcutaneously 3 times a day; Administer 10 minutes before meals. 15 mL 5RF MDD 75 units NS Discontinued blood sugar diagnostic (FreeStyle Test strips) Discontinued Reason: Doctor's Order TID 300 ea 1RF E11.9 - Type 2 diabetes mellitus without complications FreeStyle Renny 3 Sensor (blood-glucose sensor) Discontinued Reason: Doctor's Order Test blood sugar 4 times per day 6 ea 1RF NS E11.65 - Type 2 diabetes mellitus with hyperglycemia empagliflozin (Jardiance) Discontinued Reason: Doctor's Order 10 mg PO DAILY 30 tabs 0RF Patient Instructions: Increase Jardiance to 25 mg once daily. Increase Lantus from 40 units to 45 units daily. Take Novolog 25 units 10 minutes before meals. (If your blood sugar is under 150 you don't take Novolog). Continue Metformin 1000 mg twice daily I prescribed ozempic which will likely require prior authorization. Do not start it yet. I sent the dexcom g7 sensor and reader to the pharmacy. This will a prior authorization. I sent a new fingerstick glucometer to the pharmacy. I sent glucose tablets to the pharmacy. If you experience low blood sugar, treat this by eating a chewable fruit candy like skittles or jelly beans (about 8 pieces), 4 ounces (1/2 cup) of fruit juice (not diet), 1 tablespoon of honey or 4 glucose tablets. If your blood sugar is under 50, take double the amount of one of the above. Recheck your blood sugar in 15 minutes. You will be called to schedule with the diamond powder mixer and the fruit or nut picker. Coding Level of Care Code New Pt Level 5 (36227) Complex EM visit Add On G2211 Diagnoses Type 2 diabetes mellitus with hyperglycemia, with long-term current use of insulin E11.65; Z79.4 Diabetes mellitus termite treater helper insulin use: with termite treater helper use Time Spent (min) 70 Comment Chart review, direct patient care, completing documentation
[2024-05-22 15:20] VITALS: BP 120/80; PULSE 101; BMI 31.4
[2024-05-22 15:31] LABS: Glucose, Whole Blood 265 mg/dL (60-115)
== END 2024-05-22 16:17 | disposition home or self-care (01) ==
PROVIDERS: PCP Nurse Practitioner Family; Visit Provider Physician Assistant Medical
DX: E11.65 Type 2 diabetes mellitus with hyperglycemia (principal); Z79.4 Long term (current) use of insulin

== ENCOUNTER → 2024-05-22 15:07 | Outpatient (BNVA) | payer OTHER, SELFPAY | PROVIDERS: PCP Nurse Practitioner Family; Visit Provider Physician Assistant Medical | DX: E11.65 Type 2 diabetes mellitus with hyperglycemia (principal); Z79.4 Long term (current) use of insulin | CPT/HCPCS: 82947; 83036; 99202 ==

== ENCOUNTER 2024-06-30 12:40 | Outpatient (AMB) | payer OTHER, SELFPAY ==
--- NOTE | 2024-06-30 12:59 | A.OFFVIS_ITS ---
VS Expanded 06/30/24 13:00 Height 5 ft 7 in Weight 194 lb 14.218 oz BMI 30.5 Intake Visit Reasons: T2DM Allergies NSAIDS (Non-Steroidal Anti-Inflamma Allergy (Mild, Verified 05/22/24 15:13) thins lining of stomach with GERD. Nutrition Presentation Details: Pt presents for MNT for T2DM food frequency fruits 0-1/d ve-2/wk dairy 3-4 serving/d starches > 20 protein: beef/pork/poultry ,no including fish/seed/nuts physical activity: daily life etoh : + BS Monitoring Most Recent Diabetes Results: No Data to Display XNN-Jxzqegb-Iq.Jeor Equation Height: 5 ft 7 in Weight: 194 lb Resting Metabolic Rate: 1741.07 Calculated Activity Level: Mild Activity Calories Needed to Maintain Weight: 2393.97 Diagnosis Nutrition problem #1: excessive energy intake As related to (etiology) #1: diagnosis As evidenced by (sign/symptom) #1: abnormal lab values (A1c 14%) [facility] Medical History (Updated 05/22/24 @ 16:36 by NADIRA Florence) Type 2 diabetes mellitus with hyperglycemia Atherosclerotic cardiovascular disease Thigh abscess Pigmentary glaucoma of both eyes Encounter for physical examination Abdominal pain Diabetes mellitus Glaucoma Diverticulosis Surgical History Hx of cardiac cath H/O colonoscopy S/P LASIK surgery History of circumcision Family History Father HTN (hypertension) Diabetes mellitus Mother HTN (hypertension) Diabetes mellitus Heart murmur Brother No problems noted. Brother No problems noted. Brother No problems noted. Sister Lupus Sister No problems noted. Sister No problems noted. Sister No problems noted. Son No problems noted. Daughter No problems noted. 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 Current occupational exposures/hazards: No Cognitive needs: No Hearing needs: No Vision needs: No Assessment & Plan Assessment & Plan (1) Type 2 diabetes mellitus with hyperglycemia: Code(s): E11.65 - Type 2 diabetes mellitus with hyperglycemia Category: Medical Qualifiers: Diabetes mellitus shelter insulin use: with predatory animal exterminator use Qualified Code(s): E11.65 - Type 2 diabetes mellitus with hyperglycemia; Z79.4 - [facility] (current) use of insulin Plan: Wt: 89 Kg ( 07/21 ) Est kcal needs as per MSJ: 2400 (40% carb, 30% protein/fat) Est fluid needs as per 25-30 ml/d: 2700 Est prot per day as per 1 g/kg bw: 90 Recommend fiber intake : 8-10 g per day and gradually increase to 25-28 g per day for women and 35-38 g for men or as tolerated Recommend sodium intake per day : less than 2300 mg Educated patient on: ( R = reviewed V = verbalizes understanding N/R = needs review N/A = not applicable * Food sources of carbohydrate, adequate serving sizes and its role in various health conditions: R * Differences between complex carbohydrates a simple carbohydrates, role of fiber in diet: R V N/R * Lean protein sources of foods: R V NR * Differences between types of fats and role in diet (mono on saturated fat fatty acids, saturated fatty acids, trans fats): R V N/R * Food sources of sodium in salt and healthy modifications for heart health in kidney health: R V R/V * Vitamins and minerals: R V N/R * Healthy plate method concept: R * Physical activity: Benefits a precaution: R V N/R * Hypoglycemia protocol (rule of 15): R V N/R * Dietary prevention of Hyperglycemia: R Patient Instructions: Choose fiber rich foods following healthy plate method (less than 80 g carb per meal, 3 meals/d) see [id number] bertrand meal plan as reference Coding Level of Care Code Nutr Indiv Intake (12220) Diagnoses Type 2 diabetes mellitus with hyperglycemia, with long-term current use of insulin E11.65; Z79.4 Diabetes mellitus predatory animal exterminator insulin use: with shelter use Time Spent (min) 30
[2024-06-30 13:00] VITALS: BMI 30.5
[2024-07-09 13:14] VITALS: BMI 30.4
== END 2024-06-30 13:23 | disposition home or self-care (01) ==
PROVIDERS: PCP Nurse Practitioner Family; Visit Provider Dietitian, Registered
DX: E11.65 Type 2 diabetes mellitus with hyperglycemia (principal); Z79.4 Long term (current) use of insulin

== ENCOUNTER → 2024-06-30 12:40 | Outpatient (BNVA) | payer OTHER, SELFPAY | PROVIDERS: PCP Nurse Practitioner Family; Visit Provider Dietitian, Registered | DX: E11.65 Type 2 diabetes mellitus with hyperglycemia (principal); Z71.3 Dietary counseling and surveillance; Z79.4 Long term (current) use of insulin | CPT/HCPCS: 97802 ==

== ENCOUNTER 2024-07-14 10:29 | Outpatient (AMB) | payer OTHER, SELFPAY ==
--- NOTE | 2024-07-14 10:31 | A.OFFVIS_ITS ---
Vital Signs 07/14/24 10:33 Height 5 ft 7 in Weight 194 lb 0.108 oz BMI 30.4 BP 120/80 Blood Pressure Location Rt brachial Position Sitting Pulse 83 Pulse Source Pulse Oximeter Intake Visit Reasons: T2DM with hyperglycemia/CONF Intake Note: Patient presents today for a follow-up for Type 2 Diabetes Mellitus: Last Diabetic eye exam was on: 05/12/2024, has Glaucoma Last Podiatry exam was on: Does not see a Travel Insurance Agent Most recent HbA1c: 9.3%, 05/22/2024 Random Glucose- 143 mg/dL, Today It Application Administrator Required: No Accompanied by: Self / Same As Patient Allergies NSAIDS (Non-Steroidal Anti-Inflamma Allergy (Mild, Verified 07/14/24 10:32) thins lining of stomach with GERD. HPI Comments Details: This is a 43-year-old male with a past medical history of type 2 diabetes, glaucoma, coronary artery disease, alcohol abuse, dyslipidemia, hypertension and glaucoma presenting for diabetic management. He was diagnosed with Type II diabetes at age 28. His sister from diabetes in 2008. He has a family history of diabetes on his mother's and father's side of the [facility]. Hemoglobin a1c 9.3%05/20/24. 12.4% July 2023. Current medication regimen: Jardiance to 25 mg once daily. Lantus 45 units daily. Novolog 19 units 10 minutes before meals. Metformin 1000 mg twice daily Ozempic 0.25 mg weekly (Patient has taken 2 doses and denies side effects) Compliance: Good since last appointment. He started using a CGM 4 days ago. Initial 1 hour and gave false low readings, but it has been fine since then. Reviewed phone data: 73% Target range 24% Hyperglycemia Diet: Seen by medical corps officer Reviewed at initial visit: Breakfast- makes ham, egg and cheese on sami muffin and sweet and low in 1/2 cup of coffee Stops at [employer] on the way to work and gets 2 orders or hashbrowns with cheese and mir, and 2 mir egg and cheese wraps Lunch-Small pizza and water or coffee Dinner- I an Romansh. Shrimp or chicken with pasta or white rice and mashed potato. Sometimes takeout. Snacks/desserts: Not anymore. Drinks regular coke and OJ. Quit smoking last year. Consumes 1/2 pint [place] 2-3 times per week. He has cut back since his heart attack. Denies withdrawal symptoms when he does not consume alcohol. Hypoglycemia symptoms: Shaky, weak, hungry Hyperglycemia symptoms: Polydipsia, polyuria Eye exam: He has glacoma, and surgery is recommended by [facility]. He is seeking a second opinion. Microvascular complications: neuropathy, nephropathy (microalbuminuria) Macrovascular complications: CAD (LA s/p stent 05/2024) Hypertension: treated with lisinopril 5 mg, metoprolol tartrate 75 mg twice a day Hyperlipidemia: treated with atorvastatin 80 mg and Zetia 10 mg. LDL at goal <100. ROS: Constitutional: No unexplained weight loss, fever, chills. Respiratory: No shortness of breath Cardiovascular: No chest pain, chest pressure or chest discomfort. No palpitations or pedal edema. Gastrointestinal: No anorexia, nausea, vomiting or diarrhea. No abdominal pain Genitourinary: No dysuria, hematuria, urinary frequency. Neurologic: No headache, dizziness, syncope Endocrine: No cold or heat intolerance. Physical exam: Constitutional: Alert, in no distress. Eyes: Pupils are equal, round and reactive to light. Extraocular muscles intact. Neck: Supple, Full range of motion. No lymphadenopathy. No palpable thyroid masses. Respiratory: Clear to auscultation. Cardiovascular: S1 S2 regular. No murmurs. [facility] Medical History Type 2 diabetes mellitus with hyperglycemia Atherosclerotic cardiovascular disease Thigh abscess Pigmentary glaucoma of both eyes Encounter for physical examination Abdominal pain Diabetes mellitus Glaucoma Diverticulosis Surgical History Hx of cardiac cath H/O colonoscopy S/P LASIK surgery History of circumcision Family History Father HTN (hypertension) Diabetes mellitus Mother HTN (hypertension) Diabetes mellitus Heart murmur Brother No problems noted. Brother No problems noted. Brother No problems noted. Sister Lupus Sister No problems noted. Sister No problems noted. Sister No problems noted. Son No problems noted. Daughter No problems noted. Social History Household Members: Spouse and Family Household Members Other:: 2 Housing: Apartment Do you presently have visiting nurse or other home services: No Alcohol intake: current Alcohol intake frequency: a few times a month Alcohol type: hard liquor Patient Tobacco Use Status: Former Tobacco user Tobacco use type: Cigarette Cigarette Packs Per Day: 1 Cigarettes Per Day: 20.0 Years Smoked: 5 e-Cigarette/Vaping Use: Never Used Second Hand Smoke Exposure: No Substance Use Type: Marijuana service: No Current occupational status: employed Current occupation: [employer] Current occupational exposures/hazards: No Cognitive needs: No Hearing needs: No Vision needs: No Physical Exam Vital Signs: Last Vital Signs Pulse 83 07/14/24 10:33 BP 120/80 07/14/24 10:33 BMI result Body Mass Index 30.4 Results Reviewed Results Reviewed: Laboratory Last Values Glucose (Clinic) 143 mg/dL (60-115) H 07/14/24 10:35 Laboratory Tests 01/21/23 08/15/23 11/30/23 09:01 14:49 08:06 Creatinine Estimated GFR Hgb A1c (Clinic) 12.4 H Triglycerides 197 H Cholesterol 94 LDL Cholesterol Direct 27 LDL Cholesterol, Calc 17 HDL Cholesterol 38 L Urine Creatinine 71.06 Urine Microalbumin 51.0 Microalb/Creat Ratio 71.7 02/29/24 11:19 Creatinine 1.05 Estimated GFR > 60 Hgb A1c (Clinic) Triglycerides Cholesterol LDL Cholesterol Direct LDL Cholesterol, Calc HDL Cholesterol Urine Creatinine Urine Microalbumin Microalb/Creat Ratio Assessment & Plan Assessment & Plan (1) Type 2 diabetes mellitus with hyperglycemia: Code(s): E11.65 - Type 2 diabetes mellitus with hyperglycemia Category: Medical Qualifiers: Diabetes mellitus chcf insulin use: with equipment operator intermodal yard use Qualified Code(s): E11.65 - Type 2 diabetes mellitus with hyperglycemia; Z79.4 - correction (current) use of insulin Plan: In summary this is a 43-year-old male on basal bolus insulin, Jardiance, Metformin and Ozempic. Discussed pathophysiology of Type II Diabetes Mellitus with the patient in detail.? I explained the chcf risks and complications associated with uncontrolled diabetes including nephropathy, neuropathy, peripheral vascular disease, retinopathy, increased risk of heart disease and stroke.? Discussed lifestyle modification with the patient. Recommended 30 minutes of moderately vigorous exercise 5 days per week to promote weight loss. Discussed The Right BMI shanelle and given information on this. He will consider it. Medication plan reviewed with patient: Jardiance to 25 mg once daily. Lantus 45 units daily. Novolog 19 units 10 minutes before meals. Metformin 1000 mg twice daily Ozempic 0.25 mg weekly-Take another 2 doses of this. Then increase to 0.5 mg weekly, and when you start 0.5 mg, decrease Novolog 16 units before meals. He has glucose tablets, and we reviewed treatment of hypo and hyperglycemia. He will have labs completed in July because he has a pre-op scheduled then. Follow up in 5 weeks for type 2 diabetes. Plan Follow up in 5 weeks for Type II Diabetes. Orders: Orders Creatinine Today E11.65 - Type 2 diabetes mellitus with hyperglycemia, Z79.4 - salvage determiner (current) use of insulin Microalbumin, Random (w Creat) Today E11.65 - Type 2 diabetes mellitus with hyperglycemia, Z79.4 - salvage determiner (current) use of insulin B Type Natriuretic Peptide Today E11.65 - Type 2 diabetes mellitus with hyperglycemia, E11.9 - Type 2 diabetes mellitus without complications, Z79.4 - correction (current) use of insulin Medications: New semaglutide (Ozempic) 0.5 mg (0.736 mL) subcut QWEEK 3 mL 0RF Discontinued semaglutide (Ozempic) for 4 weeks Discontinued Reason: Doctor's Order 0.25 mg (0.368 mL) subcut QWEEK 3 mL 0RF Patient Instructions: therGet [email or web address] (handout given) Reminders: Watch all video tutorials, read all text messages and click on any features hidden messages to understand the shanelle better. Accurately enter your weight in pounds and height in feet and inches. Accurately?select what time you wake up and sleep and be careful to select am/pm properly. Save your username and password somewhere. The shanelle meets all HIPAA requirements. You must select shakes or bars or both and in the following?pages a specific brand. If you don't select a brand, the plan won't be accurate. You can use a regular?scale but buying the $23 Bluetooth Renpho scale from [employer] is recommended. For any issues you can hit technical support. If you take anti-diabetic and/or anti-hypertensive medications you must monitor blood sugars and blood pressure and alert the office if blood sugars are below 90 and blood pressures are below 110/60 so we can adjust medications if appr opriate. The shanelle will send you automatic?reminders to do that if you enter in the shanelle that you have diabetes and/or hypertension and take medications for these conditions. Your medication regimen: Jardiance to 25 mg once daily. Lantus 45 units daily. Novolog 19 units 10 minutes before meals. Metformin 1000 mg twice daily Ozempic 0.25 mg weekly-Take another 2 doses of this. Then increase to 0.5 mg weekly, and when you start 0.5 mg, decrease Novolog 16 units before meals. Coding Level of Care Code Est Pt Level 4 (15728) Complex EM visit Add On G2211 Diagnoses Type 2 diabetes mellitus with hyperglycemia, with long-term current use of insulin E11.65; Z79.4 Diabetes mellitus chcf insulin use: with equipment operator intermodal yard use Comment
[2024-07-14 10:33] VITALS: BP 120/80; PULSE 83; BMI 30.4
[2024-07-14 10:40] LABS: Glucose, Whole Blood 143 mg/dL (60-115)
== END 2024-07-14 11:14 | disposition home or self-care (01) ==
PROVIDERS: PCP Nurse Practitioner Family; Visit Provider Physician Assistant Medical
DX: E11.65 Type 2 diabetes mellitus with hyperglycemia (principal); Z79.4 Long term (current) use of insulin

== ENCOUNTER → 2024-07-14 10:29 | Outpatient (BNVA) | payer OTHER, SELFPAY | PROVIDERS: PCP Nurse Practitioner Family; Visit Provider Physician Assistant Medical | DX: E11.65 Type 2 diabetes mellitus with hyperglycemia (principal); Z79.4 Long term (current) use of insulin; Z79.84 Long term (current) use of oral hypoglycemic drugs | CPT/HCPCS: 82947; 99212 ==

== ENCOUNTER 2024-09-14 08:03 | Outpatient (REF) | payer OTHER, SELFPAY ==
--- OUTSIDE RECORDS SUMMARY | 2024-09-14 08:29 | XMS_ITS | Clinical Summary ---
Author Organization [facility] Address [address] [place] [address] Care Team Providers Care Stone Carriage Operator Name Role Phone MaryJayro dahl Kunal BOWEN [...] CATHETERIZATION; Surgeon: Virgil Taylor DO; Location: [facility] CARDIAC MILITARY SOURCE OPERATIONS SPECIALIST; Service: Cardiology; Laterality: N/A; Social History Tobacco [...] this topic Medical Devices Implanted Type Area Electronic Scale Tester Device Identifier Shelf Expiration Date Model / Serial / Lot Stent Xience Rapid Xchng 3x23mm [facility] [id number] Implanted:Qty: 1 on 06/24/2023 [employer] NELLY [id number] / / Care Teams Stone Carriage Operator Relationship Specialty Start Date End Date Jayro Dougherty NP 262 [facility] JAY Chamberlain PCP - General 08/16/23
--- OUTSIDE RECORDS SUMMARY | 2024-09-14 08:29 | XMS_ITS | Clinical Summary ---
Author Organization [facility] Address [address] [place] [address] Care Team Providers Care Associate Relations Specialist Name Role Phone Unavailable Primary Care Provider [...] mg total) by mouth daily. 0 Active [place]-3 1000 MG CAPS Take 1 g by [...] this topic Medical Devices Implanted Type Area Land Department Head Device Identifier Shelf Expiration Date Model / Serial / Lot Stent Xience Rapid Xchng 3x23mm Abbt-Vas [id number] - [id number] Implanted:Qty: 1 on 06/24/2023 at [facility] and [facility] [employer] [place] [id number] / / Advance Directives For more information, please contact: [phone] Latest Code Status on File Code Status [...]
[2024-09-14 11:32] LABS: Adenovirus PCR Not Detected (Not Detect.); Bordetella parapertussis PCR Not Detected (Not Detect.); Bordetella pertussis PCR Not Detected (Not Detect.); Chlamydia pneumoniae PCR Not Detected (Not Detect.); Coronavirus 229E PCR Not Detected (Not Detect.); Coronavirus HKU1 PCR Not Detected (Not Detect.); Coronavirus NL63 PCR Not Detected (Not Detect.); Coronavirus OC43 PCR Not Detected (Not Detect.); Human metapneumovirus PCR Not Detected (Not Detect.); Influenza B PCR Not Detected (Not Detect.); Mycoplasma pneumoniae PCR Not Detected (Not Detect.); Parainfluenza 1 PCR Not Detected (Not Detect.); Parainfluenza 2 PCR Not Detected (Not Detect.); Parainfluenza 3 PCR Not Detected (Not Detect.); Parainfluenza 4 PCR Not Detected (Not Detect.); RSV PCR Not Detected (Not Detect.); Rhino/Enterovirus PCR Not Detected (Not Detect.)
[2024-09-14 11:35] LABS: Influenza A PCR Detected (Not Detect.); SARS-CoV-2 PCR Not Detected (Not Detect.)
== END 2024-09-14 08:04 | disposition home or self-care (01) ==
LOC: HO.LAB 08:03
PROVIDERS: Physician Assistant; PCP Nurse Practitioner Family
DX: J06.9 Acute upper respiratory infection, unspecified (principal); J98.8 Other specified respiratory disorders; B97.89 Other viral agents as the cause of diseases classified elsewhere
CPT/HCPCS: 87633; 99212

== ENCOUNTER 2024-09-14 08:03 | Outpatient (AMB) | payer OTHER, SELFPAY ==
--- OUTSIDE RECORDS SUMMARY | 2024-09-14 08:05 | XMS_ITS | Clinical Summary ---
Author Organization [facility] Address [address] [place] [address] Care Team Providers Care Time Recorder Name Role Phone MaryJayro dahl Kunal BOWEN Primary Care Provider Medications insulin glargine (LANTUS SoloStar) 100 unit/mL (3 mL) injection pen Inject 20 Units under the skin daily. 15 mL 11 06/26/2023 Active metFORMIN (GLUCOPHAGE) 1,000 mg tablet Take 1 tablet (1,000 mg total) by mouth 2 (two) times a day with meals. 60 tablet 2 06/26/2023 Active atorvastatin (LIPITOR) 80 mg tablet Take 1 tablets (80 mg total) by mouth daily. 30 tablet 2 06/26/2023 Active metoprolol tartrate (LOPRESSOR) 25 mg tablet Take 1 tablet (25 mg total) by mouth 2 (two) times a day. 60 tablet 2 06/26/2023 Active Surgical History Surgery Date Site/Laterality Comments CARDIAC CATHETERIZATION 06/24/2023 N/A PROCEDURE:CARDIAC CATHETERIZATION;COMMENT:Procedure: LEFT HEART CATHETERIZATION; Surgeon: Virgil Taylor DO; Location: [facility] CARDIAC ALL PURPOSE CLERK; Service: Cardiology; Laterality: N/A; Social History Tobacco Use Types Packs/Day Years Used Date Smoking Tobacco: Never Assessed Sex and Gender Information Value Date Recorded Sex Assigned at Not on file Legal Sex Male 8:45 PM EST Gender Identity Not on file Sexual Orientation Not on file Obstetrics History Plan of Treatment Health Maintenance Due Date Last Done Comments DTaP,Tdap,and Td Vaccines (1 - Tdap) 2000 Hepatitis B Vaccines (1 of 3 - 19+ 3-dose series) 2000 Depression Screening 08/23/2023 HIV Screening 08/23/2023 Hepatitis C Screening 08/23/2023 Social Influencers of Health Screening 08/23/2023 COVID-19 Vaccine ( - 2023-2 5 season) 2024 Influenza Vaccine (#1) 2024 Cholesterol Screening (Lipid Panel) 06/26/2028 06/26/2023 HIB Vaccines Aged Out No longer eligi ble based on patient's age to complete this topic HPV Vaccines Aged Out No longer eligi ble based on patient's age to complete this topic Hepatitis A Vaccines Aged Out No long er eligible based on patient's age to complete this topic IPV Vaccines Aged Out No longer eligi ble based on patient's age to complete this topic MMR Vaccines Aged Out No longer eligi ble based on patient's age to complete this topic Meningococcal ACWY Vaccine Aged Out N o longer eligible based on patient's age to complete this topic Meningococcal B Vacine Aged Out No lo nger eligible based on patient's age to complete this topic Pneumococcal Vaccine: Pediat rics (0 to 5 Years) and At-Risk Patients (6 to 64 Years) Aged Out No longer eligi ble based on patient's age to complete this topic RSV Immunization Patients Un konrad 20 months Aged Out No longer eligible b ased on patient's age to complete this topic Varicella Vaccines Aged Out No longer eligible based on patient's age to complete this topic Medical Devices Implanted Type Area Black Ash Worker Device Identifier Shelf Expiration Date Model / Serial / Lot Stent Xience Rapid Xchng 3x23mm [facility] [id number] Implanted:Qty: 1 on 06/24/2023 [employer] NELLY 180 [id number] / / Care Teams Time Recorder Relationship Specialty Start Date End Date Jayro Dougherty NP [address] [facility] JAY Chamberlain PCP - General 08/16/23
--- OUTSIDE RECORDS SUMMARY | 2024-09-14 08:05 | XMS_ITS | Clinical Summary ---
Author Organization [facility] Address [address] [place] [address] Care Team Providers Care Nanoscience Technician Name Role Phone Unavailable Primary Care Provider Unavailabl e Allergies No known active allergies Medications Medication Sig Dispensed Refills Start Date End Date Status lisinopril (PRINIVIL,ZESTRIL) tablet 5 mg Take 1 tablet (5 mg total) by mouth daily. 0 Active brimonidine (ALPHAGAN) 0.2 % ophthalmic solution Place 1 drop into both eyes 3 (three) times a day. 0 Active latanoprost (XALATAN) 0.005 % ophthalmic solution Place 1 drop into both eyes every night at bedtime. 0 Active timolol (TIMOPTIC) 0.5 % ophthalmic solution Place 1 drop into both eyes 2 (two) times a day. 0 Active buPROPion (WELLBUTRIN SR) 150 MG 12 hr tablet Take 1 tablet (150 mg total) by mouth 2 (two) times a day. 0 Active sertraline (ZOLOFT) 50 MG tablet Take 1 tablet (50 mg total) by mouth daily. 0 Active omeprazole (PriLOSEC) 40 MG capsule Take 1 capsule (40 mg total) by mouth daily. 0 Active Netarsudil Dimesylate (Rhopressa) 0.02 % SOLN Place 1 drop into both eyes every night at bedtime. 0 Active insulin lispro (HumaLOG) injection 100 units/mL Inject under the skin 3 (three) times a day before meals. 0 Active sertraline (ZOLOFT) 25 MG tablet Take 1 tablet (25 mg total) by mouth daily. 0 Active [place]-3 1000 MG CAPS Take 1 g by mouth 2 (two) times a day. 0 Active metoprolol tartrate (LOPRESSOR) 25 MG tablet Take 1 tablet (25 mg total) by mouth 2 (two) times a day. 60 tablet 2 06/26/2023 Active metFORMIN (GLUCOPHAGE) tablet 1000 mg Take 1 tablet (1,000 mg total) by mouth 2 (two) times a day with meals. 60 tablet 2 06/26/2023 Active aspirin 81 MG EC tablet Take 1 tablet (81 mg total) by mouth daily. 30 tablet 2 06/27/2023 Active atorvastatin (LIPITOR) tablet 40 mg Take 2 tablets (80 mg total) by mouth daily. 30 tablet 2 06/26/2023 Active acetaminophen (TYLENOL) 325 MG tablet Take 2 tablets (650 mg total) by mouth every 6 (six) hours as needed for pain for up to 30 doses. 30 tablet 0 09/23/2023 Active Active Problems Problem Noted Date Diagnosed Date STEMI (ST elevation myocardial infarction) 06/24 Social History Tobacco Use Types Packs/Day Years Used Date Smoking Tobacco: Never Assessed Sex and Gender Information Value Date Recorded Sex Assigned at Male 06/24/2023 3:04 AM EST Gender Identity Not on file Sexual Orientation Not on file Job Start Date Occupation Industry Not on file Not on file Not on file Last Filed Vital Signs Vital Sign Reading Time Taken Comments Blood Pressure 139/95 11/10/2023 6:14 AM EDT Pulse 91 11/10/2023 6:14 AM EDT Temperature 36.7 ??C (98 ??F) 11/10/2023 6:14 AM EDT Respiratory Rate 16 11/10/2023 6:14 AM EDT Oxygen Saturation 99% 11/10/2023 6:14 AM EDT Inhaled Oxygen Concentration - - Weight 81.6 kg (180 lb) 11/10/2023 6:14 AM EDT Height 170.2 cm (5' 7 ) 11/10/2023 6:14 AM EDT Body Mass Index 28.19 11/10/2023 6:14 AM EDT Plan of Treatment Health Maintenance Due Date Last Done Comments Hepatitis B Vaccines (1 of 3 - 3-dose series) 1981 Hepatitis C Screening 1981 COVID-19 Vaccine (#1) 03/19/1982 Depression Screening 1993 BMI Counseling 1999 Preventative Health Evaluation 1999 Influenza Vaccine (#1) 2024 DTap / Tdap / Td (2 - Td or Tdap) 06/19/2032 022 Pneumococcal Vaccine Aged Out No long er eligible based on patient's age to complete this topic RSV Ped < 20 months Aged Out No longe r eligible based on patient's age to complete this topic Medical Devices Implanted Type Area Inserting Operator Device Identifier Shelf Expiration Date Model / Serial / Lot Stent Xience Rapid Xchng 3x23mm [employer] [id number] - [id number] Implanted:Qty: 1 on 06/24/2023 at [facility] [employer] [place] [id number] / / Advance Directives For more information, please contact: [phone] Latest Code Status on File Code Status Date Activated Date Inactivated Comments Full Code 06/24/2023 4:41 AM 06/26/2023 8:55 PM Thi s code status was ascertained in the following way: discussion with patient . Code Status History Code Status Date Activated Date Inactivated Comments Full Code 06/24/2023 4:10 AM 06/24/2023 4:41 AM Thi s code status was ascertained in the following way: discussion with patient .
--- NOTE | 2024-09-14 08:17 | AM.OFFWIN_ITS ---
Intake Vital Signs 09/14/24 08:18 Weight 188 lb BP 120/78 Blood Pressure Location Rt brachial Position Sitting Pulse 88 Pulse Source Pulse Oximeter Temp 98.3 F Temp Source Oral Pulse Oximetry (%) 99 Oxygen Delivery Method Room Air Intake Visit Reasons: EP cough, blood in phlegm Intake Note: Patient here for fever,chills,cough and chest pain w/cough, vomiting and diarrhea that has been present for about 3 weeks. Patient Tobacco Use Status: Former Tobacco user Allergies NSAIDS (Non-Steroidal Anti-Inflamma Allergy (Mild, Verified 09/14/24 08:19) thins lining of stomach with GERD. Do you need a note to return to daycare/school/sports/work: Yes HPI HPI Comments History of Present Illness Details History - The patient is a 43-year-old male pres enting with persistent respiratory and gastrointestinal symptoms. - Fever up to 103?F with respiratory and gastrointestinal symptoms persisting for three to four weeks. - The cough is associated with throat an d chest sensations and occasional minor hemoptysis. - Accompanying symptoms include chills, unexplained sweating, nausea with vomiting related to intake, diarrhea, and generalized malaise. No bloody or black diarrhea. - Past medical history includes a myocar dial infarction in 2022 and a history of asthma considered resolved. - The patient quit smoking immediately f ollowing the myocardial infarction in May 2023. - His cohabitants, and stepdaughter , are experiencing similar symptoms. - Prior self-medication with DayQuil and NyQuil noted. Physical Exam General: Cooperative, healthy appearing, comfortable and no acute distress Orientation/consciousness: Patient oriented x3 Limitations: No limitations Head: Normal to inspection Ears: Hearing grossly normal bilaterally, external ears normal and TM's normal bilaterally Nose: Normal external nose present, Normal nares present and No nasal discharge present Face and sinus: Normal facial exam and Yes sinuses tender Mouth: Normal oral and palatal mucosa present and moist mucous membranes Throat: Yes tonsils normal, Yes uvula midline. Posterior oropharynx erythema Eyes: Appearance normal, both eyes and all related structures Neck: Normal visual inspection Respiratory: dim throughout. Normal respiratory effort, able to speak in complete sentences, Actively coughing, no respiratory distress, not tachypneic, no tripod positioning and no use of accessory muscles Cardiovascular: Regular rate and rhythm. Normal S1 and S2 Skin: No rashes or lesions noted Neuro: Patient oriented x3 Extremities: Normal to inspection and Yes no clubbing, cyanosis or edema PFSH Medical History Type 2 diabetes mellitus with hyperglycemia Atherosclerotic cardiovascular disease Thigh abscess Pigmentary glaucoma of both eyes Encounter for physical examination Abdominal pain Diabetes mellitus Glaucoma Diverticulosis Surgical History Hx of cardiac cath H/O colonoscopy S/P LASIK surgery History of circumcision Family History Father HTN (hypertension) Diabetes mellitus Mother HTN (hypertension) Diabetes mellitus Heart murmur Brother No problems noted. Brother No problems noted. Brother No problems noted. Sister Lupus Sister No problems noted. Sister No problems noted. Sister No problems noted. Son No problems noted. Daughter No problems noted. 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 Current occupational exposures/hazards: No Cognitive needs: No Hearing needs: No Vision needs: No Review of Systems Const All systems reviewed & are unremarkable except as noted in HPI and below Physical Exam Vital Signs: Last Vital Signs Temp 98.3 F 09/14/24 08:18 Pulse 88 09/14/24 08:18 BP 120/78 09/14/24 08:18 Pulse Ox 99 09/14/24 08:18 Oxygen Delivery Method Room Air 09/14/24 08:18 Assessment & Plan Assessment & Plan (1) Viral respiratory infection: Code(s): J98.8 - Other specified respiratory disorders; B97.89 - Other viral agents as the cause of diseases classified elsewhere Plan: Plan The patient is to undergo immediate chest x-ray testing to rule out pneumonia, accompanied by a viral panel to check for possible pathogens causing the sympto ms, including walking pneumonia. The patient is prescribed a 5-day course of prednisone at 40 mg daily to alleviate tightness in the lungs and manage inflammation. Continuation of supportive care with salt-water gargles, honey with hot tea, and ibuprofen for symptomatic relief is recommended, with avoidance of excessive use of eldz-yxm-[id number] medications like DayQuil and NyQuil. A work leave note has been provided to facilitate rest during recovery. Further interventions, such as antibiotics, will depend on the outcomes of the diagnostic tests, with prompt communication to the patient regarding these results and the necessary treatment adjustments based on findings from the chest x-ray and viral panel. Patient was informed and verbally consented to the use of an ambient scribe for clinic note documentation during this visit Orders: Orders Resp Pathogen Panel - [facility] Today J06.9 - Acute upper respiratory infection, unspecified XR chest 2V Today R05.9 - Cough, unspecified Medications: New prednisone 40 mg (2 x 20 mg) PO DAILY 10 tabs 0RF Coding Level of Care Code Est Pt Level 4 (88547) Diagnoses Viral respiratory infection J98.8; B97.89
[2024-09-14 08:18] VITALS: BP 120/78; PULSE 88; TEMP 36.8; O2SAT 99
== END 2024-09-14 08:41 | disposition home or self-care (01) ==
PROVIDERS: PCP Nurse Practitioner Family; Visit Provider Physician Assistant
DX: J98.8 Other specified respiratory disorders (principal); B97.89 Other viral agents as the cause of diseases classified elsewhere

== ENCOUNTER 2024-09-14 08:36 | Outpatient (REF) | payer OTHER, SELFPAY ==
--- NOTE | ~2024-09-14 | XR_ITS ---
CLINICAL HISTORY: R05.9 - Cough, unspecified Chest radiographs, 2 views Comparison: None Findings: The cardiomediastinal silhouette is not enlarged. Pulmonary vascularity is unremarkable. Right midlung airspace opacities. Lungs are otherwise clear. No pleural effusion. No pneumothorax. IMPRESSION: Right midlung airspace disease. This document has been electronically signed by: Melvin Boss DO on 09/14/2024 09:49:04
== END 2024-09-14 08:37 | disposition home or self-care (01) ==
LOC: HO.HMGCX 08:36
PROVIDERS: PCP Nurse Practitioner Family; Visit Provider Physician Assistant
DX: R05.9 Cough, unspecified (principal)
CPT/HCPCS: 71046

== ENCOUNTER → 2024-09-14 09:13 | Outpatient (BNV) | payer OTHER, SELFPAY | PROVIDERS: PCP Nurse Practitioner Family; Visit Provider Radiology Diagnostic Radiology | DX: R05.9 Cough, unspecified (principal) | CPT/HCPCS: 71046 ==

== ENCOUNTER 2024-10-13 10:04 | Outpatient (AMB) | payer OTHER, SELFPAY ==
[2024-10-13 10:14] VITALS: BP 114/78; PULSE 91; BMI 28.7
--- NOTE | 2024-10-13 10:14 | MHC.OFFVIS ---
Vital Signs 10/13/24 10:14 Height 5 ft 7 in Weight 182 lb 15.739 oz BMI 28.7 BP 114/78 Blood Pressure Location Rt brachial Position Sitting Pulse 91 Pulse Source Pulse Oximeter Intake Visit Reasons: 6 mthf/up Solar Sales Estimator Required: No Allergies NSAIDS (Non-Steroidal Anti-Inflamma Allergy (Mild, Verified 10/13/24 10:17) thins lining of stomach with GERD. Medication List - Last Reconciled 10/13/24 by KEITH Nguyễn aspirin 81 mg PO DAILY atorvastatin 80 mg PO DAILY blood sugar diagnostic (FreeStyle Lite Strips) As directed to check blood glucose 5 times daily blood-glucose meter (FreeStyle Lite Meter kit) As directed to test blood glucose 5 times daily blood-glucose meter,continuous (Dexcom G7 Hand Router Operator) Use as directed to monitor blood glucose continuously. blood-glucose sensor (Dexcom G7 Sensor device) apply new sensor every 10 days as directed brimonidine 0.2% 1 drp ophthalmic (eye) TID empagliflozin (Jardiance) 25 mg PO DAILY ezetimibe 10 mg PO DAILY glucose (Dex4 Glucose) 16 grams (4 x 4 gram) PO Q15M PRN insulin glargine (Lantus Solostar U-100 Insulin) 45 units (0.45 mL) subcut QPM lancets (FreeStyle Lancets) Use to monitor blood glucose 5 times daily. latanoprost 0.005% 1 drp ophthalmic (eye) BEDTIME lisinopril 5 mg PO DAILY 90 days metformin 1,000 mg PO BID metoprolol tartrate 75 mg (1.5 x 50 mg) PO BID 90 days netarsudil 0.02% (Rhopressa) 1 drp ophthalmic (eye) DAILY Novolog FlexPen U-100 Insulin (insulin aspart U-100) Per sliding scale subcutaneously 3 times a day; Administer 10 minutes before meals. MDD 75 units NS omega-3 acid ethyl esters 1 cap PO BID omeprazole 40 mg PO DAILY 90 days pen needle, diabetic (BD Ultra-Fine Mini Pen Needle) QID semaglutide (Ozempic) 0.5 mg (0.736 mL) subcut QWEEK timolol maleate 0.5% 1 drp ophthalmic (eye) BID HPI HPI 6 mthf/up: Details: Radha is a 44-year-old male with past medical history of diabetes, hypertension, hyperlipidemia, prior smoking, prior daily alcohol use, inferior STEMI 05/2023 with left circumflex PCI who presents for follow-up. Today he reports he has been doing well with no concerning symptoms. Since last visit in February he quit drinking alcohol completely. He denies chest discomfort at rest or with activity. No shortness of breath, PND, orthopnea, edema. He has no lightheadedness, presyncope, syncope, falls. Taking all meds as directed. He uses marijuana edibles periodically. He has not been exercising routinely but plans to start. [facility] Medical History Type 2 diabetes mellitus with hyperglycemia Atherosclerotic cardiovascular disease Thigh abscess Pigmentary glaucoma of both eyes Encounter for physical examination Abdominal pain Diabetes mellitus Glaucoma Diverticulosis Surgical History Hx of cardiac cath H/O colonoscopy S/P LASIK surgery History of circumcision Family History Father HTN (hypertension) Diabetes mellitus Mother HTN (hypertension) Diabetes mellitus Heart murmur Brother No problems noted. Brother No problems noted. Brother No problems noted. Sister Lupus Sister No problems noted. Sister No problems noted. Sister No problems noted. Son No problems noted. Daughter No problems noted. Social History Household Members: Spouse and Family Household Members Other:: 2 Housing: Apartment Do you presently have visiting nurse or other home services: No Alcohol intake: current Alcohol intake frequency: a few times a month Alcohol type: hard liquor Patient Tobacco Use Status: Former Tobacco user Tobacco use type: Cigarette Cigarette Packs Per Day: 1 Cigarettes Per Day: 20.0 Years Smoked: 5 e-Cigarette/Vaping Use: Never Used Second Hand Smoke Exposure: No Substance Use Type: Marijuana service: No Current occupational status: employed Current occupation: [employer] Current occupational exposures/hazards: No Cognitive needs: No Hearing needs: No Vision needs: No Review of Systems Const All systems reviewed & are unremarkable except as noted in HPI and below ENT Denies dizziness Card Denies chest pain, Denies chest pain at rest, Denies chest pain with activity, Denies rapid heart rate, Denies pedal edema, Denies edema, Denies leg edema, Denies lightheadedness, Denies palpitations, Denies dyspnea, Denies dyspnea on exertion and Denies orthopnea Resp Denies cough, Denies dyspnea and Denies dyspnea on exertion GI Denies hematochezia and Denies change in stool character Musc Denies abnormal gait, Denies limited range of motion, Denies muscle cramps, Denies muscle weakness, Denies numbness, Denies radiating pain into limb, Denies stiffness and Denies tingling Neuro Denies abnormal gait, Denies dizziness, Denies numbness and Denies tingling Endo Denies palpitations Physical Exam Vital Signs: Last Vital Signs Pulse 91 10/13/24 10:14 BP 114/78 10/13/24 10:14 BMI result Body Mass Index 28.7 Const General: cooperative, healthy appearing, comfortable and no acute distress Orientation/consciousness: patient oriented x3 Neck Neck: Yes normal visual inspection and Yes no JVD Resp Effort & Inspection: normal respiratory effort Auscultation: clear to auscultation bilaterally, no crackles, no rales, no rhonchi and no wheezes Cardio Jugular venous distension: no JVD Rate: regular rate Rhythm: regular rhythm Heart sounds: S1 normal heart sound present, S2 normal heart sound present, no murmurs and no rubs Neuro General: patient oriented x3 Extrem General: Yes normal to inspection, No no pedal edema and No calf tenderness Psych Appearance: grossly normal Mental Status: mental status grossly normal Speech and movement: Normal speech and movement present Assessment & Plan Assessment & Plan (1) Atherosclerotic cardiovascular disease: Code(s): I25.10 - Atherosclerotic heart disease of [place] coronary artery without angina pectoris Category: Medical Plan: History of CAD, inferior lateral STEMI 05/2023 with thrombectomy to the left circumflex, [place] [facility] [place]. Other vessels showed lad mid 25% stenosis, RCA mid 30% stenosis. Discharge summary reviewed. Prior to going to [facility]orer [facility] notes indicate he did have VT with loss of consciousness requiring defibrillation. Post PCI echocardiogram showed EF 55-65%, normal RV systolic function. He has done well since that time. An echocardiogram was done on 11/06/2023 showing EF 55-60%, grade 1 diastolic dysfunction, no regional wall motion abnormality. He has remained asymptomatic. Will continue med management for stable CAD. Continue aspirin indefinitely. Continue metoprolol for good heart rate and blood pressure control. Continue atorvastatin and Zetia with ideal LDL goal less than 70. Signs and symptoms of angina reviewed. Cardiology follow-up 9 months, sooner if needed (2) H/O heart artery stent: Comment: Inferolateral STEMI, left circumflex 06/24/2023 Code(s): Z95.5 - Presence of coronary angioplasty implant and graft Category: Surgical (3) Hx of cardiac cath: Comment: 06/24/23 STEMI with thrombectomy to the left circumflex, stent [place] [facility] [place]. Other vessels showed lad mid 25% stenosis, RCA mid 30% stenosis. Code(s): Z98.890 - Other specified postprocedural states Category: Surgical (4) Dyslipidemia: Code(s): E78.5 - Hyperlipidemia, unspecified Category: Medical Plan: [place] LDL goal less than 70 in patient with diabetes and CAD. He is on high-dose atorvastatin and Zetia. Labs done 11/30/2023 showed LDL 17. Continue current med management. (5) Diabetes mellitus: Code(s): E11.9 - Type 2 diabetes mellitus without complications Category: Medical Plan: Uncontrolled diabetes. hemoglobin A1c 12.4, last year. Labs 05/22/2024 showed LDL 9.3. [place] hemoglobin A1c goal less than 7. Now following with endocrinology. (6) Alcohol abuse: Code(s): F10.10 - Alcohol abuse, uncomplicated Category: Social Hx Plan: He previously was drinking whiskey daily. He stopped all alcohol intake early June 2024. Applauded on this. (7) Sinus tachycardia: Code(s): R00.0 - Tachycardia, unspecified Category: Medical Plan: Prior reports of heart palpitations. EKG had shown sinus tachycardia. Holter monitor done 04/07/2024 for 3 days showed sinus rhythm with average heart rate 95, 38% of the time greater than 100. He states since that time his blood sugars have been better controlled and he stopped drinking whiskey. He is noticing less heart palpitations. Continue current metoprolol. Plan Time spent on chart review, documentation, interview, assessment Coding Level of Care Code Est Pt Level 4 (39593) Complex EM visit Add On G2211 Diagnoses Atherosclerotic cardiovascular disease I25.10 H/O heart artery stent Z95.5 Hx of cardiac cath Z98.890 Dyslipidemia E78.5 Diabetes mellitus E11.9 Alcohol abuse F10.10 Sinus tachycardia R00.0 Time Spent (min) 30
--- OUTSIDE RECORDS SUMMARY | 2024-10-13 11:30 | XMS_ITS | Clinical Summary ---
Author Organization [facility] Address [address] [place] [address] Care Team Providers Care Audio Technician Name Role Phone MaryJayro dahl Kunal BOWEN [...] HEART CATHETERIZATION; Surgeon: Virgil Taylor DO; Location: [facility] CARDIAC MAIL TELLER; Service: Cardiology; Laterality: N/A; Social History Tobacco [...] this topic Medical Devices Implanted Type Area Target Man Device Identifier Shelf Expiration Date Model / Serial / Lot Stent Xience Rapid Xchng 3x23mm [facility] [id number] Implanted:Qty: 1 on 06/24/2023 [facility] 180 [id number] / / Care Teams Audio Technician Relationship Specialty Start Date End Date Jayro Dougherty NP 262 [facility] JAY Chamberlain PCP - General 08/16/23
--- OUTSIDE RECORDS SUMMARY | 2024-10-13 11:30 | XMS_ITS | Clinical Summary ---
Author Organization [facility] Address [address] [place] [address] Care Team Providers Care Bung Driver Name Role Phone Unavailable Primary Care Provider [...] mg total) by mouth daily. 0 Active [place]-3 1000 MG CAPS Take 1 g by [...] this topic Medical Devices Implanted Type Area Put In Beat Adjuster Device Identifier Shelf Expiration Date Model / Serial / Lot Stent Xience Rapid Xchng 3x23mm Abbt-Vas [id number] - [id number] Implanted:Qty: 1 on [place]24[place]20[place] [facility] [place] [facility] [place] [id number] / / Advance Directives For more information, please contact: [phone] Latest Code Status on File Code Status [...]
== END 2024-10-13 10:53 | disposition home or self-care (01) ==
PROVIDERS: PCP Nurse Practitioner Family; Visit Provider Nurse Practitioner Family
DX: I25.10 Atherosclerotic heart disease of native coronary artery without angina pectoris (principal); Z95.5 Presence of coronary angioplasty implant and graft; Z98.890 Other specified postprocedural states; E78.5 Hyperlipidemia, unspecified; E11.9 Type 2 diabetes mellitus without complications; F10.10 Alcohol abuse, uncomplicated; R00.0 Tachycardia, unspecified
CPT/HCPCS: 99214; G2211

== ENCOUNTER → 2024-10-13 10:04 | Outpatient (BNVA) | payer OTHER, SELFPAY | PROVIDERS: PCP Nurse Practitioner Family; Visit Provider Nurse Practitioner Family | DX: I25.10 Atherosclerotic heart disease of native coronary artery without angina pectoris (principal); R00.0 Tachycardia, unspecified; E78.5 Hyperlipidemia, unspecified; E11.9 Type 2 diabetes mellitus without complications; F10.10 Alcohol abuse, uncomplicated; Z95.5 Presence of coronary angioplasty implant and graft; Z98.890 Other specified postprocedural states | CPT/HCPCS: 99212 ==

== ENCOUNTER 2024-11-06 08:44 | Outpatient (AMB) | payer OTHER, SELFPAY ==
--- NOTE | 2024-11-06 08:49 | A.OFFVIS_ITS ---
Vital Signs 11/06/24 08:52 Height 5 ft 7 in Weight 180 lb 1.883 oz BMI 28.2 BP 108/82 Blood Pressure Location Rt brachial Position Sitting Pulse 91 Pulse Source Pulse Oximeter Pulse Oximetry (%) 98 Oxygen Delivery Method Room Air Intake Visit Reasons: T2DM Intake Note: Patient present today to follow up on Type 2 Diabetes Mellitus. Last Diabetic Eye exam: 05/12/2024, has Glaucoma Last Podiatry Visit: Does not see a Foreign Diplomat Random Glucose: 166 mg/dl HgA1C: 10.2% 11/06/2024 Acid Cutter Required: No Accompanied by: Self / Same As Patient Allergies NSAIDS (Non-Steroidal Anti-Inflamma Allergy (Mild, Verified 11/06/24 08:52) thins lining of stomach with GERD. Medication List - Last Reconciled 11/06/24 by NADIRA Florence aspirin 81 mg PO DAILY atorvastatin 80 mg PO DAILY blood sugar diagnostic (FreeStyle Lite Strips) As directed to check blood glucose 5 times daily blood-glucose meter (FreeStyle Lite Meter kit) As directed to test blood glucose 5 times daily blood-glucose sensor (Dexcom G7 Sensor device) apply new sensor every 10 days as directed blood-glucose,sweatband drummer,cont (Dexcom G7 As400 Developer) Use as directed to monitor blood glucose continuously. brimonidine 0.2% 1 drp ophthalmic (eye) TID empagliflozin (Jardiance) 25 mg PO DAILY ezetimibe 10 mg PO DAILY glucose (Dex4 Glucose) 16 grams (4 x 4 gram) PO Q15M PRN insulin aspart U-100 (Novolog FlexPen U-100 Insulin aspart) Per sliding scale subcutaneously 3 times a day; Administer 14 minutes before meals. insulin glargine (Lantus Solostar U-100 Insulin) 45 units (0.45 mL) subcut QPM lancets (FreeStyle Lancets) Use to monitor blood glucose 5 times daily. latanoprost 0.005% 1 drp ophthalmic (eye) BEDTIME lisinopril 5 mg PO DAILY 90 days metformin 1,000 mg PO BID metoprolol tartrate 75 mg (1.5 x 50 mg) PO BID 90 days netarsudil 0.02% (Rhopressa) 1 drp ophthalmic (eye) DAILY omega-3 acid ethyl esters 1 cap PO BID omeprazole 40 mg PO DAILY 90 days pen needle, diabetic (BD Ultra-Fine Mini Pen Needle) QID semaglutide (Ozempic) 1 mg (0.75 mL) subcut QWEEK timolol maleate 0.5% 1 drp ophthalmic (eye) BID HPI Comments Details: This is a 44-year-old male with a past medical history of type 2 diabetes, glaucoma, coronary artery disease, alcohol abuse, dyslipidemia, hypertension and glaucoma presenting for diabetic management. He has had a rough last few months. His father in July after choking. The patient had influenza and pneumonia and was treated with antibiotics and steroids in August. He is going through a divorce. Patient says he is managing okay with the stress. Since his heart attack he has coped better with the stressors in his life. He was diagnosed with Type II diabetes at age 28. His sister from diabetes in 2008. He has a family history of diabetes on his mother's and father's side of the family. He forgot his glucometer today. He stopped using the Dexcom because it was giving him inaccurate readings. It would alarm him to a low glucose in the 50s, but his fingerstick glucose would be in the 90s. He declines trying the [place] 3+ instead of the Dexcom. Patient says he was having high sugars in July and August and early September, but he is getting back on track now. He reports the following blood sugars within the past month. Fasting sugars between 160-170 Postprandial sugars 150-170 Before bedtime sugars 120-140 He had 1 sugar over 250 in the last month when he ate something that was more sugary and carbohydrate heavy. He denies hypoglycemia within the past month. Hemoglobin A1c today 0411/25 is 10.2%. Current medication regimen: Jardiance to 25 mg once daily. Lantus 45 units daily. Novolog 19 units 10 minutes before meals. Metformin 1000 mg twice daily Ozempic 0.5 mg weekly Compliance: He struggled with compliance in July and August, but he is back on track. Diet: Patient saw the dietitian. Since I last saw him he stopped drinking alcohol completely. Hypoglycemia symptoms: Shaky, weak, hungry Hyperglycemia symptoms: Polydipsia, polyuria Eye exam: He has glaucoma, and surgery is recommended by [facility]. He is seeking a second opinion. Microvascular complications: neuropathy, nephropathy (microalbuminuria) Macrovascular complications: CAD ([place] s/p stent 05/2024) Hypertension: treated with lisinopril 5 mg, metoprolol tartrate 75 mg twice a day Hyperlipidemia: treated with atorvastatin 80 mg and Zetia 10 mg. ROS: Constitutional: No unexplained weight loss, fever, chills. Respiratory: No shortness of breath Cardiovascular: No chest pain, chest pressure or chest discomfort. No palpitations or pedal edema. Gastrointestinal: No anorexia, nausea, vomiting or diarrhea. No abdominal pain Genitourinary: No dysuria, hematuria, urinary frequency. Neurologic: No headache, dizziness, syncope. No numbness or tingling in extremities. Endocrine: No cold or heat intolerance. Skin: No wounds. Physical exam: Constitutional: Alert, in no distress. Eyes: Pupils are equal, round and reactive to light. Extraocular muscles intact. Neck: Supple, Full range of motion. No lymphadenopathy. No palpable thyroid masses. Respiratory: Clear to auscultation. Cardiovascular: S1 S2 regular. No murmurs. Feet: Declined exam. [facility] Medical History Type 2 diabetes mellitus with hyperglycemia Atherosclerotic cardiovascular disease Thigh abscess Pigmentary glaucoma of both eyes Encounter for physical examination Abdominal pain Diabetes mellitus Glaucoma Diverticulosis Surgical History Hx of cardiac cath H/O colonoscopy S/P LASIK surgery History of circumcision Family History Father HTN (hypertension) Diabetes mellitus Mother HTN (hypertension) Diabetes mellitus Heart murmur Brother No problems noted. Brother No problems noted. Brother No problems noted. Sister Lupus Sister No problems noted. Sister No problems noted. Sister No problems noted. Son No problems noted. Daughter No problems noted. Social History Household Members: Spouse and Family Household Members Other:: 2 Housing: Apartment Do you presently have visiting nurse or other home services: No Alcohol intake: current Alcohol intake frequency: a few times a month Alcohol type: hard liquor Patient Tobacco Use Status: Former Tobacco user Tobacco use type: Cigarette Cigarette Packs Per Day: 1 Cigarettes Per Day: 20.0 Years Smoked: 5 e-Cigarette/Vaping Use: Never Used Second Hand Smoke Exposure: No Substance Use Type: Marijuana service: No Current occupational status: employed Current occupation: [employer] Current occupational exposures/hazards: No Cognitive needs: No Hearing needs: No Vision needs: No Physical Exam Vital Signs: Last Vital Signs Pulse 91 11/06/24 08:52 BP 108/82 11/06/24 08:52 Pulse Ox 98 11/06/24 08:52 Oxygen Delivery Method Room Air 11/06/24 08:52 BMI result Body Mass Index 28.2 Results AMB Hemoglobin A1c AMB Hemoglobin A1c 10.2 % Last Edit by KATELYNN Gallegos on 11/06/24 09:15 Results Reviewed Results Reviewed: Laboratory Last Values Glucose (Clinic) 166 mg/dL (60-115) H 11/06/24 09:00 Laboratory Tests 01/21/23 08/15/23 11/30/23 09:01 14:49 08:06 Creatinine Estimated GFR Hgb A1c (Clinic) 12.4 H Triglycerides 197 H Cholesterol 94 LDL Cholesterol Direct 27 LDL Cholesterol, Calc 17 HDL Cholesterol 38 L Urine Creatinine 71.06 Urine Microalbumin 51.0 Microalb/Creat Ratio 71.7 02/29/24 11:19 Creatinine 1.05 Estimated GFR > 60 Hgb A1c (Clinic) Triglycerides Cholesterol LDL Cholesterol Direct LDL Cholesterol, Calc HDL Cholesterol Urine Creatinine Urine Microalbumin Microalb/Creat Ratio Assessment & Plan Assessment & Plan (1) Type 2 diabetes mellitus with hyperglycemia: Code(s): E11.65 - Type 2 diabetes mellitus with hyperglycemia Category: Medical Qualifiers: Diabetes mellitus operating room aide insulin use: with shelter use Qualified Code(s): E11.65 - Type 2 diabetes mellitus with hyperglycemia; Z79.4 - FPC (current) use of insulin Plan: In summary this is a 43-year-old male on basal bolus insulin, Jardiance, Metformin and Ozempic with uncontrolled type 2 diabetes. He did not have his glucometer with him today. Reported blood glucose readings within the past month have improved since July and August. He feels like he is back on track. Declines trial of another CGM. He will continue to use his glucometer. I instructed him to bring it with him to all appointments. Discussed pathophysiology of Type II Diabetes Mellitus with the patient in detail.? I explained the operating room aide risks and complications associated with uncontrolled diabetes including nephropathy, neuropathy, peripheral vascular disease, retinopathy, increased risk of heart disease and stroke.? Medication plan reviewed with patient: Jardiance to 25 mg once daily. Lantus 45 units daily. Novolog decrease to 14 units 10 minutes before meals. Metformin 1000 mg twice daily Ozempic increase to 1 mg weekly He has glucose tablets, and we reviewed treatment of hypo and hyperglycemia. Advised not to drive if he has symptoms of hypoglycemia or hyperglycemia or does not have a reliable way to check his blood sugar. He will have labs completed. Patient elects to follow up in 3 months rather than sooner follow up. Plan Patient elects to follow up in 3 months rather than sooner follow up. 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 15 mL 5RF MDD 75 units NS To insulin aspart U-100 (Novolog FlexPen U-100 Insulin aspart) Per sliding scale subcutaneously 3 times a day; Administer 14 minutes before meals. Discontinued semaglutide (Ozempic) Discontinued Reason: Doctor's Order 0.5 mg (0.736 mL) subcut QWEEK 3 mL 0RF Coding Level of Care Code Est Pt Level 4 (60277) Complex EM visit Add On G2211 Diagnoses Type 2 diabetes mellitus with hyperglycemia, with long-term current use of insulin E11.65; Z79.4 Diabetes mellitus operating room aide insulin use: with shelter use
[2024-11-06 08:52] VITALS: BP 108/82; PULSE 91; O2SAT 98; BMI 28.2
--- OUTSIDE RECORDS SUMMARY | 2024-11-06 08:53 | XMS_ITS | Clinical Summary ---
[facility] Address [address] [place] [address] Care Team Providers Care Test Consultant Name Role Phone MaryJayro dahl Kunal BOWEN Primary Care Provider [phone] Medications insulin glargine (LANTUS SoloStar) 100 unit/mL [...] HEART CATHETERIZATION; Surgeon: Virgil Taylor DO; Location: [facility] CARDIAC ELECTRONICS TESTER; Service: Cardiology; Laterality: N/A; Social History Tobacco [...] Influencers of Health Screening 08/23/2023 COVID-19 Vaccine (1 - 2023-2 5 season) 2024 Influenza Vaccine [...] age to complete this topic Meningococcal B Vaccine Aged Out No l onger eligible based on patient's age to complete [...] this topic Medical Devices Implanted Type Area Electric Melt Operator Device Identifier Shelf Expiration Date Model / Serial / Lot Stent Xience Rapid Xchng 3x23mm [facility] [id number] Implanted:Qty: 1 on 06/24/2023 [facility] NELLY [id number] / / Care Teams Test Consultant Relationship Specialty Start Date End Date Jayro Dougherty NP [address] [facility] JAY Chamberlain PCP - General 08/16/23
--- OUTSIDE RECORDS SUMMARY | 2024-11-06 08:53 | XMS_ITS | Clinical Summary ---
Author Organization [facility] Address [address] [place] [address] Care Team Providers Care Radiation Therapy Technician Name Role Phone Unavailable Primary Care [...] mg total) by mouth daily. 0 Active Timblin-3 1000 MG CAPS Take 1 g by [...] this topic Medical Devices Implanted Type Area First Assist Device Identifier Shelf Expiration Date Model / Serial / Lot Stent Xience Rapid Xchng 3x23mm Abbt-Vas [id number] - [id number] [place]planted:Q[place]: 1 [place] [facility] [place] [employer] [place] [id number] / / Advance Directives For more information, please contact: [phone] Latest Code Status on File Code Status [...]
[2024-11-06 09:05] LABS: Glucose, Whole Blood 166 mg/dL (60-115)
== END 2024-11-06 09:34 | disposition home or self-care (01) ==
LOC: HO.ENCR 08:45
PROVIDERS: PCP Nurse Practitioner Family; Visit Provider Physician Assistant Medical
DX: E11.65 Type 2 diabetes mellitus with hyperglycemia (principal); Z79.4 Long term (current) use of insulin

== ENCOUNTER → 2024-11-06 08:44 | Outpatient (BNVA) | payer OTHER, SELFPAY | PROVIDERS: PCP Nurse Practitioner Family; Visit Provider Physician Assistant Medical | DX: E11.65 Type 2 diabetes mellitus with hyperglycemia (principal); Z79.4 Long term (current) use of insulin | CPT/HCPCS: 82947; 83036; 99212 ==

== ENCOUNTER 2024-11-25 07:14 | Outpatient (AMB) | payer OTHER, SELFPAY ==
--- OUTSIDE RECORDS SUMMARY | 2024-11-25 07:17 | XMS_ITS | Clinical Summary ---
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 [id number] Implanted:Qty: 1 on 06/24/2023 [facility] NE[facility] 180 [id number] / / Care Teams Life Insurance Sales Relationship Specialty Start Date End Date Jayro Dougherty NP [address] [facility] JAY Chamberlain PCP - General 08/16/23
--- OUTSIDE RECORDS SUMMARY | 2024-11-25 07:17 | XMS_ITS | Clinical Summary ---
Author Organization [facility] Address [address] [place] [address] Care Team Providers Care Shirt Trimmer Name Role Phone Unavailable Primary Care Provider [...] mg total) by mouth daily. 0 Active [place]-3 1000 MG CAPS Take 1 g by [...] this topic Medical Devices Implanted Type Area Digital Color Press Operator Device Identifier Shelf Expiration Date Model / Serial / Lot Stent Xience Rapid Xchng 3x23mm Abbt-Vas [id number] - [id number] Implanted:Qty: 1 on 06/24/2023 at [facility] [place] and [employer] [place] [id number] / / Advance Directives For more information, please contact: [phone] Latest Code Status on File Code Status [...]
--- NOTE | 2024-11-25 07:37 | A.OFFPC_ITS ---
Vital Signs 11/25/24 07:40 Height 5 ft 7 in Weight 184 lb BMI 28.8 BP 118/86 Blood Pressure Location Rt brachial Position Sitting Respiration 16 Pulse 95 Pulse Source Pulse Oximeter Temp 98.1 F Temp Source Oral Pulse Oximetry (%) 96 Oxygen Delivery Method Room Air Intake Visit Reasons: Annual PE-Reschedule Intake Note: Pt is here today for his PE Allergies NSAIDS (Non-Steroidal Anti-Inflamma Allergy (Mild, Verified 11/25/24 07:46) thins lining of stomach with GERD. ozempic Adverse Reaction (Uncoded 11/25/24 07:46) Blurry Vision Medication List - Last Reconciled 11/25/24 by Jayro Dougherty, SALES OPERATIONS ASSISTANT- aspirin 81 mg PO DAILY atorvastatin 80 mg PO DAILY blood sugar diagnostic (FreeStyle Lite Strips) As directed to check blood gluc ose 5 times daily blood-glucose meter (FreeStyle Lite Meter kit) As directed to test blood glucose 5 times daily blood-glucose sensor ([employer] G7 Sensor device) apply new sensor every 10 days as directed blood-glucose,pulper operator,cont (Dexcom G7 Deck Officer) Use as directed to monitor blood glucose continuously. brimonidine 0.2% 1 drp ophthalmic (eye) TID empagliflozin (Jardiance) 25 mg PO DAILY ezetimibe 10 mg PO DAILY glucose (Dex4 Glucose) 16 grams (4 x 4 gram) PO Q15M PRN insulin aspart U-100 (Novolog FlexPen U-100 Insulin aspart) Per sliding scale subcutaneously 3 times a day; Administer 14 minutes before meals. insulin glargine (Lantus Solostar U-100 Insulin) 45 units (0.45 mL) subcut QPM lancets (FreeStyle Lancets) Use to monitor blood glucose 5 times daily. latanoprost 0.005% 1 drp ophthalmic (eye) BEDTIME lisinopril 5 mg PO DAILY 90 days metformin 1,000 mg PO BID metoprolol tartrate 75 mg (1.5 x 50 mg) PO BID 90 days netarsudil 0.02% (Rhopressa) 1 drp ophthalmic (eye) DAILY omega-3 acid ethyl esters 1 cap PO BID omeprazole 40 mg PO DAILY 90 days pen needle, diabetic (BD Ultra-Fine Mini Pen Needle) QID semaglutide (Ozempic) 1 mg (0.75 mL) subcut QWEEK timolol maleate 0.5% 1 drp ophthalmic (eye) BID Tobacco use date assessed: 11/25/24 Dental Screening Dental Screen Date: 11/25/24 Did you have a dental visit in the last 12 months?: No Did you have a dental problem in the last 6 months where you did not have access to dental care?: No Was dental information given to patient?: No HPI Annual PE-Reschedule HPI Details History of Present Illness The patient is a 44-year-old male presenting for a physical examination with a past medical history significant for diabetes mellitus, which is regularly monitored by an head insulation board saw operator. Hx of [place], sees cardiology on a regular basis. There is no reported neuropathy or symptoms such as polyuria or polydipsia at this time. He denies any fever, chills, chest pain, or respiratory issues. He reports no urinary or gastrointestinal symptoms, including blood in stool or bowel irregularity, and maintains that he is currently free of suicidal or homicidal thoughts despite experiencing stress related to a recent divorce. He reports adequate coping strategies. Although unclear from the conversation, the patient has undergone an MRI for cardiac evaluation in the past. Examination confirms intact sensation in the feet without signs of neuropathy. Health Maintenance - Regular follow-ups with endocrinology for diabetes management - Routine cardiology consultations for i nferior conduction block Social History - The patient is currently undergoing a divorce. Review of Systems - Endocrine: Denies polyuria, polydipsia , neuropathy. - General: Denies fever, chills. - Cardiovascular: Denies chest pain, lei rtness of breath. - Psychiatric: Denies suicidal ideation, homicidal ideation. - Genitourinary: Denies urinary symptoms . - Gastrointestinal: Denies blood in stoo l, constipation, diarrhea. Physical Exam General: Cooperative, healthy appearing, comfortable, no acute distress and well developed Orientation: Patient oriented x3 Limitations: No limitations Head: Normal to inspection Ears: Hearing grossly normal bilaterally Nose: Normal external nose present Face and sinus: Normal facial exam Eyes: Appearance normal, both eyes and all related structures Neck: Normal visual inspection and Yes full ROM Respiratory: Normal respiratory effort and able to speak in complete sentences. Clear to auscultation bilaterally Cardiovascular: Regular rate and rhythm. Normal S1 and S2 GI: Normal to inspection. Soft to palpation and nontender Skin: No rashes or lesions noted Neuro: Patient oriented x3 Extremities: Feet were intact. Positive sensation and use of monofilament. Normal to inspection Results Plan I will maintain regular endocrinology follow-up for diabetes management and monitor the inferior conduction block through cardiology consultations. His psychological well-being, given his divorce, warrants observation and potential support. His sensory examination was normal, suggesting no current diabetic neuropathy issues. Discussion Notes During our visit, we discussed the importance of maintaining regular endocrinolo gical and cardiological follow-ups to monitor his diabetes and inferior conduction block. I emphasized proactive management of his health to minimize complications. We talked about the benefits of counseling support due to his ongoing divorce and its potential emotional impact. All options for symptom monitoring and follow-up care were communicated. Patient Instructions - Continue regular visits with your endo crinologist for diabetes management. - Attend all scheduled appointments with your endoscopy rn. - Monitor for any new or worsening sympt oms, and report them immediately. - Consider support or counseling for str ess related to personal life changes. [facility] Medical History Type 2 diabetes mellitus with hyperglycemia Atherosclerotic cardiovascular disease Thigh abscess Pigmentary glaucoma of both eyes Encounter for physical examination Abdominal pain Diabetes mellitus Glaucoma Diverticulosis Surgical History Hx of cardiac cath H/O colonoscopy S/P LASIK surgery History of circumcision Family History Father HTN (hypertension) Diabetes mellitus Mother HTN (hypertension) Diabetes mellitus Heart murmur Brother No problems noted. Brother No problems noted. Brother No problems noted. Sister Lupus Sister No problems noted. Sister No problems noted. Sister No problems noted. Son No problems noted. Daughter No problems noted. Social History Household Members: Spouse and Family Household Members Other:: 2 Housing: Apartment Do you presently have visiting nurse or other home services: No Alcohol intake: current Alcohol intake frequency: a few times a month Alcohol type: hard liquor Patient Tobacco Use Status: Former Tobacco user Tobacco use type: Cigarette Cigarette Packs Per Day: 1 Cigarettes Per Day: 20.0 Years Smoked: 5 e-Cigarette/Vaping Use: Never Used Second Hand Smoke Exposure: No Substance Use Type: Marijuana service: No Current occupational status: employed Current occupation: [employer] Current occupational exposures/hazards: No Cognitive needs: No Hearing needs: No Vision needs: No Questionnaire PHQ-9 Over the last 2 weeks, how often have you been bothered by any of the following problems? 1. Little interest or pleasure in doing things: not at all 2. Feeling down, depressed, or hopeless: not at all 3. Trouble falling or staying asleep, or sleeping too much: several days 4. Feeling tired or having little energy: several days 5. Poor appetite or overeating: several days 6. Feeling bad about yourself - or that you are a failure or have let yourself or your family down: not at all 7. Trouble concentrating on things, such as reading the newspaper or watching television: not at all 8. Moving or speaking so slowly that other people could have noticed. Or the opposite - being so fidgety or restless that you have been moving around a lot more than usual: not at all 9. Thoughts that you would be better off or of hurting yourself in some way: not at all Total score: 3 Depression Screening Interpretation: Negative Depression Screening Done: Yes 85750 - PHQ-9 Billing: Yes Source: Developed by Drs. Bang Lucia, Randa Vasquez, Jacob Amaya and colleagues, with an educational madi from [employer]. Thrive Questionnaire Date Thrive assessed: 08/19/24 I am a: Patient What is your living situation today?: I have a steady place to live Within the past 12 months, did the food you bought not last and you didn't have the money to get more?: Never true Within the past 12 months, did you worry whether your food would run out before you got money to buy more?: Never true Do you have trouble paying for medicines?: Yes Do you have trouble getting transportation to medical appointments?: No Do you have trouble paying your heating and electricity bill?: No Do you have trouble taking care of your child, family member or friend?: No Do you have trouble with day-to-day activities such as bathing, preparing meals, shopping, managing finances, etc.?: No Are you currently unemployed and looking for a job?: No Are you interested in more education?: No Please select the resources that you would like help with: Paying for medicine Currently or been in a relationship where the following occur: No concerns reported THRIVE Score: 0 DEVANG-7 AMB Questionnaire DEVANG-7 Date DEVANG - 7 assessed: 08/15/23 Source: Developed by Drs. Bang Lucia, Randa Vasquez, Jacob Amaya and colleagues, with an educational madi from [employer]. Physical exam (Primary Care) Vital Signs: Last Vital Signs Temp 98.1 F 11/25/24 07:40 Pulse 95 11/25/24 07:40 Resp 16 11/25/24 07:40 BP 118/86 11/25/24 07:40 Pulse Ox 96 11/25/24 07:40 Oxygen Delivery Method Room Air 11/25/24 07:40 BMI result Body Mass Index 28.8 Tobacco/Smoking Status: Tobacco use Status Tobacco use date assessed 11/25/24 11/25/24 07:40 Patient Tobacco Use Status Former Tobacco user 11/25/24 07:39 Tobacco use type Cigarette 11/25/24 07:39 e-Cigarette/Vaping Use Never Used 11/25/24 07:39 PHQ-9: PHQ-9 Score PHQ-9: Total score 3 11/25/24 07:39 Depression Screening Interpretation: Negative Thrive Assessment: Date of Thrive Assessment Date Thrive assessed 08/19/24 11/25/24 07:39 Currently or been in a relationship where the following occur: No concerns reported Coding Level of Care Code Est Pt Prev Care 40-64y(71634) Diagnoses Type 2 diabetes mellitus with hyperglycemia, with long-term current use of insulin E11.65; Z79.4 Diabetes mellitus rn long term care insulin use: with custodial use Encounter for physical examination Z00.00 Additional Codes PHQ-9 - 56696 - PHQ-9 Billing: Yes ([id number]) Assessment & Plan Assessment & Plan (1) Type 2 diabetes mellitus with hyperglycemia: Code(s): E11.65 - Type 2 diabetes mellitus with hyperglycemia Category: Medical Qualifiers: Diabetes mellitus custodial insulin use: with custodial use Qualified Code(s): E11.65 - Type 2 diabetes mellitus with hyperglycemia; Z79.4 - jail (current) use of insulin (2) Encounter for physical examination: Code(s): Z00.00 - Encounter for general adult medical examination without abnormal findings Category: Medical Plan . Medications: Refilled omega-3 acid ethyl esters 1 cap PO BID 180 caps 3RF
[2024-11-25 07:40] VITALS: BP 118/86; PULSE 95; RESP 16; TEMP 36.7; O2SAT 96; BMI 28.8
== END 2024-11-25 08:20 | disposition home or self-care (01) ==
LOC: HO.HMCC 07:15
PROVIDERS: PCP Nurse Practitioner Family; Visit Provider Nurse Practitioner Family
DX: E11.65 Type 2 diabetes mellitus with hyperglycemia (principal); Z79.4 Long term (current) use of insulin; Z00.00 Encounter for general adult medical examination without abnormal findings

== ENCOUNTER → 2024-11-25 07:14 | Outpatient (BNVA) | payer OTHER, SELFPAY | PROVIDERS: PCP Nurse Practitioner Family; Visit Provider Nurse Practitioner Family | DX: Z00.00 Encounter for general adult medical examination without abnormal findings (principal); E11.65 Type 2 diabetes mellitus with hyperglycemia; Z79.4 Long term (current) use of insulin | CPT/HCPCS: 96127; 99396 ==

== ENCOUNTER 2025-03-19 14:20 | Outpatient (AMB) | payer OTHER, SELFPAY ==
[2025-03-19 14:23] VITALS: BP 112/82; PULSE 98; O2SAT 100; BMI 27.6
--- NOTE | 2025-03-19 14:23 | A.OFFVIS_ITS ---
Vital Signs 03/19/25 14:23 Height 5 ft 7 in Weight 176 lb 5.917 oz BMI 27.6 BP 112/82 Blood Pressure Location Rt brachial Position Sitting Pulse 98 Pulse Source Pulse Oximeter Pulse Oximetry (%) 100 Oxygen Delivery Method Room Air Intake Visit Reasons: T2DM Intake Note: Patient present today to follow up on Type 2 Diabetes Mellitus. Last Diabetic Eye exam: 05/12/2024, has Glaucoma Last Podiatry Visit: Does not see a Project Management Instructor HgA1C: 7.6%, 03/19/2025 Random Glucose: 108 mg/dL [place] And Former Required: No Accompanied by: Self / Same As Patient Allergies NSAIDS (Non-Steroidal Anti-Inflamma Allergy (Mild, Verified 03/19/25 14:41) thins lining of stomach with GERD. ozempic Adverse Reaction (Uncoded 03/19/25 14:41) Blurry Vision Medication List - Last Reconciled 03/19/25 by NADIRA Florence aspirin 81 mg PO DAILY atorvastatin 80 mg PO DAILY betamethasone dipropionate 0.05% 1 appl topical DAILY PRN blood sugar diagnostic (FreeStyle Lite Strips) As directed to check blood glucose 5 times daily blood-glucose meter (FreeStyle Lite Meter kit) As directed to test blood glucose 5 times daily blood-glucose sensor (Dexcom G7 Sensor device) apply new sensor every 10 days as directed blood-glucose,trimmer helper,cont (Dexcom G7 Automation Qa Tester) Use as directed to monitor b lood glucose continuously. brimonidine 0.2% 1 drp ophthalmic (eye) TID empagliflozin (Jardiance) 25 mg PO DAILY ezetimibe 10 mg PO DAILY glucose (Dex4 Glucose) 16 grams (4 x 4 gram) PO Q15M PRN insulin glargine (Lantus Solostar U-100 Insulin) 40 units subcut QPM lancets (FreeStyle Lancets) Use to monitor blood glucose 5 times daily. latanoprost 0.005% 1 drp ophthalmic (eye) BEDTIME lisinopril 5 mg PO DAILY 90 days metformin 1,000 mg PO BID metoprolol tartrate 75 mg (1.5 x 50 mg) PO BID 90 days netarsudil 0.02% (Rhopressa) 1 drp ophthalmic (eye) DAILY omega-3 acid ethyl esters 1 cap PO BID omeprazole 40 mg PO DAILY 90 days pen needle, diabetic QID to inject insulin semaglutide (Ozempic) 2 mg (0.75 mL) subcut QWEEK timolol maleate 0.5% 1 drp ophthalmic (eye) BID HPI Comments Details: This is a 44-year-old male with a past medical history of type 2 diabetes, glaucoma, coronary artery disease, alcohol abuse, dyslipidemia, hypertension and glaucoma presenting for diabetic management. He was diagnosed with Type II diabetes at age 28. His sister from diabetes in 2008. He has a family history of diabetes on his mother's and father's side of the family. He forgot his glucometer today. Hemoglobin A1c today is 7.6%. Current medication regimen: Jardiance to 25 mg once daily. Lantus 45 units daily. Novolog decrease to 14 units 10 minutes before meals. He has only been taking this once or twice per week because blood sugars have been doing better. Metformin 1000 mg twice daily Ozempic 1 mg weekly He's lost 8 pounds. Diet: Patient saw the dietitian. He stopped drinking alcohol 4 months ago. He stopped eating fast food. Hypoglycemia symptoms: Shaky, weak, hungry -infreqent episodes Hyperglycemia symptoms: Polydipsia, polyuria Eye exam: He has glaucoma, and surgery is recommended by [facility]. He has surgery scheduled in March. Microvascular complications: neuropathy, nephropathy (microalbuminuria) Macrovascular complications: CAD ([facility] s/p stent 05/2024) ROS: Constitutional: No unexplained weight loss, fever, chills. Respiratory: No shortness of breath Cardiovascular: No chest pain, chest pressure or chest discomfort. No palpitations or pedal edema. Gastrointestinal: No anorexia, nausea, vomiting or diarrhea. No abdominal pain Genitourinary: No dysuria, hematuria, urinary frequency. Neurologic: No headache, dizziness, syncope. No numbness or tingling in extremities. Endocrine: No cold or heat intolerance. Skin: No wounds. Physical exam: Constitutional: Alert, in no distress. Eyes: Pupils are equal, round and reactive to light. Extraocular muscles intact. Neck: Supple, Full range of motion. No lymphadenopathy. No palpable thyroid masses. Respiratory: Clear to auscultation. Cardiovascular: S1 S2 regular. No murmurs. Feet: Declined exam. [facility] Medical History Type 2 diabetes mellitus with hyperglycemia Atherosclerotic cardiovascular disease Thigh abscess Pigmentary glaucoma of both eyes Encounter for physical examination Abdominal pain Diabetes mellitus Glaucoma Diverticulosis Surgical History Hx of cardiac cath H/O colonoscopy S/P LASIK surgery History of circumcision Family History Father HTN (hypertension) Diabetes mellitus Mother HTN (hypertension) Diabetes mellitus Heart murmur Brother No problems noted. Brother No problems noted. Brother No problems noted. Sister Lupus Sister No problems noted. Sister No problems noted. Sister No problems noted. Son No problems noted. Daughter No problems noted. Social History Household Members: Spouse and Family Household Members Other:: 2 Housing: Apartment Do you presently have visiting nurse or other home services: No Alcohol intake: current Alcohol intake frequency: a few times a month Alcohol type: hard liquor Patient Tobacco Use Status: Former Tobacco user Tobacco use type: Cigarette Cigarette Packs Per Day: 1 Cigarettes Per Day: 20.0 Years Smoked: 5 e-Cigarette/Vaping Use: Never Used Second Hand Smoke Exposure: No Substance Use Type: Marijuana service: No Current occupational status: employed Current occupation: [employer] Current occupational exposures/hazards: No Cognitive needs: No Hearing needs: No Vision needs: No Physical Exam Vital Signs: Last Vital Signs Pulse 98 03/19/25 14:23 BP 112/82 03/19/25 14:23 Pulse Ox 100 03/19/25 14:23 Oxygen Delivery Method Room Air 03/19/25 14:23 BMI result Body Mass Index 27.6 Results AMB Hemoglobin A1c AMB Hemoglobin A1c 7.6 % Last Edit by KATELYNN Matias on 03/19/25 14:44 Results Reviewed Results Reviewed: Laboratory Last Values Glucose (Clinic) 108 mg/dL (60-115) 03/19/25 14:36 Hgb A1c (Clinic) 7.6 % (4.0-6.0) H 03/19/25 14:40 Laboratory Tests 01/21/23 08/15/23 11/30/23 09:01 14:49 08:06 Creatinine Estimated GFR Hgb A1c (Clinic) 12.4 H Triglycerides 197 H Cholesterol 94 LDL Cholesterol Direct 27 LDL Cholesterol, Calc 17 HDL Cholesterol 38 L Urine Creatinine 71.06 Urine Microalbumin 51.0 Microalb/Creat Ratio 71.7 02/29/24 11:19 Creatinine 1.05 Estimated GFR > 60 Hgb A1c (Clinic) Triglycerides Cholesterol LDL Cholesterol Direct LDL Cholesterol, Calc HDL Cholesterol Urine Creatinine Urine Microalbumin Microalb/Creat Ratio Assessment & Plan Assessment & Plan (1) Type 2 diabetes mellitus with hyperglycemia: Code(s): E11.65 - Type 2 diabetes mellitus with hyperglycemia Category: Medical Qualifiers: Diabetes mellitus skilled nursing insulin use: with skilled nursing use Qualified Code(s): E11.65 - Type 2 diabetes mellitus with hyperglycemia; Z79.4 - halfway (current) use of insulin Plan: In summary this is a 43-year-old male on basal bolus insulin, Jardiance, Metformin and Ozempic with suboptimally controlled type 2 diabetes. Bring glucometer to all appointments. Declines CGM. Discussed pathophysiology of Type II Diabetes Mellitus with the patient in detail.? I explained the skilled nursing risks and complications associated with uncontrolled diabetes including nephropathy, neuropathy, peripheral vascular disease, retinopathy, increased risk of heart disease and stroke.? Medication plan reviewed with patient: Continue Jardiance to 25 mg once daily. Decrease Lantus to 45 units daily Continue Metformin 1000 mg twice daily Ozempic increase to 2 mg weekly Stop NovoLog He has glucose tablets, and we reviewed treatment of hypo and hyperglycemia. Advised not to drive if he has symptoms of hypoglycemia or hyperglycemia or does not have a reliable way to check his blood sugar. He will have labs completed. Plan Follow up in 3 months. Orders: Orders AMB Hemoglobin A1c Today E11.65 - Type 2 diabetes mellitus with hyperglycemia, Z79.4 - buttermaker helper (current) use of insulin Medications: New semaglutide (Ozempic) 2 mg (0.75 mL) subcut QWEEK 3 mL 3RF Changed From insulin glargine (Lantus Solostar U-100 Insulin) 45 units (0.45 mL) subcut QPM 30 mL 3RF E11.9 - Type 2 diabetes mellitus without complications To insulin glargine (Lantus Solostar U-100 Insulin) 40 units subcut QPM E11.9 - Type 2 diabetes mellitus without complications Discontinued semaglutide (Ozempic) Discontinued Reason: Doctor's Order 1 mg (0.75 mL) subcut QWEEK 3 mL 5RF Patient Instructions: Current medication regimen: Jardiance to 25 mg once daily. Lantus 40 units every morning Metformin 1000 mg twice daily Ozempic 2mg weekly You can hold Novolog for now. Coding Level of Care Code Est Pt Level 4 (74311) Complex EM visit Add On G2211 Diagnoses Type 2 diabetes mellitus with hyperglycemia, with long-term current use of insulin E11.65; Z79.4 Diabetes mellitus skilled nursing insulin use: with terminal operator use
--- OUTSIDE RECORDS SUMMARY | 2025-03-19 14:23 | XMS_ITS | Clinical Summary ---
Author Organization [facility] Address [address] [place] [address] Care Team Providers Care Surface Grinding Machine Hand Name Role Phone Unavailable Primary Care Provider [...] mg total) by mouth daily. 0 Active [place]-3 1000 MG CAPS Take 1 g by [...] 91 11/10/2023 6:14 AM EDT Temperature 36.7 C (98 F) 11/10/2023 6:14 AM EDT Respiratory Rate 16 [...] Preventative Health Evaluation 1999 Influenza Vaccine (#1) 2025 DTap / Tdap / Td (2 - Td or Tdap) 06/19/2032 022 Pneumococcal Vaccine Aged Out No long er eligible based on patient's age to complete this topic RSV Ped < 20 months Aged Out No longe r eligible based on patient's age to complete this topic Medical Devices Implanted Type Area Food Production Supervisor Device Identifier Shelf Expiration Date Model / Serial / Lot Stent Xience Rapid Xchng 3x23mm Abbt-Vas [id number] - [id number] Implanted:Qty: 1 on 06/24/2023 at [facility] [place] and [employer] NELLY [id number] / / Advance Directives For more information, please contact: [phone] Latest Code Status on File Code Status [...]
--- OUTSIDE RECORDS SUMMARY | 2025-03-19 14:24 | XMS_ITS | Clinical Summary ---
Author Organization [facility] Address [address] [place] [address] Care Team Providers Care Construction Grip Name Role Phone MaryJayro dahl Kunal BOWEN [...] HEART CATHETERIZATION; Surgeon: Virgil Taylor DO; Location: [facility] OPER[facility]; Service: Cardiology; Laterality: N/A; Social History Tobacco [...] of 3 - 19+ 3-dose series) 2000 HIV Screening 08/23/2023 Hepatitis C Screening 08/23/2023 Social Influencers of Health Screening 08/23/2023 COVID-19 Vaccine (1 - 2023-2 5 season) 2024 Depression Screening 07/29/2024 Influenza Vaccine (#1) 2025 Cholesterol Screening (Lipid Panel) 06/26/2028 06/26/2023 [...] 5 Years) and At-Risk Patients (6 to 49 Years) Aged Out No longer eligi ble based on patient's age to complete this topic RSV Immunization Patients Un konrad 20 months Aged Out No longer eligible b ased on patient's age to complete this topic Varicella Vaccines Aged Out No longer eligible based on patient's age to complete this topic Medical Devices Implanted Type Area Terminal Make Up Operator Device Identifier Shelf Expiration Date Model / Serial / Lot Stent Xience Rapid Xchng 3x23mm [facility] [id number] Implanted:Qty: 1 on 06/24/2023 [employer] NELLY [id number] / / Care Teams Construction Grip Relationship Specialty Start Date End Date Jayro Dougherty NP [address] [facility] JAY Chamberlain PCP - General 08/16/23
[2025-03-19 14:40] LABS: Glucose, Whole Blood 108 mg/dL (60-115)
== END 2025-03-19 15:05 | disposition home or self-care (01) ==
LOC: HO.ENCR 14:21
PROVIDERS: PCP Nurse Practitioner Family; Visit Provider Physician Assistant Medical
DX: E11.65 Type 2 diabetes mellitus with hyperglycemia (principal); Z79.4 Long term (current) use of insulin

== ENCOUNTER → 2025-03-19 14:20 | Outpatient (BNVA) | payer OTHER, SELFPAY | PROVIDERS: PCP Nurse Practitioner Family; Visit Provider Physician Assistant Medical | DX: E11.65 Type 2 diabetes mellitus with hyperglycemia (principal) | CPT/HCPCS: 82947; 83036; 99212 ==

== ENCOUNTER 2025-07-08 15:19 | Outpatient (AMB) | payer OTHER, SELFPAY ==
--- OUTSIDE RECORDS SUMMARY | 2025-07-04 04:44 | XMS_ITS | Encounter Summary ---
Author Organization [facility] Address [address] [place] [phone] Phone Care Team Providers Care Ortho Rn Name Role Phone Pcp, Unknown Primary Care Provider Jayro Briceno NP Primary Care Provider + Reason for Visit * Reason Comments Hypoglycemia Abdominal Pain * Auth/Cert (Routine) Specialty Diagnoses / Procedures Referred By Lore paul Referred To Contact Diagnoses Diabetic ketoacidosis Referral ID Status Reason Start Date Expiration Date Visits Re quested Visits Authorized [id number] 1 1 Encounter Details Date Type Department Care Team (Latest Contact Info) Description 07/04/2025 4:44 AM EST - 07/06/2025 1:20 PM EST Hospital Encounter [facility] [address] [place] [address] Char Stone DO [address] [place] [address] [email or web address] Gorge Khan MD [address] [place] [address] [email or web address] Discharge Disposition: Home or Self Care Social History Tobacco Use Types Packs/Day Years Used Date Smoking Tobacco: Every Day Cigarettes Tobacco Cessation:Ready to Q uit: Not Asked; Counseling Given: Not Answered Education Answer Date Recorded Are you interested in more education? Not on lee e 11/24/2022 Are you concerned about learning? Not on file 11/24/2022 No 11/24/2022 No 11/24/2022 Food Answer Date Recorded Within the past 6 months we worried whether our food would run out before we got money to buy more. Never True 07/04/2025 Within the past 6 months the food we bought just didn't last and we didn't have enough money to get more. Never True Residential Stability Answer Date Recor ded What is your housing situation today? I have luda nix 07/04/2025 How many times have you move d in the past 12 months? Zero (I did not move) 07/04/2025 Paying for Meds Answer Date Recorded Do you have trouble paying for medicines? No 07/04/2025 Paying Utility Bills Answer Date Record ed Do you have trouble paying your heating or elect ricity bill? No 07/04/2025 Transportation Answer Date Recorded Has the lack of transportati on kept you from medical appointments or from getting medications? No 07/04/2025 Digital Access Answer Date Recorded No 07/04/2025 Yes 07/04/2025 Do you have reliable internet access at home? Ye s 07/04/2025 Do you have a device (e.g., phone, tablet, computer) with a working camera? Yes 07/04/2025 Intimate Partner Violence Answer Date R ecorded Are you denied basic needs s uch as food, clothing, or medical care? No 07/04/2025 In the past 12 months have y ou been in a relationship with a person who hurts, threatens, or tries to control you? No 07/04/2025 Are you denied basic needs s uch as food, clothing, or medical care? No 07/04/2025 In the past 12 months have y ou been in a relationship with a person who hurts, threatens, or tries to control you? No 07/04/2025 Sex and Gender Information Value Date Recorded Sex Assigned at Not on file Legal Sex Male 7:04 PM EST Gender Identity Not on file Sexual Orientation Not on file documented as of this encounter Last Filed Vital Signs Vital Sign Reading Time Taken Comments Blood Pressure 113/89 07/06/2025 12:03 PM EST Pulse 90 07/06/2025 12:03 PM EST Temperature 36.3 C (97.3 F) 07/06/2025 12:03 PM EST Respiratory Rate 13 07/06/2025 12:03 PM EST Oxygen Saturation 99% 07/06/2025 12:03 PM EST Inhaled Oxygen Concentration - - Weight 75.1 kg (165 lb 9.6 oz) 07/06/2025 5:00 A M EST Height 170.2 cm (5' 7 ) 07/04/2025 10:16 AM EST Body Mass Index 25.94 07/04/2025 10:16 AM EST documented in this encounter Functional Status * Calculated C-SSRS Risk Score (Lifetime/Recent) Answer Date of Assessment Author No Risk Indicated 07/04/2025 4:47 AM EST Bjorn Leal RN * Hope Suicide Severity Rating Scale (Screener/Recent Self-Report) Question Answer Date of Assessment Author 1. Wish to be (Past 1 Month) No 07/04/2025 4:47 AM Bjorn May RN 2. Non-Specific Active Suicidal Thoughts (Past 1 Month) No 07/04/2025 4:47 AM Bjorn May RN 6. Suicidal Behavior (Lifetime) No 07/04/2025 4:47 AM Bjorn May RN documented as of this encounter Discharge Summaries * Balta Lai, GUITAR MAKER - 07/06/2025 11:47 AM EST Images from the original note were not included. Physician Discharge Summary Admit date: 07/04/2025 Discharge date: 07/06/2025 Patient Information Bunny Jose, 44 y.o. male ( = 1980) Home Address: [address] [place] [address] (home) Preferred Language: Italian Written Language: Italian Needs Band Teacher: Type of Advance Care Directive(s): Health Care Proxy Does patient have a Health Care Proxy form completed?: Electronic copy of HCP available Health Care Agents There are no Health Care Agents on file. Code Status at Discharge: Full Code Expected Discharge Disposition: Home or Self Care Patient/Family/Caregiver discharge preference/goals : Home Patient/Family/Caregiver participated and agreed with DC plan: Yes Discharge address same as facesheet: Yes Historical information Reason for Admission Diabetic ketoacidosis Principal Problem: Diabetic ketoacidosis Active Problems: High anion gap metabolic acidosis Hypoglycemia Hypovolemia associated with vomiting Type 2 diabetes mellitus Hypokalemia Hypophosphatemia Resolved Problems: Hypovolemia Principal diagnosis at discharge: Diabetic ketoacidosis Surgical (OR) Procedures: Surgeries this admission None Procedures this admission None Non (OR) Procedures: Pending Results Procedure Component Value Ref Range Date/Time Blood Culture, Routine [[id number]] Collected: 07/04/25 1151 Lab Status: Preliminary result Specimen: Blood Updated: 07/05/25 1215 Blood Culture/Test No growth at 24 hours Blood Culture, Routine [[id number]] Collected: 07/04/25 1150 Lab Status: Preliminary result Specimen: Blood Updated: 07/05/25 1215 Blood Culture/Test No growth at 24 hours T3, Total [[id number]] Collected: 07/04/25 115 Lab Status: In process Specimen: Blood Updated: 07/04/25 1231 Hospital Course 44-year-old male with type 2 diabetes mellitus improved control most recently, CAD status post STEMI 05/2023 with drug-eluting stent to the left circumflex (preserved EF at baseline), hypertension, hyperlipidemia, GERD and prior history of tobacco use (having quit in 2022) with recent increase in Jardiance dose 3 months ago and significant weight loss since being on Ozempic over the last 6 monthspresenting with hypoglycemia and found to have evidence of euglycemic ketoacidosis related to [id number]. 44 y.o. male with a history of previously poorly controlled diabetes mellitus type 2, hypertension,hyperlipidemia, prior history of STEMI/CAD-status post drug-eluting stent 05/2023, diabetic retinopathy/glaucoma, GERD, prior history of tobacco use having quit after his [facility] presenting with a somewhat abrupt episode of nausea recurrent vomiting increased urination and then ultimately dizziness/unsteadiness of gait and some confusion after coming home from a [place] where he reports that he only consumed 2 shots of Tadeo however admits that he has not been eating or hydrating adequately over the last week due to increased workload/stress. He denied any excessive alcohol use recently. He denied any diarrhea and there was some mild suprapubic abdominal pain. He denied any dysuria. He denied any chest pressure or chest pain and reports that his GERD has been under control with omeprazole. He has had a prior history of diverticulitis but reports that the symptoms were not si milar. He did present to the ED approximately a month ago with some atypical right upper mid axillary pain, back pain and lower abdominal pain-workup including CT scan abdomen pelvis EKGs and troponins were overall unremarkable except for some findings suggesting mild colitis. The patient was started on cyclobenzaprine-muscle relaxant with the thought that his symptoms were due to back pain/paraspinal spasm-the symptoms resolved. He denies any fever sweats or chills. He denies any sick contacts. No URI or viral syndrome type symptoms. No headaches, no focal neurological symptoms, no neck painor stiffness. He had not made any changes in his medication regimen recently-this includes Jardiance which had been increased about 3 months ago to 25 mg, Ozempic on a maintenance basis now 2 mg every week (the patient has lost approximately 35 pounds since starting Ozempic), Lantus 40 units every morning and metformin 1000 mg twice a day. He reports that he had not missed any doses of his meds. During the events preceding his admission there was a fingerstick blood sugar that was taken and perreport it was less than 40. The patient has not had issues recently with recurrent hypoglycemia or multiple episodes of shakiness/jitteriness. Overall improved blood glucose control with hemoglobin A1c just over a year ago of 12 and most recently 7.6. In the ED evidence of dehydration/hypovolemia, anion gap acidosis with a relatively normal lactate,hypoglycemia which responded to D10, urinalysis revealing ketones. Fluid resuscitation started withgood response- overall felt improved. He also received antiemetics. Liver function test revealed mild transaminitis with elevated AST and ALT in the 70s but normal lipase. There was some mild leukocytosis but no left shift. There was no evidence of any fever or hypothermia. The patient had an abdominal/pelvic CT scan performed which again revealed some possible mild colitis but no other significant intra-abdominal findings and the lower lung sorto were clear. EKG was obtained and did not reveal any significant changes compared to prior baselines. Troponins were obtained and noted to be flat.CRP less than 3. Hemoglobin A1c 6.5. No evidence of any renal dysfunction/SARAHY. TSH slightly low at 0.35. Random cortisol 2.2- however no other signs of AI. BNP less than 36. Lipid panel checked with a cholesterol of 99 and HDL of 43 and an LDL of 41 with triglyceride of 73. No major electrolyte abnormalities were noted. Anion gap was 27. ED contacted critical care team for advice regarding management of euglycemic ketoacidosis given the presentation and known use of SGLT-2 inhibitors. Symptoms were potentially exacerbated by ongoing concurrent use of GLP-1 agonists/semaglutide with significant weight loss in the last several months, recent poor hydration over the past week as well as alcohol use at recent work constitution party. Patient was started on D5 half-normal at 150 cc/h with the plan to start an insulin drip at 2 units/h. Admitted the patient to the ICU for ongoing management and frequent blood draws likely need for frequent adjustments to therapy and also related to occasional tendency for euglycemic ketoacidosis to persist greater than 24 hours given half-life of SGLT2 inhibitors. 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 Prior to Admission Medications Prescriptions JARDIANCE 25 mg tablet Sig: Take 1 tablet by mouth every morning. LANTUS SOLOSTAR U-100 INSULIN 100 unit/mL (3 mL) InPn injection pen Sig: Inject 40 Units under the skin daily. OZEMPIC 2 mg/dose (8 mg/3 mL) subcutaneous injection pen Sig: Inject 2 mg under the skin every 7 days. atorvastatin (LIPITOR) 80 MG tablet Sig: Take 1 tablet by mouth every morning. brimonidine (ALPHAGAN) 0.2 % ophthalmic solution Sig: Place 1 drop into each eye 3 (three) times a day. dorzolamide (TRUSOPT) 2 % ophthalmic solution Sig: Place 1 drop into each eye 2 (two) times a day. latanoprost (XALATAN) 0.005 % ophthalmic solution Sig: Place 1 drop into each eye every evening. lisinopril (PRINIVIL,ZESTRIL) 5 MG tablet Sig: Take 5 mg by mouth daily. metFORMIN (GLUCOPHAGE) 1000 MG immediate release tablet Sig: Take 1 tablet by mouth 2 (two) times a day. omega-3 acid ethyl esters (LOVAZA) 1 gram capsule Sig: Take 1 capsule by mouth 2 (two) times a day. omeprazole (PRILOSEC) 40 MG capsule Sig: Take 40 mg by mouth daily. timolol (TIMOPTIC) 0.5 % ophthalmic solution Sig: Place 1 drop into each eye 2 (two) times a day. Facility-Administered Medications: None Medication List STOP taking these medications Jardiance 25 mg tablet Generic drug: empagliflozin TAKE these medications Instructions atorvastatin 80 MG tablet Commonly known as: LIPITOR Last time this was given: July 06, 2025 5:01 AM Take 1 tablet by mouth every morning. brimonidine 0.2 % ophthalmic solution Commonly known as: ALPHAGAN Last time this was given: July 06, 2025 9:[address] 1 drop into each eye 3 (three) times a day. dorzolamide 2 % ophthalmic solution Commonly known as: TRUSOPT Last time this was given: July 06, 2025 9:[address] 1 drop into each eye 2 (two) times a day. Lantus Solostar U-100 Insulin 100 unit/mL (3 mL) Inpn injection pen Generic drug: insulin glargine Last time this was given: Ask your nurse or doctor Inject 40 Units under the skin daily. latanoprost 0.005 % ophthalmic solution Commonly known as: XALATAN Last time this was given: July 05, 2025 8:[address] 1 drop into each eye every evening. lisinopril 5 MG tablet Commonly known as: PRINIVIL,ZESTRIL Last time this was given: July 06, 2025 9:18 AM Take 5 mg by mouth daily. metFORMIN 1000 MG immediate release tablet Commonly known as: GLUCOPHAGE Last time this was given: July 06, 2025 9:18 AM Take 1 tablet by mouth 2 (two) times a day. omega-3 acid ethyl esters 1 gram capsule Commonly known as: LOVAZA Take 1 capsule by mouth 2 (two) times a day. omeprazole 40 MG capsule Commonly known as: PriLOSEC Take 40 mg by mouth daily. Ozempic 2 mg/dose (8 mg/3 mL) subcutaneous injection pen Generic drug: semaglutide Inject 2 mg under the skin every 7 days. timolol 0.5 % ophthalmic solution Commonly known as: TIMOPTIC Last time this was given: July 06, 2025 9:[address] 1 drop into each eye 2 (two) times a day. Hospital Care Team Service: Critical Care Inpatient Attending: Gorge Cheung MD Attending phys phone: Discharge Unit: [facility] Primary Care Physician: Jayro Dougherty NP [phone] Transitional Plan Scheduled appointments: Your Follow-Up Appointments Jayro Dougherty NP Specialty: Nurse Practitioner Relationship: PCP - General [address] [place] [address] Dr Bulmaro THOMPSON [id number] Schedule an appointment as soon as possible for a visit Instructions: For posthospital follow-up Signed Discharge Orders (From admission, onward) Ordered 07/06/25 1146 Activity as tolerated 07/06/25 1146 Discharge diet Comments: Diet Regular; Total carbohydrates: Consistent carbohydrate 07/06/25 1146 For immediate questions regarding your hospitalization, your medications, and any pending test results please contact your PCP: Jayro Dougherty NP at [phone]. Comments: For immediate questions regarding your hospitalization, your medications, and any pendingtest results please contact your PCP: Jayro Dougherty NP at [phone]. 07/06/25 1146 Reason for not ordering smoking cessation medication(s) Question: Reason for not ordering medication(s): Answer: Patient refused Discharge instructions and important events and results None Exam Temperature: 35.9 ??C (96.6 ??F) (07/06/25813) Heart Rate: 92 (07/06/25813) BP: 117/85 (07/06/25813) Respiratory Rate: 20 (07/06/25813) SpO2: 96 % (07/06/25813) O2 Device: None (Room air) (07/06/25813) Weight: 75.1 kg (165 lb 9.6 oz) (07/06/25 0500) Height: 170.2 cm (5' 7 ) (07/04/25 1016) BMI (Calculated): 25.55 (07/04/25 1016) Disability Identity and Disability Accommodations Comments Disability Identity No Data/Results Results are shown for the following tests if performed (CBC, Chem 7, Mg, Coag). If the patient did not have any of these tests, no results will be shown here. Lab Results Component Value Date/Time WBC 6.86 07/06/2025 0500 RBC 4.55 07/06/2025 0500 HGB 12.7 (L) 07/06/2025 050 HCT 39.6 (L) 07/06/2025 0500 MCH 27.9 07/06/2025 0500 MCV 87.0 07/06/2025 0500 PLT 274 07/06/2025 0500 RDW 14.5 07/06/2025 0500 Lab Results Component Value Date/Time NA 140 07/06/2025 0500 K 4.0 07/06/2025 0500 CL 106 07/06/2025 0500 CO2 23 07/06/2025 0500 BUN 9 07/06/2025 0500 CRE 0.70 07/06/2025 0500 CA 8.3 (L) 07/06/2025 0500 GLU 102 (H) 07/06/2025 0500 GLUPOC 85 07/06/2025 1142 Lab Results Component Value Date/Time MG 2.0 07/06/2025 0500 Lab Results Component Value Date/Time PT 12.2 07/05/2025 0325 PTINR 1.0 07/05/2025 0325 Time > 30 min Cosigned by Gorge Cheung MD at 07/08/2025 5:23 AM EST documented in this encounter Medications at Time of Discharge atorvastatin (LIPITOR) 80 MG tablet Take 1 tablet by mouth every morning. 05/03/2025 brimonidine (ALPHAGAN) 0.2 % ophthalmic solution Place 1 drop into each eye 3 (three) times a day. dorzolamide (TRUSOPT) 2 % ophthalmic solution Place 1 drop into each eye 2 (two) times a day. 06/07/2025 LANTUS SOLOSTAR U-100 INSULIN 100 unit/mL (3 mL) InPn injection pen Inject 40 Units under the skin daily. 06/30/2025 latanoprost (XALATAN) 0.005 % ophthalmic solution Place 1 drop into each eye every evening. lisinopril (PRINIVIL,ZESTRIL) 5 MG tablet Take 5 mg by mouth daily. metFORMIN (GLUCOPHAGE) 1000 MG immediate release tablet Take 1 tablet by mouth 2 (two) times a day. 04/12/2025 omega-3 acid ethyl esters (LOVAZA) 1 gram capsule Take 1 capsule by mouth 2 (two) times a day. 05/11/2025 omeprazole (PRILOSEC) 40 MG capsule Take 40 mg by mouth daily. OZEMPIC 2 mg/dose (8 mg/3 mL) subcutaneous injection pen Inject 2 mg under the skin every 7 days. 06/10/2025 timolol (TIMOPTIC) 0.5 % ophthalmic solution Place 1 drop into each eye 2 (two) times a day. documented as of this encounter Progress Notes Only the most recent of 8 notes is shown. * Elodia Tapia RN - 07/06/2025 1:09 PM EST Case Management Note: Discharge Communication summary: 07/06/25 2293 Discharge Planning Evaluation Patient/Family/Caregiver discharge preference/goals Home Patient/Family/Caregiver participated and agreed with DC plan Yes Discharge Plan Expected Discharge Disposition Home Disposition Comments Routine discharge home. No CM needs identified. to transport home. Mode of DC Transportation Family member pick-up (comment) Discharge address same as facesheet Yes Expected Discharge Date: 07/06 Transportation: Medicare Part B pays for ambulance transportation only if other means of transportation would endanger the beneficiary's health or if the patient is on specific precautions. Medicaid will reimburse for Chair Car services only when the use of any other method of transportation is cont raindicated by the patient's condition. The patient may incur a bill for transportation expenses, and this has been discussed with patient or their designee. Case management was available throughout the patient's hospitalization and conducted a medical record review, discussed patient's clinical progress and discharge planning needs with the treatment team. Patient does not require post- acute services. Discharge Planning is conducted as outlined in the Code of Federal Regulations- Conditions of Participation for Hospitals under Title 42, Part 482, specifically Discharge Planning, 482 C.F.R. ?? 482.43 (2023). Elodia Tapia RN documented in this encounter H&P Notes * Gorge Cheung MD - 07/04/2025 9:34 AM EST Images from the original note were not included. [facility] ICU History & Physical Name:?Bunny Jose MRN:?[id number] : 1980 Date: 07/04/2025 Time: 9:35 AM ?PCP: ??Pcp, Unknown Critical care chief complaint: Euglycemic ketoacidosis HPI: Mr. Jose is a 44 y.o. male with a history of previously poorly controlled diabetes mellitus type 2, hypertension, hyperlipidemia, prior history of STEMI/CAD-status post drug-eluting stent 05/2023, diabetic retinopathy/glaucoma, GERD, prior history of tobacco use having quit after his [facility] presenting with a somewhat abrupt episode of nausea recurrent vomiting increased urination and then ultimately dizziness/unsteadiness of gait and some confusion after coming home from a [place] where he reports that he only consumed 2 shots of Tadeo however admits that he has not been eating or hydrating adequately over the last week due to increased workload/stress. He denied any excessive alcohol use recently. He denied any diarrhea and there was some mild suprapubic abdominal pain. He denied any dysuria. He denied any chest pressure or chest pain and reports that his GERD has been under control with omeprazole. He has had a prior history of diverticulitis but reports that the symptoms were not similar. He did present to the ED approximately a month ago with some atypical right upper mid axillary pain, back pain and lower abdominal pain- workup including CT scan abdomen pelvis EKGs and troponins were overall unremarkable except for some findings suggesting mild colitis. The patient was started on cyclobenzaprine-muscle relaxant with the thought that his symptoms were due to back pain/paraspinal spasm-the symptoms resolved. He denies any fever sweats or chills. He denies any sick contacts. No URI or viral syndrome type symptoms. No headaches, no focal neurological symptoms, no neck pain or stiffness. He had not made any changes in his medication regimen recently-this includes Jardiance which had been increased about 3 months ago to 25 mg, Ozempic on a maintenance basis now 2 mg every week (the patient has lost approximately 35 pounds since starting Ozempic), Lantus 40 units every morning and metformin 1000 mg twice a day. He reports that he had not missed any doses of his meds. During the events preceding his admission there was a fingerstick blood sugar th at was taken and per report it was less than 40. The patient has not had issues recently with recurrent hypoglycemia or multiple episodes of shakiness/jitteriness. He is followed by a endocrinologistnow over the past year at [facility] and also is seen by cardiology-nurse practitioner and dietitian/epic director at [facility]. He has worked hard at changing his food choices and other lifestyle changes. Patient reports that about a year ago his hemoglobin A1c was 12 and recently had been able to bring it down to 7.6. The patient presented to the ED with evidence of dehydration/hypovolemia, anion gap acidosis with arelatively normal lactate, hypoglycemia which responded to D10, urinalysis revealing ketones. Fluidresuscitation started with good response- overall felt improved. He also received antiemetics. Liver function test revealed mild transaminitis with elevated AST and ALT in the 70s but normal lipase. There was some mild leukocytosis but no left shift. There was no evidence of any fever or hypothermia. The patient had an abdominal/pelvic CT scan performed which again revealed some possible mild colitis but no other significant intra-abdominal findings and the lower lung sorto were clear. EKG wasobtained and did not reveal any significant changes compared to prior baselines. Troponins were obtained and noted to be flat. CRP less than 3. Hemoglobin A1c 6.5. No evidence of any renal dysfunction/SARAHY. TSH slightly low at 0.35. Cortisol ordered and pending. BNP less than 36. Lipid panel checkedwith a cholesterol of 99 and HDL of 43 and an LDL of 41 with triglyceride of 73. No major electrolyte abnormalities were noted. Anion gap was 27. We were called by the ED physician for advice regarding management of euglycemic ketoacidosis giventhe presentation and known use of SGLT-2 inhibitors. Symptoms were potentially exacerbated by ongoing concurrent use of GLP-1 agonists/semaglutide with significant weight loss in the last several months, recent poor hydration over the past week as well as alcohol use at recent work [employer] constitution party.Patient was started on D5 half-normal at 150 cc/h with the plan to start an insulin drip at 2 units/h. Plan was to admit the patient to the ICU for ongoing management and frequent blood draws. [facility] admission 06/24/2023 through 06/26/2023: 42-year-old male with a past medical history of type 2 diabetes on insulin, GERD, tobacco use, glaucoma presented to the ED on 06/24 with 10/10 crushing chest pain that awoke him out of sleep that was associated with right arm pain and numbness and emesis. Initial EKG concerning for inferoposteriorlateral ST elevations. He converted into a torsades with HR145 and subsequently syncopized at this time. Patient was defibrillated and temporarily lost pulses. Patient had CPR for approximately 3 seconds before regaining pulses and converting to normal sinus rhythm. Patient was subsequently taken to the [facility] where 85% occlusion of the mid circumflex was noted. He underwent a thrombectomy and a ALBERT placement to the mid circumflex. TTE (06/24/23); EF 55-65 Final Diagnoses: Chest pain secondary to STEMI with multivessel disease status post ALBERT to Mid circumflex Cardiac arrest secondary to torsades de point status post defibrillation/CPR for 3 sec Active tobacco smoking Essential hypertension Diabetic retinopathy Diabetes melitis type 2 with hyperglycemia, poorly controlled- HgbA1c 11.2 Recommendations: -Patient will need to be switched from Brilinta to prasugrel for cost reasons. Patient will need a loading dose of 60 mg tomorrow morning prior to starting a maintenance dose after that. -Continue aspirin 81 mg once daily -Continue Lipitor 80 mg once daily -Continue Lopressor 25 mg twice daily -Patient counseled on the importance of tobacco cessation -Cardiac rehab on discharge -follow-up cardiology appointment in the fellows clinic. - diabetic management including Lantus daily 20 units and along with 4 units of rapid acting insulin before meals plus moderate intensity insulin sliding scale before meals, metformin twice daily. Follow-up with spray operator on discharge Past medical, family, and social history reviewed in their entirety. Past medical history: - CAD-STEMI with multivessel disease status post ALBERT to mid circumflex 05/2023 (complicated by brief period of VT/torsades arrest ejection fraction 55 to 65%) - Type 2 diabetes mellitus with history of poor control in the past - Hypertension - Hyperlipidemia - Diabetic retinopathy and glaucoma- s/p laser therapy - Active tobacco use - GERD - diverticulitis - BMI greater than 25-overweight SocHx: Stopped smoking tobacco after [facility] 05/2023. Prior to that had been smoking 2-2.5 PPD. Etoh- intermittently issues with increased use around periods of stress- recently only socially- drink of choice Steve reeves. Was drinking heavily in 2022 at time of STEMI. No hx of marijuana, VAPING or illicit drug use. 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 Cannabis Edibles occasionally. With current since 2016- 2019. Helps raise her daughter who lives in the home 15 yo. Has two children from previous marriage- 21 yo son and 14 yo daughter. Came to [place] from [place] when he was 2 yr old. FamHx: positive for DM, HTN, CAD, glaucoma, sister who related to lupus. Strong famhx of multiple cancers- colorectal, lung, etc. Allergies: No Known Allergies Current Facility-Administered Medications Medication D5-1/2 NS infusion premix dextrose (D50W) 50 % syringe 0-25 g insulin regular (MYXREDLIN) 1 unit/mL in NS 100 mL infusion sodium chloride (NS) 0.9 % syringe flush 3 mL Current Outpatient Medications Medication Sig Dispense Refill cyclobenzaprine (FLEXERIL) 5 MG tablet Take 1 tablet (5 mg total) by mouth 3 (three) times a day asneeded (Muscle spasm). 9 tablet 0 Prior to Admission Medications Prescriptions JARDIANCE 25 mg tablet Sig: Take 1 tablet by mouth every morning. LANTUS SOLOSTAR U-100 INSULIN 100 unit/mL (3 mL) InPn injection pen Sig: Inject 40 Units under the skin daily. OZEMPIC 2 mg/dose (8 mg/3 mL) subcutaneous injection pen Sig: Inject 2 mg under the skin every 7 days. atorvastatin (LIPITOR) 80 MG tablet Sig: Take 1 tablet by mouth every morning. brimonidine (ALPHAGAN) 0.2 % ophthalmic solution Sig: Place 1 drop into each eye 3 (three) times a day. dorzolamide (TRUSOPT) 2 % ophthalmic solution Sig: Place 1 drop into each eye 2 (two) times a day. latanoprost (XALATAN) 0.005 % ophthalmic solution Sig: Place 1 drop into each eye every evening. lisinopril (PRINIVIL,ZESTRIL) 5 MG tablet Sig: Take 5 mg by mouth daily. metFORMIN (GLUCOPHAGE) 1000 MG immediate release tablet Sig: Take 1 tablet by mouth 2 (two) times a day. omega-3 acid ethyl esters (LOVAZA) 1 gram capsule Sig: Take 1 capsule by mouth 2 (two) times a day. omeprazole (PRILOSEC) 40 MG capsule Sig: Take 40 mg by mouth daily. timolol (TIMOPTIC) 0.5 % ophthalmic solution Sig: Place 1 drop into each eye 2 (two) times a day. Facility-Administered Medications: None No Known Allergies ROS: Negative except as noted above in HPI. Vitals: Last vitals 36.3 ??C (97.3 ??F) P (!) 114 BP 113/71 RR 21 SpO2 100 % FiO2 76.7 kg (169 lb) Vital Signs 07/01 23507/02 23507/03 23507/04 163 Most Recent Temperature (??C) 36.3 - 37 37 (98.6) 07/04 1100 Heart Rate 100 - 133 100 07/04 1600 BP 103/70 - 130/82 104/76 07/04 1600 Respiratory Rate 14 - 23 21 07/04 1600 SpO2 (%) 94 - 100 97 07/04 1600 Exam: Gen: well-appearing male in no acute distress; non-toxic HEENT: Sclerae anicteric Chest: Normal effort, clear to auscultation bilaterally Cardiovascular: Regular rate and rhythm, no murmurs Abd: Soft, non-tender, non-distended, normal bowel sounds, mild suprapubic discomfort; no peritoneal signs Extremities: Warm and well-perfused, no peripheral clubbing, no lower extremity edema Neuro: Alert and oriented Skin: No jaundice or rashes Intake/Output Summary (Last 24 hours) at 07/04/2025 1639 Last data filed at 07/04/2025 1334 Gross per 24 hour Intake 3100 ml Output 950 ml Net 2150 ml Pertinent test results/interpretation: CBC: 13.76* \ 14.4 / 331 / 46.2 \ 07/04 515 Lab Results Component Value Date CA 9.5 07/04/2025 Color Date Value Ref Range Status 07/04/2025 Yellow Yellow Final Clarity Date Value Ref Range Status 07/04/2025 Clear Clear Final Glucose Date Value Ref Range Status 07/04/2025 3+ (*) Negative Final Bilirubin Urine Date Value Ref Range Status 07/04/2025 Negative Negative Final Ketone Urine Date Value Ref Range Status 07/04/2025 2+ (*) Negative Final Specific [place] Date Value Ref Range Status 07/04/2025 1.025 1.001 - 1.035 Final Blood Date Value Ref Range Status 07/04/2025 Negative Negative Final pH Date Value Ref Range Status 07/04/2025 6.0 5.0 - 8.0 Final Urobilinogen Date Value Ref Range Status 07/04/2025 Negative Negative Final Nitrites Date Value Ref Range Status 07/04/2025 Negative Negative Final WBC Date Value Ref Range Status 07/04/2025 0-2 0 - 9 /hpf Final BMP: 138 97* 23 / 213* 4.8 14* 1.00 \ 07/04 515 Corrected Anion Gap: 25 Calculated using: Anion Gap: 27 (07/04/2025: 5:15 AM) Albumin: 4.8 (07/04/2025: 5:15 AM) Lab Results Component Value Date VPH 7.27 (L) 07/04/2025 VPCO2 36 07/04/2025 VPO2 54 (H) 07/04/2025 VHCO3 16 (L) 07/04/2025 Cardiac markers: Lab Results Component Value Date TROPTHS 11 05/30/2025 LFTs: Lab Results Component Value Date/Time ALB 4.8 07/04/2025 0515 ALKP 52 07/04/2025 0515 TP 7.8 07/04/2025 0515 ALT 73 (H) 07/04/2025 0515 AST 73 (H) 07/04/2025 0515 DBILI 0.1 07/04/2025 0515 TBILI 0.2 07/04/2025 0515 Lipase Date Value Ref Range Status 07/04/2025 48 13 - 60 U/L Final Lab Results Component Value Date LACT 2.1 (H) 07/04/2025 HEMOGLOBIN A1C Date Value Ref Range Status 06/24/2023 11.2 (H) <5.7 % Final Comment: <<NOTE>> The [place] [employer] guidelines indicate that an individual is at increased risk for diabetes when Hemoglobin A1C levels are 5.7-6.4% or fasting glucose is 100-125 mg/dL, and considered diabetic when Hemoglobin A1C is greater than or equal to 6.5% or fasting glucose is greater than or equal to 126 mg/dL. Performed at [facility] [address] [place] [address], Yvette Shelton MD Director JOSE RAULHI [id number] Encounter Date: 05/30/25 ECG 12-LEAD Result Value Ventricular Rate EKG/MIN 98 Atrial Rate 98 RI Interval 144 QRS Duration 84 QT Interval 332 QTC Interval 423 P [place] 14 R Wave [place] 13 T Wave [place] 21 Narrative Normal sinus rhythm Normal ECG No previous ECGs available Confirmed by Tray Conn ([id number]) on 05/31/2025 9:07:51 AM Imaging studies: CT Abdomen/Pelvis [[id number]] 07/04/2025 (Final) Narrative CT ABDOMEN/PELVIS WITH CONTRAST Referring clinician's provided indication for this examination in Epic: * Diverticulitis suspected TECHNIQUE: Multidetector-row CT of the abdomen and pelvis was performed after administration of intravenous contrast using tailored dose modulation techniques. Images were reconstructed in the axial,coronal, and sagittal planes. COMPARISON: 05/30/2025 FINDINGS: Lower Chest: No consolidation or pleural effusions. Coronary calcification/stent. Liver: No focal lesions. Biliary: Noninflamed gallbladder. No biliary ductal dilatation. Spleen: No splenomegaly or focal lesions. Pancreas: No peripancreatic fat stranding or pancreatic duct dilatation. Adrenal Glands: No nodules. Kidneys/Ureters: No stones or hydronephrosis. Kidneys enhance homogeneously. Bowel: Mild circumferential thickening of the colon. Appendix visualized. Peritoneum/Retroperitoneum: No pneumoperitoneum or free fluid. Lymph Nodes: No lymphadenopathy. Pelvic Organs/Bladder: Distended urinary bladder. Coarse calcifications in the prostate. Vas deferens calcifications. Vessels: No aneurysm. Bones/Soft Tissues: Degenerative changes of the spine. Impression Mild wall thickening of the ascending colon related to mild colitis. A clinically significant result was initiated on 07/04/2025 9:47 AM, Message ID [id number]. Relevant cardiac studies from 05/2023 admission at [facility]: Echocardiogram: TTE 06/24/23 Suboptimal image quality Normal left ventricular ejection fraction estimated at 55-65%. Alejandra's biplane EF is 56%. Normal RV systolic function. Normal left ventricular diastolic function. [facility] 06[facility]23 Findings / Recommendations: Left main: 0 Left anterior descending: mid 25 Circumflex: mid 85 Right coronary artery: mid 30 LVEDP: 15 mmhg Anticoagulation: Angiomax, Integrilin Guide: EBU 3.5 Wire: Whisper Procedure: OCT circumflex (thrombotic lesion mid circumflex) Penumbra aspiration thrombectomy 3.0 ALBERT circumflex IVUS 3.5 NC balloon (22 chris) Pre 85 Post 0 ESTRADA 3 flow Impression/Plan: 44-year-old male with type 2 diabetes mellitus improved control most recently, CAD status post STEMI 05/2023 with drug-eluting stent to the left circumflex (preserved EF at baseline), hypertension, hyperlipidemia, GERD and prior history of tobacco use (having quit in 2022) with recent increase in Jardiance dose 3 months ago and significant weight loss since being on Ozempic over the last 6 monthspresenting with hypoglycemia and found to have evidence of euglycemic ketoacidosis related to [id number]. Active Hospital Problems Diagnosis Date Noted Diabetic ketoacidosis 07/04/2025 High anion gap metabolic acidosis 07/04/2025 Hypoglycemia 07/04/2025 Hypovolemia associated with vomiting 07/04/2025 Type 2 diabetes mellitus 07/04/2025 Quality Clinical Documentation: Acidosis (Present on Admission) . Treating Bicarb of 14 on 07/04/2025 NEURO: Prior history of excessive alcohol use but not recently. No history of any withdrawal. Urinetox screen sent-negative. No findings to suggest toxic alcohol ingestion. PULM: Prior history of heavy tobacco (up to 2-1/2 packs/day) use-quit 05/2023. No known history of any asthma or chronic bronchitis or COPD. No history of any inhaler use. No active issues. Lower lung field cuts on abdominal CT scan clear with no infiltrates or effusions. CV: Hypovolemia in the setting of persistent nausea and vomiting on presentation as well as superimposed ketoacidosis with increased urinary frequency. Ongoing resuscitation with LR-total of 3 to 4 Lreceived. Stable hemodynamics. No significant lactic acidemia. Prior history of STEMI-status post embolectomy and ALBERT to the mid left circumflex at [facility] 05/2023; prior echocardiograms with preserved EF; polymorphic VT cardiac arrest-brief period of CPR with no neurologic sequela.Patient on aspirin and prasugrel (DAPT) for 1 year-now maintained on aspirin 81 mg daily. Hypertension managed with lisinopril. Patient not on a beta-gretel. Atorvastatin for management of hyperlipidemia-lipid panel profile within adequate range. ID: No evidence of clear infection as trigger of euglycemic ketoacidosis. CRP unremarkable. Abdominal CT scan revealing nonspecific colitis but no other abnormalities. Blood cultures were empirically drawn upon admission. GI: Nausea vomiting and hypovolemia on presentation likely related to euglycemic ketoacidosis. Nonspecific findings on abdominal CT-mild colitis. No history of any IBD or IBS. No symptoms or signs tosuggest ongoing infectious or inflammatory diarrhea. Abdominal pain has resolved-likely related to k etoacidosis/ketosis. LFTs-mild transaminitis normal lipase no hypertriglyceridemia. Gallbladder biliary system unremarkable on CT scan abdomen. Abdominal exam unremarkable specifically status post fluid resuscitation and initiation of therapy. Monitor clinically. Known history of GERD-switch from omeprazole to Protonix. #GI prophylaxis: Patient takes omeprazole at baseline for GERD. RENAL/: No active renal issues at this time. No SARAHY. No overt electrolyte abnormalities except for anion gap acidosis-related to euglycemic ketoacidosis. Following potassium, calcium and phosphate as well as sodium closely. Following anion gap closely with the hope that we can close it with ongoing D10, LR and insulin drip. Jardiance discontinued. Monitoring urine output. Following BMP, mag, Phos every 4 hours. HEME: No active issues. Mild leukocytosis on admission but no left shift and no other signs or symptoms to suggest infection. Baseline coags obtained and within normal limits. #DVT prophylaxis: Enoxaparin 40 mg SQ daily and SCDs. ENDO: Type 2 diabetes mellitus with markedly improved glucose control-current hemoglobin A1c 6.5. Jardiance Ozempic Lantus and metformin-followed by spray operator at [facility]. Currently presenting with evidence of euglycemic ketoacidosis-recent increase in Jardiance dose to 25 mg from 10mg 3 months ago, ongoing Ozempic use with significant weight loss over the last 6 months and poor hydration along with recent alcohol use at social gathering may have put the patient at risk development of euglycemic ketoacidosis. Given longer half-life of Jardiance and sometimes waxing and waning nature of closing and opening anion gap as well as association with hypoglycemia/normoglycemia mary alanis admitted to the ICU for ongoing management-D10 infusion at 100 to 150 cc/h to maintain blood glucoses and allow us to initiate insulin drip at 1 to 2 units/h. Titrating regimen according to institutional DKA protocol. May augment with ongoing LR infusion if needed as we follow not only the anion gap but serum bicarb's. TSH obtained 0.35-reflex T4 pending. Cortisol level added to given presentation with hypoglycemia. Holding Lantus and metformin at this time. Code status: Full Code Extended Emergency Contact Information Primary Emergency Contact: Graciela Llanos Mobile Relation: Spouse Healthcare proxy documentation obtained Critical Care Management I personally spent 90 minutes evaluating and managing (E&M) this patient's life- threatening conditions on 07/04/25. Gorge Cheung MD documented in this encounter Consult Notes * Sandie Santana LDN - 07/05/2025 1:22 PM ESTAssociated Order(s): IP CONSULT TO NUTRITION SERVICES [facility] Clinical Nutrition Assessment - Adult INITIAL INDICATION FOR CONSULT: Consult Order. Reason: Consult for DM education Impression 44-year-old male with type 2 diabetes mellitus improved control most recently, CAD status post STEMI 05/2023 with drug-eluting stent to the left circumflex (preserved EF at baseline), hypertension, hyperlipidemia, GERD and prior history of tobacco use (having quit in 2022) with recent increase in Jardiance dose 3 months ago and significant weight loss since being on Ozempic over the last 6 monthspresenting with hypoglycemia and found to have evidence of euglycemic ketoacidosis related to [id number]. Nutrition Consult received and appreciated. Patient???s chart reviewed and events noted. Defer fullnutrition intervention today with the following plan of care: Reason(s) for deferring Nutrition assessment: [] Clinical condition [] Pt is off the floor [] No acute/current nutrition needs per chart review [] Pt had full nutrition assessment on: [] Nutrition intervention no longer consistent with goals of care [x] Other: Pt know diet very well - sees RD through spray operator - decline diet ed - good appetite A1C improving Lab Results Component Value Date GHBA1C 6.5 (H) 07/04/2025 GHBA1C 11.2 (H) 06/24/2023 Plan: [x] Follow up as clinically indicated [x] Other: Will send a scoop of egg aniyah at 10 and 2 per pt request Date 07/05/2025 Time 1:22 PM Signature AMBAR Magdaleno documented in this encounter ED Notes * Jose Muller RN - 07/04/2025 7:34 AM EST ED Nursing Progress Note Assumed care of this patient at change of shift. Patient is resting on the stretcher with his family member at bedside. Patient is alert and oriented. He is instructed to stay NPO until after the CT he is going for is resulted. Will continue to monitor. * Bjorn Leal RN - 07/04/2025 4:48 AM EST Pt biba from home after waking up with n/v a couple o hours ago and subsequently found themselvesto be hypoglycemic. Initial ems bg 60 66 after 100ml of d10 bar captain 25gm/250ml and 103 in ed. Pt received zofran bar captain to minimal effect. Upon assessment pt axox3, appears pale, lethargic, belly soft, tender in lower quadrants with guarding and increased pain to palpation, pt tachy in triage, afebrile.. per provider pt cleared to receive full bag of d10 * Char Stone DO - 07/04/2025 4:41 AM EST Chief Complaint Chief Complaint Patient presents with Hypoglycemia Abdominal Pain History of Present Illness The patient, Bunny Jose,is a 44 y.o. male who presents for evaluation of Hypoglycemia and Abdominal Pain The patient presents to the emergency department for evaluation of vomiting and hypoglycemia. Patient has a past medical history is significant for diabetes, CAD status post VA, GERD and glaucoma. Hereports that last night he went to a work constitution party and had 2 alcoholic drinks and came home around 7 PM. Soon after he started vomiting quite a bit. He felt as though his blood sugar was dropping and hechecked his sugar at home and noted it was low. He took some glucose tablets but continued to vomit. He started vomiting bright red blood at 1 point. The patient also reports suprapubic abdominal pain. The nausea has improved but is still present. Unless otherwise specified, I have reviewed and agree with the triage and nursing notes. ROS A ten point review of systems was negative except what was noted in the HPI. Review of Systems Past Medical History No past medical history on file. Past Surgical History No past surgical history on file. Home Medications Prior to Admission medications Medication Sig cyclobenzaprine (FLEXERIL) 5 MG tablet 5 mg, Oral, 3 times daily PRN Allergies No Known Allergies Social and Family History Social History Tobacco Use Smoking status: Not on file Smokeless tobacco: Not on file Substance Use Topics Alcohol use: Not on file Social History Substance and Sexual Activity Drug Use Not on file No family history on file. Physical Exam Vital Signs: ED Triage Vitals [07/04/25 0453] Encounter Vitals Group BP 130/82 Girls Systolic BP Percentile Girls Diastolic BP Percentile Boys Systolic BP Percentile Boys Diastolic BP Percentile Heart Rate (!) 121 Respiratory Rate 14 Temperature 36.3 ??C (97.3 ??F) Temp src SpO2 98 % Weight 169 lb Height 5' 7 Head Circumference Peak Flow Pain Score Pain Loc Pain Education Exclude from Growth Chart Physical Exam Constitutional: General: He is not in acute distress. Appearance: Normal appearance. HENT: Head: Normocephalic and atraumatic. Mouth/Throat: Comments: Dry oral mucosa Eyes: Extraocular Movements: Extraocular movements intact. Conjunctiva/sclera: Conjunctivae normal. Pupils: Pupils are equal, round, and reactive to light. Cardiovascular: Rate and Rhythm: Normal rate and regular rhythm. Pulmonary: Effort: Pulmonary effort is normal. Breath sounds: Normal breath sounds. Abdominal: General: Abdomen is flat. Palpations: Abdomen is soft. Comments: Tender to palpation in the suprapubic region, voluntary guarding noted when palpating theleft lower quadrant. Musculoskeletal: Cervical back: Neck supple. Skin: General: Skin is warm and dry. Neurological: General: No focal deficit present. Mental Status: He is alert and oriented to person, place, and time. Psychiatric: Judgment: Judgment normal. Laboratory Testing Results for orders placed or performed during the hospital encounter of 07/04/25 POCT Glucose Result Value Ref Range Glucose 103 (H) 70 - 99 mg/dL URINE SEDIMENT Specimen: Urine, Voided Result Value Ref Range WBC 0-2 0 - 9 /hpf RBC 0-2 0 - 2 /hpf CBC and Differential Specimen: Blood Result Value Ref Range WBC 13.76 (H) 4.00 - 11.00 K/uL RBC 5.15 4.50 - 5.90 M/uL Hemoglobin 14.4 13.5 - 17.5 g/dL Hematocrit 46.2 41.0 - 53.0 % MCV 89.7 80.0 - 100.0 fL MCH 28.0 27.0 - 31.0 pg MCHC 31.2 (L) 32.0 - 36.0 g/dL MPV 9.8 8.4 - 12.0 fL RDW-CV 14.2 11.5 - 14.5 % PLT 331 150 - 450 K/uL Neutrophils 88.5 % Lymphocytes 8.3 % Monocytes 2.3 % Eosinophils 0.0 % Basophils 0.3 % Imm Grans 0.6 % NRBC 0.0 <=0.0 /100 WBCs Absolute Neutrophils 12.19 (H) 1.92 - 7.60 K/uL Absolute Lymphocytes 1.14 0.72 - 4.10 K/uL Absolute Monocytes 0.31 0.16 - 1.10 K/uL Absolute Eosinophils 0.00 0.00 - 0.50 K/uL Absolute Basophils 0.04 0.00 - 0.15 K/uL Absolute Imm Grans 0.08 0.00 - 0.09 K/uL Absolute NRBC 0.00 <=0.00 K cells/uL Absolute Neutrophils 12.19 (H) 1.92 - 7.60 K/uL Diff Type Auto Lipase Specimen: Blood Result Value Ref Range Lipase 48 13 - 60 U/L Hepatic Panel (LFTs) Specimen: Blood Result Value Ref Range AST 73 (H) <40 U/L ALT 73 (H) <50 U/L Alkaline Phosphatase 52 40 - 130 U/L Bilirubin, Total 0.2 0.0 - 1.2 mg/dL Bilirubin, Direct 0.1 0.0 - 0.3 mg/dL Total Protein 7.8 6.4 - 8.3 g/dL Albumin 4.8 3.5 - 5.2 g/dL Globulin 3.0 1.9 - 4.1 g/dL Urinalysis with Reflex to Urine Culture Specimen: Urine, Voided Result Value Ref Range Color Yellow Yellow Clarity Clear Clear Glucose 3+ (*) Negative Bilirubin Urine Negative Negative Ketone Urine 2+ (*) Negative Specific [place] 1.025 1.001 - 1.035 Blood Negative Negative pH 6.0 5.0 - 8.0 Protein 1+ (*) Negative Nitrites Negative Negative Leukocyte Esterase Negative Negative Urobilinogen Negative Negative Basic Metabolic Panel (BMP) Specimen: Blood Result Value Ref Range Sodium 138 136 - 145 mmol/L Potassium 4.8 3.4 - 5.1 mmol/L Chloride 97 (L) 98 - 107 mmol/L CO2 14 (L) 20 - 31 mmol/L BUN 23 6 - 23 mg/dL Creatinine 1.00 0.60 - 1.30 mg/dL Glucose 213 (H) 70 - 99 mg/dL Calcium 9.5 8.5 - 10.5 mg/dL eGFR 96 >59 mL/min/1.73m2 Anion Gap 27 (H) 3 - 17 mmol/L Radiology Testing No orders to display MDM Assessment and Plan: The patient's blood work reveals EKG sinus tachycardia at [address]-T wave changes to suggest acute ischemia. Q waves noted in lead III and aVF no ST elevation or depression The patient's blood work is consistent with euvolemic diabetic ketoacidosis. His VBG is significantfor a pH of 7.27. He is acidotic. He has been given 2 L IV fluid. I have consulted with the ICU. Plan will be to start patient on low-dose insulin as well as D5 half-normal saline. CT scan of the abdomen and pelvis reveals mild colitis. Patient's condition has improved in the emergency department. Care has been turned over to the ICU team. Critical Care: Total Critical Care Time (minutes) 47 is exclusive of otherwise billable procedures. Services: Toxic/Metabolic Indications: Patient has evidence of a life-threatening glucose imbalance with associated metabolicdisarray, placing the patient at risk of obtundation, seizures, respiratory compromise, and . Interventions: Throughout the ED course, the glucose was serially checked to follow response to therapy. Bolus crystalloid volume resuscitation was provided. Adequacy of volume repletion was monitored throughout the ED course. To treat life-threatening hyperglycemic condition, an insulin infusion was initiated. Serum lactic acid level was checked to evaluation for hypoperfusion. Bolus crystalloidvolume resuscitation was provided. Adequacy of volume repletion was monitored throughout the ED course. Course: The patient???s symptoms improved over the ED course. Due to ongoing concerns over stability and need for ongoing critical care, the patient was admitted to an ICU. Clinical Impressions as of 07/04/25 1612 Diabetic ketoacidosis Critical Care Time: 47 minutes Clinical Impression None Disposition: Admit to ICU Char Stone DO 07/04/25 1614 documented in this encounter Miscellaneous Notes * Hospital Course - Balta Lai, GUITAR MAKER - 07/05/2025 11:35 AM EST 44 y.o. male with a history of previously poorly controlled diabetes mellitus type 2, hypertension,hyperlipidemia, prior history of STEMI/CAD-status post drug-eluting stent 05/2023, diabetic retinopathy/glaucoma, GERD, prior history of tobacco use having quit after his [facility] presenting with a somewhat abrupt episode of nausea recurrent vomiting increased urination and then ultimately dizziness/unsteadiness of gait and some confusion after coming home from a [place] where he reports that he only consumed 2 shots of Tadeo however admits that he has not been eating or hydrating adequately over the last week due to increased workload/stress. He denied any excessive alcohol use recently. He denied any diarrhea and there was some mild suprapubic abdominal pain. He denied any dysuria. He denied any chest pressure or chest pain and reports that his GERD has been under control with omeprazole. He has had a prior history of diverticulitis but reports that the symptoms were not si milar. He did present to the ED approximately a month ago with some atypical right upper mid axillary pain, back pain and lower abdominal pain-workup including CT scan abdomen pelvis EKGs and troponins were overall unremarkable except for some findings suggesting mild colitis. The patient was started on cyclobenzaprine-muscle relaxant with the thought that his symptoms were due to back pain/paraspinal spasm-the symptoms resolved. He denies any fever sweats or chills. He denies any sick contacts. No URI or viral syndrome type symptoms. No headaches, no focal neurological symptoms, no neck painor stiffness. He had not made any changes in his medication regimen recently-this includes Jardiance which had been increased about 3 months ago to 25 mg, Ozempic on a maintenance basis now 2 mg every week (the patient has lost approximately 35 pounds since starting Ozempic), Lantus 40 units every morning and metformin 1000 mg twice a day. He reports that he had not missed any doses of his meds. During the events preceding his admission there was a fingerstick blood sugar that was taken and perreport it was less than 40. The patient has not had issues recently with recurrent hypoglycemia or multiple episodes of shakiness/jitteriness. Overall improved blood glucose control with hemoglobin A1c just over a year ago of 12 and most recently 7.6. In the ED evidence of dehydration/hypovolemia, anion gap acidosis with a relatively normal lactate,hypoglycemia which responded to D10, urinalysis revealing ketones. Fluid resuscitation started withgood response- overall felt improved. He also received antiemetics. Liver function test revealed mild transaminitis with elevated AST and ALT in the 70s but normal lipase. There was some mild leukocytosis but no left shift. There was no evidence of any fever or hypothermia. The patient had an abdominal/pelvic CT scan performed which again revealed some possible mild colitis but no other significant intra-abdominal findings and the lower lung sorto were clear. EKG was obtained and did not reveal any significant changes compared to prior baselines. Troponins were obtained and noted to be flat.CRP less than 3. Hemoglobin A1c 6.5. No evidence of any renal dysfunction/SARAHY. TSH slightly low at 0.35. Random cortisol 2.2- however no other signs of AI. BNP less than 36. Lipid panel checked with a cholesterol of 99 and HDL of 43 and an LDL of 41 with triglyceride of 73. No major electrolyte abnormalities were noted. Anion gap was 27. ED contacted critical care team for advice regarding management of euglycemic ketoacidosis given the presentation and known use of SGLT-2 inhibitors. Symptoms were potentially exacerbated by ongoing concurrent use of GLP-1 agonists/semaglutide with significant weight loss in the last several months, recent poor hydration over the past week as well as alcohol use at recent work constitution party. Patient was started on D5 half-normal at 150 cc/h with the plan to start an insulin drip at 2 units/h. Admitted the patient to the ICU for ongoing management and frequent blood draws likely need for frequent adjustments to therapy and also related to occasional tendency for euglycemic ketoacidosis to persist greater than 24 hours given half-life of SGLT2 inhibitors. 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 documented in this encounter Plan of Treatment Pending Results Name Type Priority Associated Diagnoses Date /Time Blood Culture, Routine Microbiology STAT 07/04/2025 11:51 AM EST Blood Culture, Routine Microbiology STAT 07/04/2025 11:50 AM EST documented as of this encounter Procedures Procedure Name Priority Date/Time Associated Diagnosis Comments POCT GLUCOSE Routine 07/06/2025 11:42 AM EST PHOSPHORUS Routine 07/06/2025 11:33 AM EST MAGNESIUM Routine 07/06/2025 11:33 AM EST BASIC METABOLIC PANEL (BMP) Routine 07/06/2025 11:33 AM EST POCT GLUCOSE Routine 07/06/2025 8:08 AM EST CBC AND DIFFERENTIAL Routine 07/06/2025 5:00 AM EST LFTS (HEPATIC PANEL) Routine 07/06/2025 5:00 AM EST CBC AND DIFFERENTIAL Routine 07/06/2025 5:00 AM EST PHOSPHORUS Routine 07/06/2025 5:00 AM EST MAGNESIUM Routine 07/06/2025 5:00 AM EST BASIC METABOLIC PANEL (BMP) Routine 07/06/2025 5:00 AM EST POCT GLUCOSE Routine 07/05/2025 9:07 PM EST PHOSPHORUS Routine 07/05/2025 8:18 PM EST MAGNESIUM Routine 07/05/2025 8:18 PM EST BASIC METABOLIC PANEL (BMP) Routine 07/05/2025 8:18 PM EST POCT GLUCOSE Routine 07/05/2025 4:39 PM EST POCT GLUCOSE Routine 07/05/2025 2:05 PM EST PHOSPHORUS Routine 07/05/2025 12:23 PM EST MAGNESIUM Routine 07/05/2025 12:23 PM EST BASIC METABOLIC PANEL (BMP) Routine 07/05/2025 12:23 PM EST POCT GLUCOSE Routine 07/05/2025 10:42 AM EST PHOSPHORUS Routine 07/05/2025 9:27 AM EST MAGNESIUM Routine 07/05/2025 9:27 AM EST BASIC METABOLIC PANEL (BMP) Routine 07/05/2025 9:27 AM EST POCT GLUCOSE Routine 07/05/2025 8:59 AM EST POCT GLUCOSE Routine 07/05/2025 8:13 AM EST POCT GLUCOSE Routine 07/05/2025 7:04 AM EST ECG 12-LEAD Routine 07/05/2025 6:14 AM EST POCT GLUCOSE Routine 07/05/2025 6:03 AM EST POCT GLUCOSE Routine 07/05/2025 5:04 AM EST POCT GLUCOSE Routine 07/05/2025 4:04 AM EST MRSA PCR SCREEN Routine 07/05/2025 3:27 AM EST CBC AND DIFFERENTIAL Routine 07/05/2025 3:25 AM EST LFTS (HEPATIC PANEL) Routine 07/05/2025 3:25 AM EST PT-INR Routine 07/05/2025 3:25 AM EST CBC AND DIFFERENTIAL Routine 07/05/2025 3:25 AM EST PHOSPHORUS Routine 07/05/2025 3:25 AM EST MAGNESIUM Routine 07/05/2025 3:25 AM EST BASIC METABOLIC PANEL (BMP) Routine 07/05/2025 3:25 AM EST POCT GLUCOSE Routine 07/05/2025 3:06 AM EST POCT GLUCOSE Routine 07/05/2025 2:01 AM EST POCT GLUCOSE Routine 07/05/2025 1:07 AM EST POCT GLUCOSE Routine 07/04/2025 11:59 PM EST POCT GLUCOSE Routine 07/04/2025 11:03 PM EST POCT GLUCOSE Routine 07/04/2025 10:06 PM EST PHOSPHORUS Routine 07/04/2025 9:41 PM EST MAGNESIUM Routine 07/04/2025 9:41 PM EST BASIC METABOLIC PANEL (BMP) Routine 07/04/2025 9:41 PM EST POCT GLUCOSE Routine 07/04/2025 9:07 PM EST POCT GLUCOSE Routine 07/04/2025 8:02 PM EST POCT GLUCOSE Routine 07/04/2025 6:59 PM EST POCT GLUCOSE Routine 07/04/2025 6:04 PM EST PHOSPHORUS STAT 07/04/2025 5:36 PM EST MAGNESIUM STAT 07/04/2025 5:36 PM EST CORTISOL Routine 07/04/2025 5:36 PM EST BASIC METABOLIC PANEL (BMP) STAT 07/04/2025 5:36 PM EST POCT GLUCOSE Routine 07/04/2025 5:06 PM EST POCT GLUCOSE Routine 07/04/2025 4:01 PM EST PHOSPHORUS STAT 07/04/2025 3:36 PM EST MAGNESIUM STAT 07/04/2025 3:36 PM EST BASIC METABOLIC PANEL (BMP) STAT 07/04/2025 3:36 PM EST POCT GLUCOSE Routine 07/04/2025 3:02 PM EST TOXICOLOGY SCREEN, URINE STAT 07/04/2025 2:59 PM EST POCT GLUCOSE Routine 07/04/2025 2:12 PM EST POCT GLUCOSE Routine 07/04/2025 1:00 PM EST POCT GLUCOSE Routine 07/04/2025 12:31 PM EST POCT GLUCOSE Routine 07/04/2025 12:06 PM EST BLOOD CULTURE, ROUTINE STAT 07/04/2025 11:51 AM EST CBC AND DIFFERENTIAL Routine 07/04/2025 11:51 AM EST PT-INR Routine 07/04/2025 11:51 AM EST CBC AND DIFFERENTIAL Routine 07/04/2025 11:51 AM EST HEMOGLOBIN A1C STAT 07/04/2025 11:51 AM EST KETONE BODIES, SERUM STAT 07/04/2025 11:50 AM EST BLOOD CULTURE, ROUTINE STAT 07/04/2025 11:50 AM EST TSH WITH REFLEX STAT 07/04/2025 11:50 AM EST LFTS (HEPATIC PANEL) Routine 07/04/2025 11:50 AM EST C-REACTIVE PROTEIN (CRP) STAT 07/04/2025 11:50 AM EST TROPONIN STAT 07/04/2025 11:50 AM EST T3, TOTAL STAT 07/04/2025 11:50 AM EST FREE T4 STAT 07/04/2025 11:50 AM EST PHOSPHORUS STAT 07/04/2025 11:50 AM EST NT-PROBNP STAT 07/04/2025 11:50 AM EST MAGNESIUM STAT 07/04/2025 11:50 AM EST LIPID PANEL STAT 07/04/2025 11:50 AM EST BASIC METABOLIC PANEL (BMP) STAT 07/04/2025 11:50 AM EST POCT GLUCOSE Routine 07/04/2025 10:44 AM EST POCT GLUCOSE STAT 07/04/2025 10:05 AM EST TROPONIN STAT 07/04/2025 9:52 AM EST LACTATE (BLOOD GAS) STAT 07/04/2025 9 :24 AM EST POCT GLUCOSE STAT 07/04/2025 8:[address] ABDOMEN/PELVIS WITH CONTRAST Routine 07/04/2025 8:33 AM EST KETONE BODIES, SERUM STAT 07/04/2025 7:27 AM EST VENOUS BLOOD GAS STAT 07/04/2025 7:27 AM EST CBC AND DIFFERENTIAL STAT 07/04/2025 5:15 AM EST LFTS (HEPATIC PANEL) STAT 07/04/2025 5:15 AM EST CBC AND DIFFERENTIAL STAT 07/04/2025 5:15 AM EST LIPASE STAT 07/04/2025 5:15 AM EST BASIC METABOLIC PANEL (BMP) STAT 07/04/2025 5:15 AM EST URINALYSIS WITH REFLEX TO URINE CULTURE STAT 07/04/2025 5:11 AM EST URINE SEDIMENT STAT 07/04/2025 5:11 AM EST ECG 12-LEAD STAT 07/04/2025 4:55 AM EST POCT GLUCOSE STAT 07/04/2025 4:47 AM EST documented in this encounter Results * POCT Glucose (07/06/2025 11:42 AM EST) Glucose 85 70 - 99 mg/dL 07/06/2025 11:44 AM EST [facility] Blood (Blood) 07/06/2025 11: 42 AM EST 07/06/2025 11:44 AM EST us Gorge Cheung MD LAB POCT DOCKED DEVICE UNSOL ICTED RESULTS Final Result [address] [address] * Phosphorus (07/06/2025 11:33 AM EST) Phosphorus 3.0 2.5 - 4.5 mg/dL 07/06/2025 12:44 PM EST [facility] Blood (Blood) Venipuncture / Unknown 07/06/2025 11:33 AM EST 07/06/2025 12:07 PM EST us Gorge Cheung MD LAB BLOOD BKR ORDERABLES Fin al Result Performing Organization Address [facility]/ZIP Co de Phone Number [address] [address] * Magnesium (07/06/2025 11:33 AM EST) Magnesium 1.9 1.7 - 2.6 mg/dL 07/06/2025 12:44 PM EST [facility] Blood (Blood) Venipuncture / Unknown 07/06/2025 11:33 AM EST 07/06/2025 12:07 PM EST us Gorge Cheung MD LAB BLOOD BKR ORDERABLES Fin al Result Performing Organization Address [facility]/ZIP Co de Phone Number [address] [address] * (ABNORMAL) Basic Metabolic Panel (BMP) (07/06/2025 11:33 AM EST) Sodium 141 136 - 145 mmol/L 07/06/2025 12:44 PM [facility] Potassium 4.3 3.4 - 5.1 mmol/L 07/06/2025 12:44 PM [facility] Comment:NOTE: Specimen hemol yzed. Results may be falsely increased. Chloride 106 98 - 107 mmol/L 07/06/2025 12:44 PM [facility] CO2 24 20 - 31 mmol/L 07/06/2025 12:44 PM [facility] BUN 8 6 - 23 mg/dL 07/06/2025 12:44 PM [facility] Creatinine 0.70 0.60 - 1.30 mg/dL 07/06/2025 12:44 PM [facility] Glucose 95 70 - 99 mg/dL 07/06/2025 12:44 PM [facility] Calcium 8.4(L) 8.5 - 10.5 mg/dL 07/06/2025 12:44 PM [facility] eGFR 117 >59 mL/min/1.7 3m2 07/06/2025 12:44 PM [facility] Comment:Estimated glomerular filtration rate calculated using the CKD-EPI refit equation. Anion Gap 11 3 - 17 mmol/L 07/06/2025 12:44 PM [facility] Blood (Blood) Venipuncture / Unknown 07/06/2025 11:33 AM EST 07/06/2025 12:07 PM EST Gorge Cheung MD LAB BLOOD BKR ORDERABLES Fin al Result [address] [address] * (ABNORMAL) POCT Glucose (07/06/2025 8:08 AM EST) Glucose 112(H) 70 - 99 mg/dL 07/06/2025 8:10 AM [facility] Blood (Blood) 07/06/2025 8:0 8 AM EST 07/06/2025 8:10 AM EST Gorge Cheung MD LAB POCT DOCKED DEVICE UNSOL ICTED RESULTS Final Result [facility] [address], [place] [id number] * (ABNORMAL) CBC and Differential (07/06/2025 5:00 AM EST) WBC 6.86 4.00 - 11.00 K/uL 07/06/2025 5:10 AM [facility] RBC 4.55 4.50 - 5.90 M/uL 07/06/2025 5:10 AM [facility] Hemoglobin 12.7(L) 13.5 - 17.5 g/dL 07/06/2025 5:10 AM [facility] Hematocrit 39.6(L) 41.0 - 53.0 % 07/06/2025 5:10 AM [facility] MCV 87.0 80.0 - 100.0 fL 07/06/2025 5:10 AM [facility] MCH 27.9 27.0 - 31.0 pg 07/06/2025 5:10 AM [facility] MCHC 32.1 32.0 - 36.0 g/dL 07/06/2025 5:10 AM [facility] MPV 9.6 8.4 - 12.0 fL 07/06/2025 5:10 AM [facility] RDW-CV 14.5 11.5 - 14.5 % 07/06/2025 5:10 AM [facility] PLT 274 150 - 450 K/uL 07/06/2025 5:10 AM [facility] Neutrophils 56.7 % 07/06/2025 5:10 AM [facility] Lymphocytes 31.5 % 07/06/2025 5:10 AM [facility] Monocytes 7.9 % 07/06/2025 5:10 AM [facility] Eosinophils 2.9 % 07/06/2025 5:10 AM [facility] Basophils 0.9 % 07/06/2025 5:10 AM [facility] Imm Grans 0.1 % 07/06/2025 5:10 AM [facility] NRBC 0.0 <=0.0 /100 WBCs 07/06/2025 5:10 AM [facility] Absolute Neutrophils 3.89 1.92 - 7.60 K/uL 07/06/2025 5:10 AM [facility] Absolute Lymphocytes 2.16 0.72 - 4.10 K/uL 07/06/2025 5:10 AM [facility] Absolute Monocytes 0.54 0.16 - 1.10 K/uL 07/06/2025 5:10 AM [facility] Absolute Eosinophils 0.20 0.00 - 0.50 K/uL 07/06/2025 5:10 AM [facility] Absolute Basophils 0.06 0.00 - 0.15 K/uL 07/06/2025 5:10 AM [facility] Absolute Imm Grans 0.01 0.00 - 0.09 K/uL 07/06/2025 5:10 AM [facility] Absolute NRBC 0.00 <=0.00 K cells/uL 07/06/2025 5:10 AM [facility] Absolute Neutrophils 3.89 1.92 - 7.60 K/uL 07/06/2025 5:10 AM [facility] Comment:Automated cell count . Manual ANC may differ if performed. Diff Type Auto 07/06/2025 5:10 AM [facility] Blood (Blood) Catheter/Line / Unknown 07/06/2025 5:00 AM EST 07/06/2025 5:08 AM EST us Gorge Cheung MD LAB BLOOD BKR ORDERABLES Fin al Result [facility] [address] [place] [address] * (ABNORMAL) Hepatic Panel (LFTs) (07/06/2025 5:00 AM EST) AST 66(H) <40 U/L 07/06/2025 5:33 AM [facility] ALT 95(H) <50 U/L 07/06/2025 5:33 AM [facility] Alkaline Phosphatase 55 40 - 130 U/L 07/06/2025 5:33 AM [facility] Bilirubin, Total 0.3 0.0 - 1.2 mg/dL 07/06/2025 5:33 AM [facility] Bilirubin, Direct 0.1 0.0 - 0.3 mg/dL 07/06/2025 5:33 AM [facility] Total Protein 6.5 6.4 - 8.3 g/dL 07/06/2025 5:33 AM [facility] Albumin 4.1 3.5 - 5.2 g/dL 07/06/2025 5:33 AM [facility] Globulin 2.4 1.9 - 4.1 g/dL 07/06/2025 5:33 AM [facility] Blood (Blood) Catheter/Line / Unknown 07/06/2025 5:00 AM EST 07/06/2025 5:08 AM EST us Gorge Cheung MD LAB BLOOD BKR ORDERABLES Fin al Result [address] [address] * Phosphorus (07/06/2025 5:00 AM EST) Phosphorus 3.4 2.5 - 4.5 mg/dL 07/06/2025 5:33 AM [facility] Blood (Blood) Catheter/Line / Unknown 07/06/2025 5:00 AM EST 07/06/2025 5:08 AM EST us Gorge Cheung MD LAB BLOOD BKR ORDERABLES Fin al Result [address] [address] * Magnesium (07/06/2025 5:00 AM EST) Magnesium 2.0 1.7 - 2.6 mg/dL 07/06/2025 5:33 AM [facility] Blood (Blood) Catheter/Line / Unknown 07/06/2025 5:00 AM EST 07/06/2025 5:08 AM EST us Gorge Cheung MD LAB BLOOD BKR ORDERABLES Fin al Result [address] [address] * (ABNORMAL) Basic Metabolic Panel (BMP) (07/06/2025 5:00 AM EST) Pathologist [facility] Sodium 140 136 - 145 mmol/L 07/06/2025 5:33 AM [facility] Potassium 4.0 3.4 - 5.1 mmol/L 07/06/2025 5:33 AM [facility] Chloride 106 98 - 107 mmol/L 07/06/2025 5:33 AM [facility] CO2 23 20 - 31 mmol/L 07/06/2025 5:33 AM [facility] BUN 9 6 - 23 mg/dL 07/06/2025 5:33 AM [facility] Creatinine 0.70 0.60 - 1.30 mg/dL 07/06/2025 5:33 AM [facility] Glucose 102(H) 70 - 99 mg/dL 07/06/2025 5:33 AM [facility] Calcium 8.3(L) 8.5 - 10.5 mg/dL 07/06/2025 5:33 AM [facility] eGFR 117 >59 mL/min/1.7 3m2 07/06/2025 5:33 AM [facility] Comment:Estimated glomerular filtration rate calculated using the CKD-EPI refit equation. Anion Gap 11 3 - 17 mmol/L 07/06/2025 5:33 AM [facility] Blood (Blood) Catheter/Line / Unknown 07/06/2025 5:00 AM EST 07/06/2025 5:08 AM EST Gorge Cheung MD LAB BLOOD BKR ORDERABLES Fin al Result [address] [address] * (ABNORMAL) POCT Glucose (07/05/2025 9:07 PM EST) Glucose 109(H) 70 - 99 mg/dL 07/05/2025 9:15 PM EST [facility] Blood (Blood) 07/05/2025 9:0 7 PM EST 07/05/2025 9:15 PM EST us Gorge Cheung MD LAB POCT DOCKED DEVICE UNSOL ICTED RESULTS Final Result [address] [address] * Phosphorus (07/05/2025 8:18 PM EST) Phosphorus 2.8 2.5 - 4.5 mg/dL 07/05/2025 8:50 PM EST [facility] Blood (Blood) Catheter/Line / Unknown 07/05/2025 8:18 PM EST 07/05/2025 8:22 PM EST us Gorge Cheung MD LAB BLOOD BKR ORDERABLES Fin al Result Performing Organization Address [facility]/ZIP Co de Phone Number [address] [address] * Magnesium (07/05/2025 8:18 PM EST) Magnesium 1.8 1.7 - 2.6 mg/dL 07/05/2025 8:50 PM EST [facility] Blood (Blood) Catheter/Line / Unknown 07/05/2025 8:18 PM EST 07/05/2025 8:22 PM EST us Gorge Cheung MD LAB BLOOD BKR ORDERABLES Fin al Result Performing Organization Address City/[facility]/ZIP Co de Phone Number [address] [address] * (ABNORMAL) Basic Metabolic Panel (BMP) (07/05/2025 8:18 PM EST) Sodium 140 136 - 145 mmol/L 07/05/2025 8:50 PM [facility] Potassium 3.9 3.4 - 5.1 mmol/L 07/05/2025 8:50 PM [facility] Chloride 106 98 - 107 mmol/L 07/05/2025 8:50 PM [facility] CO2 25 20 - 31 mmol/L 07/05/2025 8:50 PM [facility] BUN 8 6 - 23 mg/dL 07/05/2025 8:50 PM [facility] Creatinine 0.90 0.60 - 1.30 mg/dL 07/05/2025 8:50 PM [facility] Glucose 134(H) 70 - 99 mg/dL 07/05/2025 8:50 PM [facility] Calcium 8.7 8.5 - 10.5 mg/dL 07/05/2025 8:50 PM [facility] eGFR 109 >59 mL/min/1.7 3m2 07/05/2025 8:50 PM [facility] Comment:Estimated glomerular filtration rate calculated using the CKD-EPI refit equation. Anion Gap 9 3 - 17 mmol/L 07/05/2025 8:50 PM [facility] Blood (Blood) Catheter/Line / Unknown 07/05/2025 8:18 PM EST 07/05/2025 8:22 PM EST us Gorge Cheung MD LAB BLOOD BKR ORDERABLES Fin al Result Performing Organization Address City/State/[facility] Co de Phone Number [address] [address] * (ABNORMAL) POCT Glucose (07/05/2025 4:39 PM EST) Glucose 107(H) 70 - 99 mg/dL 07/05/2025 4:43 PM [facility] Blood (Blood) 07/05/2025 4:3 9 PM EST 07/05/2025 4:43 PM EST us Gorge Cheung MD LAB POCT DOCKED DEVICE UNSOL ICTED RESULTS Final Result Performing Organization Address [facility]/ZIP Co de Phone Number [address] [address] * (ABNORMAL) POCT Glucose (07/05/2025 2:05 PM EST) Glucose 166(H) 70 - 99 mg/dL 07/05/2025 2:10 PM EST [facility] Blood (Blood) 07/05/2025 2:0 5 PM EST 07/05/2025 2:10 PM EST us Gorge Cheung MD LAB POCT DOCKED DEVICE UNSOL ICTED RESULTS Final Result Performing Organization Address [facility] Co de Phone Number [address] [address] * (ABNORMAL) Phosphorus (07/05/2025 12:23 PM EST) Phosphorus 1.7(L) 2.5 - 4.5 mg/dL 07/05/2025 2:14 PM EST [facility] Blood (Blood) Venipuncture / Unknown 07/05/2025 12:23 PM EST 07/05/2025 12:30 PM EST us Gorge Cheung MD LAB BLOOD BKR ORDERABLES Fin al Result Performing Organization Address [facility]/ZIP Co de Phone Number [address] [address] * Magnesium (07/05/2025 12:23 PM EST) Magnesium 2.1 1.7 - 2.6 mg/dL 07/05/2025 2:14 PM EST [facility] Blood (Blood) Venipuncture / Unknown 07/05/2025 12:23 PM EST 07/05/2025 12:30 PM EST us Gorge Cheung MD LAB BLOOD BKR ORDERABLES Fin al Result [address] [address] * (ABNORMAL) Basic Metabolic Panel (BMP) (07/05/2025 12:23 PM EST) Sodium 142 136 - 145 mmol/L 07/05/2025 2:14 PM EST [facility] Potassium 4.3 3.4 - 5.1 mmol/L 07/05/2025 2:14 PM [facility] Chloride 108(H) 98 - 107 mmol/L 07/05/2025 2:14 PM [facility] CO2 24 20 - 31 mmol/L 07/05/2025 2:14 PM [facility] BUN 7 6 - 23 mg/dL 07/05/2025 2:14 PM [facility] Creatinine 0.70 0.60 - 1.30 mg/dL 07/05/2025 2:14 PM [facility] Glucose 110(H) 70 - 99 mg/dL 07/05/2025 2:14 PM [facility] Calcium 8.8 8.5 - 10.5 mg/dL 07/05/2025 2:14 PM [facility] eGFR 117 >59 mL/min/1.7 3m2 07/05/2025 2:14 PM [facility] Comment:Estimated glomerular filtration rate calculated using the CKD-EPI refit equation. Anion Gap 10 3 - 17 mmol/L 07/05/2025 2:14 PM [facility] Blood (Blood) Venipuncture / Unknown 07/05/2025 12:23 PM EST 07/05/2025 12:30 PM EST us Gorge Cheung MD LAB BLOOD BKR ORDERABLES Fin al Result [address] [address] * (ABNORMAL) POCT Glucose (07/05/2025 10:42 AM EST) Glucose 118(H) 70 - 99 mg/dL 07/05/2025 10:47 AM EST [facility] Blood (Blood) 07/05/2025 10: 42 AM EST 07/05/2025 10:47 AM EST Gorge Cheung MD LAB POCT DOCKED DEVICE UNSOL ICTED RESULTS Final Result Performing Organization Address [facility]/ZIP Co de Phone Number [address] [address] * (ABNORMAL) Phosphorus (07/05/2025 9:27 AM EST) Phosphorus 2.0(L) 2.5 - 4.5 mg/dL 07/05/2025 11:08 AM EST [facility] Blood (Blood) Venipuncture / Unknown 07/05/2025 9:27 AM EST 07/05/2025 9:40 AM EST Edith Calvert PA-C, MS LAB BLOOD BKR ORD ERABLES Final Result Performing Organization Address [facility] Co de Phone Number [address] [address] * Magnesium (07/05/2025 9:27 AM EST) Magnesium 2.1 1.7 - 2.6 mg/dL 07/05/2025 11:08 AM EST [facility] Blood (Blood) Venipuncture / Unknown 07/05/2025 9:27 AM EST 07/05/2025 9:40 AM EST us Edith Calvert PA-C, MS LAB BLOOD BKR ORD ERABLES Final Result Performing Organization Address [facility]/ZIP Co de Phone Number [address] [address] * (ABNORMAL) Basic Metabolic Panel (BMP) (07/05/2025 9:27 AM EST) Sodium 142 136 - 145 mmol/L 07/05/2025 11:08 AM [facility] Potassium 4.2 3.4 - 5.1 mmol/L 07/05/2025 11:08 AM [facility] Chloride 107 98 - 107 mmol/L 07/05/2025 11:08 AM [facility] CO2 24 20 - 31 mmol/L 07/05/2025 11:08 AM [facility] [facility] BUN 7 6 - 23 mg/dL 07/05/2025 11:08 AM [facility] Creatinine 0.70 0.60 - 1.30 mg/dL 07/05/2025 11:08 AM [facility] Glucose 216(H) 70 - 99 mg/dL 07/05/2025 11:08 AM [facility] Calcium 8.4(L) 8.5 - 10.5 mg/dL 07/05/2025 11:08 AM [facility] eGFR 117 >59 mL/min/1.7 3m2 07/05/2025 11:08 AM [facility] Comment:Estimated glomerular filtration rate calculated using the CKD-EPI refit equation. Anion Gap 11 3 - 17 mmol/L 07/05/2025 11:08 AM [facility] Blood (Blood) Venipuncture / Unknown 07/05/2025 9:27 AM EST 07/05/2025 9:40 AM EST us Edith Calvert PA-C, MS LAB BLOOD BKR ORD ERABLES Final Result [address] [address] * (ABNORMAL) POCT Glucose (07/05/2025 8:59 AM EST) Glucose 194(H) 70 - 99 mg/dL 07/05/2025 9:05 AM [facility] Blood (Blood) 07/05/2025 8:5 9 AM EST 07/05/2025 9:05 AM EST us Gorge Cheung MD LAB POCT DOCKED DEVICE UNSOL ICTED RESULTS Final Result Performing Organization Address [facility] Co de Phone Number [address] [address] * (ABNORMAL) POCT Glucose (07/05/2025 8:13 AM EST) Glucose 164(H) 70 - 99 mg/dL 07/05/2025 8:18 AM EST [facility] Blood (Blood) 07/05/2025 8:1 3 AM EST 07/05/2025 8:18 AM EST us Gorge Cheung MD LAB POCT DOCKED DEVICE UNSOL ICTED RESULTS Final Result Performing Organization Address [facility] de Phone Number [address] [address] * (ABNORMAL) POCT Glucose (07/05/2025 7:04 AM EST) Glucose 133(H) 70 - 99 mg/dL 07/05/2025 7:05 AM EST [facility] Blood (Blood) 07/05/2025 7:0 4 AM EST 07/05/2025 7:05 AM EST us Gorge Cheung MD LAB POCT DOCKED DEVICE UNSOL ICTED RESULTS Final Result Performing Organization Address [facility] Co de Phone Number [address] [address] * ECG 12-LEAD (07/05/2025 6:14 AM EST) Ventricular Rate EKG/MIN 89 BPM [facility] Atrial Rate 89 BPM [facility] RI Interval 144 ms [facility] QRS Duration 94 ms [facility] QT Interval 354 ms [facility] QTC Interval 430 ms [facility] P [place] 2 degrees [facility] R Wave [place] -26 degrees [facility] T Wave [place] -24 degrees [facility] 07/05/2025 6:14 AM EST 07/06/2025 12:51 PM EST Narrative [facility] - 07/06/2025 12:51 PM EST Normal sinus rhythm Low voltage QRS Inferior infarct (cited on or before 04-Jul-2025) Abnormal ECG When compared with ECG of 04-Jul-2025 04:55, QRS axis Shifted left Confirmed by Jesse Quintanilla ([id number]) on 07/06/2025 12:51:31 PM us Gorge Cheung MD ECG ORDERABLES Final Result Performing Organization Address City/[facility]/ZIP Co de Phone Number [email or web address] * (ABNORMAL) POCT Glucose (07/05/2025 6:03 AM EST) Glucose 143(H) 70 - 99 mg/dL 07/05/2025 6:05 AM EST [facility] Blood (Blood) 07/05/2025 6:0 3 AM EST 07/05/2025 6:05 AM EST us Gorge Cheung MD LAB POCT DOCKED DEVICE UNSOL ICTED RESULTS Final Result Performing Organization Address [facility] Co de Phone Number [address] [address] * (ABNORMAL) POCT Glucose (07/05/2025 5:04 AM EST) Glucose 147(H) 70 - 99 mg/dL 07/05/2025 5:10 AM EST [facility] Blood (Blood) 07/05/2025 5:0 4 AM EST 07/05/2025 5:10 AM EST us Gorge Cheung MD LAB POCT DOCKED DEVICE UNSOL ICTED RESULTS Final Result Performing Organization Address [facility] Co de Phone Number [address] [address] * (ABNORMAL) POCT Glucose (07/05/2025 4:04 AM EST) Glucose 144(H) 70 - 99 mg/dL 07/05/2025 4:07 AM EST [facility] Blood (Blood) 07/05/2025 4:0 4 AM EST 07/05/2025 4:07 AM EST us Gorge Cheung MD LAB POCT DOCKED DEVICE UNSOL ICTED RESULTS Final Result Performing Organization Address [facility]/ZIP Co de Phone Number [address] [address] * MRSA NASAL SCREEN, PCR (07/05/2025 3:27 AM EST) Pathologist [facility] MRSA PCR Screen Negative for MRSA Negative for MRSA 07/05/2025 4:56 AM [facility] Swab (Anterior Nares) Non-Blood Collection / Unknown 07/05/2025 3:27 AM EST 07/05/2025 3:33 AM EST us Gorge Cheung MD LAB GENERAL ORDERABLES Final Result Performing Organization Address [facility] Co de Phone Number [address] [address] * (ABNORMAL) CBC and Differential (07/05/2025 3:25 AM EST) Pathologist [facility] WBC 8.26 4.00 - 11.00 K/uL 07/05/2025 3:34 AM [facility] RBC 4.50 4.50 - 5.90 M/uL 07/05/2025 3:34 AM [facility] Hemoglobin 12.6(L) 13.5 - 17.5 g/dL 07/05/2025 3:34 AM [facility] Hematocrit 38.6(L) 41.0 - 53.0 % 07/05/2025 3:34 AM [facility] MCV 85.8 80.0 - 100.0 fL 07/05/2025 3:34 AM [facility] MCH 28.0 27.0 - 31.0 pg 07/05/2025 3:34 AM [facility] MCHC 32.6 32.0 - 36.0 g/dL 07/05/2025 3:34 AM [facility] MPV 9.5 8.4 - 12.0 fL 07/05/2025 3:34 AM [facility] RDW-CV 14.5 11.5 - 14.5 % 07/05/2025 3:34 AM [facility] PLT 292 150 - 450 K/uL 07/05/2025 3:34 AM [facility] Neutrophils 64.2 % 07/05/2025 3:34 AM [facility] Lymphocytes 25.5 % 07/05/2025 3:34 AM [facility] Monocytes 7.1 % 07/05/2025 3:34 AM [facility] Eosinophils 2.2 % 07/05/2025 3:34 AM [facility] Basophils 0.6 % 07/05/2025 3:34 AM [facility] Imm Grans 0.4 % 07/05/2025 3:34 AM [facility] NRBC 0.0 <=0.0 /100 WBCs 07/05/2025 3:34 AM [facility] Absolute Neutrophils 5.30 1.92 - 7.60 K/uL 07/05/2025 3:34 AM [facility] Absolute Lymphocytes 2.11 0.72 - 4.10 K/uL 07/05/2025 3:34 AM [facility] Absolute Monocytes 0.59 0.16 - 1.10 K/uL 07/05/2025 3:34 AM [facility] Absolute Eosinophils 0.18 0.00 - 0.50 K/uL 07/05/2025 3:34 AM [facility] Absolute Basophils 0.05 0.00 - 0.15 K/uL 07/05/2025 3:34 AM [facility] Absolute Imm Grans 0.03 0.00 - 0.09 K/uL 07/05/2025 3:34 AM [facility] Absolute NRBC 0.00 <=0.00 K cells/uL 07/05/2025 3:34 AM [facility] Absolute Neutrophils 5.30 1.92 - 7.60 K/uL 07/05/2025 3:34 AM [facility] Comment:Automated cell count . Manual ANC may differ if performed. Diff Type Auto 07/05/2025 3:34 AM EST [facility] Blood (Blood) Venipuncture / Unknown 07/05/2025 3:25 AM EST 07/05/2025 3:31 AM EST us Gorge Cheung MD LAB BLOOD BKR ORDERABLES Fin al Result Performing Organization Address City/[facility]/ZIP Co de Phone Number [address] [address] * PT-INR (07/05/2025 3:25 AM EST) PT 12.2 10.0 - 13.0 sec 07/05/2025 3:59 AM [facility] INR 1.0 0.9 - 1.1 07/05/2025 3:59 AM [facility] Comment:Therapeutic Range 2. 0 - 3.5 Blood (Blood) Venipuncture / Unknown 07/05/2025 3:25 AM EST 07/05/2025 3:31 AM EST us Gorge Cheung MD LAB BLOOD BKR ORDERABLES Fin al Result Performing Organization Address [facility]/ZIP Co de Phone Number [address] [address] * (ABNORMAL) Hepatic Panel (LFTs) (07/05/2025 3:25 AM EST) AST 33 <40 U/L 07/05/2025 3:57 AM [facility] ALT 52(H) <50 U/L 07/05/2025 3:57 AM [facility] Alkaline Phosphatase 39(L) 40 - 130 U/L 07/05/2025 3:57 AM [facility] Bilirubin, Total 0.3 0.0 - 1.2 mg/dL 07/05/2025 3:57 AM [facility] Bilirubin, Direct 0.1 0.0 - 0.3 mg/dL 07/05/2025 3:57 AM [facility] Total Protein 6.4 6.4 - 8.3 g/dL 07/05/2025 3:57 AM [facility] Albumin 4.0 3.5 - 5.2 g/dL 07/05/2025 3:57 AM EST [facility] Globulin 2.4 1.9 - 4.1 g/dL 07/05/2025 3:57 AM EST [facility] Blood (Blood) Venipuncture / Unknown 07/05/2025 3:25 AM EST 07/05/2025 3:31 AM EST Gorge Cheung MD LAB BLOOD BKR ORDERABLES Fin al Result Performing Organization Address [facility]/ZIP Co de Phone Number [address] [address] * Phosphorus (07/05/2025 3:25 AM EST) Phosphorus 2.7 2.5 - 4.5 mg/dL 07/05/2025 3:57 AM EST [facility] Blood (Blood) Venipuncture / Unknown 07/05/2025 3:25 AM EST 07/05/2025 3:31 AM EST Edith Calvert PA-C, MS LAB BLOOD BKR ORD ERABLES Final Result Performing Organization Address [facility] Co de Phone Number [address] [address] * Magnesium (07/05/2025 3:25 AM EST) Magnesium 2.2 1.7 - 2.6 mg/dL 07/05/2025 3:57 AM EST [facility] Blood (Blood) Venipuncture / Unknown 07/05/2025 3:25 AM EST 07/05/2025 3:31 AM EST Edith Calvert PA-C, MS LAB BLOOD BKR ORD ERABLES Final Result Performing Organization Address [facility] Co de Phone Number [address] [address] * (ABNORMAL) Basic Metabolic Panel (BMP) (07/05/2025 3:25 AM EST) Sodium 137 136 - 145 mmol/L 07/05/2025 3:57 AM [facility] Potassium 3.3(L) 3.4 - 5.1 mmol/L 07/05/2025 3:57 AM [facility] Chloride 104 98 - 107 mmol/L 07/05/2025 3:57 AM [facility] CO2 24 20 - 31 mmol/L 07/05/2025 3:57 AM [facility] BUN 10 6 - 23 mg/dL 07/05/2025 3:57 AM [facility] Creatinine 0.70 0.60 - 1.30 mg/dL 07/05/2025 3:57 AM [facility] Glucose 163(H) 70 - 99 mg/dL 07/05/2025 3:57 AM [facility] Calcium 8.3(L) 8.5 - 10.5 mg/dL 07/05/2025 3:57 AM [facility] eGFR 117 >59 mL/min/1.7 3m2 07/05/2025 3:57 AM [facility] Comment:Estimated glomerular filtration rate calculated using the CKD-EPI refit equation. Anion Gap 9 3 - 17 mmol/L 07/05/2025 3:57 AM [facility] Blood (Blood) Venipuncture / Unknown 07/05/2025 3:25 AM EST 07/05/2025 3:31 AM EST us Edith Calvert PA-C, MS LAB BLOOD BKR ORD ERABLES Final Result [facility] [address] [place] [address] * (ABNORMAL) POCT Glucose (07/05/2025 3:06 AM EST) Glucose 167(H) 70 - 99 mg/dL 07/05/2025 3:08 AM [facility] Blood (Blood) 07/05/2025 3:0 6 AM EST 07/05/2025 3:08 AM EST us Gorge Cheung MD LAB POCT DOCKED DEVICE UNSOL ICTED RESULTS Final Result Performing Organization Address [facility] Co de Phone Number [address] [address] * (ABNORMAL) POCT Glucose (07/05/2025 2:01 AM EST) Glucose 152(H) 70 - 99 mg/dL 07/05/2025 2:03 AM EST [facility] Blood (Blood) 07/05/2025 2:0 1 AM EST 07/05/2025 2:03 AM EST us Gorge Cheung MD LAB POCT DOCKED DEVICE UNSOL ICTED RESULTS Final Result Performing Organization Address [facility] Co de Phone Number [address] [address] * (ABNORMAL) POCT Glucose (07/05/2025 1:07 AM EST) Glucose 231(H) 70 - 99 mg/dL 07/05/2025 1:12 AM EST [facility] Blood (Blood) 07/05/2025 1:0 7 AM EST 07/05/2025 1:12 AM EST us Gorge Cheung MD LAB POCT DOCKED DEVICE UNSOL ICTED RESULTS Final Result Performing Organization Address [facility] Co de Phone Number [address] [address] * (ABNORMAL) POCT Glucose (07/04/2025 11:59 PM EST) Glucose 149(H) 70 - 99 mg/dL 07/05/2025 12:01 AM EST [facility] Blood (Blood) 07/04/2025 11: 59 PM EST 07/05/2025 12:01 AM EST us Gorge Cheung MD LAB POCT DOCKED DEVICE UNSOL ICTED RESULTS Final Result Performing Organization Address [facility]/ZIP Co de Phone Number [address] [address] * (ABNORMAL) POCT Glucose (07/04/2025 11:03 PM EST) Glucose 168(H) 70 - 99 mg/dL 07/04/2025 11:07 PM EST [facility] Blood (Blood) 07/04/2025 11: 03 PM EST 07/04/2025 11:07 PM EST Gorge Cheung MD LAB POCT DOCKED DEVICE UNSOL ICTED RESULTS Final Result Performing Organization Address [facility] Co de Phone Number [address] [address] * (ABNORMAL) POCT Glucose (07/04/2025 10:06 PM EST) Glucose 189(H) 70 - 99 mg/dL 07/04/2025 11:02 PM EST [facility] Blood (Blood) 07/04/2025 10: 06 PM EST 07/04/2025 11:02 PM EST Gorge Cheung MD LAB POCT DOCKED DEVICE UNSOL ICTED RESULTS Final Result Performing Organization Address [facility]/ZIP Co de Phone Number [address] [address] * Phosphorus (07/04/2025 9:41 PM EST) Phosphorus 2.9 2.5 - 4.5 mg/dL 07/04/2025 10:26 PM EST [facility] Blood (Blood) Venipuncture / Unknown 07/04/2025 9:41 PM EST 07/04/2025 10:01 PM EST us Edith Calvert PA-C, MS LAB BLOOD BKR ORD ERABLES Final Result Performing Organization Address City/[facility]/ZIP Co de Phone Number [address] [address] * (ABNORMAL) Magnesium (07/04/2025 9:41 PM EST) Magnesium 2.8(H) 1.7 - 2.6 mg/dL 07/04/2025 10:26 PM [facility] Blood (Blood) Venipuncture / Unknown 07/04/2025 9:41 PM EST 07/04/2025 10:01 PM EST Edith Calvert PA-C, MS LAB BLOOD BKR ORD ERABLES Final Result Performing Organization Address City/[facility]/ZIP Co de Phone Number [address] [address] * (ABNORMAL) Basic Metabolic Panel (BMP) (07/04/2025 9:41 PM EST) Sodium 139 136 - 145 mmol/L 07/04/2025 10:26 PM [facility] Potassium 3.4 3.4 - 5.1 mmol/L 07/04/2025 10:26 PM [facility] Chloride 104 98 - 107 mmol/L 07/04/2025 10:26 PM [facility] CO2 24 20 - 31 mmol/L 07/04/2025 10:26 PM [facility] BUN 11 6 - 23 mg/dL 07/04/2025 10:26 PM [facility] Creatinine 0.80 0.60 - 1.30 mg/dL 07/04/2025 10:26 PM [facility] Glucose 199(H) 70 - 99 mg/dL 07/04/2025 10:26 PM [facility] Calcium 8.3(L) 8.5 - 10.5 mg/dL 07/04/2025 10:26 PM [facility] eGFR 113 >59 mL/min/1.7 3m2 07/04/2025 10:26 PM [facility] Comment:Estimated glomerular filtration rate calculated using the CKD-EPI refit equation. Anion Gap 11 3 - 17 mmol/L 07/04/2025 10:26 PM EST [facility] Blood (Blood) Venipuncture / Unknown 07/04/2025 9:41 PM EST 07/04/2025 10:01 PM EST us Edith Calvert PA-C, MS LAB BLOOD BKR ORD ERABLES Final Result Performing Organization Address City/[facility]/ZIP Co de Phone Number [address] [address] * (ABNORMAL) POCT Glucose (07/04/2025 9:07 PM EST) Glucose 189(H) 70 - 99 mg/dL 07/04/2025 9:09 PM EST [facility] Blood (Blood) 07/04/2025 9:0 7 PM EST 07/04/2025 9:09 PM EST Gorge Cheung MD LAB POCT DOCKED DEVICE UNSOL ICTED RESULTS Final Result Performing Organization Address [facility] Co de Phone Number [address] [address] * (ABNORMAL) POCT Glucose (07/04/2025 8:02 PM EST) Glucose 152(H) 70 - 99 mg/dL 07/04/2025 8:03 PM EST [facility] Blood (Blood) 07/04/2025 8:0 2 PM EST 07/04/2025 8:03 PM EST us Gorge Cheung MD LAB POCT DOCKED DEVICE UNSOL ICTED RESULTS Final Result Performing Organization Address [facility] Co de Phone Number [address] [address] * (ABNORMAL) POCT Glucose (07/04/2025 6:59 PM EST) Glucose 171(H) 70 - 99 mg/dL 07/04/2025 7:00 PM EST [facility] Blood (Blood) 07/04/2025 6:5 9 PM EST 07/04/2025 7:00 PM EST us Gorge Cheung MD LAB POCT DOCKED DEVICE UNSOL ICTED RESULTS Final Result Performing Organization Address [facility]/ZIP Co de Phone Number [address] [address] * (ABNORMAL) POCT Glucose (07/04/2025 6:04 PM EST) Glucose 147(H) 70 - 99 mg/dL 07/04/2025 6:05 PM EST [facility] Blood (Blood) 07/04/2025 6:0 4 PM EST 07/04/2025 6:05 PM EST us Gorge Cheung MD LAB POCT DOCKED DEVICE UNSOL ICTED RESULTS Final Result Performing Organization Address City/[facility]/ZIP Co de Phone Number [address] [address] * Cortisol (07/04/2025 5:36 PM EST) Cortisol 2.2 See comment ug/dL 07/04/2025 6:25 PM [facility] Comment: NORMALS: 8AM-12PM = 5-25 ug/dL 12PM-8PM = 5-15 ug/dL 8PM-8AM = <10 ug/dL Cortisol levels may be affected by a variety of factors and should be interpreted in the context of the individual patient. A known interferent in this immunoassay is prednisolone (results may be falsely high by 5-8 %). Fludrocortisone (Florinef, 9-alpha fluorocortisol) does not interfere. Blood (Blood) Venipuncture / Unknown 07/04/2025 5:36 PM EST 07/04/2025 5:45 PM EST us Gorge Cheung MD LAB BLOOD BKR ORDERABLES Fin al Result Performing Organization Address City/[facility]/ZIP Co de Phone Number [address] [address] * Phosphorus (07/04/2025 5:36 PM EST) Phosphorus 3.4 2.5 - 4.5 mg/dL 07/04/2025 6:25 PM EST [facility] Blood (Blood) Venipuncture / Unknown 07/04/2025 5:36 PM EST 07/04/2025 5:45 PM EST us Gorge Cheung MD LAB BLOOD BKR ORDERABLES Fin al Result Performing Organization Address [facility]/ZIP Co de Phone Number [address] [address] * (ABNORMAL) Magnesium (07/04/2025 5:36 PM EST) Magnesium 1.5(L) 1.7 - 2.6 mg/dL 07/04/2025 6:25 PM EST [facility] Blood (Blood) Venipuncture / Unknown 07/04/2025 5:36 PM EST 07/04/2025 5:45 PM EST us Gorge Cheung MD LAB BLOOD BKR ORDERABLES Fin al Result Performing Organization Address [facility]/ZIP Co de Phone Number [address] [address] * (ABNORMAL) Basic Metabolic Panel (BMP) (07/04/2025 5:36 PM EST) Sodium 138 136 - 145 mmol/L 07/04/2025 6:25 PM EST [facility] Potassium 3.5 3.4 - 5.1 mmol/L 07/04/2025 6:25 PM [facility] Chloride 102 98 - 107 mmol/L 07/04/2025 6:25 PM EST [facility] CO2 23 20 - 31 mmol/L 07/04/2025 6:25 PM [facility] BUN 13 6 - 23 mg/dL 07/04/2025 6:25 PM [facility] Creatinine 0.80 0.60 - 1.30 mg/dL 07/04/2025 6:25 PM [facility] Glucose 148(H) 70 - 99 mg/dL 07/04/2025 6:25 PM [facility] Calcium 8.7 8.5 - 10.5 mg/dL 07/04/2025 6:25 PM [facility] eGFR 113 >59 mL/min/1.7 3m2 07/04/2025 6:25 PM [facility] Comment:Estimated glomerular filtration rate calculated using the CKD-EPI refit equation. Anion Gap 13 3 - 17 mmol/L 07/04/2025 6:25 PM [facility] Blood (Blood) Venipuncture / Unknown 07/04/2025 5:36 PM EST 07/04/2025 5:45 PM EST us Gorge Cheung MD LAB BLOOD BKR ORDERABLES Fin al Result [address] [address] * (ABNORMAL) POCT Glucose (07/04/2025 5:06 PM EST) Glucose 151(H) 70 - 99 mg/dL 07/04/2025 5:08 PM [facility] Blood (Blood) 07/04/2025 5:0 6 PM EST 07/04/2025 5:08 PM EST us Gorge Cheung MD LAB POCT DOCKED DEVICE UNSOL ICTED RESULTS Final Result [address] [address] * (ABNORMAL) POCT Glucose (07/04/2025 4:01 PM EST) Glucose 142(H) 70 - 99 mg/dL 07/04/2025 5:06 PM [facility] Blood (Blood) 07/04/2025 4:0 1 PM EST 07/04/2025 5:06 PM EST us Gorge Cheung MD LAB POCT DOCKED DEVICE UNSOL ICTED RESULTS Final Result Performing Organization Address [facility] Co de Phone Number [address] [address] * Phosphorus (07/04/2025 3:36 PM EST) Phosphorus 3.6 2.5 - 4.5 mg/dL 07/04/2025 4:15 PM EST [facility] Blood (Blood) Venipuncture / Unknown 07/04/2025 3:36 PM EST 07/04/2025 3:45 PM EST us Gorge Cheung MD LAB BLOOD BKR ORDERABLES Fin al Result Performing Organization Address [facility] Co de Phone Number [address] [address] * (ABNORMAL) Magnesium (07/04/2025 3:36 PM EST) Magnesium 1.4(L) 1.7 - 2.6 mg/dL 07/04/2025 4:15 PM EST [facility] Blood (Blood) Venipuncture / Unknown 07/04/2025 3:36 PM EST 07/04/2025 3:45 PM EST us Gorge Cheung MD LAB BLOOD BKR ORDERABLES Fin al Result Performing Organization Address [facility] Co de Phone Number [address] [address] * (ABNORMAL) Basic Metabolic Panel (BMP) (07/04/2025 3:36 PM EST) Sodium 139 136 - 145 mmol/L 07/04/2025 4:15 PM EST [facility] Potassium 3.9 3.4 - 5.1 mmol/L 07/04/2025 4:15 PM [facility] Chloride 104 98 - 107 mmol/L 07/04/2025 4:15 PM [facility] CO2 23 20 - 31 mmol/L 07/04/2025 4:15 PM [facility] BUN 14 6 - 23 mg/dL 07/04/2025 4:15 PM [facility] Creatinine 0.80 0.60 - 1.30 mg/dL 07/04/2025 4:15 PM [facility] Glucose 154(H) 70 - 99 mg/dL 07/04/2025 4:15 PM [facility] Calcium 8.5 8.5 - 10.5 mg/dL 07/04/2025 4:15 PM [facility] eGFR 113 >59 mL/min/1.7 3m2 07/04/2025 4:15 PM [facility] Comment:Estimated glomerular filtration rate calculated using the CKD-EPI refit equation. Anion Gap 12 3 - 17 mmol/L 07/04/2025 4:15 PM [facility] Blood (Blood) Venipuncture / Unknown 07/04/2025 3:36 PM EST 07/04/2025 3:45 PM EST us Gorge Cheung MD LAB BLOOD BKR ORDERABLES Fin al Result [address] [address] * (ABNORMAL) POCT Glucose (07/04/2025 3:02 PM EST) Glucose 157(H) 70 - 99 mg/dL 07/04/2025 3:04 PM [facility] Blood (Blood) 07/04/2025 3:0 2 PM EST 07/04/2025 3:04 PM EST us Gorge Cheung MD LAB POCT DOCKED DEVICE UNSOL ICTED RESULTS Final Result Performing Organization Address City/[facility]/ZIP Co de Phone Number [address] [address] * Toxicology Screen, Urine (07/04/2025 2:59 PM EST) Amphetamines, Urine Negative Negative 07/04/2025 3:54 PM EST [facility] Benzodiazepine , Urine Negative Negative 07/04/2025 3:54 PM EST [facility] Cocaine Metabolite, Urine Negative Negative 07/04/2025 3:54 PM EST [facility] Opiates, Urine Negative Negative 07/04/2025 3:54 PM EST [facility] Oxycodone, Urine Negative Negative 07/04/2025 3:54 PM EST [facility] Fentanyl, Urine Negative Negative 07/04/2025 3:54 PM EST [facility] Creatinine, Urine 20 20 - 300 mg/dL 07/04/2025 3:54 PM EST [facility] Urine (Urine, Voided) Non-Blood Collection / Unknown 07/04/2025 2:59 PM EST 07/04/2025 3:21 PM EST Narrative [facility] - 07/04/2025 3:54 PM EST This screening test was performed by immunoassay methodology, which may occasionally yield false-negative or false-positive results. Confirmatory testing can be requested if a definitive result is needed. Results are to be used only for medical (ie, treatment) purposes. Unconfirmed screening results must not be used for non-medical purposes (eg, employment testing). us Char Stone DO LAB URINE ORDERABLES Final Resul t Performing Organization Address [facility]/State/[facility] Co de Phone Number [address] [address] * (ABNORMAL) POCT Glucose (07/04/2025 2:12 PM EST) Glucose 136(H) 70 - 99 mg/dL 07/04/2025 2:13 PM EST [facility] Blood (Blood) 07/04/2025 2:1 2 PM EST 07/04/2025 2:13 PM EST Gorge Cheung MD LAB POCT DOCKED DEVICE UNSOL ICTED RESULTS Final Result Performing Organization Address City/State/[facility] Co de Phone Number [address] [address] * (ABNORMAL) POCT Glucose (07/04/2025 1:00 PM EST) Glucose 118(H) 70 - 99 mg/dL 07/04/2025 1:02 PM EST [facility] [place] Blood (Blood) 07/04/2025 1:0 0 PM EST 07/04/2025 1:02 PM EST us Gorge Cheung MD LAB POCT DOCKED DEVICE UNSOL ICTED RESULTS Final Result Performing Organization Address [facility] de Phone Number [address] [address] * (ABNORMAL) POCT Glucose (07/04/2025 12:31 PM EST) Glucose 101(H) 70 - 99 mg/dL 07/04/2025 1:00 PM EST [facility] Blood (Blood) 07/04/2025 12: 31 PM EST 07/04/2025 1:00 PM EST us Gorge Cheung MD LAB POCT DOCKED DEVICE UNSOL ICTED RESULTS Final Result Performing Organization Address [facility] Co de Phone Number [address] [address] * POCT Glucose (07/04/2025 12:06 PM EST) Glucose 71 70 - 99 mg/dL 07/04/2025 12:08 PM EST [facility] Blood (Blood) 07/04/2025 12: 06 PM EST 07/04/2025 12:08 PM EST us Gorge Cheung MD LAB POCT DOCKED DEVICE UNSOL ICTED RESULTS Final Result Performing Organization Address [facility] Co de Phone Number [address] [address] * (ABNORMAL) Hemoglobin A1c (07/04/2025 11:51 AM EST) Hemoglobin A1c 6.5(H) 4.3 - 5.6 % 07/04/2025 12:28 PM [facility] Calculated Mean Blood Glucose 140 mg/dL 07/04/2025 12:28 PM [facility] Comment:There is no estabs [facility] normal range for the Estimated Average Glucose (EAG). However, a HbA1c of 5.6% (upper limit of normal) represents an EAG of 114 mg/dL. The diagnostic HbA1c level for diabetes is greater than or equal to 6.5%, which represents an EAG greater than or equal to 140 mg/dL. Blood (Blood) Venipuncture / Unknown 07/04/2025 11:51 AM EST 07/04/2025 11:56 AM EST us Gorge Cheung MD LAB BLOOD BKR ORDERABLES Fin al Result [facility] [address] [place] [address] * (ABNORMAL) CBC and Differential (07/04/2025 11:51 AM EST) Pathologist [facility] WBC 10.81 4.00 - 11.00 K/uL 07/04/2025 12:39 PM [facility] RBC 4.66 4.50 - 5.90 M/uL 07/04/2025 12:39 PM [facility] Hemoglobin 13.1(L) 13.5 - 17.5 g/dL 07/04/2025 12:39 PM [facility] Hematocrit 41.2 41.0 - 53.0 % 07/04/2025 12:39 PM [facility] MCV 88.4 80.0 - 100.0 fL 07/04/2025 12:39 PM [facility] MCH 28.1 27.0 - 31.0 pg 07/04/2025 12:39 PM [facility] MCHC 31.8(L) 32.0 - 36.0 g/dL 07/04/2025 12:39 PM [facility] MPV 10.6 8.4 - 12.0 fL 07/04/2025 12:39 PM [facility] RDW-CV 14.5 11.5 - 14.5 % 07/04/2025 12:39 PM [facility] PLT 297 150 - 450 K/uL 07/04/2025 12:39 PM [facility] Neutrophils 71.2 % 07/04/2025 12:39 PM [facility] Lymphocytes 21.6 % 07/04/2025 12:39 PM [facility] Monocytes 6.3 % 07/04/2025 12:39 PM [facility] Eosinophils 0.1 % 07/04/2025 12:39 PM [facility] Basophils 0.4 % 07/04/2025 12:39 PM [facility] Imm Grans 0.4 % 07/04/2025 12:39 PM [facility] NRBC 0.0 <=0.0 /100 WBCs 07/04/2025 12:39 PM [facility] Absolute Neutrophils 7.71(H) 1.92 - 7.60 K/uL 07/04/2025 12:39 PM [facility] Absolute Lymphocytes 2.33 0.72 - 4.10 K/uL 07/04/2025 12:39 PM [facility] Absolute Monocytes 0.68 0.16 - 1.10 K/uL 07/04/2025 12:39 PM [facility] Absolute Eosinophils 0.01 0.00 - 0.50 K/uL 07/04/2025 12:39 PM [facility] Absolute Basophils 0.04 0.00 - 0.15 K/uL 07/04/2025 12:39 PM [facility] Absolute Imm Grans 0.04 0.00 - 0.09 K/uL 07/04/2025 12:39 PM [facility] Absolute NRBC 0.00 <=0.00 K cells/uL 07/04/2025 12:39 PM [facility] Absolute Neutrophils 7.71(H) 1.92 - 7.60 K/uL 07/04/2025 12:39 PM [facility] Comment:Automated cell count . Manual ANC may differ if performed. Diff Type Auto 07/04/2025 12:39 PM EST [facility] Blood (Blood) Venipuncture / Unknown 07/04/2025 11:51 AM EST 07/04/2025 11:56 AM EST us Gorge Cheung MD LAB BLOOD BKR ORDERABLES Fin al Result Performing Organization Address City/[facility]/ZIP Co de Phone Number [address] [address] * PT-INR (07/04/2025 11:51 AM EST) PT 12.0 10.0 - 13.0 sec 07/04/2025 12:55 PM EST [facility] INR 1.0 0.9 - 1.1 07/04/2025 12:55 PM [facility] Comment:Therapeutic Range 2. 0 - 3.5 Blood (Blood) Venipuncture / Unknown 07/04/2025 11:51 AM EST 07/04/2025 11:56 AM EST us Gorge Cheung MD LAB BLOOD BKR ORDERABLES Fin al Result Performing Organization Address [facility] Co de Phone Number [address] [address] * T3, Total (07/04/2025 11:50 AM EST) T3, Total 106 60 - 181 ng/dL 07/06/2025 11:28 PM EST [facility] Blood (Blood) Venipuncture / Unknown 07/04/2025 11:50 AM EST 07/04/2025 12:31 PM EST us Gorge Cheung MD LAB BLOOD BKR ORDERABLES Fin al Result Performing Organization Address City/[facility]/ZIP Co de Phone Number [address] [address] * T4, Free (07/04/2025 11:50 AM EST) T4, Free 1.3 0.9 - 1.8 ng/dL 07/04/2025 1:38 PM EST [facility] Blood (Blood) Venipuncture / Unknown 07/04/2025 11:50 AM EST 07/04/2025 11:55 AM EST us Gorge Cheung MD LAB BLOOD BKR ORDERABLES Fin al Result [address] [address] * (ABNORMAL) Beta Hydroxybutyrate (07/04/2025 11:50 AM EST) Beta-Hydroxybu tyrate, S 2.7(H) <0.4 mmol/L 07/05/2025 4:21 PM EST [facility] Blood (Blood) Venipuncture / Unknown 07/04/2025 11:50 AM EST 07/04/2025 11:56 AM EST us Gorge Cheung MD LAB BLOOD BKR ORDERABLES Fin al Result GISELE GARG) [address] [address] [phone] * (ABNORMAL) Thyroid Stimulating Hormone (TSH), with Reflex (07/04/2025 11:50 AM EST) TSH 0.35(L) 0.40 - 5.00 uIU/mL 07/04/2025 12:31 PM EST [facility] Blood (Blood) Venipuncture / Unknown 07/04/2025 11:50 AM EST 07/04/2025 11:55 AM EST us Gorge Cheung MD LAB BLOOD BKR ORDERABLES Fin al Result [address] [address] * C-Reactive Protein (CRP) (07/04/2025 11:50 AM EST) C Reactive Protein <3.0 <10.0 mg/L 07/04/2025 12:31 PM [facility] Comment:NOTE: This reference range is for the evaluation of inflammation. Order CRP, High Sensitivity for cardiac risk status evaluation. Blood (Blood) Venipuncture / Unknown 07/04/2025 11:50 AM EST 07/04/2025 11:55 AM EST us Gorge Cheung MD LAB BLOOD BKR ORDERABLES Fin al Result Performing Organization Address City/[facility]/ZIP Co de Phone Number [address] [address] * Lipid Panel (07/04/2025 11:50 AM EST) Cholesterol 99 <200 mg/dL 07/04/2025 12:31 PM [facility] HDL 43 >=40 mg/dL 07/04/2025 12:31 PM [facility] Calculated LDL 41 <130 mg/dL 07/04/2025 12:31 PM [facility] Comment:LDL is calculated us ing the Deal-NIH equation (MK Cardiol. 2019November 26;5(5):540-548). Non-HDL Cholesterol 56 mg/dL 07/04/2025 12:31 PM [facility] Comment:Guidelines suggest a non-HDL cholesterol goal 30 mg/dL higher than the patient-specific LDL cholesterol goal. Cardiac Risk Ratio 2.3 0.0 - 5.0 2024 12:31 PM [facility] Triglycerides 73 <=150 mg/dL 07/04/2025 12:31 PM [facility] Blood (Blood) Venipuncture / Unknown 07/04/2025 11:50 AM EST 07/04/2025 11:55 AM EST us Gorge Cheung MD LAB BLOOD BKR ORDERABLES Fin al Result [address] [place] [address] * NT-proBNP (07/04/2025 11:50 AM EST) NT-ProBNP <36 0 - 450 pg/mL 07/04/2025 12:31 PM [facility] Comment: Age <50 years: 0-450 pg/ml Age 50-75 years: 0-900 pg/ml Age >75 years: 0-1800 pg/ml A NT-proBNP <300 pg/ml effectively rules out acute congestive heart failure, with 99% negative predictive value. NT-proBNP cutoffs were developed for the diagnosis of heart failure. Marked elevations in NT-proBNP levels may be observed in states other than left ventricular congestive heart failure. Falsely low NT-proBNP in congestive heart failure patients may be observed with increasing body-mass index. Blood (Blood) Venipuncture / Unknown 07/04/2025 11:50 AM EST 07/04/2025 11:55 AM EST us Gorge Cheung MD LAB BLOOD BKR ORDERABLES Fin al Result [address] [address] * Phosphorus (07/04/2025 11:50 AM EST) Phosphorus 4.3 2.5 - 4.5 mg/dL 07/04/2025 12:31 PM [facility] Blood (Blood) Venipuncture / Unknown 07/04/2025 11:50 AM EST 07/04/2025 11:55 AM EST us Gorge Cheung MD LAB BLOOD BKR ORDERABLES Fin al Result [address] [address] * (ABNORMAL) Magnesium (07/04/2025 11:50 AM EST) Magnesium 1.5(L) 1.7 - 2.6 mg/dL 07/04/2025 12:31 PM [facility] Blood (Blood) Venipuncture / Unknown 07/04/2025 11:50 AM EST 07/04/2025 11:55 AM EST us Gorge Cheung MD LAB BLOOD BKR ORDERABLES Fin al Result Performing Organization Address City/[facility]/ZIP Co de Phone Number [address] [address] * (ABNORMAL) Basic Metabolic Panel (BMP) (07/04/2025 11:50 AM EST) Sodium 136 136 - 145 mmol/L 07/04/2025 12:31 PM [facility] Potassium 4.4 3.4 - 5.1 mmol/L 07/04/2025 12:31 PM [facility] Chloride 101 98 - 107 mmol/L 07/04/2025 12:31 PM [facility] CO2 18(L) 20 - 31 mmol/L 07/04/2025 12:31 PM [facility] BUN 18 6 - 23 mg/dL 07/04/2025 12:31 PM [facility] Creatinine 0.80 0.60 - 1.30 mg/dL 07/04/2025 12:31 PM [facility] Glucose 76 70 - 99 mg/dL 07/04/2025 12:31 PM [facility] Calcium 8.7 8.5 - 10.5 mg/dL 07/04/2025 12:31 PM [facility] eGFR 113 >59 mL/min/1.7 3m2 07/04/2025 12:31 PM [facility] Comment:Estimated glomerular filtration rate calculated using the CKD-EPI refit equation. Anion Gap 17 3 - 17 mmol/L 07/04/2025 12:31 PM [facility] Blood (Blood) Venipuncture / Unknown 07/04/2025 11:50 AM EST 07/04/2025 11:55 AM EST us Gorge Cheung MD LAB BLOOD BKR ORDERABLES Fin al Result [address] [address] * Troponin (07/04/2025 11:50 AM EST) Pathologist [facility] Troponin-T HS Gen5 14 0 - 14 ng/L 07/04/2025 12:16 PM [facility] Blood (Blood) Venipuncture / Unknown 07/04/2025 11:50 AM EST 07/04/2025 11:56 AM EST us Gorge Cheung MD LAB BLOOD BKR ORDERABLES Fin al Result [address] [address] * (ABNORMAL) Hepatic Panel (LFTs) (07/04/2025 11:50 AM EST) Pathologist [facility] AST 57(H) <40 U/L 07/04/2025 12:31 PM [facility] ALT 69(H) <50 U/L 07/04/2025 12:31 PM [facility] Alkaline Phosphatase 44 40 - 130 U/L 07/04/2025 12:31 PM [facility] Bilirubin, Total 0.4 0.0 - 1.2 mg/dL 07/04/2025 12:31 PM [facility] Bilirubin, Direct 0.1 0.0 - 0.3 mg/dL 07/04/2025 12:31 PM [facility] Total Protein 7.0 6.4 - 8.3 g/dL 07/04/2025 12:31 PM [facility] Albumin 4.4 3.5 - 5.2 g/dL 07/04/2025 12:31 PM [facility] Globulin 2.6 1.9 - 4.1 g/dL 07/04/2025 12:31 PM [facility] Blood (Blood) Venipuncture / Unknown 07/04/2025 11:50 AM EST 07/04/2025 11:55 AM EST us Gorge Cheung MD LAB BLOOD BKR ORDERABLES Fin al Result Performing Organization Address [facility]/ZIP Co de Phone Number [address] [address] * POCT Glucose (07/04/2025 10:44 AM EST) Glucose 77 70 - 99 mg/dL 07/04/2025 10:46 AM EST [facility] Blood (Blood) 07/04/2025 10: 44 AM EST 07/04/2025 10:46 AM EST us Gorge Cheung MD LAB POCT DOCKED DEVICE UNSOL ICTED RESULTS Final Result Performing Organization Address [facility] Co de Phone Number [address] [address] * (ABNORMAL) POCT Glucose (07/04/2025 10:05 AM EST) Glucose 101(H) 70 - 99 mg/dL 07/04/2025 10:10 AM EST [facility] Blood (Blood) 07/04/2025 10: 05 AM EST 07/04/2025 10:10 AM EST us Char SALAMANCA POCT DOCKED DEVICE UNSOLICTE D RESULTS Final Result Performing Organization Address [facility] Co de Phone Number [address] [address] * Troponin (07/04/2025 9:52 AM EST) Troponin-T HS Gen5 12 0 - 14 ng/L 07/04/2025 10:15 AM EST [facility] Blood (Blood) Venipuncture / Unknown 07/04/2025 9:52 AM EST 07/04/2025 9:55 AM EST us Char Stone DO LAB BLOOD BKR ORDERABLES Final R esult Performing Organization Address City/[facility]/ZIP Co de Phone Number [address] [address] * (ABNORMAL) Lactate, Whole Blood (07/04/2025 9:24 AM EST) Lactate, Whole Blood 2.1(H) 0.5 - 2.0 mmol/L 07/04/2025 9:29 AM EST [facility] Blood (Blood, Venous) Venipuncture / Unknown 07/04/2025 9:24 AM EST 07/04/2025 9:27 AM EST us Char Chase DO LAB BLOOD BKR ORDERABLES Final R esult Performing Organization Address City/[facility]/ZIP Co de Phone Number [address] [address] * (ABNORMAL) POCT Glucose (07/04/2025 8:54 AM EST) Pathologist [facility] Glucose 143(H) 70 - 99 mg/dL 07/04/2025 8:56 AM EST [facility] Blood (Blood) 07/04/2025 8:5 4 AM EST 07/04/2025 8:56 AM EST Char Chase DO LAB POCT DOCKED DEVICE UNSOLICTE D RESULTS Final Result Performing Organization Address City/[facility]/ZIP Co de Phone Number [address] [address] * CT ABDOMEN/PELVIS WITH CONTRAST (07/04/2025 8:33 AM EST) 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 [facility] Anatomical Region Laterality Modality Abdomen, Pelvis Computed Tomogra phy 07/04/2025 9:32 AM EST Impressions 07/04/2025 9:50 AM EST Mild wall thickening of the ascending colon related to mild colitis. A clinically significant result was initiated on 07/04/2025 9:47 AM, Message ID [id number]. Narrative 07/04/2025 9:[address] ABDOMEN/PELVIS WITH CONTRAST Referring clinician's provided indication for this examination in [facility]: * Diverticulitis suspected TECHNIQUE: Multidetector-row CT of the abdomen and pelvis was performed after administration of intravenous contrast using tailored dose modulation techniques. Images were reconstructed in the axial, coronal, and sagittal planes. COMPARISON: 05/30/2025 FINDINGS: FINDINGS: Lower Chest: No consolidation or pleural effusions. Coronary calcification/stent. Liver: No focal lesions. Biliary: Noninflamed gallbladder. No biliary ductal dilatation. Spleen: No splenomegaly or focal lesions. Pancreas: No peripancreatic fat stranding or pancreatic duct dilatation. Adrenal Glands: No nodules. Kidneys/Ureters: No stones or hydronephrosis. Kidneys enhance homogeneously. Bowel: Mild circumferential thickening of the colon. Appendix visualized. Peritoneum/Retroperitoneum: No pneumoperitoneum or free fluid. Lymph Nodes: No lymphadenopathy. Pelvic Organs/Bladder: Distended urinary bladder. Coarse calcifications in the prostate. Vas deferens calcifications. Vessels: No aneurysm. Bones/Soft Tissues: Degenerative changes of the spine. Procedure Note Vilma Corrales MD, ANUJ - 07/04/2025 CT ABDOMEN/PELVIS WITH CONTRAST Referring clinician's provided indication for this examination in [facility]: *Diverticulitis suspected TECHNIQUE: Multidetector-row CT of the abdomen and pelvis was performedafter administration of intravenous contrast using tailored dosemodulation techniques. Images were reconstructed in the axial, coronal,and sagittal planes. COMPARISON: 05/30/2025 FINDINGS: FINDINGS: Lower Chest: No consolidation or pleural effusions. Coronarycalcification/stent. Liver: No focal lesions. Biliary: Noninflamed gallbladder. No biliary ductal dilatation. Spleen: No splenomegaly or focal lesions. Pancreas: No peripancreatic fat stranding or pancreatic duct dilatation. Adrenal Glands: No nodules. Kidneys/Ureters: No stones or hydronephrosis. Kidneys enhancehomogeneously. Bowel: Mild circumferential thickening of the colon. Appendixvisualized. Peritoneum/Retroperitoneum: No pneumoperitoneum or free fluid. Lymph Nodes: No lymphadenopathy. Pelvic Organs/Bladder: Distended urinary bladder. Coarse calcifications inthe prostate. Vas deferens calcifications. Vessels: No aneurysm. Bones/Soft Tissues: Degenerative changes of the spine. IMPRESSION: Mild wall thickening of the ascending colon related to mild colitis. A clinically significant result was initiated on 07/04/2025 9:47 AM,Message ID [id number]. Char Stone DO IMG CT ABD/PELVIS Final Result * (ABNORMAL) Venous Blood Gas (VBG) (07/04/2025 7:27 AM EST) pH, Venous 7.27(L) 7.31 - 7.41 07/04/2025 7:41 AM EST [facility] pCO2, Venous 36 35 - 45 mm[Hg] 07/04/2025 7:41 AM EST [facility] pO2, Venous 54(H) 35 - 40 mm[Hg] 07/04/2025 7:41 AM EST [facility] Base Excess -10.2(L) -3.0 - 3.0 mmol/L 07/04/2025 7:41 AM EST [facility] Bicarbonate (HCO3) 16(L) 23 - 28 mmol/L 07/04/2025 7:41 AM EST [facility] Oxygen Saturation, Venous 81.9(H) 60.0 - 80.0 % 07/04/2025 7:41 AM EST [facility] Blood (Blood, Venous) Venipuncture / Unknown 07/04/2025 7:27 AM EST 07/04/2025 7:32 AM EST Char Stone DO LAB BLOOD BKR ORDERABLES Final R esult [facility] [address] [place] [address] * (ABNORMAL) Beta Hydroxybutyrate (07/04/2025 7:27 AM EST) Beta-Hydroxybu tyrate, S 3.3(H) <0.4 mmol/L 07/05/2025 4:29 PM EST [facility] Blood (Blood) Venipuncture / Unknown 07/04/2025 7:27 AM EST 07/04/2025 7:32 AM EST us Char Stone DO LAB BLOOD BKR ORDERABLES Final R esult [facility] (BEAKER) [facility] - [address] [address], [facility] [phone] * (ABNORMAL) CBC and Differential (07/04/2025 5:15 AM EST) WBC 13.76(H) 4.00 - 11.00 K/uL 07/04/2025 5:22 AM [facility] RBC 5.15 4.50 - 5.90 M/uL 07/04/2025 5:22 AM [facility] Hemoglobin 14.4 13.5 - 17.5 g/dL 07/04/2025 5:22 AM [facility] Hematocrit 46.2 41.0 - 53.0 % 07/04/2025 5:22 AM [facility] MCV 89.7 80.0 - 100.0 fL 07/04/2025 5:22 AM [facility] MCH 28.0 27.0 - 31.0 pg 07/04/2025 5:22 AM [facility] MCHC 31.2(L) 32.0 - 36.0 g/dL 07/04/2025 5:22 AM [facility] MPV 9.8 8.4 - 12.0 fL 07/04/2025 5:22 AM [facility] RDW-CV 14.2 11.5 - 14.5 % 07/04/2025 5:22 AM [facility] PLT 331 150 - 450 K/uL 07/04/2025 5:22 AM [facility] Neutrophils 88.5 % 07/04/2025 5:22 AM [facility] Lymphocytes 8.3 % 07/04/2025 5:22 AM [facility] Monocytes 2.3 % 07/04/2025 5:22 AM [facility] Eosinophils 0.0 % 07/04/2025 5:22 AM [facility] Basophils 0.3 % 07/04/2025 5:22 AM [facility] Imm Grans 0.6 % 07/04/2025 5:22 AM [facility] NRBC 0.0 <=0.0 /100 WBCs 07/04/2025 5:22 AM [facility] Absolute Neutrophils 12.19(H) 1.92 - 7.60 K/uL 07/04/2025 5:22 AM [facility] Absolute Lymphocytes 1.14 0.72 - 4.10 K/uL 07/04/2025 5:22 AM [facility] Absolute Monocytes 0.31 0.16 - 1.10 K/uL 07/04/2025 5:22 AM [facility] Absolute Eosinophils 0.00 0.00 - 0.50 K/uL 07/04/2025 5:22 AM [facility] Absolute Basophils 0.04 0.00 - 0.15 K/uL 07/04/2025 5:22 AM [facility] Absolute Imm Grans 0.08 0.00 - 0.09 K/uL 07/04/2025 5:22 AM [facility] Absolute NRBC 0.00 <=0.00 K cells/uL 07/04/2025 5:22 AM [facility] Absolute Neutrophils 12.19(H) 1.92 - 7.60 K/uL 07/04/2025 5:22 AM [facility] Comment:Automated cell count . Manual ANC may differ if performed. Diff Type Auto 07/04/2025 5:22 AM [facility] Blood (Blood) Venipuncture / Unknown 07/04/2025 5:15 AM EST 07/04/2025 5:19 AM EST us Jelani Carranza DO LAB BLOOD BKR ORDERABLES Angi l Result [facility] [address] [place] [address] * Lipase (07/04/2025 5:15 AM EST) Lipase 48 13 - 60 U/L 07/04/2025 5:49 AM [facility] Blood (Blood) Venipuncture / Unknown 07/04/2025 5:15 AM EST 07/04/2025 5:19 AM EST us Jelani Carranza DO LAB BLOOD BKR ORDERABLES Angi l Result Performing Organization Address [facility] Co de Phone Number [address] [address] * (ABNORMAL) Hepatic Panel (LFTs) (07/04/2025 5:15 AM EST) AST 73(H) <40 U/L 07/04/2025 5:49 AM [facility] ALT 73(H) <50 U/L 07/04/2025 5:49 AM [facility] Alkaline Phosphatase 52 40 - 130 U/L 07/04/2025 5:49 AM [facility] Bilirubin, Total 0.2 0.0 - 1.2 mg/dL 07/04/2025 5:49 AM [facility] Bilirubin, Direct 0.1 0.0 - 0.3 mg/dL 07/04/2025 5:49 AM [facility] Total Protein 7.8 6.4 - 8.3 g/dL 07/04/2025 5:49 AM [facility] Albumin 4.8 3.5 - 5.2 g/dL 07/04/2025 5:49 AM [facility] Globulin 3.0 1.9 - 4.1 g/dL 07/04/2025 5:49 AM [facility] Blood (Blood) Venipuncture / Unknown 07/04/2025 5:15 AM EST 07/04/2025 5:19 AM EST us Jelani Carranza DO LAB BLOOD BKR ORDERABLES Angi l Result Performing Organization Address [facility]/ZIP Co de Phone Number [address] [address] * (ABNORMAL) Basic Metabolic Panel (BMP) (07/04/2025 5:15 AM EST) Sodium 138 136 - 145 mmol/L 07/04/2025 5:49 AM [facility] Potassium 4.8 3.4 - 5.1 mmol/L 07/04/2025 5:49 AM [facility] Comment:NOTE: Specimen hemol yzed. Results may be falsely increased. Chloride 97(L) 98 - 107 mmol/L 07/04/2025 5:49 AM [facility] CO2 14(L) 20 - 31 mmol/L 07/04/2025 5:49 AM [facility] BUN 23 6 - 23 mg/dL 07/04/2025 5:49 AM [facility] Creatinine 1.00 0.60 - 1.30 mg/dL 07/04/2025 5:49 AM [facility] Glucose 213(H) 70 - 99 mg/dL 07/04/2025 5:49 AM [facility] Calcium 9.5 8.5 - 10.5 mg/dL 07/04/2025 5:49 AM [facility] eGFR 96 >59 mL/min/1.7 3m2 07/04/2025 5:49 AM [facility] Comment:Estimated glomerular filtration rate calculated using the CKD-EPI refit equation. Anion Gap 27(H) 3 - 17 mmol/L 07/04/2025 5:49 AM [facility] Blood (Blood) Venipuncture / Unknown 07/04/2025 5:15 AM EST 07/04/2025 5:19 AM EST us Jelani Carranza DO LAB BLOOD BKR ORDERABLES Angi l Result [facility] [address], [place] [id number] * URINE SEDIMENT (07/04/2025 5:11 AM EST) WBC 0-2 0 - 9 /hpf 07/04/2025 5:41 AM [facility] RBC 0-2 0 - 2 /hpf 07/04/2025 5:41 AM [facility] Urine (Urine, Voided) Non-Blood Collection / Unknown 07/04/2025 5:11 AM EST 07/04/2025 5:16 AM EST us Jelani Carranza DO LAB URINE ORDERABLES Final Re sult Performing Organization Address City/[facility]/ZIP Co de Phone Number [address] [address] * (ABNORMAL) Urinalysis with Reflex to Urine Culture (07/04/2025 5:11 AM EST) Color Yellow Yellow 07/04/2025 5:20 AM [facility] Clarity Clear Clear 07/04/2025 5:20 AM [facility] Glucose 3+(A) Negative 07/04/2025 5:20 AM [facility] Bilirubin Urine Negative Negative 5:20 AM [facility] Ketone Urine 2+(A) Negative 07/04/2025 5:20 AM [facility] Specific [place] 1.025 1.001 - 1.035 07/04/2025 5:20 AM [facility] Blood Negative Negative 07/04/2025 5:20 AM [facility] pH 6.0 5.0 - 8.0 07/04/2025 5:20 AM [facility] Protein 1+(A) Negative 07/04/2025 5:20 AM [facility] Nitrites Negative Negative 07/04/2025 5:20 AM [facility] Leukocyte Esterase Negative Negative 07/04/2025 5:20 AM [facility] Urobilinogen Negative Negative 07/04/2025 5:20 AM [facility] Urine (Urine, Voided) Non-Blood Collection / Unknown 07/04/2025 5:11 AM EST 07/04/2025 5:16 AM EST us Jelani Carranza DO LAB URINE ORDERABLES Final Re sult Performing Organization Address City/[facility]/ZIP Co de Phone Number [address] [address] * ECG 12-LEAD (07/04/2025 4:55 AM EST) Ventricular Rate EKG/MIN 120 BPM [id number] Atrial Rate 120 BPM [facility] RI Interval 160 ms [facility] QRS Duration 90 ms [facility] QT Interval 324 ms [facility] QTC Interval 457 ms [facility] P [place] 48 degrees [facility] R Wave [place] 31 degrees [facility] T Wave [place] 23 degrees [facility] 07/04/2025 4:55 AM EST 07/04/2025 2:43 PM EST Narrative [facility] - 07/04/2025 2:43 PM EST Sinus tachycardia Cannot rule out Inferior infarct , age undetermined Abnormal ECG When compared with ECG of 30-May-2025 00:35, No significant change was found Confirmed by Jesse Quintanilla ([id number]) on 07/04/2025 2:43:49 PM us Jelani Carranza DO ECG ORDERABLES Final Result Performing Organization Address [facility] de Phone Number [email or web address] * (ABNORMAL) POCT Glucose (07/04/2025 4:47 AM EST) Glucose 103(H) 70 - 99 mg/dL 07/04/2025 4:52 AM EST [facility] Blood (Blood) 07/04/2025 4:4 7 AM EST 07/04/2025 4:52 AM EST us Unknown Unknown MD LAB POCT DOCKED DEVICE UNSOLI CTED RESULTS Final Result Performing Organization Address [facility] Co de Phone Number [address] [id number] documented in this encounter Visit Diagnoses Diagnosis Diabetic ketoacidosis- Primary Type II or unspecified type diabetes mellitus with ketoacidosis, not stated as uncontrolled Diabetic ketoacidosis Type II or unspecified type diabetes mellitus with ketoacidosis, not stated as uncontrolled High anion gap metabolic acidosis Hypoglycemia Hypoglycemia, unspecified Hypovolemia Hypovolemia associated with vomiting Type 2 diabetes mellitus Hypokalemia Hypopotassemia Hypophosphatemia Disorders of phosphorus metabolism documented in this encounter Admitting Diagnoses Diagnosis Diabetic ketoacidosis Type II or unspecified type diabetes mellitus with ketoacidosis, not stated as uncontrolled documented in this encounter Administered Medications Inactive Administered Medications - up to 3 most recent administrations Medication Order MAR Action Action Date Dose Rate Site acetaminophen (TYLENOL) tablet 650 mg 650 mg, Oral, Every 6 hours PRN, mild pain or 1-3 (on a general 0-10 scale), fever, Starting on 07/05/25 at 0408 Given 07/06/2025 12:35 AM EST 650 mg Given 07/05/2025 4:21 AM EST 650 mg aspirin EC tablet 81 mg 81 mg, Oral, Daily, First dose on 07/04/25 at 1715, Administer with water, food, or milk to decrease GI upset. Given 07/06/2025 9:18 AM EST 81 mg Given 07/05/2025 8:07 AM EST 81 mg Given 07/04/2025 5:03 PM EST 81 mg atorvastatin (LIPITOR) tablet 80 mg 80 mg, Oral, Every morning, First dose on 07/04/25 at 1145 Given 07/06/2025 5:01 AM EST 80 mg Given 07/05/2025 6:01 AM EST 80 mg Given 07/04/2025 12:01 PM EST 80 mg brimonidine (ALPHAGAN) 0.2 % ophthalmic solution 1 drop 1 drop, Each Eye, 3 times daily, First dose on 07/04/25 at 1400, If using more than one ophthalmic product, wait at least 5 minutes in between application of each medication. Remove contact lenses prior to administration and wait 15 minutes before reinserting. Given 07/06/2025 9:19 AM EST 1 drop Given 07/05/2025 8:31 PM EST 1 drop Given 07/05/2025 2:06 PM EST 1 drop chlorhexidine gluconate 2 % wipe 1 each 1 each (1 Application), Topical, Daily, First dose on 07/04/25 at 1145, Apply to body. Use each wipe only once. Do not use wipes on face or any mucous membranes. Cleanse tubes and lines, avoid dressings. For TOPICAL Use Only Given 07/06/2025 9:22 AM EST 1 each Given 07/05/2025 9:00 AM EST 1 each Given 07/04/2025 1:36 PM EST 1 each D10W infusion 125 mL/hr, Intravenous, Continuous, Starting on 07/04/25 at 1200, For 23 hours, Dose with Lantus now and then stop insulin gtt and D10 infusion one hour after this. Rate/Dose Verify 07/05/2025 9:00 AM EST 125 mL/hr 125 mL/hr Rate/Dose Change 07/05/2025 8:00 AM EST 125 mL/hr 125 mL/ hr New Bag 07/05/2025 6:29 AM EST 150 mL/hr 150 mL/hr dextrose (D50W) 50 % syringe 0-25 g 0-25 g, Intravenous, As needed, low blood sugar (provide value), see administration instructions, Starting on 07/04/25 at 0915, If unable to take PO and: Blood glucose less than 50 mg/dL or impaired consciousness, give 25 g (full amp). Blood glucose 50-69 mg/dL, give 12.5 g (half amp) call RC. Recheck blood glucose in 15 minutes and repeat prn. dorzolamide (TRUSOPT) 2 % ophthalmic solution 1 drop 1 drop, Each Eye, 2 times daily, First dose on 07/04/25 at 1145 Given 07/06/2025 9:19 AM EST 1 drop Given 07/05/2025 8:32 PM EST 1 drop Given 07/05/2025 8:08 AM EST 1 drop enoxaparin (LOVENOX) subcutaneous syringe 40 mg 40 mg, Subcutaneous, Every 24 hours, First dose on 07/04/25 at 1145, Administer subcutaneously. Rotate injection sites. Given 07/06/2025 11:29 AM EST 40 mg Left Lower Abdomen Given 07/05/2025 12:04 PM EST 40 mg R ight Lower Abdomen Given 07/04/2025 12:02 PM EST 40 mg L eft Lower Abdomen insulin glargine (LANTUS) subcutaneous injection 30 Units 30 Units, Subcutaneous, Daily, First dose (after last modification) on 07/05/25 at 1015, Dose with Lantus now and then stop insulin gtt and D10 infusion one hour after this. Given 07/06/2025 9:18 AM EST 30 Units Left Arm Given 07/05/2025 9:15 AM EST 30 Units Le ft Arm insulin lispro (ADMELOG, HumaLOG) subcutaneous injection 0-12 Units 0-12 Units, Subcutaneous, 4 times daily with meals and nightly insulin, First dose on 07/05/25 at 0945, CORRECTIONAL INSULIN: Give even if patient is NPO/not receiving nutrition. Moderate dose Blood glucose (mg/dL): Insulin dose Glucose 70-150: 0 unit. Glucose 151-200: 2 units. Glucose 201-250: 4 units. Glucose 251-300: 6 units. Glucose 301-350: 8 units. Glucose 351-400: 10 units. Glucose >400: 12 units and call RC. For blood glucose < 70 mg/dL call RC AND if patient: 1. Able to take PO, give 15 g of carbohydrate (4 oz fruit juice, regular soda, 8 oz of skim milk, or 3 to 4 glucose tablets) 2. Unable to take PO and PIV PRESENT, administer D50W per prn medication order OR 3. Unable to take PO and NO PIV, call RC/MANAGER SALT to obtain order for glucagon Check blood glucose in 15 minutes and repeat if < 80 mg/dL and call RCC, Insulin type: Correctional insulin insulin regular (MYXREDLIN) 1 unit/mL in NS 100 mL infusion 0-30 Units/hr (0-30 mL/hr), Intravenous, Continuous, Starting on 07/04/25 at 1145, Infusion rate = ISC x (glc-60) -titrate insulin per institutional DKA protocol If glc <70 hold insulin, follow hypoglycemia instructions, and recheck q15min till >= 90, then resume at half ISC If glc 70-89 twice then reset ISC to 0.01 Nutrition interrupted since last adjustment: decrease ISC by 50% If glc drop of >=75 OR glc below target then if 1.Previous ISC <= 0.01 reduce by 25% 2.Previous ISC >0.01 and <= 0.04 reduce by 0.01 3.Previous ISC >0.04 reduce by 25% If glc at target, no change in ISC If glc > upper target, increase ISC by 0.01 If infusion rate < 0.5 mL/hr, hold infusion and call RC For glucose greater than 600 mg/dL, the calculator will use 600 mg/dL for all calculations, Initial Order ISC: 0.01, Glucose Target: 140-180, Low Target: 140, High Target: 180 Rate/Dose Verify 07/05/2025 6:00 AM EST 1.5 Units/hr 1.5 mL/hr Rate/Dose Verify 07/05/2025 5:00 AM EST 1.5 Units/hr 1.5 m L/hr Rate/Dose Verify 07/05/2025 4:00 AM EST 1.5 Units/hr 1.5 m L/hr insulin regular (MYXREDLIN) 1 unit/mL in NS 100 mL infusion 0-30 Units/hr (0-30 mL/hr), Intravenous, Continuous, Starting on 07/05/25 at 0945, For 1 hour, Infusion rate = ISC x (glc-60) -titrate insulin per institutional DKA protocol If glc <70 hold insulin, follow hypoglycemia instructions, and recheck q15min till >= 90, then resume at half ISC If glc 70-89 twice then reset ISC to 0.01 Nutrition interrupted since last adjustment: decrease ISC by 50% If glc drop of >=75 OR glc below target then if 1.Previous ISC <= 0.01 reduce by 25% 2.Previous ISC >0.01 and <= 0.04 reduce by 0.01 3.Previous ISC >0.04 reduce by 25% If glc at target, no change in ISC If glc > upper target, increase ISC by 0.01 If infusion rate < 0.5 mL/hr, hold infusion and call RC For glucose greater than 600 mg/dL, the calculator will use 600 mg/dL for all calculations, Initial Order ISC: 0.01, Glucose Target: 140-180, Low Target: 140, High Target: 180 New Bag 07/05/2025 9:20 AM EST 1.5 Units/hr 1.5 mL/hr iohexoL (OMNIPAQUE-350) 350 mg iodine/mL solution 75 mL 75 mL, Intravenous, Once as needed, pre procedure/treatment, Starting on 07/04/25 at 0831, For 1 dose, Procedural Contrast/Med Active Now, Each mL contains 755 mg of iohexol equivalent to 350 mg of organic iodine. Given 07/04/2025 8:34 AM EST 75 mL lactated ringers IV Bolus 1,000 mL 1,000 mL, Intravenous, Administer over 30 Minutes, Once, On 07/04/25 at 0800, For 1 dose New Bag 07/04/2025 8:59 AM EST 1,000 mL 2000 mL/hr lactated ringers IV Bolus 1,000 mL 1,000 mL, Intravenous, Administer over 30 Minutes, Once, On Sat07/04/25 at 1200, For 1 dose New Bag 07/04/2025 11:49 AM EST 1,000 mL 2000 mL/hr latanoprost (XALATAN) 0.005 % ophthalmic solution 1 drop 1 drop, Each Eye, Every evening, First dose on Sat07/04/25 at 1800 Given 07/05/2025 8:31 PM EST 1 drop Given 07/04/2025 6:08 PM EST 1 drop lisinopril (PRINIVIL,ZESTRIL) tablet 5 mg 5 mg, Oral, Daily, First dose on Sat07/04/25 at 1145 Given 07/06/2025 9:18 AM EST 5 mg Given 07/05/2025 8:07 AM EST 5 mg Given 07/04/2025 12:01 PM EST 5 mg magnesium sulfate 2 gram/50 mL (4%) in Sterile Water IVPB premix 2 g 2 g, Intravenous, Administer over 60 Minutes, at 50 mL/hr, Every 2 Hours, First dose on Sat07/04/25 at 1845, For 2 doses New Bag 07/04/2025 8:05 PM EST 2 g 50 mL/hr New Bag 07/04/2025 6:04 PM EST 2 g 50 mL/hr magnesium sulfate 2 gram/50 mL (4%) in Sterile Water IVPB premix 2 g 2 g, Intravenous, at 100 mL/hr, Once, On Sat07/05/25 at 2200, For 1 dose New Bag 07/05/2025 9:12 PM EST 2 g 100 mL/hr melatonin tablet 5 mg 5 mg, Oral, Nightly, First dose on Sat07/04/25 at 2100 Given 07/05/2025 8:29 PM EST 5 mg Given 07/04/2025 9:06 PM EST 5 mg metFORMIN (GLUCOPHAGE) IMMEDIATE release tablet 1,000 mg 1,000 mg, Oral, 2 times daily, First dose on 07/04/25 at 1145 Given 07/06/2025 9:18 AM EST 1,000 mg Given 07/05/2025 8:29 PM EST 1,000 mg ondansetron (PF) (ZOFRAN) injection 4 mg 4 mg, Intravenous, Once, On 07/04/25 at 0715, For 1 dose Given 07/04/2025 7:20 AM EST 4 mg pantoprazole (PROTONIX) EC tablet 40 mg 40 mg, Oral, Daily, First dose on 07/04/25 at 1145 Given 07/06/2025 9:18 AM EST 40 mg Given 07/05/2025 8:07 AM EST 40 mg Given 07/04/2025 12:01 PM EST 40 mg potassium chloride (MICRO-K) ER capsule 40 mEq 40 mEq, Oral, Once, On 07/05/25 at 0730, For 1 dose, Swallow tablets whole, do not crush or chew. Capsules may be opened and contents sprinkled on a spoonful of applesauce or pudding and should be swallowed immediately without chewing. Microencapsulated tablets may be dissolved in 6 ounces of water, stir and administer immediately. Given 07/05/2025 6:50 AM EST 40 mEq potassium chloride in water (KCL) 10 mEq/100 mL IVPB premix 10 mEq, Intravenous, at 100 mL/hr, Every 1 hour, First dose on Sat07/05/25 at 0730, For 2 doses New Bag 07/05/2025 8:00 AM EST 10 mEq 10 0 mL/hr New Bag 07/05/2025 6:52 AM EST 10 mEq 100 mL/hr potassium phosphate (monobasic) (K-PHOS) tablet 500 mg 500 mg, Oral, 4 times daily with meals and nightly, First dose on Sat07/05/25 at 1230, Dose is expressed in potassium phosphate salt. Each 500 mg of potassium phosphate = elemental potassium 144 mg = elemental phosphorus 114 mg. Dissolve tablets in 6-8 oz of water; for best results, soak tablets in water for 2-5 minutes, then stir and give to patient. Given 07/06/2025 9:00 AM EST 500 mg Given 07/05/2025 8:29 PM EST 500 mg Given 07/05/2025 4:38 PM EST 500 mg sodium chloride 0.9% bolus 1,000 mL 1,000 mL, Intravenous, Administer over 30 Minutes, at 2,000 mL/hr, Once, On 07/04/25 at 0715, For 1 dose New Bag 07/04/2025 7:20 AM EST 1,000 mL 200 0 mL/hr thiamine in 0.9 % sod chloride (VITAMIN B1) 500 mg/100 mL IVPB premix 500 mg, Intravenous, Administer over 30 Minutes, at 200 mL/hr, Once, On 07/04/25 at 1315, For 1 dose New Bag 07/04/2025 12:57 PM EST 500 mg 200 mL/hr timolol (TIMOPTIC) 0.5 % ophthalmic solution 1 drop 1 drop, Each Eye, 2 times daily, First dose on 07/04/25 at 1145 Given 07/06/2025 9:19 AM EST 1 drop Given 07/05/2025 8:32 PM EST 1 drop Given 07/05/2025 8:08 AM EST 1 drop documented in this encounter Active and Recently Administered Medications Times are shown in EST. Scheduled Medication Order 07/04/2025 07/05/2025 07/06/2025 aspirin EC tablet 81 mg 81 mg, Oral, Daily, First dose on 07/04/25 at 1715, Administer with water, food, or milk to decrease GI upset. 1703 (Given - Provider: Kd Chu RN) 0807 (Given - Provider: Lisa Ruffin RN) 0918 (Given - Provider: Lisa Ruffin, RAYMOND) atorvastatin (LIPITOR) tablet 80 mg 80 mg, Oral, Every morning, First dose on 07/04/25 at 1145 1201 (Given - Provider: Kd Chu RN) 0601 (Given - Provider: Cookie Lynch RN) 0501 (Given - Provider: Jody Cao, RAYMOND) brimonidine (ALPHAGAN) 0.2 % ophthalmic solution 1 drop 1 drop, Each Eye, 3 times daily, First dose on 07/04/25 at 1400, If using more than one ophthalmic product, wait at least 5 minutes in between application of each medication. Remove contact lenses prior to administration and wait 15 minutes before reinserting. 1337 (Given - Provider: Kd Chu RN)2106 (Given - Provider: Cookie Lynch RN) 0808 (Given - Provider: Lisa Ruffin, RAYMOND)1406 (Given - Provider: Lisa Ruffin, RAYMOND)2031 (Given - Provider: Jody Nash, RN) 0919 (Given - Provider: Lisa Ruffin RN) chlorhexidine gluconate 2 % wipe 1 each 1 each (1 Application), Topical, Daily, First dose on 07/04/25 at 1145, Apply to body. Use each wipe only once. Do not use wipes on face or any mucous membranes. Cleanse tubes and lines, avoid dressings. For TOPICAL Use Only 1336 (Given - Provider: Kd Chu RN) 0900 (Given - Provider: Lisa Ruffin RN) 0922 (Given - Provider: Lisa Ruffin, RAYMOND) dorzolamide (TRUSOPT) 2 % ophthalmic solution 1 drop 1 drop, Each Eye, 2 times daily, First dose on 07/04/25 at 1145 1257 (Given - Provider: Kd Chu RN)2106 (Given - Provider: Cookie Lynch RN) 0808 (Given - Provider: Lisa Ruffin, RAYMOND)203 (Given - Provider: Jody Cao RN) 0919 (Given - Provider: Lisa Ruffin, RAYMOND) enoxaparin (LOVENOX) subcutaneous syringe 40 mg 40 mg, Subcutaneous, Every 24 hours, First dose on 07/04/25 at 1145, Administer subcutaneously. Rotate injection sites. 1202 (Given - Provider: Kd Chu RN) 1204 (Given - Provider: Lisa Ruffin RN) 1129 (Given - Provider: Lisa Ruffin, RAYMOND) insulin glargine (LANTUS) subcutaneous injection 30 Units 30 Units, Subcutaneous, Daily, First dose (after last modification) on Sat07/05/25 at 1015, Dose with Lantus now and then stop insulin gtt and D10 infusion one hour after this. 0915 (Given - Provider: Lisa Ruffin RN) 0918 (Given - Provider: Lisa Ruffin, RAYMOND) insulin lispro (ADMELOG, HumaLOG) subcutaneous injection 0-12 Units 0-12 Units, Subcutaneous, 4 times daily with meals and nightly insulin, First dose on Sat07/05/25 at 0945, CORRECTIONAL INSULIN: Give even if patient is NPO/not receiving nutrition. Moderate dose Blood glucose (mg/dL): Insulin dose Glucose 70-150: 0 unit. Glucose 151-200: 2 units. Glucose 201-250: 4 units. Glucose 251-300: 6 units. Glucose 301-350: 8 units. Glucose 351-400: 10 units. Glucose >400: 12 units and call RC. For blood glucose < 70 mg/dL call RC AND if patient: 1. Able to take PO, give 15 g of carbohydrate (4 oz fruit juice, regular soda, 8 oz of skim milk, or 3 to 4 glucose tablets) 2. Unable to take PO and PIV PRESENT, administer D50W per prn medication order OR 3. Unable to take PO and NO PIV, call RC/MANAGER SALT to obtain order for glucagon Check blood glucose in 15 minutes and repeat if < 80 mg/dL and call RCC, Insulin type: Correctional insulin 1050 (Not Given - Provider: Lisa Ruffin RN - Reason: Order parameters not met)1406 (Not Given - Provider: Lisa Ruffin RN - Reason: Order parameters not met)1651 (Not Given - Provider: Lisa Ruffin RN - Reason: Order parameters not met)2110 (Not Given - Provider: Jody Cao RN - Reason: Order parameters not met) 0815 (Not Given - Provider: Lisa Ruffin RN - Reason: Order parameters not met)1148 (Not Given - Provider: Lisa Ruffin RN - Reason: Order parameters not met - Comment: 85) lactated ringers IV Bolus 1,000 mL (COMPLETED) 1,000 mL, Intravenous, Administer over 30 Minutes, Once, On 07/04/25 at 0800, For 1 dose 0859 (New Bag - Provider: Jose Muller, RAYMOND)0955 (Stopped - Provider: Jose Muller, RAYMOND) lactated ringers IV Bolus 1,000 mL (COMPLETED) 1,000 mL, Intravenous, Administer over 30 Minutes, Once, On 07/04/25 at 1200, For 1 dose 1149 (New Bag - Provider: Kd Chu, RAYMOND) latanoprost (XALATAN) 0.005 % ophthalmic solution 1 drop 1 drop, Each Eye, Every evening, First dose on 07/04/25 at 1800 1808 (Given - Provider: Kd Chu, RAYMOND) 1824 (Not Given - Provider: Lisa Dhundup, RN - Reason: Patient/family refused - Comment: Patient wants to take the eyedrops at bedtime.)2030 (Given - Provider: Jody Cao RN) lisinopril (PRINIVIL,ZESTRIL) tablet 5 mg 5 mg, Oral, Daily, First dose on 07/04/25 at 1145 1201 (Given - Provider: Kd Chu RN) 0807 (Given - Provider: Lisa Ruffin RN) 0918 (Given - Provider: Lisa Ruffin RN) magnesium sulfate 2 gram/50 mL (4%) in Sterile Water IVPB premix 2 g (COMPLETED) 2 g, Intravenous, Administer over 60 Minutes, at 50 mL/hr, Every 2 Hours, First dose on Sat07/04/25 at 1845, For 2 doses 180 (New Bag - Provider: Kd Chu RN)2004 (New Bag - Provider: Cookie Lynch RN) magnesium sulfate 2 gram/50 mL (4%) in Sterile Water IVPB premix 2 g (COMPLETED) 2 g, Intravenous, at 100 mL/hr, Once, On Sat07/05/25 at 2200, For 1 dose 2111 (New Bag - Provider: Jody Cao RN) melatonin tablet 5 mg 5 mg, Oral, Nightly, First dose on 07/04/25 at 2100 2106 (Given - Provider: Cookie Lynch RN) 2028 (Given - Provider: Jody Cao RN) metFORMIN (GLUCOPHAGE) IMMEDIATE release tablet 1,000 mg 1,000 mg, Oral, 2 times daily, First dose on Sat07/04/25 at 1145 1056 (Held by provider - Provider: Gorge Cheung MD)1145 (Automatically Held)2100 (Automatically Held) 0900 (Automatically Held)1151 (Unheld by provider - Provider: Gorge Cheung MD)2028 (Given - Provider: Jody Cao RN) 09 (Given - Provider: Lisa Ruffin RN) NON FORMULARY 2 mg 2 mg, Subcutaneous, 2 times weekly (Once per day on Saturday), First dose on Sat07/05/25 at 0900, Drug Name: ozempic, Form: Auto-Injector, Length of Therapy: Indefinite, How soon needed? (normally 72 hrs needed to procure): 72+ hrs, Rationale for non-formulary use including previous trials of formulary agents: No therapeutic alternative available, Can the patient supply their home medication? Yes, On hold since Sat07/04/2025 at 1056 until manually unheld 1056 (Held by provider - Provider: Gorge Cheung MD) 0900 (Automatically Held) 1610 (Unheld by provider - Provider: Automatic Discharge Provider) ondansetron (PF) (ZOFRAN) injection 4 mg (COMPLETED) 4 mg, Intravenous, Once, On Sat07/04/25 at 0715, For 1 dose 0720 (Given - Provider: Jose Muller, RAYMOND) pantoprazole (PROTONIX) EC tablet 40 mg 40 mg, Oral, Daily, First dose on Sat07/04/25 at 1145 1201 (Given - Provider: Kd Chu, RAYMOND) 0807 (Given - Provider: Lisa Ruffin, RAYMOND) 0918 (Given - Provider: Lisa Ruffin RN) potassium chloride (MICRO-K) ER capsule 40 mEq (COMPLETED) 40 mEq, Oral, Once, On Sat07/05/25 at 0730, For 1 dose, Swallow tablets whole, do not crush or chew. Capsules may be opened and contents sprinkled on a spoonful of applesauce or pudding and should be swallowed immediately without chewing. Microencapsulated tablets may be dissolved in 6 ounces of water, stir and administer immediately. 0650 (Given - Provider: Cookie Lynch RN) potassium chloride in water (KCL) 10 mEq/100 mL IVPB premix (COMPLETED) 10 mEq, Intravenous, at 100 mL/hr, Every 1 hour, First dose on Sat07/05/25 at 0730, For 2 doses 0652 (New Bag - Provider: Cookie Lynch RN)0800 (New Bag - Provider: Lisa Ruffin RN) potassium phosphate (monobasic) (K-PHOS) tablet 500 mg 500 mg, Oral, 4 times daily with meals and nightly, First dose on Sat07/05/25 at 1230, Dose is expressed in potassium phosphate salt. Each 500 mg of potassium phosphate = elemental potassium 144 mg = elemental phosphorus 114 mg. Dissolve tablets in 6-8 oz of water; for best results, soak tablets in water for 2-5 minutes, then stir and give to patient. 1204 (Given - Provider: Lisa Ruffin RN)1638 (Given - Provider: Lisa Ruffin RN)202 (Given - Provider: Jody Cao RN) 0900 (Given - Provider: Lisa Ruffin RN)1140 (Not Given - Provider: Lisa Ruffin RN - Reason: Per MD/DALE Order) sodium chloride 0.9% bolus 1,000 mL (COMPLETED) 1,000 mL, Intravenous, Administer over 30 Minutes, at 2,000 mL/hr, Once, On 07/04/25 at 0715, For 1 dose 0720 (New Bag - Provider: Jose Muller, RAYMOND)0855 (Stopped - Provider: Joes Muller, RN) thiamine in 0.9 % sod chloride (VITAMIN B1) 500 mg/100 mL IVPB premix (COMPLETED) 500 mg, Intravenous, Administer over 30 Minutes, at 200 mL/hr, Once, On 07/04/25 at 1315, For 1 dose 1257 (New Bag - Provider: Kd Chu RN) timolol (TIMOPTIC) 0.5 % ophthalmic solution 1 drop 1 drop, Each Eye, 2 times daily, First dose on 07/04/25 at 1145 1257 (Given - Provider: Kd Chu RN)2106 (Given - Provider: Cookie Lynch RN) 0808 (Given - Provider: Lisa Ruffin RN)2031 (Given - Provider: Jody Cao, RN) 0919 (Given - Provider: Lisa Ruffin, RAYMOND) Continuous Medication Order 07/04/2025 07/05/2025 07/06/2025 D10W infusion () 125 mL/hr, Intravenous, Continuous, Starting on 07/04/25 at 1200, For 23 hours, Dose with Lantus now and then stop insulin gtt and D10 infusion one hour after this. 1123 (New Bag - Provider: Kd Chu RN)1514 (Rate/Dose Change - Provider: Kd Chu RN)1928 (New Bag - Provider: Cookie Lynch RN)2000 (Rate/Dose Change - Provider: Cookie Lynch, RN - Comment: Per PA Derrick Brando order)2100 (Rate/Dose Change - Provider: Cookie Lynch RN - Comment: per PA Derrick P. order)2259 (New Bag - Provider: Cookie Lynch RN)2300 (Rate/Dose Verify - Provider: Cookie Lynch RN) 0000 (Rate/Dose Verify - Provider: Cookie Lynch RN)0206 (Rate/Dose Change - Provider: Cookie Lynch RN - Comment: per D. Brando PA)0307 (New Bag - Provider: Cookie Lynch RN - Comment: per D. Brando order)0400 (Rate/Dose Verify - Provider: Cookie Lynch RN - Comment: per PA D. Brando order)0500 (Rate/Dose Verify - Provider: Cookie Lynch RN - Comment: per D. Brando PA)0600 (Rate/Dose Verify - Provider: Cookie Lynch RN - Comment: per D. Brando PA)0629 (New Bag - Provider: Cookie Lynch RN - Comment: per D. Brando PA)0800 (Rate/Dose Change - Provider: Lisa Ruffin RN)0900 (Rate/Dose Verify - Provider: Lisa Ruffin RN)1010 (Stopped - Provider: Lisa Ruffin RN) insulin regular (MYXREDLIN) 1 unit/mL in NS 100 mL infusion (CANCELED) 0-30 Units/hr (0-30 mL/hr), Intravenous, Continuous, Starting on 07/04/25 at 1145, Infusion rate = ISC x (glc-60) -titrate insulin per institutional DKA protocol If glc <70 hold insulin, follow hypoglycemia instructions, and recheck q15min till >= 90, then resume at half ISC If glc 70-89 twice then reset ISC to 0.01 Nutrition interrupted since last adjustment: decrease ISC by 50% If glc drop of >=75 OR glc below target then if 1.Previous ISC <= 0.01 reduce by 25% 2.Previous ISC >0.01 and <= 0.04 reduce by 0.01 3.Previous ISC >0.04 reduce by 25% If glc at target, no change in ISC If glc > upper target, increase ISC by 0.01 If infusion rate < 0.5 mL/hr, hold infusion and call RC For glucose greater than 600 mg/dL, the calculator will use 600 mg/dL for all calculations, Initial Order ISC: 0.01, Glucose Target: 140-180, Low Target: 140, High Target: 180 1149 (New Bag - Provider: Kd Chu RN)2000 (Rate/Dose Verify - Provider: Cookie Lynch RN)2100 (Rate/Dose Verify - Provider: Cookie Lynch RN)2300 (Rate/Dose Verify - Provider: Cookie Lynch RN) 0000 (Rate/Dose Verify - Provider: Cookie Lynch RN)0100 (Rate/Dose Change - Provider: Cookie Lynch RN - Comment: delaney WADDELL)0115 (Independent Double Check - Provider: Cookie Lynch RN)0206 (Rate/Dose Verify - Provider: Cookie Lynch RN)0307 (Rate/Dose Verify - Provider: Cookie Lynch RN)0400 (Rate/Dose Verify - Provider: Cookie Lynch RN)0500 (Rate/Dose Verify - Provider: Cookie Lynch RN)0600 (Rate/Dose Verify - Provider: Cookie Lynch RN)1010 (Stopped - Provider: Lisa Ruffin RN) insulin regular (MYXREDLIN) 1 unit/mL in NS 100 mL infusion () 0-30 Units/hr (0-30 mL/hr), Intravenous, Continuous, Starting on Sat07/05/25 at 0945, For 1 hour, Infusion rate = ISC x (glc-60) -titrate insulin per institutional DKA protocol If glc <70 hold insulin, follow hypoglycemia instructions, and recheck q15min till >= 90, then resume at half ISC If glc 70-89 twice then reset ISC to 0.01 Nutrition interrupted since last adjustment: decrease ISC by 50% If glc drop of >=75 OR glc below target then if 1.Previous ISC <= 0.01 reduce by 25% 2.Previous ISC >0.01 and <= 0.04 reduce by 0.01 3.Previous ISC >0.04 reduce by 25% If glc at target, no change in ISC If glc > upper target, increase ISC by 0.01 If infusion rate < 0.5 mL/hr, hold infusion and call RC For glucose greater than 600 mg/dL, the calculator will use 600 mg/dL for all calculations, Initial Order ISC: 0.01, Glucose Target: 140-180, Low Target: 140, High Target: 180 0920 (New Bag - Provider: Lisa Ruffin, RAYMOND) PRN Medication Order 07/04/2025 07/05/2025 07/06/2025 acetaminophen (TYLENOL) tablet 650 mg 650 mg, Oral, Every 6 hours PRN, mild pain or 1-3 (on a general 0-10 scale), fever, Starting on 07/05/25 at 0408 0421 (Given - Provider: Cookie Lynch, RAYMOND) 0035 (Given - Provider: Jody Cao, RAYMOND) dextrose (D50W) 50 % syringe 0-25 g 0-25 g, Intravenous, As needed, low blood sugar (provide value), see administration instructions, Starting on 07/04/25 at 0915, If unable to take PO and: Blood glucose less than 50 mg/dL or impaired consciousness, give 25 g (full amp). Blood glucose 50-69 mg/dL, give 12.5 g (half amp) call RC. Recheck blood glucose in 15 minutes and repeat prn. iohexoL (OMNIPAQUE-350) 350 mg iodine/mL solution 75 mL (COMPLETED) 75 mL, Intravenous, Once as needed, pre procedure/treatment, Starting on 07/04/25 at 0831, For 1 dose, Procedural Contrast/Med Active Now, Each mL contains 755 mg of iohexol equivalent to 350 mg of organic iodine. 0834 (Given - Provider: Madiha Álvarez) sodium chloride (NS) 0.9 % syringe flush 3 mL 3 mL, Intravenous, As needed, line care, Starting on [place] 07/04/25 at 1049, Per Institutional IV Line Care Policy. documented in this encounter Care Teams Ortho Rn Relationship Specialty Start Date End Date Pcp, Unknown PCP - General 05/30/25 07/04/25 Jayro Dougherty NP [facility] [place] [address] PCP - General Nurse Practitioner 07/05/25 documented as of this encounter Additional Source Comments The information contained in this document represents components of the legal health record. It is not the complete legal health record.[facility]
--- NOTE | 2025-07-08 15:27 | A.OFFVIS_ITS ---
Vital Signs 07/08/25 15:34 Height 5 ft 7 in Weight 162 lb 4.163 oz BMI 25.4 BP 94/62 Blood Pressure Location Rt brachial Position Sitting Pulse 88 Pulse Source Pulse Oximeter Pulse Oximetry (%) 98 Oxygen Delivery Method Room Air Intake Visit Reasons: T2DM - Cici Jemima PT Intake Note: Patient present today to follow up on Type 2 Diabetes Mellitus. Patient reports he was hospitalized at [facility] from July 04, 2025 until July 06, 2025 for possible DKA due to the Jardiance. Last Diabetic Eye exam: 05/12/2024, has Glaucoma Last Podiatry Visit: Does not see a Sales Representative Aircraft HgA1C: 6.5% 07/08/2025 Random Glucose: 152 mg/dL Tank Furnace Operator Required: No Accompanied by: Self / Same As Patient Allergies NSAIDS (Non-Steroidal Anti-Inflamma Allergy (Mild, Verified 07/08/25 15:39) thins lining of stomach with GERD. empagliflozin (From Jardiance) Adverse Reaction (Unknown, Verified 07/08/25 15:39) Hypoglycemia sglt2 i Adverse Reaction (Severe, Uncoded 07/08/25 15:39) Euglycemic DKA ozempic Adverse Reaction (Uncoded 07/08/25 15:39) Blurry Vision HPI Comments Details: This is a 44-year-old male with a past medical history of type 2 diabetes, glaucoma, coronary artery disease, alcohol abuse, dyslipidemia, hypertension and glaucoma presenting for diabetic management. The patient last saw NADIRA Rosario on 03/19/2025 He was diagnosed with Type II diabetes at age 28. His sister from diabetes in 2008. He has a family history of diabetes on his mother's and father's side of the family. He forgot his glucometer today. Checks 6X/day Current medication regimen: Lantus 40 units daily. Novolog decrease to 14 units 10 minutes before meals. He has only been taking this once or twice per week because blood sugars have been doing better. Metformin 1000 mg twice daily Ozempic 2 mg weekly He's lost 8 pounds. Diet: Patient saw the dietitian. He stopped drinking alcohol 4 months ago. He stopped eating fast food. Hypoglycemia symptoms: admiited with hypoglycemia Shaky, weak, hungry - infreqent episodes Hyperglycemia symptoms: Polydipsia, polyuria Eye exam: He has glaucoma, and surgery is recommended by [facility]. Last visit Microvascular complications: neuropathy, nephropathy (microalbuminuria) Macrovascular complications: CAD (IA s/p stent 05/2024) Recently admitted with DKA thought to be due to Jardiance Has family hx of diabetes in mother , father, grandparents [facility] Medical History (Updated 07/07/25 @ 18:05 by Jayro Dougherty, [facility]) Ketoacidosis Type 2 diabetes mellitus with hyperglycemia Atherosclerotic cardiovascular disease Thigh abscess Pigmentary glaucoma of both eyes Encounter for physical examination Abdominal pain Diabetes mellitus Glaucoma Diverticulosis Surgical History Hx of cardiac cath H/O colonoscopy S/P LASIK surgery History of circumcision Family History Father HTN (hypertension) Diabetes mellitus Mother HTN (hypertension) Diabetes mellitus Heart murmur Brother No problems noted. Brother No problems noted. Brother No problems noted. Sister Lupus Sister No problems noted. Sister No problems noted. Sister No problems noted. Son No problems noted. Daughter No problems noted. Social History Household Members: Spouse and Family Household Members Other:: 2 Housing: Apartment Do you presently have visiting nurse or other home services: No Alcohol intake: current Alcohol intake frequency: a few times a month Alcohol type: hard liquor Patient Tobacco Use Status: Former Tobacco user Tobacco use type: Cigarette Cigarette Packs Per Day: 1 Cigarettes Per Day: 20.0 Years Smoked: 5 e-Cigarette/Vaping Use: Never Used Second Hand Smoke Exposure: No Substance Use Type: Marijuana service: No Current occupational status: employed Current occupation: [employer] Current occupational exposures/hazards: No Cognitive needs: No Hearing needs: No Vision needs: No Physical Exam Vital Signs: Last Vital Signs Pulse 88 07/08/25 15:34 BP 94/62 07/08/25 15:34 Pulse Ox 98 07/08/25 15:34 Oxygen Delivery Method Room Air 07/08/25 15:34 BMI result Body Mass Index 25.4 Absence of Cushingoid features. Absence of acromegalic features. Neck exam reveals nl size thyroid about 15 gms. No thyroid nodules palpable. No carotid bruits present. Lungs CTA. Heart S1 S2, Reg R/R. No M/R/ G. Skin exam reveals absence of vitiligo or acanthosis nigricans. Abdominal exam reveals Soft NT/ND with NA BS. No organomegaly present. Extrem Other: Visual exam of foot performed. No ulcerations or open lesions. No onchomycosis, no callouses.Pulses 2 + distally. Sensation intact to monofilament exam. Vibratory sensation sensed 10 seconds in right, 10 seconds in left with 128 Hz tuning fork Results AMB Hemoglobin A1c AMB Hemoglobin A1c 6.5 % Last Edit by KATELYNN Gallegos on 1 09/08/24 16:00 Results Reviewed Results Reviewed: Laboratory Last Values Glucose (Clinic) 152 mg/dL (60-115) H 07/08/25 15:44 Assessment & Plan Assessment & Plan (1) Type 2 diabetes mellitus with hyperglycemia: Code(s): E11.65 - Type 2 diabetes mellitus with hyperglycemia Category: Medical Qualifiers: Diabetes mellitus senior care insulin use: with technician terminal and repeater use Qualified Code(s): E11.65 - Type 2 diabetes mellitus with hyperglycemia; Z79.4 - long-term (current) use of insulin Plan: This is a 44-year-old male with a history of type 2 diabetes being treated with metformin Ozempic, Jardiance and basal-bolus since with excellent glycemic control and known microvascular macrovascular complications namely nephropathy, neuropathy and CAD. Plan is to talk to the patient about initiating a sensor. Reinitiated Renny 3+ sensor Can not make adjustments to the diabetic regimen because of lack of data today. Went over the correlation of poor glycemic control and complications from diabetes with the patient. Offered patient is CDE appointment and nutritional appointment. We will have patient follow up with NADIRA Rosario in 3 mos . We will check anti-shubham 65 antibodies to rule out RANDELL as well as C- peptide and glucose level. Lastly, prescribed a glucagon Baqimi Orders: Orders Glutamic acid decarboxylase Ab Today E11.65 - Type 2 diabetes mellitus with hyperglycemia, Z79.4 - middle or intermediate school principal (current) use of insulin C Peptide Today E11.65 - Type 2 diabetes mellitus with hyperglycemia, Z79.4 - middle or intermediate school principal (current) use of insulin Glucose Random Today E11.65 - Type 2 diabetes mellitus with hyperglycemia, Z79.4 - middle or intermediate school principal (current) use of insulin AMB Hemoglobin A1c Today E11.9 - Type 2 diabetes mellitus without complications Referrals Diabetes Education Referral E11.65 - Type 2 diabetes mellitus with hyperglycemia, Z79.4 - long-term (current) use of insulin Medications: New FreeStyle Renny 3 Sensor (blood-glucose sensor) As directed change every 15 days 2 ea 4RF NS glucagon 3 mg/actuation (Baqsimi) 3 mg intranasal ONCE 2 ea 4RF Coding Level of Care Code Est Pt Level 4 (50810) Add On Problem Visit Only Diagnoses Type 2 diabetes mellitus with hyperglycemia, with long-term current use of insulin E11.65; Z79.4 Diabetes mellitus technician terminal and repeater insulin use: with senior care use
[2025-07-08 15:34] VITALS: BP 94/62; PULSE 88; O2SAT 98; BMI 25.4
[2025-07-08 15:51] LABS: Glucose, Whole Blood 152 mg/dL (60-115)
--- OUTSIDE RECORDS SUMMARY | 2025-07-08 22:53 | XMS_ITS | Clinical Summary ---
Author Organization [facility] Prior to 12/26/24 Address [address] [place] [address] Care Team Providers Care Oil Driller Name Role Phone Unavailable Primary Care Provider [...] mg total) by mouth daily. 0 Active [place]-3 1000 MG CAPS Take 1 g by [...] this topic Medical Devices Implanted Type Area Watershed Manager Device Identifier Shelf Expiration Date Model / Serial / Lot Stent Xience Rapid Xchng 3x23mm Abbt-Vas [id number] - [id number] Implanted:Qty: 1 on 06/24/2023 at [facility] [place] [employer] [id number] / / Advance Directives For more information, please contact: [phone] Latest Code Status on File Code Status [...]
--- OUTSIDE RECORDS SUMMARY | 2025-07-08 22:54 | XMS_ITS | Clinical Summary ---
Author Organization [facility] Address [address] [place] [address] Care Team Providers Care International Operations Manager Name Role Phone GeraldJayro grant Kunal BOWEN Primary Care Provider Medications insulin [...] HEART CATHETERIZATION; Surgeon: Virgil Taylor DO; Location: [facility] CARDIAC CUT OUT WORKER; Service: Cardiology; Laterality: N/A; Social History Tobacco Use Types Packs/Day Years Used Date Smoking Tobacco: Never Assessed Sex and Gender Information Value Date Recorded Sex Assigned at Not on file Legal Sex Male 8:45 PM EST Gender Identity Not on file Sexual Orientation Not on file Plan of Treatment Health Maintenance Due Date Last Done Comments DTaP,Tdap,and Td Vaccines (1 - Tdap) 2000 Hepatitis B Vaccines (1 of 3 - 19+ 3-dose series) 2000 HPV Vaccines (1 - 3-dose SCD M series) 2008 HIV Screening 08/23/2023 Hepatitis C Screening 08/23/2023 Social Influencers of Health Screening 08/23/2023 Depression Screening 07/29/2024 COVID-19 Vaccine (1 - 2024-2 6 season) 2025 Influenza Vaccine (#1) 2025 Cholesterol Screening (Lipid Panel) 06/26/2028 06/26/2023 RSV Immunization Adult Patie nts (1 - 1-dose 75+ series) 2056 HIB Vaccines Aged Out No longer eligi [...] this topic Medical Devices Implanted Type Area Pickler Helper Device Identifier Shelf Expiration Date Model / Serial / Lot Stent Xience Rapid Xchng 3x23mm [facility] [id number] Implanted:Qty: 1 on 06/24/2023 [employer] [id number] / / Care Teams International Operations Manager Relationship Specialty Start Date End Date Jayro Dougherty NP [address] [facility] [place] PCP - General 08/16/23
--- OUTSIDE RECORDS SUMMARY | 2025-07-08 22:54 | XMS_ITS | Encounter Summary ---
Author Organization [facility] Address [address] [place] [address] Phone Care Team Providers Care Medical Detailist Name Role Phone Pcp, Unknown Primary Care Provider Jayro Briceno NP Primary Care Provider + Encounter Details Date Type Department Care Team (Late st Contact Info) Description 07/04/2025 Procedure Pass [facility], Ct Scan - [facility] [address] [place] [address] Social History Tobacco Use Types Packs/Day Years Used Date Smoking Tobacco: Every Day Cigarettes Education Answer Date Recorded Are you interested [...] your housing situation today? I have luda sing 07/04/2025 How many times have you move [...] on file documented as of this encounter Functional Status * Calculated C-SSRS Risk Score (Lifetime/Recent) Answer Date of Assessment Author No Risk Indicated 07/04/2025 4:47 AM Bjorn Mya RN * [place] Suicide Severity Rating Scale (Screener/Recent Self-Report) Question Answer Date of Assessment Author 1. Wish to be (Past 1 Month) No 07/04/2025 4:47 AM Bjorn May RN 2. Non-Specific Active Suicidal Thoughts (Past 1 Month) No 07/04/2025 4:47 AM Bjorn May RN 6. Suicidal Behavior (Lifetime) No 07/04/2025 4:47 AM Bjorn May RN documented as of this encounter Plan of Treatment Not on file documented as of this encounter Visit Diagnoses Not on filedocumented in this encounter Care Teams Medical Detailist Relationship Specialty Start Date End Date Pcp, Unknown PCP - General 05/30/25 07/04/25 Jayro Dougherty NP [address] [facility] [place] [address] PCP - General Nurse Practitioner 07/05/25 documented as of this encounter Additional Source Comments The information contained in this document represents components of the legal health record. It is not the complete legal health record.[facility]
--- OUTSIDE RECORDS SUMMARY | 2025-07-08 22:54 | XMS_ITS | Encounter Summary ---
Author Organization [facility] Address [address] [facility] [address] [place] [id number] Phone Care Team Providers Care Multigraph Operator Name Role Phone Pcp, Unknown Primary Care Provider Jayro Briceno NP Primary Care Provider + Encounter Details Date Type Department Care Team (Late st Contact Info) Description 05/30/2025 Procedure Pass [facility], Ct Scan - [address] [address] Social History Tobacco Use Types Packs/Day Years Used Date Smoking Tobacco: Never Assessed Education Answer Date Recorded Are you interested in more education? Not on lee e 11/24/2022 Are you concerned about learning? Not on file 11/24/2022 No 11/24/2022 No 11/24/2022 Digital Access Answer Date Recorded No 12/23/2022 No 12/23/2022 No 12/23/2022 Reliable internet access at home? Not on file 12/23/2022 Device with a working camera? Not on file Intimate Partner Violence Answer Date R ecorded Are you denied basic needs s uch as food, clothing, or medical care? No 05/30/2025 In the past 12 months have y ou been in a relationship with a person who hurts, threatens, or tries to control you? No 05/30/2025 Are you denied basic needs s uch as food, clothing, or medical care? No 05/30/2025 In the past 12 months have y ou been in a relationship with a person who hurts, threatens, or tries to control you? No 05/30/2025 Sex and Gender Information Value Date Recorded Sex Assigned at Not on file Legal Sex Male 7:04 PM EST Gender Identity Not on file Sexual Orientation Not on file documented as of this encounter Functional Status * Calculated C-SSRS Risk Score (Lifetime/Recent) Answer Date of Assessment Author No Risk Indicated 05/30/2025 12:36 AM EDT Nata Tsang RN * [place] Suicide Severity Rating Scale (Screener/Recent Self-Report) Question Answer Date of Assessment Author 1. Wish to be (Past 1 Month) No 025 12:36 AM STERLINGT Nata Jackson RN 2. Non-Specific Active Suici rosalina Thoughts (Past 1 Month) No 05/30/2025 12:36 AM EDT Say Jackson RN 6. Suicidal Behavior (Lifetime) No 12:36 AM STERLINGT Nata Jackson RN documented as of this encounter Plan of Treatment Not on file documented as of this encounter Visit Diagnoses Not on filedocumented in this encounter Care Teams Multigraph Operator Relationship Specialty Start Date End Date Pcp, Unknown PCP - General 05/30/25 07/04/25 Jayro Dougherty NP [facility] [place] [address] PCP - General Nurse Practitioner 07/05/25 documented as of this encounter Additional Source Comments The information contained in this document represents components of the legal health record. It is not the complete legal health record.[facility]
--- OUTSIDE RECORDS SUMMARY | 2025-07-08 22:56 | XMS_ITS | Clinical Summary ---
Author Organization [facility] Address [address] [facility] [address] [place] [phone] Phone Care Team Providers Care Flap Lining Binder Name Role Phone Jayro Dougherty NP Primary Care Provider + Allergies No known active allergies Medications atorvastatin (LIPITOR) 80 MG tablet Take 1 tablet by mouth every morning. 05/03/20 25 Active brimonidine (ALPHAGAN) 0.2 % ophthalmic solution Place 1 drop into each eye 3 (three) times a day. Active dorzolamide (TRUSOPT) 2 % ophthalmic solution Place 1 drop into each eye 2 (two) times a day. 06/07/20 25 Active LANTUS SOLOSTAR U-100 INSULIN 100 unit/mL (3 mL) InPn injection pen Inject 40 Units under the skin daily. 06/30/20 25 Active latanoprost (XALATAN) 0.005 % ophthalmic solution Place 1 drop into each eye every evening. Active lisinopril (PRINIVIL,ZESTRI L) 5 MG tablet Take 5 mg by mouth daily. Active metFORMIN (GLUCOPHAGE) 1000 MG immediate release tablet Take 1 tablet by mouth 2 (two) times a day. 04/12/20 25 Active omega-3 acid ethyl esters (LOVAZA) 1 gram capsule Take 1 capsule by mouth 2 (two) times a day. 05/11/20 25 Active omeprazole (PRILOSEC) 40 MG capsule Take 40 mg by mouth daily. Active OZEMPIC 2 mg/dose (8 mg/3 mL) subcutaneous injection pen Inject 2 mg under the skin every 7 days. 06/10/20 25 Active timolol (TIMOPTIC) 0.5 % ophthalmic solution Place 1 drop into each eye 2 (two) times a day. Active cyclobenzaprine (FLEXERIL) 5 MG tablet Take 1 tablet (5 mg total) by mouth 3 (three) times a day as needed (Muscle spasm). 9 tablet 05/30/20 25 025 Discontinued JARDIANCE 25 mg tablet Take 1 tablet by mouth every morning. 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 07/04/2025 Resolved Problems Problem Noted Date Diagnosed Date Resolved Date Hypovolemia 07/04/2025 07/04/2025 Encounters Date Type Department Care Team Description 07/04/2025 4:44 AM EST - 07/06/2025 1:20 PM [facility] Hospital Encounter [facility] [address] [place] [id number] Char Stone DO Oliveira, Paulo J, MD Discharge Disposition: Home or Self Care 07/04/[address] [address] 05/30/2025 5:01 AM EST - 05/30/2025 11:45 AM EST Emergency [facility] Emergency [address] [place] [id number] Discharge Disposition: Home or Self Care 05/30/[address] [address] from Last 3 Months Immunizations Immunization Administration Dates Next Due INFLUENZA, SPLIT VIRUS, TRIVALENT PF 07/06/2025 Tdap 06/19/2022 Social History Tobacco Use Types Packs/Day Years [...] on file Sexual Orientation Not on file Last Filed Vital Signs [...] Mass Index 25.94 07/04/2025 10:16 AM EST Plan of Treatment Health Maintenance Due Date Last Done Comments BLOOD PRESSURE 1981 DEPRESSION SCREENING 1993 SMOKING Hx and SMOKELESS TOBACCO SCREENING 1994 HEPATITIS C SCREENING 1999 HIV ONE-TIME SCREENING (18-65 YEARS) 1999 PNEUMOCOCCAL VACCINES (0-49 years) (1 of 2 - PCV) 2000 COVID-19 VACCINE (1 - season) 2025 DIABETIC EYE EXAM 07/04/2025 HEMOGLOBIN A1C 01/02/2026 07/04/2025, 05/30, 06/24/2023 CREATININE LEVEL 07/06/2026 07/06/2025, 03/2025, 07/05/2025, Additional history exists POTASSIUM LEVEL 07/06/2026 07/06/2025, 03/2025, 07/05/2025, Additional history exists Adult Td,Tdap Booster 06/19/2032 06/19/2022 INFLUENZA VACCINE Completed 07/06/2025 HEPATITIS A VACCINES Aged Out No long er eligible based on patient's age to complete this topic HIB VACCINES Aged Out No longer eligi ble based on patient's age to complete this topic MENINGOCOCCAL VACCINES (ACWY) Aged Out No longer eligible based on patient's age to complete this topic MENINGOCOCCAL VACCINES (B) Aged Out N o longer eligible based on patient's age to complete this topic Medical Devices Not on file Procedures Procedure Name Priority Date/Time Associated Diagnosis Comments POCT GLUCOSE Routine 07/06/2025 11:42 AM EST PHOSPHORUS Routine 07/06/2025 11:33 AM EST MAGNESIUM Routine 07/06/2025 11:33 AM EST BASIC METABOLIC PANEL (BMP) Routine 07/06/2025 11:33 AM EST POCT GLUCOSE Routine 07/06/2025 8:08 AM EST CBC AND DIFFERENTIAL Routine 07/06/2025 5:00 AM EST CBC AND DIFFERENTIAL Routine 07/06/2025 5:00 AM EST LFTS (HEPATIC PANEL) Routine 07/06/2025 5:00 AM EST PHOSPHORUS Routine [...] AND DIFFERENTIAL Routine 07/05/2025 3:25 AM EST PT-INR Routine 07/05/2025 3:25 AM EST CBC AND DIFFERENTIAL Routine 07/05/2025 3:25 AM EST LFTS (HEPATIC PANEL) Routine 07/05/2025 3:25 AM EST PHOSPHORUS Routine [...] POCT GLUCOSE Routine 07/04/2025 6:04 PM EST CORTISOL Routine 07/04/2025 5:36 PM EST PHOSPHORUS STAT 07/04/2025 5:36 PM EST MAGNESIUM STAT 07/04/2025 5:36 PM EST BASIC METABOLIC PANEL [...] POCT GLUCOSE Routine 07/04/2025 12:06 PM EST HEMOGLOBIN A1C STAT 07/04/2025 11:51 AM EST CBC AND DIFFERENTIAL Routine 07/04/2025 11:51 AM EST PT-INR Routine 07/04/2025 11:51 AM EST CBC AND DIFFERENTIAL Routine 07/04/2025 11:51 AM EST BLOOD CULTURE, ROUTINE STAT 07/04/2025 11:51 AM EST T3, TOTAL STAT 07/04/2025 11:50 AM EST FREE T4 STAT 07/04/2025 11:50 AM EST KETONE BODIES, SERUM STAT 07/04/2025 11:50 AM EST TSH WITH REFLEX STAT 07/04/2025 11:50 AM EST C-REACTIVE PROTEIN (CRP) STAT 07/04/2025 11:50 AM EST LIPID PANEL STAT 07/04/2025 11:50 AM EST NT-PROBNP STAT 07/04/2025 11:50 AM EST TROPONIN STAT 07/04/2025 11:50 AM EST PHOSPHORUS STAT 07/04/2025 11:50 AM EST MAGNESIUM STAT 07/04/2025 11:50 AM EST BASIC METABOLIC PANEL (BMP) STAT 07/04/2025 11:50 AM EST LFTS (HEPATIC PANEL) Routine 07/04/2025 11:50 AM EST BLOOD CULTURE, ROUTINE STAT 07/04/2025 11:50 AM EST POCT GLUCOSE Routine 07/04/2025 10:44 AM EST POCT GLUCOSE STAT 07/04/2025 10:05 AM EST TROPONIN STAT 07/04/2025 9:52 AM EST LACTATE (BLOOD GAS) STAT 07/04/2025 9 :24 AM EST POCT GLUCOSE STAT 07/04/2025 8:[address] ABDOMEN/PELVIS WITH CONTRAST Routine 07/04/2025 8:33 AM EST VENOUS BLOOD GAS STAT 07/04/2025 7:27 AM EST KETONE BODIES, SERUM STAT 07/04/2025 7:27 AM EST CBC AND DIFFERENTIAL STAT 07/04/2025 5:15 AM EST LIPASE STAT 07/04/2025 5:15 AM EST LFTS (HEPATIC PANEL) STAT 07/04/2025 5:15 AM EST BASIC METABOLIC PANEL (BMP) STAT 07/04/2025 5:15 AM EST CBC AND DIFFERENTIAL STAT 07/04/2025 5:15 AM EST URINE SEDIMENT STAT 07/04/2025 5:11 AM EST URINALYSIS WITH REFLEX TO URINE CULTURE STAT 07/04/2025 5:11 AM EST ECG 12-LEAD STAT 07/04/2025 4:55 AM EST POCT GLUCOSE STAT 07/04/2025 4:47 AM EST TROPONIN STAT 05/30/2025 10:[address] ABDOMEN/PELVIS WITH CONTRAST Routine 05/30/2025 9:25 AM EST URINALYSIS WITH REFLEX TO URINE CULTURE STAT 05/30/2025 7:58 AM EST TROPONIN STAT 05/30/2025 1:21 AM EDT LIPASE STAT 05/30/2025 12:42 AM EDT LFTS (HEPATIC PANEL) STAT 05/30/2025 12:42 AM EDT BASIC METABOLIC PANEL (BMP) STAT 05/30/2025 12:42 AM EDT CBC AND DIFFERENTIAL STAT 05/30/2025 12:42 AM EDT ECG 12-LEAD STAT 05/30/2025 12:35 AM EDT from Last 3 Months Results * POCT Glucose (07/06/2025 11:42 AM EST) Only the most recent of33 resultswithin the time period is included. Glucose 85 70 - 99 mg/dL 07/06/2025 11:44 AM EST [facility] Blood (Blood) 07/06/2025 11: 42 AM EST 07/06/2025 11:44 AM EST us Gorge Cheung MD LAB POCT DOCKED DEVICE UNSOL ICTED RESULTS Final Result Performing Organization Address [facility] Co de Phone Number [address] [address] * Phosphorus (07/06/2025 11:33 AM EST) Only the most recent of10 resultswithin the time period is included. Phosphorus 3.0 2.5 - 4.5 mg/dL 07/06/2025 12:44 PM EST [facility] Blood (Blood) Venipuncture / Unknown 07/06/2025 11:33 AM EST 07/06/2025 12:07 PM EST us Gorge Cheung MD LAB BLOOD BKR ORDERABLES Fin al Result Performing Organization Address [facility] Co de Phone Number [address] [address] * Magnesium (07/06/2025 11:33 AM EST) Only the most recent of10 resultswithin the time period is included. Magnesium 1.9 1.7 - 2.6 mg/dL 07/06/2025 12:44 PM EST [facility] Blood (Blood) Venipuncture / Unknown 07/06/2025 11:33 AM EST 07/06/2025 12:07 PM EST us Gorge Cheung MD LAB BLOOD BKR ORDERABLES Fin al Result Performing Organization Address [facility] Co de Phone Number [address] [address] * (ABNORMAL) Basic Metabolic Panel (BMP) (07/06/2025 11:33 AM EST) Only the most recent of12 resultswithin the time period is included. Sodium 141 136 - 145 mmol/L 07/06/2025 12:44 PM [facility] Potassium 4.3 3.4 - 5.1 mmol/L 07/06/2025 12:44 PM [facility] Comment:NOTE: Specimen hemol yzed. Results may be falsely increased. Chloride 106 98 - 107 mmol/L 07/06/2025 12:44 PM [facility] CO2 24 20 - 31 mmol/L 07/06/2025 12:44 PM [facility] BUN 8 6 - 23 mg/dL 07/06/2025 12:44 PM [facility] Creatinine 0.70 0.60 - 1.30 mg/dL 07/06/2025 12:44 PM [facility] Glucose 95 70 - 99 mg/dL 07/06/2025 12:44 PM [facility] Calcium 8.4(L) 8.5 - 10.5 mg/dL 07/06/2025 12:44 PM [facility] eGFR 117 >59 mL/min/1.7 3m2 07/06/2025 12:44 PM [facility] Comment:Estimated glomerular filtration rate calculated using the CKD-EPI refit equation. Anion Gap 11 3 - 17 mmol/L 07/06/2025 12:44 PM [facility] Blood (Blood) Venipuncture / Unknown 07/06/2025 11:33 AM EST 07/06/2025 12:07 PM EST us Gorge Cheung MD LAB BLOOD BKR ORDERABLES Fin al Result [address] [address] * (ABNORMAL) CBC and Differential (07/06/2025 5:00 AM EST) Only the most recent of4 resultswithin the time period is included. WBC 6.86 4.00 - 11.00 K/uL 07/06/2025 5:10 AM [facility] RBC 4.55 4.50 - 5.90 M/uL 07/06/2025 5:10 AM [facility] Hemoglobin 12.7(L) 13.5 - 17.5 g/dL 07/06/2025 5:10 AM [facility] Hematocrit 39.6(L) 41.0 - 53.0 % 07/06/2025 5:10 AM [facility] MCV 87.0 80.0 - 100.0 fL 07/06/2025 5:10 AM [facility] MCH 27.9 27.0 - 31.0 pg 07/06/2025 5:10 AM [facility] MCHC 32.1 32.0 - 36.0 g/dL 07/06/2025 5:10 AM [facility] MPV 9.6 8.4 - 12.0 fL 07/06/2025 5:10 AM [facility] RDW-CV 14.5 11.5 - 14.5 % 07/06/2025 5:10 AM [facility] PLT 274 150 - 450 K/uL 07/06/2025 5:10 AM [facility] Neutrophils 56.7 % 07/06/2025 5:10 AM [facility] Lymphocytes 31.5 % 07/06/2025 5:10 AM [facility] Monocytes 7.9 % 07/06/2025 5:10 AM [facility] Eosinophils 2.9 % 07/06/2025 5:10 AM [facility] Basophils 0.9 % 07/06/2025 5:10 AM [facility] Imm Grans 0.1 % 07/06/2025 5:10 AM [facility] NRBC 0.0 <=0.0 /100 WBCs 07/06/2025 5:10 AM [facility] Absolute Neutrophils 3.89 1.92 - 7.60 K/uL 07/06/2025 5:10 AM [facility] Absolute Lymphocytes 2.16 0.72 - 4.10 K/uL 07/06/2025 5:10 AM [facility] Absolute Monocytes 0.54 0.16 - 1.10 K/uL 07/06/2025 5:10 AM [facility] Absolute Eosinophils 0.20 0.00 - 0.50 K/uL 07/06/2025 5:10 AM [facility] Absolute Basophils 0.06 0.00 - 0.15 K/uL 07/06/2025 5:10 AM [facility] Absolute Imm Grans 0.01 0.00 - 0.09 K/uL 07/06/2025 5:10 AM [facility] Absolute NRBC 0.00 <=0.00 K cells/uL 07/06/2025 5:10 AM [facility] Absolute Neutrophils 3.89 1.92 - 7.60 K/uL 07/06/2025 5:10 AM [facility] Comment:Automated cell count . Manual ANC may differ if performed. Diff Type Auto 07/06/2025 5:10 AM [facility] Blood (Blood) Catheter/Line / Unknown 07/06/2025 5:00 AM EST 07/06/2025 5:08 AM EST us Gorge Cheung MD LAB BLOOD BKR ORDERABLES Fin al Result [address] [address] * (ABNORMAL) Hepatic Panel (LFTs) (07/06/2025 5:00 AM EST) Only the most recent of5 resultswithin the time period is included. AST 66(H) <40 U/L 07/06/2025 5:33 AM [facility] ALT 95(H) <50 U/L 07/06/2025 5:33 AM [facility] Alkaline Phosphatase 55 40 - 130 U/L 07/06/2025 5:33 AM [facility] Bilirubin, Total 0.3 0.0 - 1.2 mg/dL 07/06/2025 5:33 AM [facility] Bilirubin, Direct 0.1 0.0 - 0.3 mg/dL 07/06/2025 5:33 AM [facility] Total Protein 6.5 6.4 - 8.3 g/dL 07/06/2025 5:33 AM [facility] Albumin 4.1 3.5 - 5.2 g/dL 07/06/2025 5:33 AM EST [facility] Globulin 2.4 1.9 - 4.1 g/dL 07/06/2025 5:33 AM EST [facility] Blood (Blood) Catheter/Line / Unknown 07/06/2025 5:00 AM EST 07/06/2025 5:08 AM EST Gorge Cheung MD LAB BLOOD BKR ORDERABLES Fin al Result [address] [address] * ECG 12-LEAD (07/05/2025 6:14 AM EST) Only the most recent of3 resultswithin the time period is included. Ventricular Rate EKG/MIN 89 BPM [facility] Atrial Rate 89 BPM [facility] IL Interval 144 ms [facility] QRS Duration 94 ms [facility] QT Interval 354 ms [facility] QTC Interval 430 ms [facility] P [place] 2 degrees [facility] R Wave [place] -26 degrees [facility] T Wave [place] -24 degrees [facility] 07/05/2025 6:14 AM EST 07/06/2025 12:51 PM EST Narrative [facility] - 07/06/2025 12:51 PM EST Normal sinus rhythm Low voltage QRS Inferior infarct (cited on or before 04-Jul-2025) Abnormal ECG When compared with ECG of 04-Jul-2025 04:55, QRS axis Shifted left Confirmed by Jesse Quintanilla ([id number]) on 07/06/2025 12:51:31 PM us Gorge Cheung MD ECG ORDERABLES Final Result [facility] * MRSA NASAL SCREEN, PCR (07/05/2025 3:27 AM EST) MRSA PCR Screen Negative for MRSA Negative for MRSA 07/05/2025 4:56 AM EST [facility] Swab (Anterior Nares) Non-Blood Collection / Unknown 07/05/2025 3:27 AM EST 07/05/2025 3:33 AM EST us Gorge Cheung MD LAB GENERAL ORDERABLES Final Result Performing Organization Address [facility]/ZIP Co de Phone Number [address] [address] * PT-INR (07/05/2025 3:25 AM EST) Only the most recent of2 resultswithin the time period is included. PT 12.2 10.0 - 13.0 sec 07/05/2025 3:59 AM EST [facility] INR 1.0 0.9 - 1.1 07/05/2025 3:59 AM [facility] Comment:Therapeutic Range 2. 0 - 3.5 Blood (Blood) Venipuncture / Unknown 07/05/2025 3:25 AM EST 07/05/2025 3:31 AM EST us Gorge Cheung MD LAB BLOOD BKR ORDERABLES Fin al Result Performing Organization Address [facility] Co de Phone Number [address] [address] * Cortisol (07/04/2025 5:36 PM EST) Pathologist [facility] Cortisol 2.2 See comment ug/dL 07/04/2025 6:25 PM EST [facility] Comment: NORMALS: 8AM-12PM = 5-25 ug/dL [...] ORDERABLES Fin al Result Performing Organization Address City/[facility]/ZIP Co de Phone Number [address] [address] * Toxicology Screen, Urine (07/04/2025 2:59 PM EST) Amphetamines, Urine Negative Negative 07/04/2025 3:54 PM EST [facility] Benzodiazepine , Urine Negative Negative 07/04/2025 3:54 PM EST [facility] Cocaine Metabolite, Urine Negative Negative 07/04/2025 3:54 PM EST [facility] Opiates, Urine Negative Negative 07/04/2025 3:54 PM EST [facility] Oxycodone, Urine Negative Negative 07/04/2025 3:54 PM EST [facility] Fentanyl, Urine Negative Negative 07/04/2025 3:54 PM [facility] Creatinine, Urine 20 20 - 300 mg/dL 07/04/2025 3:54 PM [facility] Urine (Urine, Voided) Non-Blood Collection / Unknown 07/04/2025 2:59 PM EST 07/04/2025 3:21 PM EST [facility] - 07/04/2025 3:54 PM EST This screening test was performed by immunoassay methodology, which may occasionally yield false-negative or false-positive results. Confirmatory testing can be requested if a definitive result is needed. Results are to be used only for medical (ie, treatment) purposes. Unconfirmed screening results must not be used for non-medical purposes (eg, employment testing). Char Stone DO LAB URINE ORDERABLES Final Resul t [address] [address] * (ABNORMAL) Hemoglobin A1c (07/04/2025 11:51 AM EST) Hemoglobin A1c 6.5(H) 4.3 - 5.6 % 07/04/2025 12:28 PM EST [facility] Calculated Mean Blood Glucose 140 mg/dL 07/04/2025 12:28 PM [facility] Comment:There is no [facility] normal range for the Estimated Average Glucose [...] LAB BLOOD BKR ORDERABLES Fin al Result [address] [address] * (ABNORMAL) Beta Hydroxybutyrate (07/04/2025 11:50 AM EST) Only the most recent of2 resultswithin the time period is included. Beta-Hydroxybu tyrate, S 2.7(H) <0.4 mmol/L 07/05/2025 4:21 PM EST [facility] Blood (Blood) Venipuncture / Unknown 07/04/2025 11:50 AM EST 07/04/2025 11:56 AM EST us Gorge Cheung MD LAB BLOOD BKR ORDERABLES Fin al Result GISELE GARG) [address] [id number] [phone] * (ABNORMAL) Thyroid Stimulating Hormone (TSH), with Reflex (07/04/2025 11:50 AM EST) TSH 0.35(L) 0.40 - 5.00 uIU/mL 07/04/2025 12:31 PM EST [facility] Blood (Blood) Venipuncture / Unknown 07/04/2025 11:50 AM EST 07/04/2025 11:55 AM EST us Gogre Cheung MD LAB BLOOD BKR ORDERABLES Fin al Result Performing Organization Address [facility] Co de Phone Number [address] [address] * C-Reactive Protein (CRP) (07/04/2025 11:50 AM EST) C Reactive Protein <3.0 <10.0 mg/L 07/04/2025 12:31 PM EST [facility] Comment:NOTE: This reference range is for the evaluation of inflammation. Order CRP, High Sensitivity for cardiac risk status evaluation. Blood (Blood) Venipuncture / Unknown 07/04/2025 11:50 AM EST 07/04/2025 11:55 AM EST us Gorge Cheung MD LAB BLOOD BKR ORDERABLES Fin al Result Performing Organization Address [facility] Co de Phone Number [address] [address] * Troponin (07/04/2025 11:50 AM EST) Only the most recent of4 resultswithin the time period is included. Troponin-T HS Gen5 14 0 - 14 ng/L 07/04/2025 12:16 PM EST [facility] Blood (Blood) Venipuncture / Unknown 07/04/2025 11:50 AM EST 07/04/2025 11:56 AM EST us Gorge Cheung MD LAB BLOOD BKR ORDERABLES Fin al Result Performing Organization Address City/[facility] Co de Phone Number [address] [address] * T3, Total (07/04/2025 11:50 AM EST) T3, Total 106 60 - 181 ng/dL 07/06/2025 11:28 PM EST [facility] Blood (Blood) Venipuncture / Unknown 07/04/2025 11:50 AM EST 07/04/2025 12:31 PM EST us Gorge Cheung MD LAB BLOOD BKR ORDERABLES Fin al Result [facility] [address] [place] [address] * T4, Free (07/04/2025 11:50 AM EST) T4, Free 1.3 0.9 - 1.8 ng/dL 07/04/2025 1:38 PM EST [facility] Blood (Blood) Venipuncture / Unknown 07/04/2025 11:50 AM EST 07/04/2025 11:55 AM EST us Gorge Cheung MD LAB BLOOD BKR ORDERABLES Fin al Result Performing Organization Address [facility] Co de Phone Number [address] [address] * NT-proBNP (07/04/2025 11:50 AM EST) NT-ProBNP <36 0 - 450 pg/mL 07/04/2025 12:31 PM EST [facility] Comment: Age <50 years: 0-450 pg/ml [...] ORDERABLES Fin al Result Performing Organization Address City/[facility]/ZIP Co de Phone Number [address] [address] * Lipid Panel (07/04/2025 11:50 AM EST) Cholesterol 99 <200 mg/dL 07/04/2025 12:31 PM [facility] HDL 43 >=40 mg/dL 07/04/2025 12:31 PM [facility] Calculated LDL 41 <130 mg/dL 07/04/2025 12:31 PM [facility] Comment:LDL is calculated us ing the Deal-NIH equation (MK Cardiol. 2019November 26;5(5):540-548). Non-HDL Cholesterol 56 mg/dL 07/04/2025 12:31 PM [facility] Comment:Guidelines suggest a non-HDL cholesterol goal 30 mg/dL higher than the patient-specific LDL cholesterol goal. Cardiac Risk Ratio 2.3 0.0 - 5.0 2024 12:31 PM [facility] Triglycerides 73 <=150 mg/dL 07/04/2025 12:31 PM [facility] Blood (Blood) Venipuncture / Unknown 07/04/2025 11:50 AM EST 07/04/2025 11:55 AM EST Gorge Cheung MD LAB BLOOD BKR ORDERABLES Fin al Result Performing Organization Address City/[facility]/ZIP Co de Phone Number [address] [address] * (ABNORMAL) Lactate, Whole Blood (07/04/2025 9:24 AM EST) Pathologist [facility] Lactate, Whole Blood 2.1(H) 0.5 - 2.0 mmol/L 07/04/2025 9:29 AM [facility] Blood (Blood, Venous) Venipuncture / Unknown 07/04/2025 9:24 AM EST 07/04/2025 9:27 AM EST us Char Stone DO LAB BLOOD BKR ORDERABLES Final R esult Performing Organization Address City/[facility]/ZIP Co de Phone Number [address] [address] * CT ABDOMEN/PELVIS WITH CONTRAST (07/04/2025 8:33 AM EST) MGB IMG CORONARY CLINICAL SPECIALIST COMMENT Mild colitis. [facility] Anatomical Region Laterality Modality Abdomen, Pelvis Computed Tomogra phy 07/04/2025 9:32 AM EST Impressions 07/04/2025 9:50 AM EST Mild wall thickening of the ascending colon related to mild colitis. A clinically significant result was initiated on 07/04/2025 9:47 AM, Message ID [id number]. Narrative 07/04/2025 9:[address] ABDOMEN/PELVIS [...] for this examination in [facility]: *Diverticulitis suspected TECHNIQUE: Multidetector-row CT of the [...] was initiated on 07/04/2025 9:47 AM,Message ID [id number]. Char Stone DO IMG CT ABD/PELVIS Final Result * (ABNORMAL) Venous Blood Gas (VBG) (07/04/2025 7:27 AM EST) pH, Venous 7.27(L) 7.31 - 7.41 07/04/2025 7:41 AM [facility] pCO2, Venous 36 35 - 45 mm[Hg] 07/04/2025 7:41 AM [facility] pO2, Venous 54(H) 35 - 40 mm[Hg] 07/04/2025 7:41 AM [facility] Base Excess -10.2(L) -3.0 - 3.0 mmol/L 07/04/2025 7:41 AM [facility] Bicarbonate (HCO3) 16(L) 23 - 28 mmol/L 07/04/2025 7:41 AM [facility] Oxygen Saturation, Venous 81.9(H) 60.0 - 80.0 % 07/04/2025 7:41 AM [facility] Blood (Blood, Venous) Venipuncture / Unknown 07/04/2025 7:27 AM EST 07/04/2025 7:32 AM EST us Char Stone DO LAB BLOOD BKR ORDERABLES Final R esult Performing Organization Address City/[facility]/ZIP Co de Phone Number [address] [address] * Lipase (07/04/2025 5:15 AM EST) Only the most recent of2 resultswithin the time period is included. Lipase 48 13 - 60 U/L 07/04/2025 5:49 AM [facility] Blood (Blood) Venipuncture / Unknown 07/04/2025 5:15 AM EST 07/04/2025 5:19 AM EST us Jelani Carranza DO LAB BLOOD BKR ORDERABLES Angi l Result Performing Organization Address [facility] Co de Phone Number [address] [address] * (ABNORMAL) Urinalysis with Reflex to Urine Culture (07/04/2025 5:11 AM EST) Only the most recent of2 resultswithin the time period is included. Color Yellow Yellow 07/04/2025 5:20 AM [facility] Clarity Clear Clear 07/04/2025 5:20 AM [facility] Glucose 3+(A) Negative 07/04/2025 5:20 AM [facility] Bilirubin Urine Negative Negative 5:20 AM [facility] Ketone Urine 2+(A) Negative 07/04/2025 5:20 AM [facility] Specific [place] 1.025 1.001 - 1.035 07/04/2025 5:20 AM [facility] Blood Negative Negative 07/04/2025 5:20 AM [facility] pH 6.0 5.0 - 8.0 07/04/2025 5:20 AM [facility] Protein 1+(A) Negative 07/04/2025 5:20 AM [facility] Nitrites Negative Negative 07/04/2025 5:20 AM [facility] Leukocyte Esterase Negative Negative 07/04/2025 5:20 AM EST [facility] Urobilinogen Negative Negative 07/04/2025 5:20 AM EST [facility] Urine (Urine, Voided) Non-Blood Collection / Unknown 07/04/2025 5:11 AM EST 07/04/2025 5:16 AM EST us Jelani Carranza DO LAB URINE ORDERABLES Final Re sult Performing Organization Address City/[facility]/ZIP Co de Phone Number [address] [address] * URINE SEDIMENT (07/04/2025 5:11 AM EST) WBC 0-2 0 - 9 /hpf 07/04/2025 5:41 AM EST [facility] RBC 0-2 0 - 2 /hpf 07/04/2025 5:41 AM EST [facility] Urine (Urine, Voided) Non-Blood Collection / Unknown 07/04/2025 5:11 AM EST 07/04/2025 5:16 AM EST us Jelani Carranza DO LAB URINE ORDERABLES Final Re sult Performing Organization Address City/[facility] Co de Phone Number [address] [phone] * CT ABDOMEN/PELVIS WITH CONTRAST (05/30/2025 9:25 AM EST) Anatomical Region Laterality Modality Abdomen, Pelvis Computed Tomogra phy 05/30/2025 10:1 3 AM EST Impressions 05/30/2025 10:44 AM EST Mild wall thickening of the descending and sigmoid colon could represent mild colitis. ATTESTATION: I, Audrey Chowdhury as teaching physician, have reviewed the images for this case and if necessary edited the report originally created by [employer]. Narrative 05/30/2025 10:[address] ABDOMEN/PELVIS WITH CONTRAST Referring clinician's provided indication for this examination in Epic: Abdominal pain, acute; Right L abd pain. TECHNIQUE: Multidetector-row CT of the abdomen and pelvis was performed after administration of intravenous contrast using tailored dose modulation techniques. Images were reconstructed in the axial, coronal, and sagittal planes. COMPARISON: None. FINDINGS: Lower Chest: No consolidation or pleural effusions. Coronary calcification/stent. Liver: No focal lesions. Biliary: Noninflamed gallbladder. No biliary ductal dilatation. Spleen: No splenomegaly or focal lesions. Pancreas: No peripancreatic fat stranding or pancreatic duct dilatation. Adrenal Glands: No nodules. Kidneys/Ureters: No stones or hydronephrosis. Kidneys enhance homogeneously. Bowel: Mild wall thickening of the descending and sigmoid colon. No bowel obstruction. Normal appendix. Peritoneum/Retroperitoneum: No pneumoperitoneum or free fluid. Lymph Nodes: No lymphadenopathy. Pelvic Organs/Bladder: Distended urinary bladder. Coarse calcifications in the prostate. Vessels: Vessels enhance homogeneously. No aneurysm. Bones/Soft Tissues: Degenerative changes of the spine most marked at L5-S1 disc. Procedure Note Audrey Chowdhury MD - 05/30/2025 CT ABDOMEN/PELVIS WITH CONTRAST Referring clinician's provided indication for this examination in [facility]:Abdominal pain, acute; Right L abd pain. TECHNIQUE: Multidetector-row CT of the abdomen and pelvis was performedafter administration of intravenous contrast using tailored dosemodulation techniques. Images were reconstructed in the axial, coronal,and sagittal planes. COMPARISON: None. FINDINGS: Lower Chest: No consolidation or pleural effusions. Coronarycalcification/stent. Liver: No focal lesions. Biliary: Noninflamed gallbladder. No biliary ductal dilatation. Spleen: No splenomegaly or focal lesions. Pancreas: No peripancreatic fat stranding or pancreatic duct dilatation. Adrenal Glands: No nodules. Kidneys/Ureters: No stones or hydronephrosis. Kidneys enhancehomogeneously. Bowel: Mild wall thickening of the descending and sigmoid colon. No bowelobstruction. Normal appendix. Peritoneum/Retroperitoneum: No pneumoperitoneum or free fluid. Lymph Nodes: No lymphadenopathy. Pelvic Organs/Bladder: Distended urinary bladder. Coarse calcifications inthe prostate. Vessels: Vessels enhance homogeneously. No aneurysm. Bones/Soft Tissues: Degenerative changes of the spine most marked at L5-S1disc. IMPRESSION: Mild wall thickening of the descending and sigmoid colon could representmild colitis. ATTESTATION: I, Audrey Chowdhury as teaching physician, have reviewed theimages for this case and if necessary edited the report originally createdby [employer]. us Kristen Soto PA-C IMG CT ABD/PELVIS Final Resu lt * (ABNORMAL) CBC and differential (05/30/2025 12:42 AM EDT) WBC 9.80 4.00 - 11.00 K/uL [facility] RBC 4.77 4.50 - 5.90 M/uL [facility] HGB 13.7 13.5 - 17.5 g/dL [facility] HCT 42.1 41.0 - 53.0 % [facility] PLT 319 150 - 450 K/uL [facility] MCV 88.3 80.0 - 100.0 fL [facility] MCH 28.7 27.0 - 31.0 pg [facility] MCHC 32.5 32.0 - 36.0 g/dL [facility] RDW 15.9(H) 11.5 - 14.5 % [facility] MPV 9.6 8.4 - 12.0 fL [facility] NRBC 0.00 0.00 /100 WBCs [facility] ABSOLUTE NRBC 0.00 0.00 K/uL [facility] DIFF METHOD Auto [facility] NEUTS 55.0 48.0 - 76.0 % [facility] LYMPHS 33.5 18.0 - 41.0 % [facility] MONOS 7.3 4.0 - 11.0 % [facility] EOS 3.2 0.0 - 5.0 % [facility] BASOS 0.8 0.0 - 1.5 % [facility] Granulocytes, immature (%) 0.2 0.0 - 0.9 % [facility] ABSOLUTE NEUTS 5.39 1.92 - 7.60 K/uL [facility] ABSOLUTE LYMPHS 3.28 0.72 - 4.10 K/uL [facility] ABSOLUTE MONOS 0.72 0.16 - 1.10 K/uL [facility] ABSOLUTE EOS 0.31 0.00 - 0.50 K/uL [facility] ABSOLUTE BASOS 0.08 0.00 - 0.15 K/uL [facility] Granulocytes, immature 0.02 0.00 - 0.09 K/uL [facility] Blood 05/30/2025 12:4 2 AM EDT 05/30/2025 12:46 AM EDT us Cristopher Grant MD LAB BLOOD BKR ORDERABLES Fi nal Result [facility] [address] [place] [address] from Last 3 Months Insurance [facility] NON [facility] PCP [employer] Advance Directives For more information, please contact: [phone] (9AM - 5PM [facility], Saturday-Saturday) Documents on File Type Date Recorded Patient Wool Classer Expl anation Healthcare Proxy 07/06/2025 12:17 PM Healthcare Proxy 07/06/2025 11:08 AM healt hcare proxy * Full Code (Latest Code Status on File) Date Activated Date Inactivated Comments 07/04/2025 10:56 AM Question Answer Comments Code Status Confirmed With: Patient Code Status Communicated To: Inpatient Attending Care Teams Flap Lining Binder Relationship Specialty Start Date End Date Jayro Dougherty NP [address] [place] [address] PCP - General Nurse Practitioner 07/05/25 Additional Source Comments The information contained in this document represents components of the legal health record. It is not the complete legal health record.[facility]
== END 2025-07-08 16:30 | disposition home or self-care (01) ==
LOC: HO.ENCR 15:20
PROVIDERS: PCP Nurse Practitioner Family; Visit Provider Internal Medicine Endocrinology, Diabetes & Metabolism
DX: E11.65 Type 2 diabetes mellitus with hyperglycemia (principal); Z79.4 Long term (current) use of insulin; E11.9 Type 2 diabetes mellitus without complications
CPT/HCPCS: 99214

== ENCOUNTER → 2025-07-08 15:19 | Outpatient (BNVA) | payer OTHER, SELFPAY | PROVIDERS: PCP Nurse Practitioner Family; Visit Provider Internal Medicine Endocrinology, Diabetes & Metabolism | DX: E11.65 Type 2 diabetes mellitus with hyperglycemia (principal); Z79.4 Long term (current) use of insulin; Z79.84 Long term (current) use of oral hypoglycemic drugs | CPT/HCPCS: 82947; 83036; 99212 ==